=== PATIENT | male | born 1945 | race Caucasian/White ===

== ENCOUNTER 2020-08-25 14:09 | Outpatient (REF) | payer MEDICARE, SELFPAY ==
[2020-08-25 14:42] LABS: MANUAL DIFF FLAG NO
[2020-08-25 14:45] LABS: Basophils Absolute Auto 0.1 X10*3/uL (0.0-0.2); Basophils Percent Auto 0.5 % (0-2); Eosinophils Absolute Auto 0.4 X10*3/uL (0.0-0.4); Eosinophils Percent Auto 4.4 % (0-4); Hemoglobin 15.4 g/dl (14.0-18.0); Imm Gran Abs Auto 0.07 X10*3/uL (0.00-0.03); Imm Gran Pct Auto 0.7 % (0.0-0.4); Lymphocytes Absolute Auto 1.5 X10*3/uL (1.2-4.9); Lymphocytes Percent Auto 14.7 % (20-40); Mean Corpuscular HGB Conc 34.2 g/dl (31.0-36.0); Mean Corpuscular Hemoglobin 31.1 pg (27.0-33.0); Mean Corpuscular Volume 90.9 fL (80-98); Mean Platelet Volume 10.3 fL (9.4-12.4); Monocytes Absolute Auto 0.8 X10*3/uL (0.1-1.2); Neutrophils Absolute Auto 7.2 X10*3/uL (2.0-8.3); Neutrophils Percent Auto 71.7 % (45-73); Platelet Count 180 X10*3/uL (160-400); Red Blood Count 4.95 X10*6/uL (4.60-5.80); Red Cell Distribution Width 13.5 % (11.0-16.0)
[2020-08-25 15:04] LABS: Alanine Aminotransferase 19 U/L (0-40); Albumin Level 3.7 g/dL (3.5-5.0); Alkaline Phosphatase 105 U/L (39-117); Anion Gap 12 (12-20); Aspartate Amino Transferase 22 U/L (5-37); Bilirubin Total 0.7 mg/dL (0.0-1.0); Blood Urea Nitrogen 20 mg/dL (9-16); Calcium 8.7 mg/dL (8.4-10.2); Carbon Dioxide 31 mmol/L (22-29); Chloride 100 mmol/L (96-108); Cholesterol 122 mg/dL; Estimated Glomerular Filt Rate > 60; Glucose Random 163 mg/dL (60-115); HDL Cholesterol 37 mg/dL; LDL Cholesterol Calculated 52 mg/dl; Potassium 3.9 mmol/L (3.3-5.1); Sodium 139 mmol/L (135-145); Total Protein 6.7 g/dL (6.5-8.0); Triglycerides 167 mg/dL
[2020-08-25 15:27] LABS: Free T4 (Free Thyroxine) 1.04 ng/dL (0.71-1.85); Thyroid Stimulating Hormone 3.98 uIU/mL (0.32-4.0)
[2020-08-25 15:52] LABS: Folate > 20.0 ng/mL (> or = 4.0); Vitamin B12 694 pg/mL (200-900)
== END 2020-08-25 14:10 | disposition home or self-care (01) ==
LOC: HO.LAB 14:09
PROVIDERS: PCP Internal Medicine; Visit Provider Internal Medicine
DX: I25.10 Atherosclerotic heart disease of native coronary artery without angina pectoris (principal); I10 Essential (primary) hypertension; E78.00 Pure hypercholesterolemia, unspecified
CPT/HCPCS: 36415; 80053; 80061; 82607; 82746; 84439; 84443; 85025

== ENCOUNTER 2020-11-05 06:51 | Outpatient (REF) | payer MEDICARE, SELFPAY ==
[2020-11-05 09:10] LABS: Cholesterol 127 mg/dL; HDL Cholesterol 42 mg/dL; LDL Cholesterol Calculated 66 mg/dl; Triglycerides 96 mg/dL
== END 2020-11-05 06:52 | disposition home or self-care (01) ==
LOC: HO.LAB 06:51
PROVIDERS: PCP Internal Medicine; Visit Provider Internal Medicine Cardiovascular Disease
DX: I10 Essential (primary) hypertension (principal)
CPT/HCPCS: 36415; 80061

== ENCOUNTER 2021-11-09 08:16 | Outpatient (REF) | payer MEDICARE, SELFPAY ==
[2021-11-09 08:38] LABS: MANUAL DIFF FLAG NO
[2021-11-09 08:54] LABS: Basophils Percent Auto 0.4 % (0-2); Eosinophils Absolute Auto 0.5 X10*3/uL (0.0-0.4); Eosinophils Percent Auto 6.6 % (0-4); Hematocrit 46.2 % (42.0-52.0); Hemoglobin 15.7 g/dl (14.0-18.0); Imm Gran Abs Auto 0.04 X10*3/uL (0.00-0.03); Imm Gran Pct Auto 0.5 % (0.0-0.4); Lymphocytes Absolute Auto 1.3 X10*3/uL (1.2-4.9); Lymphocytes Percent Auto 17.9 % (20-40); Mean Corpuscular Hemoglobin 30.8 pg (27.0-33.0); Mean Corpuscular Volume 90.8 fL (80.0-98.0); Monocytes Absolute Auto 0.7 X10*3/uL (0.1-1.2); Monocytes Percent Auto 8.8 % (2-11); Neutrophils Absolute Auto 4.9 x10*3/uL (2.0-8.3); Neutrophils Percent Auto 65.8 % (45-73); Platelet Count 147 X10*3/uL (160-400); Red Blood Count 5.09 X10*6/uL (4.60-5.80); Red Cell Distribution Width 13.4 % (11.0-16.0); White Blood Count 7.4 X10*3/uL (4.8-10.8)
[2021-11-09 09:01] LABS: Estimated Average Glucose 114 mg/dL; Hemoglobin A1c % 5.6 %
[2021-11-09 09:24] LABS: Alanine Aminotransferase 20 U/L (0-40); Albumin Level 3.8 g/dL (3.5-5.0); Alkaline Phosphatase 89 U/L (39-117); Anion Gap 11 (12-20); Aspartate Amino Transferase 21 U/L (5-37); Bilirubin Total 0.9 mg/dL (0.0-1.0); Blood Urea Nitrogen 18 mg/dL (9-16); Calcium 9.5 mg/dL (8.4-10.2); Carbon Dioxide 31 mmol/L (22-29); Chloride 102 mmol/L (96-108); Cholesterol 115 mg/dL; Estimated Glomerular Filt Rate > 60; Glucose Random 110 mg/dL (60-115); HDL Cholesterol 36 mg/dL; LDL Cholesterol Calculated 58 mg/dl; Potassium 4.5 mmol/L (3.3-5.1); Sodium 139 mmol/L (135-145); Total Protein 6.8 g/dL (6.5-8.0); Triglycerides 105 mg/dL
[2021-11-09 09:47] LABS: Free T4 (Free Thyroxine) 1.14 ng/dL (0.71-1.85); Thyroid Stimulating Hormone 5.16 uIU/mL (0.32-4.0)
[2021-11-09 09:58] LABS: Folate > 20.0 ng/mL (> or = 4.0); Vitamin B12 > 2000 pg/mL (200-900)
== END 2021-11-09 08:17 | disposition home or self-care (01) ==
LOC: HO.LAB 08:16
PROVIDERS: PCP Internal Medicine; Visit Provider Internal Medicine
DX: E78.00 Pure hypercholesterolemia, unspecified (principal); C18.9 Malignant neoplasm of colon, unspecified; R73.02 Impaired glucose tolerance (oral)
CPT/HCPCS: 36415; 80053; 80061; 82378; 82607; 82746; 83036; 84439; 84443; 85025

== ENCOUNTER 2022-01-18 12:24 | Outpatient (REF) | payer MEDICARE, SELFPAY ==
[2022-01-18 14:00] LABS: Free T4 (Free Thyroxine) 1.06 ng/dL (0.71-1.85); Thyroid Stimulating Hormone 3.77 uIU/mL (0.32-4.0)
== END 2022-01-18 12:25 | disposition home or self-care (01) ==
LOC: HO.LAB 12:24
PROVIDERS: PCP Internal Medicine; Visit Provider Internal Medicine
DX: R94.6 Abnormal results of thyroid function studies (principal)
CPT/HCPCS: 36415; 84439; 84443

== ENCOUNTER 2022-04-18 | Outpatient (REF) | payer MEDICARE, SELFPAY ==
--- NOTE | ~2022-04-18 | CT_ITS ---
EXAMINATION: CT ABDOMEN AND PELVIS WITHOUT AND WITH CONTRAST CLINICAL INFORMATION: History of bladder cancer COMPARISON: Previous CT of the abdomen and pelvis from 2016 and 2017 TECHNIQUE: Noncontrast CT of the abdomen and pelvis is performed followed by split bolus contrast-enhanced images using 85 mL Omnipaque 350 contrast.? Postcontrast imaging is performed during the combined nephrogram and excretion phase. Sagittal and coronal reformatted images were obtained on the technologist's workstation for both the precontrast and postcontrast phases. This CT examination was performed using dose optimization techniques as appropriate, variously including the following: *Automated exposure control *Adjustment of mA and/or kV according to patient size (this includes techniques or standardized protocols for targeted exams where dose is matched to indication/reason for exam; i.e. extremities or head) *Use of iterative reconstruction technique DLP: 07/23/2005 mGy-cm FINDINGS: LUNG BASES: There is a 3 mm right lower lobe nodule, axial image 5 series 8. This is similar to previous exams. The lung bases are otherwise clear. LIVER, GALLBLADDER, AND BILIARY TREE: There are small calcifications in the liver. The liver is otherwise normal. No focal liver lesion or biliary duct dilatation. There are gallstones in the gallbladder. The gallbladder is otherwise normal. PANCREAS: Unremarkable. SPLEEN: The spleen is slightly enlarged measuring 13.5 cm in length. There are small calcifications in the spleen suggestive of old granulomatous disease. ADRENAL GLANDS: Unremarkable. KIDNEYS AND URETERS: The right kidney measures 10 and the left 11.5 cm in length. There is mild cortical thinning or scarring in the upper pole of the right kidney. There is a small subcentimeter low-attenuation lesion in the lower pole of the right kidney probably representing a cyst. This is similar to previous exam. The kidneys are otherwise normal. No hydronephrosis is seen. The collecting systems are normal. The bilateral mid ureters are not optimally opacified with excreted contrast. The ureters are otherwise normal. BLADDER: There is a small right-sided bladder diverticulum posterior to the right UVJ region. There is mild focal bladder wall thickening of the right posterolateral bladder wall adjacent to the neck of the diverticulum and the diverticulum does not completely fill with excreted contrast. There is abnormal soft tissue at the base of the bladder, presumably related to the prostate gland. The bladder is otherwise normal. There is diverticulosis of the colon. There is wall thickening of the sigmoid colon and it is difficult to exclude mild diverticulitis. There are postsurgical changes with surgical staple line seen in the right colon. There is an enterocolic anastomosis in the right mid abdomen. Small and large bowel are otherwise normal. GASTROINTESTINAL TRACT: The small and large bowel are unremarkable. The appendix is unremarkable. ABDOMINAL WALL: Bilateral hernias containing fat, right greater than left. Postsurgical changes to the abdominal wall. LYMPH NODES: Normal. VASCULAR: Atherosclerotic disease. No aneurysm. PELVIC VISCERA: Prostate gland is slightly enlarged measuring 3.7 x 4.3 cm and protrudes into the base of the bladder. OSSEUS STRUCTURES: There are degenerative changes of the spine and right hip joint that are stable. CT/CT urogram IMPRESSION: Small right-sided bladder diverticulum posterior to the right UVJ region. Mild focal right posterolateral bladder wall thickening adjacent to the neck of the diverticulum and underfilling of the diverticulum with excreted contrast. Abnormal soft tissue at the base of the bladder presumably related to the prostate gland. Small stable low-attenuation lesion in the lower pole of the right kidney probably representing a cyst. Diverticulosis of the sigmoid colon. It is difficult to exclude mild diverticulitis. Postsurgical change following right hemicolectomy. Gallstones. Evidence of old granulomatous disease in the spleen and liver. Stable small right lower lobe nodule.
[2022-04-18 07:44] LABS: Blood Urea Nitrogen 24 mg/dL (9-16); Estimated Glomerular Filt Rate 58
[2022-04-18] MEDS: iohexoL 350 MG/ML 100 ML INFUS..BTL IV (08:47)
== END 2022-04-18 00:01 | disposition home or self-care (01) ==
LOC: HO.CT
PROVIDERS: PCP Internal Medicine; Visit Provider Urology
DX: R82.89 Other abnormal findings on cytological and histological examination of urine (principal); Z85.51 Personal history of malignant neoplasm of bladder
CPT/HCPCS: 36415; 74178; 82565; 84520; Q9967

== ENCOUNTER 2022-07-13 09:12 | Outpatient (REF) | payer MEDICARE, SELFPAY ==
--- NOTE | ~2022-07-13 | XR_ITS ---
EXAMINATION: XR KNEES, STANDING AP BILATERAL XR KNEE, RIGHT CLINICAL INFORMATION: Knee pain COMPARISON: Radiographs right knee 09/29/2019. TECHNIQUE: Bilateral standing AP view of the knees is performed. Additional lateral and axial patella views of the right knee are obtained. FINDINGS: Right: No fracture, dislocation, destructive process. There is narrowing medial knee joint compartment with mild genu varus. Mild marginal osteophytes lateral femoral condyle and lateral tibial plateau. No destructive process or definite chondrocalcinosis. No visible effusion. Hoffa's fat pad appears normal. Axial view shows no lateralization patella. There are atherosclerotic calcifications vasculature. Left: Osteoarthritis greatest medial knee joint compartment with prominent joint narrowing and secondary genu varus. Mild marginal osteophytes. No visible erosive change. XR/XR knee standing BI IMPRESSION: Right: -Narrowing medial knee joint compartment with mild genu varus. No effusion. -Atherosclerotic calcifications vasculature. Left: -Osteoarthritis greatest medial compartment with secondary genu varus.
--- NOTE | ~2022-07-13 | XR_ITS ---
EXAMINATION: XR KNEES, STANDING AP BILATERAL XR KNEE, RIGHT CLINICAL INFORMATION: Knee pain COMPARISON: Radiographs right knee 09/29/2019. TECHNIQUE: Bilateral standing AP view of the knees is performed. Additional lateral and axial patella views of the right knee are obtained. FINDINGS: Right: No fracture, dislocation, destructive process. There is narrowing medial knee joint compartment with mild genu varus. Mild marginal osteophytes lateral femoral condyle and lateral tibial plateau. No destructive process or definite chondrocalcinosis. No visible effusion. Hoffa's fat pad appears normal. Axial view shows no lateralization patella. There are atherosclerotic calcifications vasculature. Left: Osteoarthritis greatest medial knee joint compartment with prominent joint narrowing and secondary genu varus. Mild marginal osteophytes. No visible erosive change. XR/XR knee RT 2V IMPRESSION: Right: -Narrowing medial knee joint compartment with mild genu varus. No effusion. -Atherosclerotic calcifications vasculature. Left: -Osteoarthritis greatest medial compartment with secondary genu varus.
--- NOTE | ~2022-07-13 | XR_ITS ---
EXAMINATION: XR PELVIS CLINICAL INFORMATION: Hip pain COMPARISON: CT abdomen and pelvis 04/18/2022 TECHNIQUE: AP view of the pelvis. FINDINGS: There is prominent right hip osteoarthritis with severe hip joint narrowing superior aspect along with subchondral sclerosis and geodes in osteophytes. Left hip has corticated ossicle or loose body superiorly anterior to the femoral head measuring approximately 1.5 cm. No interval left hip narrowing or erosive change. There are degenerative disc changes lower lumbar spine and osteoarthritis anterior inferior SI joints. Mild osteitis pubis. Spurring at the lateral iliac crests again present. There are atherosclerotic calcifications vasculature. XR/XR pelvis 1-2V IMPRESSION: 1. Prominent right hip osteoarthritis. 2. Corticated ossicle or loose body anterior superior left hip. 3. Degenerative disc changes lower lumbar spine and SI joints.
== END 2022-07-13 09:13 | disposition home or self-care (01) ==
LOC: HO.HOSX 09:12
PROVIDERS: Visit Provider Orthopaedic Surgery
DX: M16.11 Unilateral primary osteoarthritis, right hip (principal); M17.11 Unilateral primary osteoarthritis, right knee; I25.10 Atherosclerotic heart disease of native coronary artery without angina pectoris
CPT/HCPCS: 72170; 73560; 73565; 99202

== ENCOUNTER → 2022-08-07 14:20 | Outpatient (BNVA) | payer MEDICARE, SELFPAY | PROVIDERS: PCP Internal Medicine; Visit Provider Internal Medicine | DX: M51.36 Other intervertebral disc degeneration, lumbar region (principal); M16.11 Unilateral primary osteoarthritis, right hip; M17.11 Unilateral primary osteoarthritis, right knee; M48.062 Spinal stenosis, lumbar region with neurogenic claudication | CPT/HCPCS: 99202 ==

== ENCOUNTER 2022-09-28 08:00 | Outpatient (RCR) | payer MEDICARE, SELFPAY ==
[2022-09-07 07:11] VITALS: BP 140/80
--- NOTE | 2022-10-19 08:58 | MHC.PT.DC ---
[facility] [place] Office [place] Office [place] Office [address] Sheyla Lopez [address] [phone] F: [phone] F: [phone] F: [phone] F: [phone] Physical Therapy Discharge Report Diagnosis: LOW BACK, HIP AND KNEE PAIN Date of Surgery: Date of Evaluation: 09/06/22 Date of Discharge: 10/19/22 Treatments to Date: 2 Cancellations to Date: 2 No Shows to Date: 2 Discharge Status: Visit Non-compliance Discharge Summary: Pavan attended only 2 visits of physical therapy, cancelling 2 and no showing for 2. He is being DCed for non compliance at this time. Electronically signed by: María Elena Cheek PT, DPT Please sign and return to therapist. Thank you for your referral.
== END 2022-10-19 08:57 | disposition home or self-care (01) ==
LOC: HO.PT 08:00
PROVIDERS: Visit Provider Nurse Practitioner Family
DX: M54.9 Dorsalgia, unspecified (principal); M16.11 Unilateral primary osteoarthritis, right hip; M17.11 Unilateral primary osteoarthritis, right knee; M51.36 Other intervertebral disc degeneration, lumbar region
CPT/HCPCS: 97110; 97162

== ENCOUNTER → 2023-01-15 14:19 | Outpatient (BNVA) | payer MEDICARE, SELFPAY | PROVIDERS: PCP Internal Medicine; Visit Provider Orthopaedic Surgery | DX: M25.561 Pain in right knee (principal); M16.11 Unilateral primary osteoarthritis, right hip; I25.10 Atherosclerotic heart disease of native coronary artery without angina pectoris | CPT/HCPCS: 20610; 99212; J1100 ==

== ENCOUNTER → 2023-03-07 15:23 | Outpatient (BNVA) | payer MEDICARE, SELFPAY | PROVIDERS: PCP Internal Medicine; Visit Provider Orthopaedic Surgery ==

== ENCOUNTER 2023-07-05 07:11 | Outpatient (AMB) | payer MEDICARE, SELFPAY ==
[2023-07-05 07:29] VITALS: BP 140/80; PULSE 97; O2SAT 64; BMI 35.8
--- NOTE | 2023-07-05 07:29 | MHC.PC.OV ---
Vital Signs 07/05/23 07:29 Height 5 ft 8 in Weight 235 lb 4 oz BMI 35.8 BP 140/80 H Blood Pressure Location Lt brachial Position Sitting Pulse 97 Pulse Source Pulse Oximeter Pulse Oximetry (%) 64 L Oxygen Delivery Method Room Air Intake Visit Reasons: Annual Physical Intake Note: Patient here for an annual physical exam Punch Out Crew Member Required: No Accompanied by: Self / Same As Patient Allergies streptomycin [STREPTOMYCIN] Allergy (Severe, Verified 07/05/23 07:41) AFFECTED MY HEARING , anaphylaxis, affected hearing/nerves/etc, anxiety. Medication List - Last Reconciled 07/05/23 by ARNULFO Bhatti aspirin (Adult Aspirin Regimen) 81 mg PO DAILY atorvastatin 80 mg PO DAILY carvedilol 25 mg PO BID cholecalciferol (vitamin D3) 50 mcg PO DAILY diclofenac sodium 1% (Arthritis Pain (diclofenac)) 2 grams topical QID PRN finasteride 5 mg PO DAILY losartan-hydrochlorothiazide 100-25 mg 1 tab PO DAILY 90 days multivitamin 1 tab PO DAILY nitroglycerin mg sublingual vitamin B complex (B Complex-Vitamin B12 tablet) 1 tab PO DAILY Tobacco use date assessed: 07/05/23 Fall risk assessment: No Falls in past year Last assessed Fall Risk: 07/05/23 Dental Screening Dental Screen Date: 07/05/23 Did you have a dental visit in the last 12 months?: No Did you have a dental problem in the last 6 months where you did not have access to dental care?: No Was dental information given to patient?: Patient declined HPI HPI Comments History of Present Illness Details 77-year-old male past history significant for CAD, hypertension, hypercholesteremia, GERD, BPH impaired glucose tolerance, parents esophagus, anxiety and depression. Patient presents today for physical exam. Patient reports ongoing right knee pain related to his osteoarthritis. Patient reports takes [id number] Tylenol and ibuprofen as needed for pain. If he has seen pain management for this in the past and he was recommended to start on gabapentin however he does not want to take medications that could potentially alter his mood. Patient reports he needs surgery on right hip and likely his right knee however he is currently taking care of his 98-year-old father in law and he is holding off from the hip surgery at this time. Eye:UTD Colonscopy: 07/08/23; tubular adenoma Flu shot recommended patient reports will get >65yr dose at his pharmacy. All other immunizations UTD Fasting labs ordered. [facility] Medical History COVID-19 virus infection Amebic dysentery Foreign body of left lower leg Left rotator cuff tear Barretts esophagus Osteoarthritis Peripheral neuropathy Anxiety and depression Colon cancer Impaired glucose tolerance BPH (benign prostatic hyperplasia) Urinary bladder cancer Obesity GERD (gastroesophageal reflux disease) Hypercholesterolemia Hypertension CAD (coronary artery disease) Surgical History History of surgery History of partial colectomy History of bladder surgery History of carpal tunnel release Family History Father Heart failure Mother Thyroid disorder Sister Lung cancer Daughter Alcoholism Social History Housing: House Alcohol intake: former Patient Tobacco Use Status: Former Tobacco user e-Cigarette/Vaping Use: Never Used Second Hand Smoke Exposure: Yes service: Yes Current occupational status: retired Cognitive needs: No Hearing needs: Yes Vision needs: Yes Questionnaire PHQ-9 Over the last 2 weeks, how often have you been bothered by any of the following problems? 1. Little interest or pleasure in doing things: not at all 2. Feeling down, depressed, or hopeless: not at all 3. Trouble falling or staying asleep, or sleeping too much: not at all 4. Feeling tired or having little energy: not at all 5. Poor appetite or overeating: not at all 6. Feeling bad about yourself - or that you are a failure or have let yourself or your family down: not at all 7. Trouble concentrating on things, such as reading the newspaper or watching television: not at all 8. Moving or speaking so slowly that other people could have noticed. Or the opposite - being so fidgety or restless that you have been moving around a lot more than usual: not at all 9. Thoughts that you would be better off or of hurting yourself in some way: not at all Total score: 0 Depression Screening Interpretation: Negative Depression Screening Done: Yes 01700 - PHQ-9 Billing: Yes Source: Developed by Drs. Mckinley Ahn, Shanna Nice, Monico Pérez and colleagues, with an educational saul from [employer]. Thrive Questionnaire Date Thrive assessed: 07/05/23 I am a: Patient What is your living situation today?: I have a steady place to live Within the past 12 months, did the food you bought not last and you didn't have the money to get more?: Never true Within the past 12 months, did you worry whether your food would run out before you got money to buy more?: Never true Do you have trouble paying for medicines?: No Do you have trouble getting transportation to medical appointments?: No Do you have trouble paying your heating and electricity bill?: No Do you have trouble taking care of your child, family member or friend?: No Do you have trouble with day-to-day activities such as bathing, preparing meals, shopping, managing finances, etc.?: No Are you currently unemployed and looking for a job?: No Are you interested in more education?: No Please select the resources that you would like help with: None Currently or been in a relationship where the following occur: no concerns reported AUDIT C Alcohol Use Questionnaire (AUDIT-C) 1. How often do you have a drink containing alcohol?: Never Total Score: 0 MIKAYLA-7 AMB Questionnaire MIKAYLA-7 Date MIKAYLA - 7 assessed: 07/05/23 Feeling nervous, anxious, or on edge: 0 = Not at all Not being able to stop or control worryin = Not at all Worrying too much about different things: 0 = Not at all Trouble relaxin = Not at all Being so restless that it is hard to sit still: 0 = Not at all Becoming easily annoyed or irritable: 0 = Not at all Feeling afraid as if something awful might happen: 0 = Not at all Total MIKAYLA-7 score (0-4 normal; 5-9 mild; 10-14 moderate; 15-21 severe): 0 Source: Developed by Drs. Mckinley Ahn, Monico Aguilar and colleagues, with an educational saul from [employer]. MIKAYLA-7 Assessment Billing MIKAYLA-7 Assessment Tool: MIKAYLA-7 Assessment 11271 Review of Systems Const Denies chills, Denies fatigue, Denies fever(s) and Denies poor appetite Eyes Denies no additional complaints ENT Reports Normal hearing present Card Denies chest pain, Denies syncope, Denies rapid heart rate and Denies dyspnea Resp Denies cough and Denies dyspnea GI Denies change in stool character, Denies constipation, Denies diarrhea, Denies nausea and Denies vomiting Denies dysuria, Denies urinary frequency and Denies urinary urgency Neuro Reports Normal hearing present, Denies confusion and Denies syncope Psych Denies confusion Endo Denies fatigue Physical exam (Primary Care) Vital Signs: Last Vital Signs Pulse 97 07/05/23 07:29 BP 140/80 H 07/05/23 07:29 Pulse Ox 64 L 07/05/23 07:29 Oxygen Delivery Method Room Air 07/05/23 07:29 BMI result Body Mass Index 35.8 Tobacco/Smoking Status: Tobacco use Status Tobacco use date assessed 07/05/23 07/05/23 07:34 Patient Tobacco Use Status Former Tobacco user 07/05/23 07:34 e-Cigarette/Vaping Use Never Used 07/05/23 07:34 PHQ-9: PHQ-9 Score PHQ-9: Total score 0 07/05/23 07:34 Depression Screening Interpretation: Negative Thrive Assessment: Date of Thrive Assessment Date Thrive assessed 07/05/23 07/05/23 07:34 Currently or been in a relationship where the following occur: no concerns reported Const General: No confusion Orientation/consciousness: No confusion HENMT Head: Yes normocephalic and Yes atraumatic Ears: external ears normal and TM's normal bilaterally General nose exam: Normal external nose present and Normal nasal mucous membranes and turbinates present Face and sinus: Yes normal facial exam and Yes sinuses nontender Mouth: moist mucous membranes Throat: Yes tonsils normal Eyes Conjunctivae: conjunctivae normal Sclerae: sclerae normal Pupils: Equal, round and reactive pupils present and Pupils normal by confrontation EOM: EOMs intact bilaterally Direct Ophthalmoscopy: normal light reflex Neck Neck: Yes no lymphadenopathy and Yes supple Thyroid: Thyroid normal Chest Chest palpation & inspection: normal inspection of the chest Resp Effort & Inspection: normal respiratory effort Auscultation: clear to auscultation bilaterally, no crackles, no rhonchi and no wheezes Cardio Rate: regular rate Rhythm: regular rhythm Peripheral pulses: radial pulses present and dorsalis pedis present GI Inspection: Yes normal to inspection Palpation (GI): Soft to palpation, nontender and No hepatosplenomegaly present Auscultation: normoactive bowel sounds Skin General skin exam: no rashes or lesions noted Neuro General: No confusion Cranial nerves: Yes Equal, round and reactive pupils present and Yes Normal hearing present Cognition (Neuro): normal cognition Gait exam (Neuro): Normal gait present Motor exam (neuro): 5/5 motor strength present throughout Deep tendon reflexes (DTR's): Right brachioradialis reflex intensity grade: 2+, Left brachioradialis reflex intensity grade: 2+, Right patellar reflex intensity grade: 2+ and Left patellar reflex intensity grade: 2+ Extrem General: No edema Assessment and Plan Assessment & Plan (1) Hypertension: Code(s): I10 - Essential (primary) hypertension Qualifiers: Hypertension type: essential hypertension Qualified Code(s): I10 - Essential (primary) hypertension Plan: Continue on losartan-hydrochlorothiazide and carvedilol. Blood pressure goal less than 140/90. Follow low-salt diet exercise. (2) Hypercholesterolemia: Code(s): E78.00 - Pure hypercholesterolemia, unspecified Plan: Continue on atorvastatin 80 mg daily. Avoid fried foods, chicken skin, eggs, butter,margarine, pastries and?? red meat. Fasting labs ordered. (3) Osteoarthritis of right hip: Code(s): M16.11 - Unilateral primary osteoarthritis, right hip Plan: Continue to take [id number] Tylenol and ibuprofen as needed for pain. (4) Osteoarthritis of right knee: Code(s): M17.11 - Unilateral primary osteoarthritis, right knee Plan: Continue to take [id number] Tylenol and ibuprofen as needed for pain. (5) CAD (coronary artery disease): Comment: MRI stent x3(LAD, OM, RCA) April and June 2014 [facility] Code(s): I25.10 - Atherosclerotic heart disease of [place] coronary artery without angina pectoris Qualifiers: Coronary Disease-Associated Artery/Lesion type: [place] artery [place] vs. transplanted heart: [place] heart Associated angina: without angina Qualified Code(s): I25.10 - Atherosclerotic heart disease of [place] coronary artery without angina pectoris Plan: Continue on aspirin and statin. (6) Physical exam, annual: Code(s): Z00.00 - Encounter for general adult medical examination without abnormal findings Orders: Orders Comprehensive [place]. Panel Fast Today I10 - Essential (primary) hypertension Complete Blood Count Auto Diff Today Z13.0 - Encounter for screening for diseases of the blood and blood-forming organs and certain disorders involving the immune mechanism Lipid Panel Today E78.00 - Pure hypercholesterolemia, unspecified UA CC w/rflx Micro + Cult Today E78.00 - Pure hypercholesterolemia, unspecified Coding Level of Care Code Est Pt Prev Care >65y(32551) Diagnoses Essential hypertension I10 Hypertension type: essential hypertension Hypercholesterolemia E78.00 Osteoarthritis of right hip M16.11 Osteoarthritis of right knee M17.11 Coronary artery disease involving [place] coronary artery of [place] heart without angina pectoris I25.10 Coronary Disease-Associated Artery/Lesion type: [place] artery [place] vs. transplanted heart: [place] heart Associated angina: without angina Physical exam, annual Z00.00 Additional Codes MIKAYLA-7 Assessment Billing - MIKAYLA-7 Assessment Tool: MIKAYLA-7 Assessment 41084 ([id number])
== END 2023-07-05 07:55 | disposition home or self-care (01) ==
PROVIDERS: PCP Internal Medicine; Visit Provider Nurse Practitioner Family
DX: I10 Essential (primary) hypertension (principal); E78.00 Pure hypercholesterolemia, unspecified; M16.11 Unilateral primary osteoarthritis, right hip; M17.11 Unilateral primary osteoarthritis, right knee; I25.10 Atherosclerotic heart disease of native coronary artery without angina pectoris; Z00.00 Encounter for general adult medical examination without abnormal findings
CPT/HCPCS: 99397

== ENCOUNTER 2023-07-20 07:54 | Outpatient (REF) | payer MEDICARE, SELFPAY ==
[2023-07-20 08:13] LABS: MANUAL DIFF FLAG NO
[2023-07-20 08:18] LABS: Basophils Absolute Auto 0.1 X10*3/uL (0.0-0.2); Basophils Percent Auto 0.7 % (0-2); Eosinophils Absolute Auto 0.5 X10*3/uL (0.0-0.4); Eosinophils Percent Auto 5.6 % (0-4); Hematocrit 45.7 % (42.0-52.0); Hemoglobin 15.6 g/dl (14.0-18.0); Imm Gran Abs Auto 0.04 X10*3/uL (0.00-0.03); Imm Gran Pct Auto 0.5 % (0.0-0.4); Lymphocytes Absolute Auto 1.3 X10*3/uL (1.2-4.9); Lymphocytes Percent Auto 15.6 % (20-40); Mean Corpuscular HGB Conc 34.1 g/dl (31.0-36.0); Mean Corpuscular Volume 90.9 fL (80.0-98.0); Monocytes Absolute Auto 0.7 X10*3/uL (0.1-1.2); Monocytes Percent Auto 8.7 % (2-11); Neutrophils Absolute Auto 5.9 x10*3/uL (2.0-8.3); Neutrophils Percent Auto 68.9 % (45-73); Platelet Count 169 X10*3/uL (160-400); Red Blood Count 5.03 X10*6/uL (4.60-5.80); Red Cell Distribution Width 13.2 % (11.0-16.0); White Blood Count 8.5 X10*3/uL (4.8-10.8)
[2023-07-20 08:46] LABS: Alanine Aminotransferase 19 U/L (0-40); Albumin Level 3.9 g/dL (3.5-5.0); Alkaline Phosphatase 89 U/L (39-117); Anion Gap 12 (12-20); Aspartate Amino Transferase 22 U/L (5-37); Bilirubin Total 0.7 mg/dL (0.0-1.0); Blood Urea Nitrogen 26 mg/dL (9-16); Calcium 9.3 mg/dL (8.4-10.2); Carbon Dioxide 30 mmol/L (22-29); Chloride 102 mmol/L (96-108); Cholesterol 131 mg/dL (<200); Estimated Glomerular Filt Rate > 60; Glucose Fasting 115 mg/dL (60-99); HDL Cholesterol 40 mg/dL (>40); LDL Cholesterol Calculated 69 mg/dL (<100); Potassium 3.6 mmol/L (3.3-5.1); Sodium 140 mmol/L (135-145); Total Protein 7.1 g/dL (6.5-8.0); Triglycerides 111 mg/dL (<150)
[2023-07-20 09:07] LABS: Appearance Urine Clear; Color Urine Yellow; Glucose Urine UA Negative (Negative); Leukocyte Esterase Urine Negative (Negative); Nitrite Urine Negative (Negative); PH 5.5 (5.0-9.0); UMIC TRIGGER UACC YES; Urine Blood Trace (Negative); Urine Ketones Negative (Negative); Urine Protein Negative (Neg-Trace)
[2023-07-20 09:13] LABS: Bacteria Urine None Seen (None Seen); Hyaline Casts Urine 0-2 /LPF (0-2); Squamous Epithelial Cell Urine 0-2 /HPF (0-2); WBC Urine 0-5 /HPF (0-5)
== END 2023-07-20 07:55 | disposition home or self-care (01) ==
LOC: HO.LAB 07:54
PROVIDERS: PCP Internal Medicine; Visit Provider Nurse Practitioner Family
DX: E78.00 Pure hypercholesterolemia, unspecified (principal); I10 Essential (primary) hypertension; Z13.0 Encounter for screening for diseases of the blood and blood-forming organs and certain disorders involving the immune mechanism
CPT/HCPCS: 36415; 80053; 80061; 81001; 81003; 85025

== ENCOUNTER → 2023-08-07 08:14 | Outpatient (BNVA) | payer MEDICARE, SELFPAY | PROVIDERS: PCP Internal Medicine; Visit Provider Orthopaedic Surgery ==

== ENCOUNTER → 2023-08-14 09:50 | Outpatient (REF) | payer MEDICARE, SELFPAY ==
--- NOTE | 2023-08-14 09:56 | ECG_ITS ---
Test Reason : PREOP Blood Pressure : / mmHG Vent. Rate : 061 BPM Atrial Rate : 061 BPM P-R Int : 162 ms QRS Dur : 084 ms QT Int : 402 ms P-R-T Axes : 052 026 -49 degrees QTc Int : 404 ms Normal sinus rhythm ST & T wave abnormality, consider anterolateral ischemia Abnormal ECG When compared with ECG of 25-DEC-2017 11:42, T wave inversion now evident in Anterior leads Referred By: Franco Juarez Electronically Signed By:Mumtaz Allan
[2023-08-14 10:21] LABS: MANUAL DIFF FLAG NO
[2023-08-14 11:15] LABS: Basophils Percent Auto 0.4 % (0-2); Eosinophils Absolute Auto 0.4 X10*3/uL (0.0-0.4); Eosinophils Percent Auto 4.6 % (0-4); Hematocrit 44.4 % (42.0-52.0); Hemoglobin 15.2 g/dl (14.0-18.0); Imm Gran Abs Auto 0.05 X10*3/uL (0.00-0.03); Imm Gran Pct Auto 0.5 % (0.0-0.4); Lymphocytes Absolute Auto 1.4 X10*3/uL (1.2-4.9); Lymphocytes Percent Auto 15.8 % (20-40); Mean Corpuscular HGB Conc 34.2 g/dl (31.0-36.0); Mean Corpuscular Hemoglobin 31.5 pg (27.0-33.0); Mean Corpuscular Volume 91.9 fL (80.0-98.0); Mean Platelet Volume 10.5 fL (9.4-12.4); Monocytes Absolute Auto 0.8 X10*3/uL (0.1-1.2); Monocytes Percent Auto 9.1 % (2-11); Neutrophils Absolute Auto 6.3 x10*3/uL (2.0-8.3); Neutrophils Percent Auto 69.6 % (45-73); Platelet Count 154 X10*3/uL (160-400); Red Blood Count 4.83 X10*6/uL (4.60-5.80); Red Cell Distribution Width 13.6 % (11.0-16.0); White Blood Count 9.1 X10*3/uL (4.8-10.8)
[2023-08-14 12:33] LABS: Anion Gap 11 (12-20); Blood Urea Nitrogen 26 mg/dL (9-16); Calcium 9.3 mg/dL (8.4-10.2); Carbon Dioxide 30 mmol/L (22-29); Chloride 101 mmol/L (96-108); Estimated Glomerular Filt Rate > 60; Glucose Random 114 mg/dL (60-115); Potassium 3.9 mmol/L (3.3-5.1); Sodium 138 mmol/L (135-145)
== END ==
LOC: HO.CARD 09:50
PROVIDERS: PCP Internal Medicine; Visit Provider Internal Medicine
DX: Z01.818 Encounter for other preprocedural examination (principal); M16.11 Unilateral primary osteoarthritis, right hip
CPT/HCPCS: 36415; 80048; 85025; 93005

== ENCOUNTER → 2023-08-14 09:56 | Outpatient (BNV) | payer MEDICARE, SELFPAY | PROVIDERS: PCP Internal Medicine; Visit Provider Internal Medicine Cardiovascular Disease | DX: R94.31 Abnormal electrocardiogram [ECG] [EKG] (principal) | CPT/HCPCS: 93010 ==

== ENCOUNTER 2023-08-21 15:04 | Outpatient (AMB) | payer MEDICARE, SELFPAY ==
[2023-08-21 15:05] VITALS: BP 142/78; PULSE 59; O2SAT 96; BMI 35.3
--- NOTE | 2023-08-21 15:05 | A.OFFPC_ITS ---
Vital Signs 08/21/23 15:05 08/21/23 15:20 Height 5 ft 8 in Weight 232 lb BMI 35.3 BP 142/78 H 134/80 Blood Pressure Location Lt brachial Lt brachial Position Sitting Sitting Pulse 59 Pulse Source Pulse Oximeter Pulse Oximetry (%) 96 Oxygen Delivery Method Room Air Intake Visit Reasons: Pre-Op Right Hip Surgery Intake Note: Patient is here for a Pre-op for right hip JOHANNE scheduled with Dr. Camacho on 08/28/23. Director Of Rehabilitative Services Required: No Allergies streptomycin [STREPTOMYCIN] Allergy (Severe, Verified 08/21/23 15:05) AFFECTED MY HEARING , anaphylaxis, affected hearing/nerves/etc, anxiety. Medication List - Last Reconciled 08/21/23 by Franco Juarez MD aspirin (Adult Aspirin Regimen) 81 mg PO DAILY atorvastatin 80 mg PO BEDTIME carvedilol 25 mg PO BID cholecalciferol (vitamin D3) 50 mcg PO DAILY cyanocobalamin (vitamin B-12) ER (Vitamin B-12 ER) 2,500 mcg PO DAILY diclofenac sodium 1% (Arthritis Pain (diclofenac)) 2 grams topical QID PRN finasteride 5 mg PO BEDTIME losartan-hydrochlorothiazide 100-25 mg 1 tab PO DAILY 90 days multivitamin 1 tab PO DAILY nitroglycerin 0.4 mg sublingual .Q5MINS PRN Tobacco use date assessed: 08/21/23 Fall risk assessment: No Falls in past year Last assessed Fall Risk: 08/21/23 Dental Screening Dental Screen Date: 08/21/23 Did you have a dental visit in the last 12 months?: No Did you have a dental problem in the last 6 months where you did not have access to dental care?: No HPI Pre-Op Right Hip Surgery HPI Details 77-year-old male with a history of hyper tension hypercholesterolemia coronary artery disease with prior PCI of LAD, om and RCA back in 2013. Seen by Cardiology in February 2023 for preoperative risk stratification for hip replacement surgery August 28, 2023 Dr. Camacho. Considered intermediate risk for a moderate risk procedure. Patient has been doing good, deny any syncopal episode but on moving head up feels mild dizziness. last fall 6 months ago. Tripped on the carpet. And before that has not had a fall. [facility] Medical History (Updated 08/21/23 @ 15:16 by Franco Juarez MD) Post-nasal drip Recent bereavement Foreign body in left lower extremity COVID-19 virus infection Amebic dysentery Foreign body of left lower leg Left rotator cuff tear Barretts esophagus Osteoarthritis Peripheral neuropathy Anxiety and depression Colon cancer Impaired glucose tolerance BPH (benign prostatic hyperplasia) Urinary bladder cancer Obesity GERD (gastroesophageal reflux disease) Hypercholesterolemia Hypertension CAD (coronary artery disease) Surgical History (Updated 08/21/23 @ 13:46 by Maria Del Rosario Burleson RN) H/O cardiac catheterization (~2013) Hx of colonoscopy History of partial colectomy History of bladder surgery History of carpal tunnel release Family History Father Heart failure Mother Thyroid disorder Sister Lung cancer Daughter Alcoholism Social History (Updated 08/21/23 @ 15:24 by Franco Juarez MD) Household Members: Family Housing: House Are you a primary home care rn to a significant other at home: No Do you presently have visiting nurse or other home services: No Alcohol intake: former Comment: aware of trip hazards 1984 stopped Patient Tobacco Use Status: Former Tobacco user Quit Date: 1984 Tobacco use type: Cigarette Years Smoked: 18 stopped 1984 e-Cigarette/Vaping Use: Never Used Second Hand Smoke Exposure: No service: Yes Current occupational status: retired Cognitive needs: No Hearing needs: Yes Vision needs: Yes Questionnaire PHQ-9 Over the last 2 weeks, how often have you been bothered by any of the following problems? 1. Little interest or pleasure in doing things: not at all 2. Feeling down, depressed, or hopeless: not at all 3. Trouble falling or staying asleep, or sleeping too much: not at all 4. Feeling tired or having little energy: not at all 5. Poor appetite or overeating: not at all 6. Feeling bad about yourself - or that you are a failure or have let yourself or your family down: not at all 7. Trouble concentrating on things, such as reading the newspaper or watching television: not at all 8. Moving or speaking so slowly that other people could have noticed. Or the opposite - being so fidgety or restless that you have been moving around a lot more than usual: not at all 9. Thoughts that you would be better off or of hurting yourself in some way: not at all Total score: 0 Depression Screening Interpretation: Negative Depression Screening Done: Yes Source: Developed by Drs. Mckinley Ahn, Monico Aguilar and colleagues, with an educational saul from [employer]. Thrive Questionnaire Date Thrive assessed: 08/21/23 I am a: Patient What is your living situation today?: I have a steady place to live Within the past 12 months, did the food you bought not last and you didn't have the money to get more?: Never true Within the past 12 months, did you worry whether your food would run out before you got money to buy more?: Never true Do you have trouble paying for medicines?: No Do you have trouble getting transportation to medical appointments?: No Do you have trouble paying your heating and electricity bill?: No Do you have trouble taking care of your child, family member or friend?: No Do you have trouble with day-to-day activities such as bathing, preparing meals, shopping, managing finances, etc.?: No Are you currently unemployed and looking for a job?: No Are you interested in more education?: No Please select the resources that you would like help with: None THRIVE Score: 0 AUDIT C Alcohol Use Questionnaire (AUDIT-C) 1. How often do you have a drink containing alcohol?: Never 3. How often do you have six or more drinks on one occasion?: Never Total Score: 0 MIKAYLA-7 AMB Questionnaire MIKAYLA-7 Date MIKAYLA - 7 assessed: 08/21/23 Source: Developed by Drs. Mckinley Ahn, Shanna Nice, Monico Pérez and colleagues, with an educational saul from [employer]. Review of Systems Const Denies poor appetite and Denies weakness Eyes Denies no additional complaints ENT Reports Normal hearing present, Denies dizziness, Denies nasal congestion, Denies tinnitus and Denies sore throat Card Denies chest pain, Denies syncope, Denies rapid heart rate and Denies dyspnea Resp Denies cough and Denies dyspnea GI Denies change in stool character, Reports constipation, Denies diarrhea, Denies nausea and Denies vomiting Denies dysuria and Denies urinary frequency Neuro Reports Normal hearing present, Denies confusion, Denies dizziness, Denies syncope and Denies weakness Psych Denies confusion Physical exam (Primary Care) Vital Signs: Last Vital Signs Pulse 59 08/21/23 15:05 BP 142/78 H 08/21/23 15:05 Pulse Ox 96 08/21/23 15:05 Oxygen Delivery Method Room Air 08/21/23 15:05 BMI result Body Mass Index 35.3 Tobacco/Smoking Status: Tobacco use Status Tobacco use date assessed 08/21/23 08/21/23 15:07 Patient Tobacco Use Status Former Tobacco user 08/21/23 15:07 Tobacco use type Cigarette 08/21/23 15:07 e-Cigarette/Vaping Use Never Used 08/21/23 15:07 PHQ-9: PHQ-9 Score PHQ-9: Total score 0 08/21/23 15:07 Depression Screening Interpretation: Negative Thrive Assessment: Date of Thrive Assessment Date Thrive assessed 08/21/23 08/21/23 15:07 Const General: No confusion Orientation/consciousness: No confusion Eyes Conjunctivae: conjunctivae normal Resp Auscultation: clear to auscultation bilaterally Cardio Rate: regular rate Rhythm: regular rhythm GI Inspection: Yes normal to inspection Neuro General: No confusion Cranial nerves: Yes Normal hearing present Extrem General: Yes normal to inspection and No edema Assessment and Plan Assessment & Plan (1) Preop exam for internal medicine: Code(s): Z01.818 - Encounter for other preprocedural examination Plan: EKG and blood work evaluated. Patient is in the intermediate risk category for any cardiac complication for a moderate risk procedure. Discussed holding of aspirin and any anti-inflammatory 1 week before the procedure. Discussed the importance of taking blood pressure medication prior to surgery. No further workup needed and may proceed with the contemplated procedure. Thank you very much for letting me participate in the care of this patient. (2) CAD (coronary artery disease): Comment: MRI stent x3(LAD, OM, RCA) April and June 2014 [facility] Elle burris Code(s): I25.10 - Atherosclerotic heart disease of [place] coronary artery without angina pectoris Qualifiers: Coronary Disease-Associated Artery/Lesion type: [place] artery [place] vs. transplanted heart: [place] heart Associated angina: without angina Qualified Code(s): I25.10 - Atherosclerotic heart disease of [place] coronary artery without angina pectoris Plan: Control the cholesterol, weight, blood pressure (3) Hypertension: Code(s): I10 - Essential (primary) hypertension Qualifiers: Hypertension type: essential hypertension Qualified Code(s): I10 - Essential (primary) hypertension Plan: Continue with blood pressure medication. Decrease salt intake and exercise losartan hydrochlorothiazide 100/25 and carvedilol 25 mg twice a day (4) Hypercholesterolemia: Code(s): E78.00 - Pure hypercholesterolemia, unspecified Plan: Avoid fried foods, chicken skin, eggs, butter margarine, pastries and meat. Be it pork or beef they have a lot of cholesterol LDL goal of less than 70 and triglyceride of less than 150 on atorvastatin 80 mg once a day (5) GERD (gastroesophageal reflux disease): Code(s): K21.9 - Gastro-esophageal reflux disease without esophagitis Plan: Avoid the foods that causes that usually spicy foods, tomato products, juices, coffee, soda and foods that your sensitive to. After eating do not lie down, allow 3-4 hours before in lie down. And keep the head of bed above 30 degrees to avoid the acid from going up. (6) Generalized anxiety disorder: Code(s): F41.1 - Generalized anxiety disorder Plan: Stable (7) Osteoarthritis of right hip: Code(s): M16.11 - Unilateral primary osteoarthritis, right hip Plan: Right hip surgery Dr. Camacho Coding Level of Care Code Est Pt Level 4 (10438) Diagnoses Preop exam for internal medicine Z01.818 Coronary artery disease involving [place] coronary artery of [place] heart without angina pectoris I25.10 Coronary Disease-Associated Artery/Lesion type: [place] artery [place] vs. transplanted heart: [place] heart Associated angina: without angina Essential hypertension I10 Hypertension type: essential hypertension Hypercholesterolemia E78.00 GERD (gastroesophageal reflux disease) K21.9 Generalized anxiety disorder F41.1 Osteoarthritis of right hip M16.11
[2023-08-21 15:20] VITALS: BP 134/80
== END 2023-08-21 15:39 | disposition home or self-care (01) ==
PROVIDERS: PCP Internal Medicine; Visit Provider Internal Medicine
DX: Z01.818 Encounter for other preprocedural examination (principal); I25.10 Atherosclerotic heart disease of native coronary artery without angina pectoris; I10 Essential (primary) hypertension; E78.00 Pure hypercholesterolemia, unspecified; K21.9 Gastro-esophageal reflux disease without esophagitis; F41.1 Generalized anxiety disorder; M16.11 Unilateral primary osteoarthritis, right hip
CPT/HCPCS: 99214

== ENCOUNTER 2023-08-23 09:54 | Outpatient (REF) | payer MEDICARE, SELFPAY ==
--- NOTE | ~2023-08-23 | XR_ITS ---
EXAMINATION: XR HIP, RIGHT CLINICAL INFORMATION: Hip pain COMPARISON: 07/13/2022 TECHNIQUE: Two views of the right hip. FINDINGS: Interval progression in right hip osteoarthritis with increased sclerosis of the superior aspect of the femoral head and areas of lucency. XR/XR hip RT w [id number] IMPRESSION: Interval progression in right hip osteoarthritis with increased sclerosis of the superior aspect of the femoral head and areas of lucency. Recommend further evaluation with MRI to exclude osteonecrosis.
== END 2023-08-23 09:55 | disposition home or self-care (01) ==
LOC: HO.HOSX 09:54
PROVIDERS: Visit Provider Physician Assistant
DX: Z01.818 Encounter for other preprocedural examination (principal); M16.11 Unilateral primary osteoarthritis, right hip
CPT/HCPCS: 73502

== ENCOUNTER → 2023-08-28 09:25 | Outpatient (BNV) | payer MEDICARE, SELFPAY | PROVIDERS: Admitting Provider Physician Assistant; PCP Internal Medicine; Visit Provider Internal Medicine | DX: R07.89 Other chest pain (principal); R94.31 Abnormal electrocardiogram [ECG] [EKG] | CPT/HCPCS: 93010 ==

== ENCOUNTER 2023-08-28 11:54 | Inpatient (IN) | payer MEDICARE, SELFPAY ==
[2023-08-21 13:25] VITALS: BP 146/73; PULSE 60; RESP 16; O2SAT 97; BMI 35.0
--- NOTE | 2023-08-21 14:06 | P.CONAN_ITS ---
Documented by User: Milena Busby NP 08/27/23 12:07 HPI - Anesthesia Eval Consult details Narrative: 77yo M for Right Hip Total Replacement, 08/28/23 PCP cleared Cardiac cleared No recent illness No CP/SOB within limits of pain. CAD s/p stent x 2013. No issues since +Stop bang. No prior sleep study. Educated on post op risk GERD. PRN tums PND. No tx PMFSH Active Problems Active Problems: All Active Problems (Updated 08/21/23 @ 13:16 by Maria Del Rosario Burleson RN) Osteoarthritis of left knee (Acute) Spinal stenosis of lumbar region with neurogenic claudication (Acute) Lumbar degenerative disc disease (Acute) Osteoarthritis of right hip (Acute) Osteoarthritis of right knee (Acute) Right knee pain (Acute) Back pain (Acute) TSH elevation (Acute) Generalized anxiety disorder (Acute) Barretts esophagus (Acute) Anxiety and depression (Acute) Colon cancer (Acute) Impaired glucose tolerance (Acute) BPH (benign prostatic hyperplasia) (Acute) Obesity (Acute) GERD (gastroesophageal reflux disease) (Acute) Hypercholesterolemia (Acute) Hypertension (Acute) CAD (coronary artery disease) (Acute) Past Medical History Medical History Post-nasal drip Recent bereavement Foreign body in left lower extremity COVID-19 virus infection Amebic dysentery Foreign body of left lower leg Left rotator cuff tear Barretts esophagus Osteoarthritis Peripheral neuropathy Anxiety and depression Colon cancer Impaired glucose tolerance BPH (benign prostatic hyperplasia) Urinary bladder cancer Obesity GERD (gastroesophageal reflux disease) Hypercholesterolemia Hypertension CAD (coronary artery disease) Family History Family History Father Heart failure Mother Thyroid disorder Sister Lung cancer Daughter Alcoholism Family history of problems with anesthesia: No Surgical History Surgical History H/O cardiac catheterization (~2013) Hx of colonoscopy History of partial colectomy History of bladder surgery History of carpal tunnel release History of Problems with Anesthesia: No Social History Social History Household Members: Family Housing: House Are you a primary senior care specialist to a significant other at home: No Do you presently have visiting nurse or other home services: No Alcohol intake: former Comment: aware of trip hazards 1984 stopped Patient Tobacco Use Status: Former Tobacco user Quit Date: 1984 Tobacco use type: Cigarette Years Smoked: 18 stopped 1984 e-Cigarette/Vaping Use: Never Used Second Hand Smoke Exposure: No Use of substances other than those prescribed or required for medical reasons: No Have you been hit, kicked, punched, or otherwise hurt by someone within the past year? If so, by whom?: No Are you DNR?: No Advance Directives: No Advance Directives Information Provided: Yes Advance Directives on File: No Recently lost weight without trying: No Nutrition Risks: No Nutritional Risk service: Yes Current occupational status: retired Cognitive needs: No Hearing needs: Yes Vision needs: Yes Meds Allergies Allergy/AdvReac Type Severity Reaction Status Date / Time streptomycin [STREPTOMYCIN] Allergy Severe AFFECTED Verified 08/28/23 09:12 MY HEARING , anaphylaxis, affected hearing/nerves/etc, anxiety. Home Medications Medication Instructions Recorded Confirmed Last Taken Type cholecalciferol (vitamin D3) 50 50 mcg PO DAILY 05/25/20 08/28/23 08/27/23 History mcg (2,000 unit) capsule finasteride 5 mg tablet 5 mg PO BEDTIME 05/25/20 08/28/23 08/27/23 History multivitamin 1 tab PO DAILY 05/25/20 08/28/23 08/27/23 History atorvastatin 80 mg tablet 80 mg PO BEDTIME 08/21/23 08/28/23 08/27/23 History cyanocobalamin (vitamin B-12) 2,500 mcg PO DAILY 08/21/23 08/28/23 08/27/23 History 2,000 mcg tablet,extended release (Vitamin B-12 ER) Exam Height,Weight and Vital Signs: Height 5 ft 8 in Weight 104.326 kg Last Vital Signs Pulse 60 08/21/23 13:25 Resp 16 08/21/23 13:25 BP 146/73 H 08/21/23 13:25 Pulse Ox 97 08/21/23 13:25 O2 Del Method Room Air 08/21/23 13:25 Pertinent Lab Results Pertinent Lab Results: Laboratory Tests 08/14/23 10:21 WBC 9.1 Hgb 15.2 Hct 44.4 Plt Count 154 L Sodium 138 Potassium 3.9 Chloride 101 Carbon Dioxide 30 H BUN 26 H Creatinine 1.07 Narrative Narrative: EKG 07/2023 Vent. Rate : 061 BPM Atrial Rate : 061 BPM P-R Int : 162 ms QRS Dur : 084 ms QT Int : 402 ms P-R-T Axes : 052 026 -49 degrees QTc Int : 404 ms Normal sinus rhythm ST & T wave abnormality, consider anterolateral ischemia Abnormal ECG When compared with ECG of 25-DEC-2017 11:42, T wave inversion now evident in Anterior leads Airway Mallampati Class: III TM Dist: >3cm Neck ROM: Limited Loose/Missing/Broken Teeth: Yes (Poor denition, mulitiple broken and missing throughout) Heart: RRR Lungs: CTAB Assessment and Plan Assessment Anesthesia Assessment: Anesthesia Plan Discussed and PAT Visit Final Anesthetic Review Family History of Problems with Anesthesia: No History of Problems with Anesthesia: No Documented by User: Jono Mast MD 08/28/23 11:17 [facility] Past Medical History Medical History Post-nasal drip Recent bereavement Foreign body in left lower extremity COVID-19 virus infection Amebic dysentery Foreign body of left lower leg Left rotator cuff tear Barretts esophagus Osteoarthritis Peripheral neuropathy Anxiety and depression Colon cancer Impaired glucose tolerance BPH (benign prostatic hyperplasia) Urinary bladder cancer Obesity GERD (gastroesophageal reflux disease) Hypercholesterolemia Hypertension CAD (coronary artery disease) Family History Family History Father Heart failure Mother Thyroid disorder Sister Lung cancer Daughter Alcoholism Surgical History Surgical History H/O cardiac catheterization (~2013) Hx of colonoscopy History of partial colectomy History of bladder surgery History of carpal tunnel release Social History Social History Household Members: Family Housing: House Are you a primary senior care specialist to a significant other at home: No Do you presently have visiting nurse or other home services: No Alcohol intake: former Comment: aware of trip hazards 1984 stopped Patient Tobacco Use Status: Former Tobacco user Quit Date: 1984 Tobacco use type: Cigarette Years Smoked: 18 stopped 1984 e-Cigarette/Vaping Use: Never Used Second Hand Smoke Exposure: No Use of substances other than those prescribed or required for medical reasons: No Have you been hit, kicked, punched, or otherwise hurt by someone within the past year? If so, by whom?: No Are you DNR?: No Advance Directives: No Advance Directives Information Provided: Yes Advance Directives on File: No Recently lost weight without trying: No Nutrition Risks: No Nutritional Risk service: Yes Current occupational status: retired Cognitive needs: No Hearing needs: Yes Vision needs: Yes Meds Allergies Allergy/AdvReac Type Severity Reaction Status Date / Time streptomycin [STREPTOMYCIN] Allergy Severe AFFECTED Verified 08/28/23 09:12 MY HEARING , anaphylaxis, affected hearing/nerves/etc, anxiety. Home Medications Medication Instructions Recorded Confirmed Last Taken Type cholecalciferol (vitamin D3) 50 50 mcg PO DAILY 05/25/20 08/28/23 08/27/23 History mcg (2,000 unit) capsule finasteride 5 mg tablet 5 mg PO BEDTIME 05/25/20 08/28/23 08/27/23 History multivitamin 1 tab PO DAILY 05/25/20 08/28/23 08/27/23 History atorvastatin 80 mg tablet 80 mg PO BEDTIME 08/21/23 08/28/23 08/27/23 History cyanocobalamin (vitamin B-12) 2,500 mcg PO DAILY 08/21/23 08/28/23 08/27/23 History 2,000 mcg tablet,extended release (Vitamin B-12 ER) Assessment and Plan Final Anesthetic Review ASA Class: III Final Preanesthetic Review: No Changes in Pt Med Stat, Meds/Allgs Chart Reviewed, Consent Obtained/Reviewed and Anes Risks/Benef Reviewed Patient Risk: Intermediate Procedure Risk: Intermediate Anesthetic Plan Anesthetic Plan: GA Disposition: Standard PACU
[2023-08-21 16:19] LABS: MRSA Nasal PCR NEGATIVE (Negative); SA Nasal PCR NEGATIVE (Negative)
--- NOTE | 2023-08-27 12:16 | PHA.MEDREC ---
Pharmacy Consult ? Medication Reconciliation Pharmacy has completed the medication reconciliation. Reviewed med rec done by nursing
[2023-08-28] VITALS (15 sets, daily range): BP systolic 94–142; BP diastolic 52–80; PULSE 56–67; RESP 10–18; TEMP 35.7–36.8; O2SAT 95–100
--- NOTE | 2023-08-28 | ECG_ITS ---
Test Reason : chest pressure Blood Pressure : / mmHG Vent. Rate : 063 BPM Atrial Rate : 063 BPM P-R Int : 160 ms QRS Dur : 080 ms QT Int : 434 ms P-R-T Axes : 032 011 084 degrees QTc Int : 444 ms Normal sinus rhythm T wave abnormality, consider lateral ischemia Abnormal ECG No previous ECGs available Referred By: Camila Barajas Electronically Signed By:JASON WILSON
--- NOTE | ~2023-08-28 | XR_ITS ---
EXAMINATION: XR PELVIS CLINICAL INFORMATION: Right total hip arthroplasty COMPARISON: 08/23/2023 TECHNIQUE: AP view of the pelvis. FINDINGS: Prosthetic components of the right total hip arthroplasty are appropriately aligned. No periprosthetic fracture. Gas from recent surgery is present in the surrounding soft tissues. Minimal osteoarthritis in the left hip. Mild osteoarthritis in both SI joints. Pubic symphysis is normal. Vascular calcifications in the pelvis. XR/XR pelvis 1-2V IMPRESSION: Appropriate alignment of the right total hip prosthesis.
[2023-08-28] MEDS: Lactated Ringers 1,000 ML 100 ML IVCONT ×2 (09:21→16:19)
[2023-08-28] MEDS: oxyCODONE HCl ER 10 MG TAB.ER.12H PO ×2 (09:21→21:58)
--- NOTE | 2023-08-28 09:25 | ECG_ITS ---
Test Reason : preop Blood Pressure : / mmHG Vent. Rate : 057 BPM Atrial Rate : 057 BPM P-R Int : 166 ms QRS Dur : 084 ms QT Int : 434 ms P-R-T Axes : 029 015 269 degrees QTc Int : [address] & T wave abnormality, consider inferior ischemia ST & T wave abnormality, consider anterolateral ischemia Abnormal ECG When compared with ECG of 14-AUG-2023 09:51, No significant change was found Referred By: Jono Mast Electronically Signed By:JASON WILSON
--- NOTE | 2023-08-28 12:17 | PC.NURSE ---
During pre-op assessment pt reports 3 weeks of vertigo/dizziness with position changes. Pt was seen by this brief writer to be notably unsteady. Pt also reported that he has a sensation of pinching in his chest to his R arm yesterday. Dr Mast was made aware of assessment and pt reports. EKG was ordered and ok to proceed was verbalized by Dr Mast.
--- NOTE | 2023-08-28 12:20 | MHC.SHP ---
Pre-Procedural Eval Section A - 24 Hr Update-Section A only Date of Service: 08/28/23 The patient is an INPATIENT: No Changes since office visit: No Cold of Flu in the past 2 weeks, No New Medical Problems, No Changes in Medication and No Patient answered all questions The patient has been examined within 24 hours of the surgical procedure. The History & Physical has been completed within 30 days and I have reviewed it.: Yes Section B - Complete if H&P > 30 days Chief Complaint: RT JOHANNE Allergies: Allergies Allergy/AdvReac Type Severity Reaction Status Date / Time streptomycin [STREPTOMYCIN] Allergy Severe AFFECTED Verified 08/28/23 09:12 MY HEARING , anaphylaxis, affected hearing/nerves/etc, anxiety. Plan I have reviewed the history and physical and performed a pertinent physical examination on my patient. No changes have occurred unless specified. Time Spent With Patient Time: Total time managing care of this patient today ____ minutes.
--- NOTE | 2023-08-28 14:28 | P.BOP_ITS ---
Brief Operative Note Date of Service: 08/28/23 Pre-op diagnosis: Right hip OA Post-op diagnosis: same Procedure: Right JOHANNE Implants: Francie Trident 2 58 with 3 acetabular screws Accolade 2 #7 132 deg with +0/36 ceramic Surgeon: Rui Camacho MD Anesthesia: GETA and local Was an Operations Manager/Coordinator used for this Procedure?: Yes Operations Manager/Coordinator: Bridgette Worthington Estimated blood loss (mL): 200 IV fluids (mL): 1,000 Pathology: other Condition: stable Disposition: PACU
--- OUTSIDE RECORDS SUMMARY | 2023-08-28 14:38 | XMS_ITS | Continuity of Care Document ---
Author Name Unknown Organization [facility] ter Address [address] [place] [id number] Care Team Providers Care Paleobotanist Name Role Phone Franco Juarez MD Primary Care Physician [phone] [place] [facility] 10/31/18 - 11/14/[address] [address]- [facility] Discharge Disposition: A-D/C Home Attending Physician: Kashmir Ventura MD Admitting Physician: Kashmir Ventura MD Referring Physician: Kashmir Ventura MD Allergies, Adverse Reactions, Alerts Substance Reaction Severity Status streptomycin tingles all overbody hearing impairment Active Medications atorvastatin 80 mg oral tablet = 80 mg, By Mouth, Daily at bedtime, read side effects, # 1 tablet, 3 Refills, Maintenance, 05/19/14 9:52:26, Tablet Start Date: 05/19/14 Stop Date: 09/16/14 Status: Ordered carvedilol 6.25 mg oral tablet = 6.25 mg, By Mouth, 2 times a day, Read side effects, # 1 tablet, 3 Refills, Maintenance, 149:52:41, Tablet Start Date: 05/19/14 Stop Date: 09/16/14 Status: Ordered Centrum Silver By Mouth, Daily, 0 Refills, Maintenance, 05/18/14 5:29:09 Start Date: 05/18/14 Status: Ordered famotidine 20 mg oral tablet 1 tablet = 20 mg, By Mouth, Daily, # 30 tablet, 0 Refills, Maintenance, 05/18/14 5:27:25, Tablet Start Date: 05/18/14 Status: Ordered Fasprin 81 mg oral tablet, disintegrating 1 tablet = 81 mg, By Mouth, Daily, 0 Refills, Maintenance, 05/18/14 5:24:54 Start Date: 05/18/14 Status: Ordered losartan 100 mg oral tablet 1 tablet = 100 mg, By Mouth, Daily, # 30 tablet, 0 Refills, Maintenance, 05/18/14 5:19:27, Tablet Start Date: 05/18/14 Status: Ordered ticagrelor 90 mg oral tablet 1 tablet = 90 mg, By Mouth, 2 times a day, # 60 tablet, 0 Refills, Maintenance, 05/19/14 9:55:57, Tablet Start Date: 05/19/14 Status: Ordered Social History Social History Type Response Smoking Status Never smoker entered on: 05/18/14 Sex
--- NOTE | 2023-08-28 14:42 | P.DS_ITS ---
DS: Providers Provider Date of Service: 08/30/23 Date of admission: 08/28/23 11:54 Primary care physician: Franco Juarez MD DS: Summary Hospital Course Hospital Course: The patient underwent a successful right total hip arthroplasty, they were transferred to PACU and then to the floor to recover. During their stay, he did experience apisodes of hypotension, an echo, EKG and cardiology consult was placed and he was cleared for discharge. He remained afebrile at 96.8. Labs were unremarkable, H/H 9.3/26.8. POD 1 they were started on Aspirin 325mg po bid for DVT ppx, they also received Physical Therapy services twice a day. Prior to discharge, their dressing was clean dry and intact, and the plan was to be discharged to short term rehab. Time Attestation Discharge coordination time: Less than 30 minutes Quality: Safe Use of Opioids Does Pt have an Active Cancer Diagnosis on the Problem List?: No Quality: Stroke Does the patient have a stroke diagnosis?: No Physical Exam Vital Signs: Vital Signs: Last Vital Signs Temp 96.2 F L 08/28/23 09:19 Pulse 67 08/28/23 09:19 Resp 16 08/28/23 09:19 BP 126/80 08/28/23 09:19 Pulse Ox 96 08/28/23 09:19 O2 Del Method Room Air 08/28/23 09:19 BMI result Body Mass Index 35.0 Const: General: cooperative, healthy appearing and no acute distress Resp: Effort & Inspection: normal respiratory effort and able to speak in complete sentences Cardio: Rate: regular rate Peripheral pulses: Peripheral pulses 2+ throughout GI: Palpation (GI): Soft to palpation Skin: Lesions: no lesions Rashes: no rashes Extrem: Other: right hip dressing is c/d/i. Able to dorsi/plantar flex. Calf is supple and nontender. Sensation intact. Pedal pulse intact. DS: Data Data Completed and Pending Pending studies at discharge: Pending at discharge 08/28/23 13:08 Surgical [PTH] Routine Discharge Plan Discharge Anticipated Discharge Date/Time: 08/30/23 13:00 Patient Disposition: er SNF Discharge Diagnosis: s/p RTHA Referrals: Meaghan Brandon PA-C [Physician [employer]] - 09/13/23 10:30 am (09/13/23 ) Discharge Medications: New celecoxib 200 mg Capsule 200 mg PO BID 30 Days Qty: 60 0RF acetaminophen 325 mg Tablet 650 mg PO Q6H PRN (Reason: Pain, Mild (Pain Scale 1-3)) 30 Days Qty: 240 0RF aspirin 325 mg Tablet 325 mg PO BID 42 Days Qty: 84 0RF docusate sodium 100 mg Capsule 100 mg PO BID 90 Days Qty: 180 0RF oxycodone 5 mg tablet 5 mg PO Q4H PRN (Reason: pain (scale score 4-6)) 7 Days Qty: 42 0RF Rx Instructions: Partial Fill upon patient request. Continued diclofenac sodium [Arthritis Pain (diclofenac)] 1 % gel 2 g topical QID PRN (Reason: pain) Qty: 100 0RF carvedilol 25 mg tablet 25 mg PO BID Qty: 180 1RF Rx Instructions: must administer with a meal/food losartan-hydrochlorothiazide 100-25 mg tablet 1 tab PO DAILY 90 Days Qty: 90 2RF atorvastatin 80 mg tablet 80 mg PO BEDTIME cyanocobalamin (vitamin B-12) [Vitamin B-12] 2,000 mcg Tablet Extended Release 2,500 mcg PO DAILY multivitamin Tablet 1 tab PO DAILY cholecalciferol (vitamin D3) 50 mcg (2,000 unit) capsule 50 mcg PO DAILY finasteride 5 mg tablet 5 mg PO BEDTIME Discharge Orders: Discharge Order (Routine); Ordered 08/30/23 Ordered By: Meaghan Brandon Diet: Advance to usual diet Activity on Discharge: Use cane or walker Stand Alone Forms: Patient Portal Discharge page Care Plan Goals: Restore fxn to right hip Health Concerns: None Plan of Treatment: Physical Therapy for total hip arthroplasty: posterior precautions, gait training, ROM, strength Limit stair climbing No showering, no tub bath-keep dressing clean, dry and intact No driving x6 weeks Continue Aspirin x 6 weeks [place] [facility] [place] [facility] [place] Assessment: stable for discharge
--- NOTE | 2023-08-28 14:43 | P.F2F_ITS ---
Service Date Service Date: 08/28/23 Encounter Date of encounter: 08/29/23 Reasons for Services Signs and symptoms assessed: Pt. is considered homebound due to recent surgery. Unable to drive, poor balance, poor gait mechanics. s/p RTHA. Reason for physical therapy: home safety and mobility, therapeutic exercises, restore joint function, gait/transfer training, assess need for DME and ADL training Reason for occupational therapy: home safety and mobility, therapeutic exercises, restore joint function, gait/transfer training, assess need for DME and ADL training Homebound: Leaving the home is medically contraindicated at this time without the asist of a device and/or another person due th the listed conditions above and below. Reason homebound: unsteady gait / fall risk, leg weakness, pain with ambulation, pain with transfers, poor balance / fall risk and unable to drive Certification: Based on the above findings, I certify that this patient is confined to the home and needs intermittent [facility] care, physical therapy and/or speech therapy, or continues to need occupational therapy. The patient is under my care, and I have initiated the establishment of the plan of care. The patient will be followed by a physician who will periodically review the plan of care. Time Spent With Patient Time: Total time managing care of this patient today ____ minutes.
[2023-08-28] MEDS: HYDROmorphone HCl 0.5 MG/0.5 ML SYRINGE 0.25 MG IVPUSH ×4 (14:45→15:25)
[2023-08-28] MEDS: 0.9 % Sodium Chloride Flush 3 ML SYRINGE IVFLUSH ×2 (16:19→19:21)
--- NOTE | 2023-08-28 16:21 | P.CONHOSP_ITS ---
History of Present Illness Data of Consult Service Date: 08/28/23 Requesting physician: Bridgette Worthington Primary Care Provider: Franco Juarez MD HPI Reason for consult: medical management 77-year-old male with history of hypertension, hyperlipidemia, Wallis's esophagus, GERD, history of bladder cancer, peripheral neuropathy, mood disorder, coronary artery disease admitted to orthopedic surgery for management of osteoarthritis of the right hip s/p right JOHANNE with consult placed to hospitalist service for medical management. The patient was reports to have episodes of dizziness both pre-operatively and post-operatively. He was given 0.25mg dilaudid, but vitals stable, no hypotension. He reports he has a longstanding history of vertigo, room spinning dizziness, with positional change s/head movements ongoing for years. Reports the episodes pre/post op felt similar. Lasting several seconds before resolving spontaneously. No near syncope, nausea/vomiting. Has never seen ENT for these symptoms or taken medications. He denies any palpitations, chest pain or palpitations. Has some air hunger but no hypoxia. He is reporting 8/10 pain R hip that is improving. No etoh use, cigarette smoking, or drug use Review of Systems Review of Systems: General: No fevers, malaise, unintentional weight loss HEENT: No blurred vision, diplopia. No sore throat, nasal congestion, rhinorrhea, sinus pain, ear pain Cardiovascular: No chest pain, palpitations, or leg edema Respiratory: No shortness of breath, wheezing, cough GI: No abdominal pain, nausea, vomiting, diarrhea, constipation, melena, hematochezia : No dysuria, hematuria, increased urinary frequency, decreased urinary output MSK: No myalgia, back pain Neuro: No headaches, weakness, paresthesias, lightheadedness. +vertigo Skin: No rashes or lesions [facility] Medical History Post-nasal drip Recent bereavement Foreign body in left lower extremity COVID-19 virus infection Amebic dysentery Foreign body of left lower leg Left rotator cuff tear Barretts esophagus Osteoarthritis Peripheral neuropathy Anxiety and depression Colon cancer Impaired glucose tolerance BPH (benign prostatic hyperplasia) Urinary bladder cancer Obesity GERD (gastroesophageal reflux disease) Hypercholesterolemia Hypertension CAD (coronary artery disease) Family History Father Heart failure Mother Thyroid disorder Sister Lung cancer Daughter Alcoholism Surgical History H/O cardiac catheterization (~2013) Hx of colonoscopy History of partial colectomy History of bladder surgery History of carpal tunnel release Social History Household Members: Children Housing: House Are you a primary medical care administrator to a significant other at home: No Do you presently have visiting nurse or other home services: No Alcohol intake: former Comment: aware of trip hazards 1984 stopped Patient Tobacco Use Status: Former Tobacco user Quit Date: 1984 Tobacco use type: Cigarette Years Smoked: 18 stopped 1984 e-Cigarette/Vaping Use: Never Used Second Hand Smoke Exposure: No Use of substances other than those prescribed or required for medical reasons: No Have you been hit, kicked, punched, or otherwise hurt by someone within the past year? If so, by whom?: No Do you feel safe in your current relationship?: No Is there a partner from a previous relationship who is making you feel unsafe now?: No Are you made to feel afraid or neglected: No Are you DNR?: No Advance Directives: No Advance Directives Information Provided: Yes Advance Directives on File: No Do you have thoughts of harming others: None Do you have a plan to hurt others: No Plan Recently lost weight without trying: No Eating poorly because of decreased appetite: No Nutrition Risks: No Nutritional Risk service: Yes Current occupational status: retired Cognitive needs: No Hearing needs: Yes Vision needs: Yes Meds Allergies Allergy/AdvReac Type Severity Reaction Status Date / Time streptomycin [STREPTOMYCIN] Allergy Severe AFFECTED Verified 08/28/23 09:12 MY HEARING , anaphylaxis, affected hearing/nerves/etc, anxiety. Active Medications: Current Medications Acetaminophen (Acetaminophen 325 Mg Tablet) 650 mg PO Q6H PRN PRN Reason: Pain, Mild (Pain Scale 1-3) Aspirin (Aspirin 325 Mg Tablet) 325 mg PO BID LALY Carvedilol (Carvedilol 25 Mg Tablet) 25 mg PO BID LALY; Protocol Celecoxib (Celecoxib 200 Mg Capsule) 200 mg PO BID LALY Cyanocobalamin (Cyanocobalamin (Vitamin B-12) 1,000 Mcg Tablet) 1,000 mcg PO BID [facility] Docusate Sodium (Docusate Sodium 100 Mg Capsule) 100 mg PO BID [facility] Finasteride (Finasteride 5 Mg Tablet) 5 mg PO BEDTIME [facility] Hydromorphone HCl (Hydromorphone Hcl 0.5 Mg/0.5 Ml Syringe) 0.25 mg IVPUSH Q4H PRN; Protocol PRN Reason: Pain, Severe (Pain Scale 7-10) Lactated Ringer's (Lr) 1,000 mls @ 100 mls/hr IVCONT .Q10H LALY Stop: 08/29/23 14:29 Cefazolin Sodium/Dextrose (Ancef) 2 gm in 50 mls @ 100 mls/hr IV POSTOP ONE Stop: 08/28/23 18:59 Ondansetron HCl (Ondansetron Hcl 4 Mg/2 Ml Vial) 4 mg IVPUSH Q8H PRN PRN Reason: Nausea and Vomiting Oxycodone HCl (Oxycodone Hcl Immed Release 5 Mg Tablet) 5 mg PO Q4H PRN PRN Reason: Pain, Moderate(Pain Scale 4-6) Oxycodone HCl (Oxycodone Hcl Er 10 Mg Tab.Er.12h) 10 mg PO BID [facility] Sodium Chloride (0.9 % Sodium Chloride Flush 3 Ml Syringe) 3 ml IVFLUSH QSHIFT [facility] Home Medications Medication Instructions Recorded Confirmed Last Taken Type cholecalciferol (vitamin D3) 50 50 mcg PO DAILY 05/25/20 08/28/23 08/27/23 History mcg (2,000 unit) capsule finasteride 5 mg tablet 5 mg PO BEDTIME 05/25/20 08/28/23 08/27/23 History multivitamin 1 tab PO DAILY 05/25/20 08/28/23 08/27/23 History atorvastatin 80 mg tablet 80 mg PO BEDTIME 08/21/23 08/28/23 08/27/23 History cyanocobalamin (vitamin B-12) 2,500 mcg PO DAILY 08/21/23 08/28/23 08/27/23 History 2,000 mcg tablet,extended release (Vitamin B-12 ER) Physical Exam Vital Signs and Narrative: Vital Signs: Last Vital Signs Temp 97.0 F 08/28/23 16:00 Pulse 63 08/28/23 16:00 Resp 17 08/28/23 16:00 BP 109/56 L 08/28/23 16:00 Pulse Ox 98 08/28/23 16:00 O2 Del Method Nasal Cannula 08/28/23 16:00 O2 Flow Rate 2 08/28/23 16:00 BMI result Body Mass Index 35.0 Constitutional - Awake and Alert, No apparent distress Eyes - PERRLA, EOMI Cardiovascular - S1S2, RRR, No edema Respiratory - Normal lung expansion, Normal respiratory effort, No respiratory distress, CTA bilaterally Gastrointestinal - NT / ND; +BS; No rebound or guarding Extremities - no calf tenderness bilaterally, no swelling Skin - Warm/Dry Neurological - Alert & oriented x3, CN II-XII intact Psychological - Appropriate affect Assessment and Plan (1) Osteoarthritis of right hip: Qualifiers: Osteoarthritis type: primary Qualified Code(s): M16.11 - Unilateral primary osteoarthritis, right hip Status: Acute Plan 77-year-old male with history of hypertension, hyperlipidemia, Wallis's esophagus, GERD, history of bladder cancer, peripheral neuropathy due to chemotherapy, mood disorder, coronary artery disease admitted to orthopedic [facility] for management of osteoarthritis of the right hip s/p right JOHANNE with consult placed to hospitalist service for medical management. #OA Right Hip s/p right JOHANNE pod0 -plan per orthopedic surgery #Dizziness -pt reports long standing history of vertigo and pre-post op episodes felt similar -EKG this morning showed sinus bradycardia, rate 57, unchanged from prior EKG -Add meclizine prn -Orthostatic VS as able given JOHANNE -Will monitor on telemetry for any dysrrhythmia out of precaution -Continue IVF #HTN -bp reasonably controlled -resume coreg, lisinopril, hctz #HLD -statin #GERD/Barretts -ppi Thank you for this consult. Will continue following along with you.
[2023-08-28] MEDS: ceFAZolin Sodium/Dextrose,Iso 2 GM/50 ML PIGGYBACK IV (18:13)
--- NOTE | 2023-08-28 18:26 | PC.NURSE ---
1630: Pt post op right total hip. dressing to right hip CDI. Pt denies pain at this time. Pt seen by hospitalist and placed on tele due to pt having history of vertigo and stating I feel like I'm going to pass out Has had episodes in past. See hospitalist report. Pt SR on monitor, denies SOB or chest pain. VSS. IVF infusing per order
--- NOTE | 2023-08-28 18:41 | PC.NURSE ---
Family at bedside. Pt bladder scanned for 300ml. Attempting to use urinal at this time. PO fluids encouraged.
[2023-08-28] MEDS: Docusate Sodium 100 MG CAPSULE PO (21:58)
[2023-08-28] MEDS: Celecoxib 200 MG CAPSULE PO (21:58)
[2023-08-28] MEDS: carvediloL 25 MG TABLET PO (21:58)
[2023-08-28] MEDS: Finasteride 5 MG TABLET PO (21:58)
[2023-08-28 22:46] LABS: MANUAL DIFF FLAG NO
[2023-08-28 22:47] LABS: Basophils Percent Auto 0.2 % (0-2); Hematocrit 33.8 % (42.0-52.0); Hemoglobin 11.7 g/dl (14.0-18.0); Imm Gran Abs Auto 0.14 X10*3/uL (0.00-0.03); Imm Gran Pct Auto 0.7 % (0.0-0.4); Lymphocytes Absolute Auto 0.6 X10*3/uL (1.2-4.9); Lymphocytes Percent Auto 3.1 % (20-40); Mean Corpuscular HGB Conc 34.6 g/dl (31.0-36.0); Mean Corpuscular Hemoglobin 31.3 pg (27.0-33.0); Mean Corpuscular Volume 90.4 fL (80.0-98.0); Mean Platelet Volume 10.1 fL (9.4-12.4); Monocytes Absolute Auto 1.4 X10*3/uL (0.1-1.2); Monocytes Percent Auto 6.9 % (2-11); Neutrophils Percent Auto 89.1 % (45-73); Platelet Count 166 X10*3/uL (160-400); Red Blood Count 3.74 X10*6/uL (4.60-5.80); Red Cell Distribution Width 13.6 % (11.0-16.0); White Blood Count 20.2 X10*3/uL (4.8-10.8)
[2023-08-28 23:03] LABS: Alanine Aminotransferase 17 U/L (0-40); Albumin Level 3.1 g/dL (3.5-5.0); Alkaline Phosphatase 66 U/L (39-117); Anion Gap 14 (12-20); Aspartate Amino Transferase 28 U/L (5-37); Bilirubin Total 0.8 mg/dL (0.0-1.0); Blood Urea Nitrogen 33 mg/dL (9-16); Calcium 8.6 mg/dL (8.4-10.2); Carbon Dioxide 25 mmol/L (22-29); Chloride 102 mmol/L (96-108); Creatinine Clr Calc Pharmacy 56.6; Estimated Glomerular Filt Rate 53; Glucose Random 182 mg/dL (60-115); Magnesium 1.7 mg/dL (1.6-2.6); Potassium 4.4 mmol/L (3.3-5.1); Sodium 137 mmol/L (135-145); Total Protein 5.5 g/dL (6.5-8.0)
[2023-08-28 23:15] LABS: Troponin-I High Sensitivity 16.8 ng/L (<3.5-35.0)
[2023-08-29] VITALS (10 sets, daily range): BP systolic 84–115; BP diastolic 43–59; PULSE 59–73; RESP 16–18; TEMP 36–36.9; O2SAT 93–97
--- NOTE | 2023-08-29 | ECG_ITS ---
Test Reason : PREOP Blood Pressure : / mmHG Vent. Rate : 071 BPM Atrial Rate : 071 BPM P-R Int : 148 ms QRS Dur : 084 ms QT Int : 408 ms P-R-T Axes : 048 018 201 degrees QTc Int : 443 ms Normal sinus rhythm ST & T wave abnormality, consider inferior ischemia ST & T wave abnormality, consider anterolateral ischemia Abnormal ECG When compared with ECG of 28-AUG-2023 22:20, T wave inversion more evident in Anterolateral leads Referred By: Figueroa Garcia Electronically Signed By:JASON WILSON
[2023-08-29] MEDS: Lactated Ringers 1,000 ML 100 ML IVCONT ×2 (01:45→15:56)
[2023-08-29 06:34] LABS: Basophils Percent Auto 0.2 % (0-2); Hematocrit 30.5 % (42.0-52.0); Hemoglobin 10.5 g/dl (14.0-18.0); Imm Gran Abs Auto 0.13 X10*3/uL (0.00-0.03); Imm Gran Pct Auto 0.7 % (0.0-0.4); Lymphocytes Percent Auto 5.6 % (20-40); MANUAL DIFF FLAG SCAN; Mean Corpuscular HGB Conc 34.4 g/dl (31.0-36.0); Mean Corpuscular Hemoglobin 31.4 pg (27.0-33.0); Mean Corpuscular Volume 91.3 fL (80.0-98.0); Mean Platelet Volume 10.7 fL (9.4-12.4); Monocytes Absolute Auto 1.8 X10*3/uL (0.1-1.2); Monocytes Percent Auto 10.3 % (2-11); Neutrophils Absolute Auto 14.6 x10*3/uL (2.0-8.3); Neutrophils Percent Auto 83.2 % (45-73); Platelet Count 163 X10*3/uL (160-400); Red Blood Count 3.34 X10*6/uL (4.60-5.80); Red Cell Distribution Width 13.5 % (11.0-16.0); SCAN SMEAR FLAG 1; White Blood Count 17.5 X10*3/uL (4.8-10.8)
[2023-08-29 06:36] LABS: Anion Gap 13 (12-20); Blood Urea Nitrogen 38 mg/dL (9-16); Calcium 8.5 mg/dL (8.4-10.2); Carbon Dioxide 27 mmol/L (22-29); Chloride 100 mmol/L (96-108); Creatinine Clr Calc Pharmacy 56.6; Estimated Glomerular Filt Rate 53; Glucose Fasting 161 mg/dL (60-99); Potassium 4.5 mmol/L (3.3-5.1); Sodium 135 mmol/L (135-145)
[2023-08-29] MEDS: Celecoxib 200 MG CAPSULE PO ×2 (07:01→20:47)
[2023-08-29] MEDS: oxyCODONE HCl ER 10 MG TAB.ER.12H PO ×2 (07:01→20:47)
[2023-08-29] MEDS: Cyanocobalamin (Vitamin B-12) 1,000 MCG TABLET 1000 MCG PO ×2 (07:01→20:47)
[2023-08-29] MEDS: Docusate Sodium 100 MG CAPSULE PO ×2 (07:01→20:47)
--- NOTE | 2023-08-29 07:20 | PC.NURSE ---
Assumed care of pt 19:00 on 08/28. Pt A&Ox4. Pt c/o slight chest pressure in the evening. Tele showing NSR 60's with inverted T-waves, seen on EKG done during the day. VSS. Covering Dr. Brien Barajas notified. EKG and labs including trops obtained; EKG image sent to provider, appears unchanged from previous when compared. Trop WNL. Chest pressure resolved spontaneously per pt report. No further incidence overnight. See shift assessments etc for full details. Handoff report given 06:45.
[2023-08-29 07:44] LABS: SLIDE REVIEW VERIFIED
[2023-08-29] MEDS: carvediloL 25 MG TABLET PO (08:24)
[2023-08-29] MEDS: Lactated Ringers 500 ML IVCONT ×2 (09:41→11:37)
--- NOTE | 2023-08-29 09:45 | PC.NURSE ---
Addendum entered by Juwan Forman RN 08/29/23 14:31: Approximately 1 hour post 2nd bolus infusion, vital signs obtained. BP 102/54 with HR 67. Patient worked with PT again at approximately 1345. Post PT exercises: BP 84/50 and HR 70. Patient denies dizziness and chest pain. EKG obtained prior to PT working with patient this afternoon. Dr. Garcia notified of vital sign changes and of EKG. Orders placed for cardiology consultation and STAT echocardiogram. Addendum entered by Juwan Forman RN 08/29/23 11:43: Approximately 1050- 500mL bolus of LR complete. Post infusion, BP improved to 90/43 with HR of [address] on tele. Dr. Karen Garcia notified and assessed patient at bedside. Second bolus of 500mL of LR ordered- see MAR for further documentation. Due to cardiac history, stat labs and EKG ordered. Patient assisted back to bed with bolus infusing. Reports feeling better. Plan for reassessment upon second bolus completion. Original Note: Approximately 0930- patient reported feeling dizzy/woozy. Manual BP obtained- 86/40 and heart rate fluctuating between 63-70 on tele monitor. Prior to this event, patient worked with PT and was assisted OOB to recliner for first time since surgery yesterday (08/28/23). Received morning medications- refer to [facility] for documentation. DR. Karen Garcia notified of patient's vital signs, one 500mL bolus of LR ordered with plan to reassess upon completion. Patient remains A&Ox4. No signs or symptoms present to indicate changes in mentation.
--- NOTE | 2023-08-29 12:06 | MHC.CM.PN ---
pt lives with dgter and son in law had no previous services pt is receommending acute rehab referrals made
[2023-08-29 12:37] LABS: Troponin-I High Sensitivity 23.6 ng/L (<3.5-35.0)
--- NOTE | 2023-08-29 13:00 | CA_ITS ---
Transthoracic Echocardiogram Patient (Last, First, Middle): Pavan Kimball W Gender: Male Date of : 1945 Age: 77 Procedure Date: 08/29/2023 Procedure Type: Transthoracic Echocardiogram Location: S3E Height: 172.72 cm Weight: 104.33 kg BSA: 2.17 m2 Heart Rate: bpm BP: 84 / 50 mmHg Air Analyst: Referring MD: Figueroa Garcia DO Symptoms: post op TWI with hypotension Study Quality: Fair ECG Rhythm: Sinus Conclusions: - The left ventricular systolic function is hyperdynamic. The visually estimated ejection fraction is >70%. - No obvious valvular pathology seen on this study. Findings Procedure Information Contrast agent, definity, is being given per protocol without apparent complications. Left Ventricle Normal left ventricular cavity size. The left ventricular systolic function is hyperdynamic. The visually estimated ejection fraction is >70%. There is no evidence of regional wall motion abnormalities. Evidence suggests grade I (mild) diastolic dysfunction. Right Ventricle Normal right ventricular cavity size and systolic function. Atria Both atria are normal in size. Aortic Valve The aortic valve was not well visualized. There is no aortic valve stenosis. There is no aortic valve regurgitation. Mitral Valve There is mild mitral annular calcification. There is no mitral valve regurgitation. There is no mitral valve stenosis. Pulmonic Valve The pulmonic valve is likely normal. Tricuspid Valve There is trace tricuspid valve regurgitation. There is no evidence of pulmonary hypertension. Great Vessels The aorta was not well visualized. Venous The inferior vena cava was not well visualized. Pericardium/Pleural There is no evidence of pericardial effusion. Prior Study Comparison No prior study available for comparison. Recommendations, Care & Conclusions No obvious valvular pathology seen on this study. Measurements 2D Linear Measurements IVSd: 1.17 0.6-0.9/0.6-1.0 cm LVIDd: 5.26 3.9-5.3/4.2-5.9 cm LVIDd Index: 2.42 2.4-3.2/2.2-3.1 cm/m2 LVIDs: 3.33 2.0-3.6 cm LVPWd: 1.16 0.7-1.1 cm LA Diam: 4.70 2.7-3.8/3.0-4.0 cm LAIDs Index: 2.17 1.5-2.3 cm/m2 LV Mass: 303.38 67-162/88-224 g LV Mass Index: 139.81 43-95/49-115 g/m2 2D Systolic Function EF 4C: 68.30 >55% EF 2C: 69.30 >55% EF BiP: 69.40 >55% Mitral Valve MV Pk E: 0.84 MV PK A: 1.14 MV Decel Time: 286.00 E/A: 0.70 E'Lateral: 8.49 E'Medial: 6.20 E/E' Med: 13.50 E/E' Lat: 9.80 PHT: 84.00 MVA PHT: 2.62 Decel Eddy: 2.92 Aortic Valve AoV Pk Nagi: 1.92 AoV Mn Nagi: 1.27 AoV VTI: 0.40 AoV Pk Grad: 15.00 Aov Mn Grad: 8.00 LVOT LVOT Pk Nagi: 1.36 LVOT Mn Nagi: 0.94 LVOT VTI: 0.32 LVOT Pk Grad: 7.00 LVOT Mn Grad: 4.00 Diastolic Function MV Pk E: 0.84 MV Pk A: 1.14 E/A: 0.70 E'Medial: 6.20 E/E' Med: 13.50 E' Laterial: 8.49 E/E' Lat: 9.80 Right Ventricle TAPSE (mm): 26.00 TVS' Nagi: 14.00 Tricuspid Valve TR Pk Nagi: 2.68 TR Pk Grad: 29.00 RA Press: 3.00 RVSP: 32.00 Pulmonary Valve PV Pk Nagi: 1.10 Peak PV Grad: 5.00 Updated in Other Vendor System with Status of Final Kirk Abbott MD electronically signed on 08/29/2023 2:15:37 PM with status of Final
[2023-08-29] MEDS: oxyCODONE HCl Immed Release 5 MG TABLET PO (13:31)
[2023-08-29] MEDS: Aspirin 325 MG TABLET PO ×2 (13:31→20:46)
[2023-08-29] MEDS: Acetaminophen 325 MG TABLET 650 MG PO (13:32)
--- NOTE | 2023-08-29 14:32 | P.PNIM_ITS ---
Subjective Subjective Date of Service: 08/29/23 Interval History: Episode of hypotension this morning that responded to fluid bolus. Second episode of hypotension this afternoon when changing position. Voices no cardiac complaints Review of Systems Denies chest pain Denies shortness of breath Denies nausea vomiting diarrhea Denies fever chills Physical Exam 2 Vital Signs: Vital Signs: Last Vital Signs Temp 98.5 F 08/29/23 07:35 Pulse 70 08/29/23 13:59 Resp 18 08/29/23 13:59 BP 84/50 L 08/29/23 13:59 Pulse Ox 96 08/29/23 13:59 O2 Del Method Nasal Cannula 08/29/23 13:59 O2 Flow Rate 2 08/29/23 13:59 BMI result Body Mass Index 35.0 Const: Other: Awake alert no acute distress Resp: Other: Clear to auscultation bilaterally no rales rhonchi or wheezes Cardio: Other: No S4; positive S1-S2; no S3 murmurs rubs or gallops GI: Other: Soft nontender nondistended normoactive bowel sounds Neuro: Other: Cranial nerves 2-12 grossly intact as tested. Motor is 5/5 all extremities. Sensation is intact Extrem: Other: No edema bilaterally Objective Data Active Medications Acetaminophen (Acetaminophen 325 Mg Tablet) 650 mg PO Q6H PRN PRN Reason: Pain, Mild (Pain Scale 1-3) Last Admin: 08/29/23 13:32 Dose: 650 mg Documented By: SYLVESTER Aspirin (Aspirin 325 Mg Tablet) 325 mg PO BID [facility] Last Admin: 08/29/23 13:31 Dose: 325 mg Documented By: SYLVESTER Carvedilol (Carvedilol 25 Mg Tablet) 25 mg PO BID [facility]; Protocol Last Admin: 08/29/23 08:24 Dose: 25 mg Documented By: JANESSA Celecoxib (Celecoxib 200 Mg Capsule) 200 mg PO BID [facility] Last Admin: 08/29/23 07:01 Dose: 200 mg Documented By: SYLVESTER Cyanocobalamin (Cyanocobalamin (Vitamin B-12) 1,000 Mcg Tablet) 1,000 mcg PO BID [facility] Last Admin: 08/29/23 07:01 Dose: 1,000 mcg Documented By: SYLVESTER Docusate Sodium (Docusate Sodium 100 Mg Capsule) 100 mg PO BID [facility] Last Admin: 08/29/23 07:01 Dose: 100 mg Documented By: SYLVESTER Finasteride (Finasteride 5 Mg Tablet) 5 mg PO BEDTIME [facility] Last Admin: 08/28/23 21:58 Dose: 5 mg Documented By: JULITO Hydromorphone HCl (Hydromorphone Hcl 0.5 Mg/0.5 Ml Syringe) 0.25 mg IVPUSH Q4H PRN; Protocol PRN Reason: Pain, Severe (Pain Scale 7-10) Meclizine HCl (Meclizine Hcl 12.5 Mg Tablet) 12.5 mg PO Q6H PRN PRN Reason: Vertigo Ondansetron HCl (Ondansetron Hcl 4 Mg/2 Ml Vial) 4 mg IVPUSH Q8H PRN PRN Reason: Nausea and Vomiting Oxycodone HCl (Oxycodone Hcl Immed Release 5 Mg Tablet) 5 mg PO Q4H PRN PRN Reason: Pain, Moderate(Pain Scale 4-6) Last Admin: 08/29/23 13:31 Dose: 5 mg Documented By: SYLVESTER Oxycodone HCl (Oxycodone Hcl Er 10 Mg Tab.Er.12h) 10 mg PO BID [facility] Last Admin: 08/29/23 07:01 Dose: 10 mg Documented By: SYLVESTER Sodium Chloride (0.9 % Sodium Chloride Flush 3 Ml Syringe) 3 ml IVFLUSH QSHIFT [facility] Last Admin: 08/29/23 07:01 Dose: Not Given Documented By: SYLVESTER Non-Admin Reason: IV Running Labs 08/29/23 05:37 08/29/23 05:37 Labs: Laboratory Results - last 24 hr 08/28/23 08/29/23 22:41 05:37 MCV 90.4 91.3 MCH 31.3 31.4 MCHC 34.6 34.4 RDW 13.6 13.5 Plt Count 166 163 MPV 10.1 10.7 Immature Gran % (Auto) 0.7 H 0.7 H Neut % (Auto) 89.1 H 83.2 H Lymph % (Auto) 3.1 L 5.6 L [place] % (Auto) 6.9 10.3 Eos % (Auto) 0.0 0.0 Baso % (Auto) 0.2 0.2 Lymph # (Auto) 0.6 L 1.0 L [place] # (Auto) 1.4 H 1.8 H Eos # (Auto) 0.0 0.0 Baso # (Auto) 0.0 0.0 Abs Immat Gran (auto) 0.14 H 0.13 H Absolute Neuts (auto) 18.0 H 14.6 H Absolute Nucleated RBC 0.000 0.000 Nucleated RBC % (auto) 0.0 0.0 Smear Tech's Comments VERIFIED Anion Gap 14 13 Estim Creat Clear Calc 56.6 56.6 Estimated GFR 53 53 Random Glucose 182 H Fasting Glucose 161 H Calcium 8.6 D 8.5 Magnesium 1.7 Total Bilirubin 0.8 AST 28 ALT 17 Alkaline Phosphatase 66 Total Protein 5.5 L Albumin 3.1 L Assessment and Plan (1) Osteoarthritis of right hip: Status: Acute (2) Acute electrocardiogram changes: Status: Acute (3) Hypotension: Status: Acute Plan 77-year-old male with history of hypertension, hyperlipidemia, Wallis's esophagus, GERD, history of bladder cancer, peripheral neuropathy due to chemotherapy, mood disorder, coronary artery disease admitted to orthopedic surgery for management of osteoarthritis of the right hip s/p right JOHANNE with consult placed to hospitalist service for medical management. Episode of hypotension this morning that responded to 1 L of LR; EKG with lateral T-wave inversions which is new from last evening 1.OA Right Hip s/p right JOHANNE pod1 -plan per orthopedic surgery 2. Hypotension with EKG changes -EKG with lateral T-wave changes new from last evening; troponin flat initial draw -continue telemetry -2D echo stat -repeat troponin at 18:00 tonight -discussed with cardiology will see in a.m. 3.HTN.. With hypotension -continue Coreg as tolerated -hold other meds as clinically indicated Will continue following along with you. Quality Stroke Does the patient have a stroke diagnosis?: No VTE Prior VTE?: No VTE Risk Level:: Medical - moderate - high VTE Device Contraindication: Treatment Not Indicated VTE Drug Contraindication: N/A - Med Ordered
--- NOTE | 2023-08-29 14:43 | MHC.CM.PN ---
pt accepted at [facility] declined pt dgters choice was el[facility] planned for 4 then cancelled as pt was having cardiac issues nh notified
--- NOTE | 2023-08-29 15:23 | HO.POSTANES ---
Post Anesthesia Evaluation Post Anesthesia Evaluation Date of Service: 08/29/23 Vital Signs: Vital Signs Temp Pulse Resp BP Pulse Ox O2 Del Method O2 Flow Rate 08/29/23 13:59 70 18 84/50 L 96 Nasal Cannula 2 08/29/23 13:48 67 102/54 L 08/29/23 11:30 67 102/54 L 08/29/23 10:50 61 90/43 L 93 Nasal Cannula 2 08/29/23 08:50 62 108/53 L 97 08/29/23 07:35 98.5 F 62 18 108/53 L 97 Nasal Cannula 2 Anesthesia: General Mental Status: Awake Pain Control: Satisfactory Nausea/Vomiting: None Hydration: Adequate Anesthesia-Related Issues: No Anes. Related Issues
[2023-08-29 18:57] LABS: Troponin-I High Sensitivity 18.8 ng/L (<3.5-35.0)
[2023-08-29] MEDS: LORazepam 0.5 MG TABLET PO (20:47)
[2023-08-29] MEDS: Finasteride 5 MG TABLET PO (20:47)
[2023-08-30 03:22] VITALS: BP 114/58; PULSE 73; RESP 16; TEMP 36.1; O2SAT 95
[2023-08-30 07:05] LABS: MANUAL DIFF FLAG NO
[2023-08-30 07:09] LABS: Basophils Absolute Auto 0.1 X10*3/uL (0.0-0.2); Basophils Percent Auto 0.4 % (0-2); Eosinophils Absolute Auto 0.2 X10*3/uL (0.0-0.4); Eosinophils Percent Auto 1.2 % (0-4); Hematocrit 26.8 % (42.0-52.0); Hemoglobin 9.3 g/dl (14.0-18.0); Imm Gran Abs Auto 0.06 X10*3/uL (0.00-0.03); Imm Gran Pct Auto 0.5 % (0.0-0.4); Lymphocytes Absolute Auto 1.3 X10*3/uL (1.2-4.9); Lymphocytes Percent Auto 10.4 % (20-40); Mean Corpuscular HGB Conc 34.7 g/dl (31.0-36.0); Mean Corpuscular Hemoglobin 31.7 pg (27.0-33.0); Mean Corpuscular Volume 91.5 fL (80.0-98.0); Monocytes Absolute Auto 1.5 X10*3/uL (0.1-1.2); Neutrophils Absolute Auto 9.2 x10*3/uL (2.0-8.3); Neutrophils Percent Auto 75.5 % (45-73); Platelet Count 133 X10*3/uL (160-400); Red Blood Count 2.93 X10*6/uL (4.60-5.80); White Blood Count 12.2 X10*3/uL (4.8-10.8)
[2023-08-30 07:21] VITALS: BP 115/55; PULSE 79; RESP 14; TEMP 36.4; O2SAT 96
[2023-08-30 07:25] LABS: Anion Gap 12 (12-20); Blood Urea Nitrogen 35 mg/dL (9-16); Carbon Dioxide 27 mmol/L (22-29); Chloride 101 mmol/L (96-108); Estimated Glomerular Filt Rate > 60; Glucose Fasting 111 mg/dL (60-99); Potassium 3.9 mmol/L (3.3-5.1); Sodium 136 mmol/L (135-145)
--- NOTE | 2023-08-30 08:09 | PM.PNORT ---
Subjective Subjective Date of Service: 08/29/23 Physical Exam Vital Signs: Vital Signs: Last Vital Signs Temp 97.6 F 08/30/23 07:21 Pulse 79 08/30/23 07:21 Resp 14 08/30/23 07:21 BP 115/55 L 08/30/23 07:21 Pulse Ox 96 08/30/23 07:21 O2 Del Method Room Air 08/30/23 07:21 O2 Flow Rate 2 08/30/23 03:22 BMI result Body Mass Index 35.0 Const: General: cooperative, healthy appearing and no acute distress Resp: Effort & Inspection: normal respiratory effort and able to speak in complete sentences Cardio: Rate: regular rate Peripheral pulses: Peripheral pulses 2+ throughout GI: Palpation (GI): Soft to palpation Skin: Lesions: no lesions Rashes: no rashes Extrem: Other: Right hip dressing is c/d/i. Able to dorsi/plantar flex. Calf is supple and nontender. Sensation intact. Pedal pulse intact. Procedures Date of Service Date of Service: 08/30/23 Progress Note: A&P Assessment and plan (1) Status post total hip replacement, right: Status: Acute Assessment and Plan: Continue pain mgmnt Begin ASA for dvt ppx begin PT/OT for rt JOHANNE Dispo planning-Pending PT eval, pain mgmnt, hypotension work up, echo ordered and pending cardiology evaluation Time Spent With Patient Time: Total time managing care of this patient today ____ minutes. Quality Stroke Does the patient have a stroke diagnosis?: No VTE Prior VTE?: No VTE Risk Level:: Medical - moderate - high VTE Device Contraindication: Treatment Not Indicated VTE Drug Contraindication: N/A - Med Ordered
--- NOTE | 2023-08-30 08:11 | PM.PNORT ---
Subjective Subjective Date of Service: 08/30/23 Interval history: POD2 s/p RTHA Patient is resting in bed comfortably No overnight events Pain is managed No additional complaints Physical Exam Vital Signs: Vital Signs: Last Vital Signs Temp 97.6 F 08/30/23 07:21 Pulse 79 08/30/23 07:21 Resp 14 08/30/23 07:21 BP 115/55 L 08/30/23 07:21 Pulse Ox 96 08/30/23 07:21 O2 Del Method Room Air 08/30/23 07:21 O2 Flow Rate 2 08/30/23 03:22 BMI result Body Mass Index 35.0 Const: General: cooperative, healthy appearing and no acute distress Resp: Effort & Inspection: normal respiratory effort and able to speak in complete sentences Cardio: Rate: regular rate Peripheral pulses: Peripheral pulses 2+ throughout GI: Palpation (GI): Soft to palpation Skin: Lesions: no lesions Rashes: no rashes Extrem: Other: right hip dressing is c/d/i. Able to dorsi/plantar flex. Calf is supple and nontender. Sensation intact. Pedal pulse intact. Procedures Date of Service Date of Service: 08/30/23 Progress Note: A&P Assessment and plan (1) Status post total hip replacement, right: Status: Acute Assessment and Plan: Continue pain mgmnt Continue ASA for dvt ppx begin PT/OT for RTHA Dispo planning-Pending PT eval, pain mgmnt, cardiology eval Time Spent With Patient Time: Total time managing care of this patient today ____ minutes. Quality Stroke Does the patient have a stroke diagnosis?: No VTE Prior VTE?: No VTE Risk Level:: Medical - moderate - high VTE Device Contraindication: Treatment Not Indicated VTE Drug Contraindication: N/A - Med Ordered
[2023-08-30] MEDS: Aspirin 325 MG TABLET PO (08:43)
[2023-08-30] MEDS: Celecoxib 200 MG CAPSULE PO (08:44)
[2023-08-30] MEDS: carvediloL 25 MG TABLET PO (08:44)
[2023-08-30] MEDS: Docusate Sodium 100 MG CAPSULE PO (08:44)
[2023-08-30] MEDS: oxyCODONE HCl ER 10 MG TAB.ER.12H PO (08:44)
[2023-08-30] MEDS: Cyanocobalamin (Vitamin B-12) 1,000 MCG TABLET 1000 MCG PO (08:44)
[2023-08-30] MEDS: 0.9 % Sodium Chloride Flush 3 ML SYRINGE IVFLUSH (08:48)
[2023-08-30 08:59] VITALS: BP 115/55; PULSE 79; O2SAT 96
--- NOTE | 2023-08-30 09:55 | P.CONCA_ITS ---
History of Present Illness History of Present Illness Date of Service: 08/30/23 Chief complaint: RT JOHANNE Narrative: This is a cardiology consultation regarding abnormal EKG. Patient has history of hypertension coronary artery disease. Patient is here for hip surgery that he has had without any issues. In the postoperative period, it seems that he did have low blood pressure. That led to EKG as well as cardiology consultation. EKG had shown T inversions across anterior leads but that seems to be rather chronic finding. Patient himself does not have any chest pain or in fact any cardiac symptoms. He states today he actually walked around the floor corridor or with absolutely no issues and no cardiac symptoms of any type. Review of Systems 2 Review of Systems: Yes all other systems are reviewed and are negative Constitutional: Constitutional: Reports as per HPI and Reports no additional constitutional complaints Eyes: Eyes: Reports as per HPI and Denies no additional eye complaints ENT: Denies system reviewed and no additional complaints, except as documented and Reports as per HPI Cardiovascular: Cardiovascular: Reports as per HPI, Reports no additional cardiovascular complaints, Denies acrocyanosis, Denies cool extremities, Denies chest pain, Denies leg edema, Denies lightheadedness, Denies palpitations and Denies dyspnea Respiratory: Respiratory: Reports as per HPI, Denies no additional respiratory complaints and Denies dyspnea Gastrointestinal: Gastrointestinal: Reports as per HPI and Denies no additional gastrointestinal complaints Genitourinary: Genitourinary: Reports no additional male genitourinary complaints and Reports as per HPI Musculoskeletal: Musculoskeletal: Reports no additional musculoskeletal complaints and Reports as per HPI Integumentary/Breasts: Skin/Breast: Reports system reviewed and no additional complaints, except as docu Neurologic: Reports system reviewed and no additional complaints, except as documented and Reports as per HPI Psychiatric: Psychiatric: Reports no additional psychiatric complaints and Reports as per HPI Endocrine: Endocrine: Reports no additional endocrine complaints, Reports as per HPI and Denies palpitations Hematologic/Lymphatic: Hematologic/Lymphatic: Reports no additional hematologic/lymphatic complaints and Reports as per HPI Allergic/Immunologic: Allergic/Immunologic: Reports no additional allergic/immunologic complaints and Reports as per HPI [facility] Past Medical History Medical History (Updated 08/30/23 @ 09:58 by Kirk Abbott MD) Atherosclerotic cardiovascular disease Post-nasal drip Recent bereavement Foreign body in left lower extremity COVID-19 virus infection Amebic dysentery Foreign body of left lower leg Left rotator cuff tear Barretts esophagus Osteoarthritis Peripheral neuropathy Anxiety and depression Colon cancer Impaired glucose tolerance BPH (benign prostatic hyperplasia) Urinary bladder cancer Obesity GERD (gastroesophageal reflux disease) Hypercholesterolemia Hypertension CAD (coronary artery disease) Family History Family History Father Heart failure Mother Thyroid disorder Sister Lung cancer Daughter Alcoholism Surgical History Surgical History (Updated 08/30/23 @ 08:09 by Meaghan Brandon PA-C) H/O cardiac catheterization (~2013) Hx of colonoscopy History of partial colectomy History of bladder surgery History of carpal tunnel release Social History Social History Household Members: Children Housing: House Are you a primary care services manager to a significant other at home: No Do you presently have visiting nurse or other home services: No Alcohol intake: former Comment: aware of trip hazards 1984 stopped Patient Tobacco Use Status: Former Tobacco user Quit Date: 1984 Tobacco use type: Cigarette Years Smoked: 18 stopped 1984 e-Cigarette/Vaping Use: Never Used Second Hand Smoke Exposure: No Use of substances other than those prescribed or required for medical reasons: No Currently Displaying Signs/Symptoms of Drug Intoxication Withdrawal: No Have you been hit, kicked, punched, or otherwise hurt by someone within the past year? If so, by whom?: No Do you feel safe in your current relationship?: No Is there a partner from a previous relationship who is making you feel unsafe now?: No Are you made to feel afraid or neglected: No Are you DNR?: No Advance Directives: No Advance Directives Information Provided: Yes Advance Directives on File: No Do you have thoughts of harming others: None Do you have a plan to hurt others: No Plan Recently lost weight without trying: No Eating poorly because of decreased appetite: No Nutrition Risks: No Nutritional Risk service: No Current occupational status: retired Cognitive needs: No Hearing needs: Yes Vision needs: Yes Meds Allergies Allergy/AdvReac Type Severity Reaction Status Date / Time streptomycin [STREPTOMYCIN] Allergy Severe AFFECTED Verified 08/28/23 09:12 MY HEARING , anaphylaxis, affected hearing/nerves/etc, anxiety. Active Medications: Current Medications Acetaminophen (Acetaminophen 325 Mg Tablet) 650 mg PO Q6H PRN PRN Reason: Pain, Mild (Pain Scale 1-3) Last Admin: 08/29/23 13:32 Dose: 650 mg Aspirin (Aspirin 325 Mg Tablet) 325 mg PO BID [facility] Last Admin: 08/30/23 08:43 Dose: 325 mg Carvedilol (Carvedilol 25 Mg Tablet) 25 mg PO BID [facility]; Protocol Last Admin: 08/30/23 08:44 Dose: 25 mg Celecoxib (Celecoxib 200 Mg Capsule) 200 mg PO BID [facility] Last Admin: 08/30/23 08:44 Dose: 200 mg Cyanocobalamin (Cyanocobalamin (Vitamin B-12) 1,000 Mcg Tablet) 1,000 mcg PO BID [facility] Last Admin: 08/30/23 08:44 Dose: 1,000 mcg Docusate Sodium (Docusate Sodium 100 Mg Capsule) 100 mg PO BID [facility] Last Admin: 08/30/23 08:44 Dose: 100 mg Finasteride (Finasteride 5 Mg Tablet) 5 mg PO BEDTIME [facility] Last Admin: 08/29/23 20:47 Dose: 5 mg Hydromorphone HCl (Hydromorphone Hcl 0.5 Mg/0.5 Ml Syringe) 0.25 mg IVPUSH Q4H PRN; Protocol PRN Reason: Pain, Severe (Pain Scale 7-10) Meclizine HCl (Meclizine Hcl 12.5 Mg Tablet) 12.5 mg PO Q6H PRN PRN Reason: Vertigo Ondansetron HCl (Ondansetron Hcl 4 Mg/2 Ml Vial) 4 mg IVPUSH Q8H PRN PRN Reason: Nausea and Vomiting Oxycodone HCl (Oxycodone Hcl Immed Release 5 Mg Tablet) 5 mg PO Q4H PRN PRN Reason: Pain, Moderate(Pain Scale 4-6) Last Admin: 08/29/23 13:31 Dose: 5 mg Oxycodone HCl (Oxycodone Hcl Er 10 Mg Tab.Er.12h) 10 mg PO BID [facility] Last Admin: 08/30/23 08:44 Dose: 10 mg Sodium Chloride (0.9 % Sodium Chloride Flush 3 Ml Syringe) 3 ml IVFLUSH QSHIFT [facility] Last Admin: 08/30/23 08:48 Dose: 3 ml Home Medications Medication Instructions Recorded Confirmed Last Taken Type cholecalciferol (vitamin D3) 50 50 mcg PO DAILY 05/25/20 08/28/23 08/27/23 History mcg (2,000 unit) capsule finasteride 5 mg tablet 5 mg PO BEDTIME 05/25/20 08/28/23 08/27/23 History multivitamin 1 tab PO DAILY 05/25/20 08/28/23 08/27/23 History atorvastatin 80 mg tablet 80 mg PO BEDTIME 08/21/23 08/28/23 08/27/23 History cyanocobalamin (vitamin B-12) 2,500 mcg PO DAILY 08/21/23 08/28/23 08/27/23 History 2,000 mcg tablet,extended release (Vitamin B-12 ER) Physical Exam 2 Vital Signs: Vital Signs: Last Vital Signs Temp 97.6 F 08/30/23 07:21 Pulse 79 08/30/23 08:59 Resp 14 08/30/23 07:21 BP 115/55 L 08/30/23 08:59 Pulse Ox 96 08/30/23 08:59 O2 Del Method Room Air 08/30/23 07:21 O2 Flow Rate 2 08/30/23 03:22 BMI result Body Mass Index 35.0 Const: General: comfortable and no acute distress O rientation/consciousness: patient oriented x3 HEENT: Other: Unremarkable Head: Yes normal to inspection Neck: Neck: Yes normal visual inspection Chest: Chest palpation & inspection: normal inspection of the chest Resp: Auscultation: clear to auscultation bilaterally Cardio: Palpation: normal PMI Heart sounds: S1 normal heart sound present, S2 normal heart sound present, no gallops, no murmurs and no rubs GI: Palpation (GI): Soft to palpation Back/Spine/Pelvis: Other: unremarkable Skin: General skin exam: no rashes or lesions noted Neuro: General: patient oriented x3 Extrem: General: Yes normal to inspection Psych: Mental Status: mental status grossly normal Objective Labs and Meds 08/30/23 05:39 08/30/23 05:39 Lab results: Laboratory Results - last 24 hr 08/29/23 08/29/23 08/30/23 11:45 18:30 05:39 WBC 12.2 H RBC 2.93 L Hgb 9.3 L Hct 26.8 L MCV 91.5 MCH 31.7 MCHC 34.7 RDW 14.0 Plt Count 133 L MPV 11.0 Immature Gran % (Auto) 0.5 H Neut % (Auto) 75.5 H Lymph % (Auto) 10.4 L [place] % (Auto) 12.0 H Eos % (Auto) 1.2 Baso % (Auto) 0.4 Lymph # (Auto) 1.3 [place] # (Auto) 1.5 H Eos # (Auto) 0.2 Baso # (Auto) 0.1 Abs Immat Gran (auto) 0.06 H Absolute Neuts (auto) 9.2 H Absolute Nucleated RBC 0.000 Nucleated RBC % (auto) 0.0 Sodium 136 Potassium 3.9 Chloride 101 Carbon Dioxide 27 Anion Gap 12 BUN 35 H Creatinine 0.90 Estim Creat Clear Calc 83.0 Estimated GFR > 60 Fasting Glucose 111 H Calcium 8.0 L Troponin I High Sens 23.6 18.8 ECG Interpretation: Serial EKGs as well as old EKGs reviewed. In the most recent EKG, sinus rhythm at 71 with T inversions across the precordial leads as well as slightly in the anterolateral leads. In 1 of the prior EKGs is not seen but I have a feeling it may not be the correct patient. When I go back to preop EKG, the T inversions or still seen but possibly not as prominent. I will also obtain the old EKG from his [employer] [facility] consultant by [employer] and that shows similar findings. There is just a slight variation in the extent of T inversions in different EKGs but no drastic change overall. Assessment and Plan (1) Status post total hip replacement, right: Status: Acute (2) Abnormal EKG: Status: Acute (3) Atherosclerotic cardiovascular disease: Status: Acute (4) Hypotension: Status: Acute Plan Postoperative hypotension that seems resolved. Chronically abnormal EKG findings. Per review of cardiac note from outpatient Cardiology, known history of PCI to LAD, OM, RCA in 2013 in the setting of NSTEMI. According to that note, he has had episodes of orthostatic hypotension as well as lightheadedness. Echocardiogram with hyperdynamic LVEF with no wall motion abnormalities. Troponins are within range. Overall, do not believe he is actually having any ACS type presentation. As there is issue of hypotension even on his regular routine, the postoperative episode might be just an exacerbation of that. We can probably cut back on his blood pressure medications for the time being and then follow-up with his own [employer] [facility] consultant. Discussed with Dr. Garcia. Procedures Date of Service Date of Service: 08/30/23
--- NOTE | 2023-08-30 10:17 | MHC.CM.PN ---
Addendum entered by Kailyn Cisse 08/30/23 12:05: CM MET WITH PT AND DAUGHTER AT BEDSIDE THEY ARE AWARE OF, AND IN AGREEMENT WITH, THE PLAN FOR PT TO DC HOME WITH [facility] DAUGHTER WILL TRANSPORT Addendum entered by Kailyn Cisse 08/30/23 11:00: CM MET WITH PT AGAIN AFTER RECEIVING A MESSAGE FROM HIS NURSE PT REPORTS HE WOULD PREFER TO DC HOME WITH SERVICES PT WAS CLEARED TO DC HOME THIS MORNING BY THE PT SLIDE FASTENERS INSPECTOR ANOTHER MESSAGE WAS LEFT FOR PTS JODIE CAREY WITH UPDATED DC PLAN A REFERRAL WAS SENT TO [facility] PT WILL ARRANGE TRANSPORT AND STATES HE HAS ALREADY TEXTED HIS DAUGHTERS Addendum entered by Kailyn Cisse 08/30/23 10:34: PER NIELS, TRANSPORT WILL BE 1400 HOURS PT AWARE AND VM LEFT FOR PTS CHERRY FELICIANO [phone] Original Note: PT NOW CLEARED TO DC ELSN NOTIFIED VIA [facility] TRANSPORT BOOKED FOR 1300 HOURS VIA NIELS [facility]
[2023-08-30] MEDS: Acetaminophen 325 MG TABLET 650 MG PO (11:29)
[2023-08-30] MEDS: oxyCODONE HCl Immed Release 5 MG TABLET PO (11:30)
--- NOTE | 2023-08-30 11:45 | W.MHC.F2F ---
Service Date Service Date: 08/30/23 Encounter Date of encounter: 08/30/23 Reasons for Services Signs and symptoms assessed: s/p RTHA. Pt. is considered homebound due to recent surgery. Unable to drive, poor balance, poor gait mechanics. Reason for physical therapy: home safety and mobility, therapeutic exercises, restore joint function, gait/transfer training, assess need for DME and ADL training Reason for occupational therapy: home safety and mobility, therapeutic exercises, restore joint function, gait/transfer training, assess need for DME and ADL training Homebound: Leaving the home is medically contraindicated at this time without the asist of a device and/or another person due th the listed conditions above and below. Reason homebound: unsteady gait / fall risk, leg weakness, pain with ambulation, pain with transfers and unable to drive Certification: Based on the above findings, I certify that this patient is confined to the home and needs intermittent penitentiary care, physical therapy and/or speech therapy, or continues to need occupational therapy. The patient is under my care, and I have initiated the establishment of the plan of care. The patient will be followed by a physician who will periodically review the plan of care. Time Spent With Patient Time: Total time managing care of this patient today ____ minutes.
--- NOTE | 2023-08-30 12:07 | PM.EVENT ---
Event Note Date of Service: 08/30/23 Event Note: 2D echo without wall motion abnormalities; hyperdynamic to some degree. No further dizziness. History of orthostatic hypotension will decrease losartan to 50 mg daily and patient can follow-up with primary assistant professor of radiology Time Spent With Patient Time: Total time managing care of this patient today ____ minutes.
--- NOTE | 2023-08-30 13:56 | PC.NURSE ---
Pt refusing to go to rehab, wants to be d/c home. OK with plan. [facility] to fill meds, PT refusing, States [facility] will send scripts electronic to [facility] per patient.
--- NOTE | 2023-09-04 16:13 | W.PM.OPN ---
Operative Note Operative Note Date of Service: 08/28/23 Narrative: Date of Service: 08/28/23 Pre-op diagnosis: Right hip OA Post-op diagnosis: same Procedure: Right JOHANNE Implants: Alviso Trident 2 58 with 3 acetabular screws Accolade 2 #7 132 deg with +0/36 ceramic Surgeon: Rui Camacho MD Anesthesia: GETA and local Was an Production Assistant used for this Procedure?: Yes Production Assistant: Bridgette Worthington Estimated blood loss (mL): 200 IV fluids (mL): 1,000 Pathology: other Condition: stable Disposition: PACU Procedure in detail: Patient was brought into the operating room and placed in the left lateral decubitus position. All bony prominences were well padded and the limb was prepped and draped in standard sterile fashion. A time-out was called to identify proper site procedure proper surgeon IV antibiotics and 1 g of tranaxemic acid were administered. I began by making a curvilinear incision over the posterolateral aspect of the greater trochanter. Dissection was taken down to the tensor fascia which was incised in line with the incision and a Charnley retractor was placed. Cautery was used to maintain hemostasis. The hip was internally rotated and the external rotators were identified. The vessels were cauterized and a full-thickness capsular/external rotator layer was developed starting just proximal to the piriformis. This layer was tagged and a dull Hohmann retractor was placed underneath the neck in the hip was dislocated. A neck cut was made 1 cm proximal to the lesser trochanter and the head and neck were removed and measured 54mm on the back table. I then removed the labrum and cauterized the fovea. There was superior and posterior bone loss. I started low and inside with a 48 reamer and medialized but had to go slow b/c of very little posterior wall. I sequentially reamed up to a size 58 and impacted a 58mm cup at 45 degrees of inclination and 25 degrees of version. The cup was stable but there was mild posterior undercoverage so I placed two acetabular screws using standard AO technique I then placed a 20 deg posterior lipped liner and turned my attention to the femur. I identified the piriformis insertion and used this as a starting point for my selwyn cutter. The medius tendon was protected with a Hibs retractor. A Charnley awl was inserted in the canal and a curved curette used to remove the lateral bone. I irrigated copiously. I then sequentially broached in the patient's natural version to a size 7and placed my trial implants. I used a #7/132/+0 (36) based on my pre-operative template. Using a trail head I took the hip through range of motion. I was satisfied with the stability. I removed all instrumentation and copiously irrigated. I placed my final femoral implant and again took the hip through range of motion and was satisfied with the stability and length. The final +0 implant was impacted in place and the hip reduced. I then irrigated and placed 1 g of local transaxemic acid. I performed a capsular closure with 2.0 fiberwire, Lico's fascia with 0 Vicryl, subcuticular with 2-0 Vicryl and the skin with nico. Patient was placed into a sterile dressing. Patient was extubated brought to the recovery room in stable condition. There were no known complications.
== END 2023-08-30 13:31 | disposition home health service (06) | DRG 470 ==
LOC: HO.SSSA 14:36 → HO.S3 14:48
PROVIDERS: Hospitalist; Internal Medicine; Nurse Practitioner; Admitting Provider Physician Assistant; PCP Internal Medicine; Visit Provider Orthopaedic Surgery
PROC: 0SR903A Replacement of Right Hip Joint with Ceramic Synthetic Substitute, Uncemented, Open Approach (ICD-10-PCS; CPT 27130; principal; 2023-08-28 12:10)
DX: M16.11 Unilateral primary osteoarthritis, right hip (principal); I95.9 Hypotension, unspecified; I10 Essential (primary) hypertension; R94.31 Abnormal electrocardiogram [ECG] [EKG]; I25.10 Atherosclerotic heart disease of native coronary artery without angina pectoris; Z85.51 Personal history of malignant neoplasm of bladder; Z87.891 Personal history of nicotine dependence; Z79.899 Other long term (current) drug therapy
CPT/HCPCS: 36415; 72170; 80048; 80053; 83735; 84484; 85025; 86850; 86900; 86901; 87640; 87641; 88304; 88311; 93005; 93306; 97110; 97116; 97162; 97166; 97535; C1713; C1776; J0131; J0690; J1100; J1170; J2371; J2405; J2704; J2795; J3010; J7120; Q9957

== ENCOUNTER 2023-08-28 11:54 | Outpatient (BNV) | payer MEDICARE, SELFPAY | END 2023-08-29 13:00 | PROVIDERS: Admitting Provider Physician Assistant; PCP Internal Medicine; Visit Provider Internal Medicine | DX: I21.19 ST elevation (STEMI) myocardial infarction involving other coronary artery of inferior wall (principal); Z01.810 Encounter for preprocedural cardiovascular examination | CPT/HCPCS: 93010; 93306 ==

== ENCOUNTER → 2023-08-28 11:54 | Outpatient (BNV) | payer MEDICARE, SELFPAY | PROVIDERS: Admitting Provider Physician Assistant; PCP Internal Medicine; Visit Provider Physician Assistant | DX: M16.11 Unilateral primary osteoarthritis, right hip (principal); R94.31 Abnormal electrocardiogram [ECG] [EKG]; I95.9 Hypotension, unspecified; R00.1 Bradycardia, unspecified | CPT/HCPCS: 99222; 99232; 99499 ==

== ENCOUNTER → 2023-08-28 11:54 | Outpatient (BNV) | payer MEDICARE, SELFPAY | PROVIDERS: Admitting Provider Physician Assistant; PCP Internal Medicine; Visit Provider Internal Medicine | DX: Z96.641 Presence of right artificial hip joint (principal); R94.31 Abnormal electrocardiogram [ECG] [EKG]; I25.10 Atherosclerotic heart disease of native coronary artery without angina pectoris; I95.9 Hypotension, unspecified | CPT/HCPCS: 99223 ==

== ENCOUNTER → 2023-08-28 12:10 | Outpatient (BNV) | payer MEDICARE, SELFPAY | PROVIDERS: Admitting Provider Physician Assistant; PCP Internal Medicine; Visit Provider Orthopaedic Surgery | DX: Z47.1 Aftercare following joint replacement surgery (principal); Z96.641 Presence of right artificial hip joint | CPT/HCPCS: 27130; 99024; G0180 ==

== ENCOUNTER 2023-09-03 10:50 | Outpatient (AMB) | payer MEDICARE, SELFPAY ==
--- NOTE | 2023-09-03 10:59 | MHC.OFFVIS ---
Intake Intake Visit Reasons: PO-Right JOHANNE DOS-08/28/23-bandage change Intake Note: Pavan a 77 year old male presents today for a post operative bandage change status post right JOHANNE on 08/28/23 NE. Patient reports here for a bandage change due to drainage. He has concerns that he would like to speak with provider about. Allergies streptomycin [STREPTOMYCIN] Allergy (Severe, Verified 09/03/23 11:03) AFFECTED MY HEARING , anaphylaxis, affected hearing/nerves/etc, anxiety. HPI PO-Right JOHANNE DOS-08/28/23-bandage change HPI Details 77 yo male presents to the office today with cincerns to his bandage on the right hip. He is also concerned about his bloating, states he has not had a BM since before surgery. He is passing gas. He has been taking the Colace along the Maalox. He also mentions feeling short of breath with exertion. He denies chest pain or palpitations. He was feeling dizzy and had some low blood pressure but his meds were adjusted since surgery. [facility] Medical History (Updated 08/31/23 @ 00:03 by Messi Velásquez) Abnormal EKG Hypotension Acute electrocardiogram changes Osteoarthritis of right hip Atherosclerotic cardiovascular disease Post-nasal drip Recent bereavement Foreign body in left lower extremity COVID-19 virus infection Amebic dysentery Foreign body of left lower leg Left rotator cuff tear Barretts esophagus Osteoarthritis Peripheral neuropathy Anxiety and depression Colon cancer Impaired glucose tolerance BPH (benign prostatic hyperplasia) Urinary bladder cancer Obesity GERD (gastroesophageal reflux disease) Hypercholesterolemia Hypertension CAD (coronary artery disease) Surgical History H/O cardiac catheterization (~2013) Hx of colonoscopy History of partial colectomy History of bladder surgery History of carpal tunnel release Family History Father Heart failure Mother Thyroid disorder Sister Lung cancer Daughter Alcoholism Social History Household Members: Children Housing: House Are you a primary managed care provider to a significant other at home: No Do you presently have visiting nurse or other home services: No Alcohol intake: former Comment: aware of trip hazards 1984 stopped Patient Tobacco Use Status: Former Tobacco user Quit Date: 1984 Tobacco use type: Cigarette Years Smoked: 18 stopped 1984 e-Cigarette/Vaping Use: Never Used Second Hand Smoke Exposure: No service: No Current occupational status: retired Cognitive needs: No Hearing needs: Yes Vision needs: Yes Review of Systems Const All systems reviewed & are unremarkable except as noted in HPI and below Physical Exam Extrem Other: Right hip incision normal to inspection No erythema. Serous drainage on the bandage, no active drainage. NVI Abdomen is soft and non tender. Assessment & Plan Assessment & Plan (1) Status post total hip replacement, right: Comment: 08/30/2023 Code(s): Z96.641 - Presence of right artificial hip joint Plan: A new dressing was applied to the right hip along with foam tape. I advised them to remove the foam tape Weds and contact our office if he needs another dressing change. I sent a rx for MoM to the pharmacy to help with his constipation. I did order an H/H to see check his levels to determine if this is contributing to his becoming tired with exertion. I did let him know another concern would be Pneumonia, but he does not have fever or chills and he mentioned the [facility] has been listening to his lungs and they state they are clear. Lastly, he has a h/o Bladder and Colon cancer. This puts him at an increased risk of DVT/PE. He is taking ASA 325mg tabs po bid and I will have him switch this and begin lovenox for more coverage. He will see us back next week for routine post op appt. Orders: Orders Hemoglobin and Hematocrit Today Z96.641 - Presence of right artificial hip joint Medications: New magnesium hydroxide 5 mL PO DAILY PRN 3,780 mL 0RF stomach upset Coding Level of Care Code Global (61666) Diagnoses Status post total hip replacement, right Z96.641
== END 2023-09-03 12:12 | disposition home or self-care (01) ==
PROVIDERS: PCP Internal Medicine; Visit Provider Physician Assistant
DX: Z96.641 Presence of right artificial hip joint (principal)
CPT/HCPCS: 99024

== ENCOUNTER → 2023-09-03 10:50 | Outpatient (BNVA) | payer MEDICARE, SELFPAY | PROVIDERS: PCP Internal Medicine; Visit Provider Physician Assistant | DX: Z47.1 Aftercare following joint replacement surgery (principal); Z48.1 Encounter for planned postprocedural wound closure; Z96.641 Presence of right artificial hip joint | CPT/HCPCS: 99212 ==

== ENCOUNTER 2023-09-03 12:16 | Outpatient (REF) | payer MEDICARE, SELFPAY ==
[2023-09-03 13:32] LABS: Hematocrit 25.1 % (42.0-52.0); Hemoglobin 8.7 g/dl (14.0-18.0)
== END 2023-09-03 12:17 | disposition home or self-care (01) ==
LOC: HO.10HDL 12:16
PROVIDERS: Visit Provider Physician Assistant
DX: D64.9 Anemia, unspecified (principal); Z96.641 Presence of right artificial hip joint
CPT/HCPCS: 36415; 85014; 85018

== ENCOUNTER 2023-09-05 18:50 | Inpatient (IN) | payer MEDICARE, SELFPAY ==
--- NOTE | ~2023-09-05 | CT_ITS ---
EXAMINATION: CT SCAN RIGHT LOWER EXTREMITY WITHOUT CONTRAST CLINICAL INFORMATION: pain and edema to thigh and LE, compartment syndrome COMPARISON: Right lower extremity ultrasound same day. CT urogram 04/18/2022 TECHNIQUE: This CT examination was performed using dose optimization techniques as appropriate, variously including the following: *Automated exposure control *Adjustment of mA and/or kV according to patient size (this includes techniques or standardized protocols for targeted exams where dose is matched to indication/reason for exam; i.e. extremities or head) *Use of iterative reconstruction technique Thin section CT was performed through the entire right lower extremity. IV contrast was not utilized. Reconstructions in the coronal and sagittal planes were performed. Diagnostic utility of the exam is quite limited because of lack of IV contrast. FINDINGS: There is mild subcutaneous edema present most marked in the calf. Since the prior CT scan, the patient has undergone a right total hip prosthesis. The hip prosthesis appears intact. No visualized acute fractures are seen involving the pelvis femur tibia-fibula or visualized foot. There is a small crescentic fluid collection present just lateral to the muscles of the thigh measuring about 6 mm in thickness (6:210) extending over a length of about 25 cm.. Visualization is difficult because of lack of IV contrast. There is no large knee joint effusion present. No subcutaneous air is seen. CT/CT lower leg RT wo IV con IMPRESSION: 1. Limited exam because of lack of IV contrast. 2. There is mild subcutaneous edema present most marked in the calf. 3. Small crescentic fluid collection present just lateral to the muscles of the thigh measuring about 6 mm in thickness. 4. No acute fractures are seen. 5. No subcutaneous air is seen.
--- NOTE | ~2023-09-05 | US_ITS ---
EXAMINATION: US VENOUS ULTRASOUND WITH DOPPLER LOWER EXTREMITY, RIGHT CLINICAL INFORMATION: Swelling and pain COMPARISON: None available. TECHNIQUE: Ultrasound of the deep veins is performed from the hip to the calf with compression sonography and color and pulse Doppler assessment. Spectral analysis with color-flow imaging is performed. Slightly limited due to marked edema. FINDINGS: There is normal venous compression and respiratory variation and augmented flow. The visualized common femoral vein, superficial femoral vein, profunda femoral vein, popliteal vein, and the posterior tibial and peroneal veins shows no evidence of deep venous thrombosis. The contralateral common femoral vein demonstrates normal respiratory variation. US/US venous duplex LE RT IMPRESSION: No DVT demonstrated in the right lower extremity.
[2023-09-05 19:00] VITALS: BP 104/47; PULSE 67; RESP 18; TEMP 36.2; O2SAT 96; BMI 36.5
[2023-09-05 19:35] LABS: MANUAL DIFF FLAG NO
[2023-09-05 19:37] LABS: Basophils Percent Auto 0.3 % (0-2); Eosinophils Absolute Auto 0.3 X10*3/uL (0.0-0.4); Eosinophils Percent Auto 1.8 % (0-4); Hematocrit 21.5 % (42.0-52.0); Hemoglobin 7.5 g/dl (14.0-18.0); Imm Gran Abs Auto 0.36 X10*3/uL (0.00-0.03); Imm Gran Pct Auto 2.6 % (0.0-0.4); Lymphocytes Absolute Auto 1.1 X10*3/uL (1.2-4.9); Lymphocytes Percent Auto 7.6 % (20-40); Mean Corpuscular HGB Conc 34.9 g/dl (31.0-36.0); Mean Corpuscular Hemoglobin 33.2 pg (27.0-33.0); Mean Corpuscular Volume 95.1 fL (80.0-98.0); Mean Platelet Volume 10.3 fL (9.4-12.4); Monocytes Absolute Auto 1.2 X10*3/uL (0.1-1.2); Monocytes Percent Auto 8.9 % (2-11); Neutrophils Absolute Auto 10.9 x10*3/uL (2.0-8.3); Neutrophils Percent Auto 78.8 % (45-73); Platelet Count 241 X10*3/uL (160-400); Red Blood Count 2.26 X10*6/uL (4.60-5.80); Red Cell Distribution Width 16.3 % (11.0-16.0); White Blood Count 13.8 X10*3/uL (4.8-10.8)
[2023-09-05 19:54] LABS: Alanine Aminotransferase 21 U/L (0-40); Albumin Level 3.1 g/dL (3.5-5.0); Alkaline Phosphatase 65 U/L (39-117); Anion Gap 15 (12-20); Aspartate Amino Transferase 41 U/L (5-37); Bilirubin Total 1.9 mg/dL (0.0-1.0); Blood Urea Nitrogen 46 mg/dL (9-16); Calcium 8.4 mg/dL (8.4-10.2); Carbon Dioxide 25 mmol/L (22-29); Chloride 98 mmol/L (96-108); Creatinine Clr Calc Pharmacy 76.3; Estimated Glomerular Filt Rate > 60; Glucose Random 118 mg/dL (60-115); Potassium 3.8 mmol/L (3.3-5.1); Sodium 134 mmol/L (135-145); Total Protein 5.7 g/dL (6.5-8.0)
[2023-09-05 22:06] VITALS: BP 111/36; PULSE 64; RESP 18; TEMP 36.1; O2SAT 97
[2023-09-05] MEDS: Acetaminophen 325 MG TABLET 650 MG PO (22:09)
--- NOTE | 2023-09-05 23:23 | ECG_ITS ---
Test Reason : GI Blood Pressure : / mmHG Vent. Rate : 071 BPM Atrial Rate : 071 BPM P-R Int : 124 ms QRS Dur : 072 ms QT Int : 438 ms P-R-T Axes : 106 027 221 degrees QTc Int : 475 ms Normal sinus rhythm ST & T wave abnormality, consider inferior ischemia ST & T wave abnormality, consider anterolateral ischemia Abnormal ECG When compared with ECG of 29-AUG-2023 13:32, No significant change was found Referred By: Radha Vázquez Electronically Signed By:Mumtaz Allan
[2023-09-05 23:31] VITALS: BP 120/56; PULSE 65; RESP 16; TEMP 36.4; O2SAT 98
[2023-09-05] MEDS: Pantoprazole Sodium 40 MG/10 ML VIAL IVPUSH (23:31)
[2023-09-05] MEDS: 0.9 % Sodium Chloride 1,000 ML 999 ML IV (23:32)
[2023-09-05 23:39] LABS: OBS Int Ctl Valid YES; OBS1 POSITIVE (NEGATIVE)
--- NOTE | 2023-09-05 23:43 | ED_ITS ---
HPI - GI Bleed General Chief complaint: GI Bleed Stated complaint: black stools recent surgery Time Seen by Provider: 09/05/23 23:22 Source: patient, family and old records reviewed Mode of arrival: ambulatory Limitations: no limitations History of Present Illness HPI Narrative: 77-year-old male with history of hypertension, hyperlipidemia, Wallis's esophagus, GERD, history of bladder cancer, peripheral neuropathy due to chemotherapy, mood disorder, coronary artery disease s/p R JOHANNE on 08/28 was on aspirin 325mg BID but follow up in office on 09/03 felt to be high risk with cancer dx started on 40mg lovenox daily. He now notes that he has had dark black pudding stools for the past day. He stands up and he has a small amount of it. He feels tired and weak. No brb. He is not on NSAIDs. He was instructed by his surgeon to come to ED for GIB workup MD complaint: melena Onset (ago): day(s) (1) Pain Consistency: intermittent Severity: mild Relieving factors: rest Exacerbating factors: other (worse when he stands) Context: anticoagulant use (low dose lovenox) Associated symptoms: malaise and weakness Related Data Home Medications Medication Instructions Recorded Confirmed cholecalciferol (vitamin D3) 50 50 mcg PO DAILY 05/25/20 08/28/23 mcg (2,000 unit) capsule finasteride 5 mg tablet 5 mg PO BEDTIME 05/25/20 08/28/23 multivitamin 1 tab PO DAILY 05/25/20 08/28/23 atorvastatin 80 mg tablet 80 mg PO BEDTIME 08/21/23 08/28/23 cyanocobalamin (vitamin B-12) 2,500 mcg PO DAILY 08/21/23 08/28/23 2,000 mcg tablet,extended release (Vitamin B-12 ER) Previous Rx's Medication Instructions Recorded diclofenac sodium 1 % topical gel 2 g topical QID PRN pain #100 grams 09/14/22 (Arthritis Pain (diclofenac)) carvedilol 25 mg tablet 25 mg PO BID #180 tabs 07/17/23 oxycodone 5 mg tablet 5 mg PO Q4H PRN pain (scale score 08/29/23 4-6) 7 days #42 tabs celecoxib 200 mg capsule (Celebrex) 200 mg PO BID PRN pain 30 days #60 08/31/23 caps docusate sodium 100 mg capsule 100 mg PO BID 90 days #180 caps 08/31/23 (Colace) losartan 50 mg tablet 50 mg PO DAILY #30 tabs 08/31/23 oxycodone 5 mg tablet 5 mg PO Q4-6H PRN pain (scale 08/31/23 score 4-6) 7 days #42 tabs enoxaparin 40 mg/0.4 mL 40 mg (0.4 mL) subcut Q24H 5 weeks 09/03/23 subcutaneous syringe (Lovenox) #14 mL magnesium hydroxide 400 mg/5 mL 5 ml PO DAILY PRN stomach upset 09/03/23 oral suspension #3,780 mL Allergies Allergy/AdvReac Type Severity Reaction Status Date / Time streptomycin [STREPTOMYCIN] Allergy Severe AFFECTED Verified 09/05/23 19:00 MY HEARING , anaphylaxis, affected hearing/nerves/etc, anxiety. Review of Systems 2 Review of Systems: Constitutional : No Weight loss, No Fever, No Chills ENT/Mouth : No sore throat, No Rhinorrhea Eyes: No Swelling, No Redness Cardiovascular : No Chest Pain, No SOB, NoEdema Respiratory : No Cough, No Sputum, No Wheezing Gastrointestinal : no Nausea, no Vomiting, positive Diarrhea, no abdominal Pain, No Hematochezia, pos Melena Genitourinary : No Dysuria, No Urinary Frequency, No Hematuria, No Urgency Musculoskeletal : No joint pain, No Myalgias, No Joint Swelling Skin : No Skin Lesions, No rash Neuro : pos Weakness, No Numbness, No Dizziness, No Headache Psych : No Anxiety/Panic, No Depression Heme/Lymph: No Bruising, No Lymphadenopathy Endocrine : No Polyuria, No Polydipsia All other systems reviewed and are negative. [facility] Past Medical History Attestation statement: The following information was validated with the patient. Source: old records reviewed Medical History Abnormal EKG Hypotension Acute electrocardiogram changes Osteoarthritis of right hip Atherosclerotic cardiovascular disease Post-nasal drip Recent bereavement Foreign body in left lower extremity COVID-19 virus infection Amebic dysentery Foreign body of left lower leg Left rotator cuff tear Barretts esophagus Osteoarthritis Peripheral neuropathy Anxiety and depression Colon cancer Impaired glucose tolerance BPH (benign prostatic hyperplasia) Urinary bladder cancer Obesity GERD (gastroesophageal reflux disease) Hypercholesterolemia Hypertension CAD (coronary artery disease) Surgical History H/O cardiac catheterization (~2013) Hx of colonoscopy History of partial colectomy History of bladder surgery History of carpal tunnel release Family History Family History Father Heart failure Mother Thyroid disorder Sister Lung cancer Daughter Alcoholism Social History Social History Household Members: Children Housing: House Are you a primary dog day care attendant to a significant other at home: No Do you presently have visiting nurse or other home services: No Alcohol intake: former Comment: aware of trip hazards 1984 stopped Patient Tobacco Use Status: Former Tobacco user Quit Date: 1984 Tobacco use type: Cigarette Years Smoked: 18 stopped 1984 e-Cigarette/Vaping Use: Never Used Second Hand Smoke Exposure: No Advance Directives: No Advance Directives Information Provided: No service: No Current occupational status: retired Cognitive needs: No Hearing needs: Yes Vision needs: Yes Physical Exam 2 Vital Signs: Vital Signs: Last Vital Signs Temp 97.6 F 09/05/23 23:31 Pulse 65 09/05/23 23:31 Resp 16 09/05/23 23:31 BP 120/56 L 09/05/23 23:31 Pulse Ox 98 09/05/23 23:31 O2 Del Method Room Air 09/05/23 23:31 BMI result Body Mass Index 36.5 Appearance: Alert. Oriented X3. No acute distress. Eyes: Pupils equal, round and reactive to light. ENT: Pharynx normal. Neck: Normal inspection. Neck supple. CVS: Normal heart rate and rhythm. Pulses normal. Respiratory: No respiratory distress. Breath sounds normal. Abdomen: Soft and nontender. Rectal: melena noted Skin: Skin warm and dry. Normal skin color. Normal skin turgor. Extremities: R hip incision c/d/i R leg - thigh is ecchymotic and compartment is swollen in thigh but it is soft, distal pulses on both feet are diminished. RLE trace to 1+ pitting edema Neuro: Oriented X 3. No motor deficit. No sensory deficit. Medications Administered Discontinued Medications Generic Name Dose Route Start Last Admin Trade Name Freq PRN Reason Stop Dose Admin Acetaminophen 650 mg 09/05/23 22:03 09/05/23 22:09 Acetaminophen 325 Mg Tablet PO 09/05/23 22:04 650 mg ONCE ONE Administration Sodium Chloride 1,000 mls @ 999 mls/hr 09/05/23 23:30 09/05/23 23:32 Ns IV 09/06/23 00:30 999 mls/hr .Q1H1M LALY Administration Pantoprazole Sodium 40 mg 09/05/23 23:22 09/05/23 23:31 Pantoprazole Sodium 40 Mg/10 Ml Vial IVPUSH 09/05/23 23:23 40 mg ONCE ONE Administration Pantoprazole Sodium 40 mg 09/06/23 00:05 09/06/23 01:17 Pantoprazole Sodium 40 Mg/10 Ml Vial IVPUSH 09/06/23 00:06 40 mg ONCE ONE Administration Medical Decision Making Medical Decision Making [facility] Narrative: 77-year-old male with history of hypertension, hyperlipidemia, Wallis's esophagus, GERD, history of bladder cancer, peripheral neuropathy due to chemotherapy, mood disorder, coronary artery disease here with c/o worsening anemia, melanotic stools and weakness - at this time IV protonix ordered, type and screen, blood transfusion. The blood is dark in appearance. BUN is elevated suspect UGIB he denies brb or clots. Will notify Dr. Franco and admit Differential Diagnosis Differential Diagnoses: The differential diagnosis associated with the presentation includes UGIB Admission/Observation Consideration of admission/observation: Escalation of care including admission/observation considered admit for further care Consult Healthcare Provider Management of the patient was discussed with: Hospitalist (will admit) and Accounts Receivable Accountant (Dr. Franco aware) Lab Data [facility] Lab Attestation statement: I reviewed the patient's lab results. 09/05/23 19:22 09/05/23 19:22 Labs: Lab Results 09/05/23 09/05/23 Range/Units 19:22 23:35 WBC 13.8 H (4.8-10.8) X10*3/uL RBC 2.26 L D (4.60-5.80) X10*6/uL Hgb 7.5 L (14.0-18.0) g/dl Hct 21.5 L (42.0-52.0) % MCV 95.1 (80.0-98.0) fL MCH 33.2 H (27.0-33.0) pg MCHC 34.9 (31.0-36.0) g/dl RDW 16.3 H (11.0-16.0) % Plt Count 241 D (160-400) X10*3/uL MPV 10.3 (9.4-12.4) fL Immature Gran % (Auto) 2.6 H (0.0-0.4) % Neut % (Auto) 78.8 H (45-73) % Lymph % (Auto) 7.6 L (20-40) % [place] % (Auto) 8.9 (2-11) % Eos % (Auto) 1.8 (0-4) % Baso % (Auto) 0.3 (0-2) % Lymph # (Auto) 1.1 L (1.2-4.9) X10*3/uL [place] # (Auto) 1.2 (0.1-1.2) X10*3/uL Eos # (Auto) 0.3 (0.0-0.4) X10*3/uL Baso # (Auto) 0.0 (0.0-0.2) X10*3/uL Abs Immat Gran (auto) 0.36 H (0.00-0.03) X10*3/uL Absolute Neuts (auto) 10.9 H (2.0-8.3) x10*3/uL Absolute Nucleated RBC 0.000 (0.0-0.012) X10*3/uL Nucleated RBC % (auto) 0.0 (0.0-0.2) /100WBC Sodium 134 L (135-145) mmol/L Potassium 3.8 (3.3-5.1) mmol/L Chloride 98 (96-108) mmol/L Carbon Dioxide 25 (22-29) mmol/L Anion Gap 15 (12-20) BUN 46 H (9-16) mg/dL Creatinine 1.00 (0.5-1.4) mg/dL Estim Creat Clear Calc 76.3 Estimated GFR > 60 Random Glucose 118 H (60-115) mg/dL Calcium 8.4 (8.4-10.2) mg/dL Total Bilirubin 1.9 H (0.0-1.0) mg/dL AST 41 H (5-37) U/L ALT 21 (0-40) U/L Alkaline Phosphatase 65 (39-117) U/L Total Protein 5.7 L (6.5-8.0) g/dL Albumin 3.1 L (3.5-5.0) g/dL Stool Occult Blood POSITIVE (NEGATIVE) Independent Interpretation I performed an independent interpretation of an: EKG Interpretation: Rate: 71 Rhythm: NSR [place]: normal , LVH Normal P waves. Normal EFREN. Normal QRS complex. ST T wave : no GERALD, inverted t waves V3-V6 no GERALD qTC: 475 prior studies: no acute ischemia no change from prior The study has been interpreted contemporaneously by me. . Independent Historian Clinical information obtained from an independent historian. History obtained from or confirmed by: Other (daughter) External Record Review External record reviewed: Inpatient record and Office record Critical Care Time Critical Care Time Critical Care Time: Yes Total Critical Care Time: 45 Attestation: review of records, blood transfusion I attest to this time spent taking care of the patient Discharge Plan Discharge Clinical Impression: Acute upper gastrointestinal bleeding, ABLA (acute blood loss anemia) Patient Disposition: Admitted As Inpatient
[2023-09-06] VITALS (17 sets, daily range): BP systolic 101–158; BP diastolic 33–77; PULSE 63–90; RESP 16–18; TEMP 36.3–37.3; O2SAT 96–98
--- NOTE | 2023-09-06 00:04 | PC.NURSE ---
Pt c/ dark tarry stool abdominal pain 09/01. Occult stool sent to lab, IV placed #20 L-hand, IV fluids started and given IV protonix. Pt changed over. Pt reports having surgery on hip about a week ago. R-leg appears to have modeling down to R-knee. R-leg and foot swelling , faint pulses Bilaterally. present at bedside and assessed. Plan of care ongoing.
--- NOTE | 2023-09-06 00:07 | PM.IMHP ---
History of Present Illness Date of Service: 09/06/23 Chief Complaint: Dark stools This is a 77-year-old male with pertinent history of essential hypertension, mixed hyperlipidemia, gastroesophageal reflux disease with Wallis's esophagus, history of bladder cancer, mood disorder, peripheral neuropathy, coronary artery disease, recent right hip JOHANNE on Lovenox who presents to the emergency department for evaluation of black stools. Patient states he was switched from high dose aspirin to Lovenox about 3 days prior to presentation. Patient states he 1st noticed dark stools about 2 days prior to presentation. He has been having multiple dark bowel movements throughout the day. No nausea, vomiting, abdominal pain. Also feels dizzy and lightheaded when he tries to get up. No fever, chills, chest discomfort, palpitations, shortness of breath, changes in urinary habits. In the emergency department, patient's hemoglobin was found to be low and stool occult blood was positive. Review of Systems Constitutional: Constitutional: Reports fatigue ENT: Reports dizziness Cardiovascular: Cardiovascular: Reports no additional cardiovascular complaints Respiratory: Respiratory: Reports no additional respiratory complaints Gastrointestinal: Gastrointestinal: Reports melena Genitourinary: Genitourinary: Reports no additional male genitourinary complaints Neurologic: Reports dizziness Endocrine: Endocrine: Reports fatigue [facility] Medical History Abnormal EKG Hypotension Acute electrocardiogram changes Osteoarthritis of right hip Atherosclerotic cardiovascular disease Post-nasal drip Recent bereavement Foreign body in left lower extremity COVID-19 virus infection Amebic dysentery Foreign body of left lower leg Left rotator cuff tear Barretts esophagus Osteoarthritis Peripheral neuropathy Anxiety and depression Colon cancer Impaired glucose tolerance BPH (benign prostatic hyperplasia) Urinary bladder cancer Obesity GERD (gastroesophageal reflux disease) Hypercholesterolemia Hypertension CAD (coronary artery disease) Family History Father Heart failure Mother Thyroid disorder Sister Lung cancer Daughter Alcoholism Surgical History H/O cardiac catheterization (~2013) Hx of colonoscopy History of partial colectomy History of bladder surgery History of carpal tunnel release Social History Household Members: Children Housing: House Are you a primary family day carer to a significant other at home: No Do you presently have visiting nurse or other home services: No Alcohol intake: former Comment: aware of trip hazards 1984 stopped Patient Tobacco Use Status: Former Tobacco user Quit Date: 1984 Tobacco use type: Cigarette Years Smoked: 18 stopped 1984 e-Cigarette/Vaping Use: Never Used Second Hand Smoke Exposure: No Advance Directives: No Advance Directives Information Provided: No service: No Current occupational status: retired Cognitive needs: No Hearing needs: Yes Vision needs: Yes Meds Allergies Allergy/AdvReac Type Severity Reaction Status Date / Time streptomycin [STREPTOMYCIN] Allergy Severe AFFECTED Verified 09/05/23 19:00 MY HEARING , anaphylaxis, affected hearing/nerves/etc, anxiety. Active Medications: Current Medications Sodium Chloride (Ns) 100 mls @ 100 mls/hr IV ONCE ONE Stop: 09/06/23 00:41 Home Medications Medication Instructions Recorded Confirmed Last Taken Type cholecalciferol (vitamin D3) 50 50 mcg PO DAILY 05/25/20 08/28/23 08/27/23 History mcg (2,000 unit) capsule finasteride 5 mg tablet 5 mg PO BEDTIME 05/25/20 08/28/23 08/27/23 History multivitamin 1 tab PO DAILY 05/25/20 08/28/23 08/27/23 History atorvastatin 80 mg tablet 80 mg PO BEDTIME 08/21/23 08/28/23 08/27/23 History cyanocobalamin (vitamin B-12) 2,500 mcg PO DAILY 08/21/23 08/28/23 08/27/23 History 2,000 mcg tablet,extended release (Vitamin B-12 ER) Physical Exam Vital Signs and Narrative: Vital Signs: Last Vital Signs Temp 97.6 F 09/05/23 23:31 Pulse 65 09/05/23 23:31 Resp 16 09/05/23 23:31 BP 120/56 L 09/05/23 23:31 Pulse Ox 98 09/05/23 23:31 O2 Del Method Room Air 09/05/23 23:31 BMI result Body Mass Index 36.5 Elderly male male lying in bed in no distress Neck supple, no JVD Regular rate and rhythm, S1-S2 heard Regular breath sounds bilaterally, no wheezing or crackles appreciated Abdomen soft nontender, no guarding, no rigidity Patient is awake, alert and oriented to self, place, time and person ; no focal motor deficit Psych: Normal mood No pedal edema Results Labs 09/05/23 19:22 09/05/23 19:22 Labs: Laboratory Results - last 24 hr 09/05/23 09/05/23 19:22 23:35 MCV 95.1 MCH 33.2 H MCHC 34.9 RDW 16.3 H Plt Count 241 D MPV 10.3 Immature Gran % (Auto) 2.6 H Neut % (Auto) 78.8 H Lymph % (Auto) 7.6 L [place] % (Auto) 8.9 Eos % (Auto) 1.8 Baso % (Auto) 0.3 Lymph # (Auto) 1.1 L [place] # (Auto) 1.2 Eos # (Auto) 0.3 Baso # (Auto) 0.0 Abs Immat Gran (auto) 0.36 H Absolute Neuts (auto) 10.9 H Absolute Nucleated RBC 0.000 Nucleated RBC % (auto) 0.0 Anion Gap 15 Estim Creat Clear Calc 76.3 Estimated GFR > 60 Random Glucose 118 H Calcium 8.4 Total Bilirubin 1.9 H AST 41 H ALT 21 Alkaline Phosphatase 65 Total Protein 5.7 L Albumin 3.1 L Stool Occult Blood POSITIVE Assessment and Plan (1) Acute GI bleeding: Status: Acute (2) ABLA (acute blood loss anemia): Status: Acute Plan This is a 77-year-old male with pertinent history of essential hypertension, mixed hyperlipidemia, gastroesophageal reflux disease with Wallis's esophagus, history of bladder cancer, mood disorder, peripheral neuropathy, coronary artery disease, recent right hip JOHANNE on Lovenox who presents to the emergency department for evaluation of black stools. #. Acute GI bleed: Will admit patient with cardiac monitoring. Resuscitating with IV crystalloids. Initiating IV Protonix. Hold Lovenox. Consulted Gastroenterology, appreciate assistance #. Acute blood loss anemia in the setting of above: Patient being transfused 1 unit PRBC in the ER. Close monitor H&H. #. Essential hypertension: Hold antihypertensives in the setting of acute GI bleed #. Mixed hyperlipidemia: On statin #. Recent right hip JOHANNE: Hold Lovenox as above Med rec pending DVT prophylaxis: Mechanical Full code Admit as inpatient and will require two night minimum hospital stay for hemodynamic monitoring, evaluation of GI bleed (as above), which is not possible in a lesser acute setting. Specialist consult pending Quality Stroke Does the patient have a stroke diagnosis?: No VTE Prior VTE?: No VTE Risk Level:: Medical - moderate - high VTE Device Contraindication: N/A - Device Ordered VTE Drug Contraindication: Treatment Not Indicated
[2023-09-06] MEDS: Pantoprazole Sodium 40 MG/10 ML VIAL IVPUSH ×3 (01:17→16:48)
--- NOTE | 2023-09-06 02:06 | PC.NURSE ---
Blood started. BP soft, notified.
[2023-09-06 05:29] LABS: MANUAL DIFF FLAG NO
[2023-09-06 05:31] LABS: Basophils Percent Auto 0.3 % (0-2); Eosinophils Absolute Auto 0.3 X10*3/uL (0.0-0.4); Eosinophils Percent Auto 2.2 % (0-4); Hematocrit 23.6 % (42.0-52.0); Imm Gran Abs Auto 0.38 X10*3/uL (0.00-0.03); Imm Gran Pct Auto 3.2 % (0.0-0.4); Lymphocytes Absolute Auto 1.1 X10*3/uL (1.2-4.9); Lymphocytes Percent Auto 8.9 % (20-40); Mean Corpuscular HGB Conc 33.9 g/dl (31.0-36.0); Mean Corpuscular Hemoglobin 32.4 pg (27.0-33.0); Mean Corpuscular Volume 95.5 fL (80.0-98.0); Mean Platelet Volume 10.4 fL (9.4-12.4); Monocytes Absolute Auto 1.1 X10*3/uL (0.1-1.2); Monocytes Percent Auto 8.9 % (2-11); NRBC Pct Auto 0.3 /100WBC (0.0-0.2); Neutrophils Percent Auto 76.5 % (45-73); Platelet Count 215 X10*3/uL (160-400); Red Blood Count 2.47 X10*6/uL (4.60-5.80); Red Cell Distribution Width 16.3 % (11.0-16.0); White Blood Count 11.8 X10*3/uL (4.8-10.8)
[2023-09-06 05:44] LABS: Prothrombin Time 12.7 SEC (11.1-13.3)
[2023-09-06 05:46] LABS: Anion Gap 12 (12-20); Blood Urea Nitrogen 36 mg/dL (9-16); Calcium 7.9 mg/dL (8.4-10.2); Carbon Dioxide 24 mmol/L (22-29); Chloride 101 mmol/L (96-108); Creatinine Clr Calc Pharmacy 89.8; Estimated Glomerular Filt Rate > 60; Glucose Random 94 mg/dL (60-115); Potassium 3.5 mmol/L (3.3-5.1); Sodium 133 mmol/L (135-145)
--- NOTE | 2023-09-06 09:24 | MHC.CM.PN ---
IMM 09/06/23, pt lives with family, he is active with [facility] following hip replacement surgery 9 days ago, services of PT, OT, NSG. He has medical equipment of: hosp. bed, canes, walker, raised toilet seat, ramp, W/C (from caring for his father in law), grab bars, shower bench. HCP on file, confirmed, his daughter: Mimi. PCP confirmed: Franco Juarez. Family to transport home upon DC. CM to follow and assist with DC plan.
--- NOTE | 2023-09-06 10:36 | PHA.MEDREC ---
Pharmacy Consult ? Medication Reconciliation Pharmacy has completed the medication reconciliation. Spoke to patient and confirmed medication list.
--- NOTE | 2023-09-06 10:55 | P.PNIM_ITS ---
Subjective Subjective Date of Service: 09/06/23 Interval History: seen and examined this morning follow up for presumed GI bleeding feeling well, no abdominal pain no dark stools today Review of Systems Review of Systems: Yes all other systems are reviewed and are negative Constitutional Constitutional: Denies chills and Denies fever(s) Cardiovascular Cardiovascular: Denies chest pain, Denies palpitations and Denies dyspnea Respiratory Respiratory: Denies cough and Denies dyspnea Gastrointestinal Gastrointestinal: Denies abdominal pain, Denies nausea and Denies vomiting Endocrine Endocrine: Denies palpitations Physical Exam 2 Vital Signs: Vital Signs: Last Vital Signs Temp 97.7 F 09/06/23 09:08 Pulse 72 09/06/23 10:45 Resp 18 09/06/23 09:08 BP 144/67 H 09/06/23 10:45 Pulse Ox 98 09/06/23 10:45 O2 Del Method Room Air 09/06/23 09:08 BMI result Body Mass Index 36.5 Const: General: cooperative, comfortable, no acute distress, alert and awake Nutritional Appearance: overweight Orientation/consciousness: patient oriented x3 Resp: Effort & Inspection: normal respiratory effort, able to speak in complete sentences, no respiratory distress and no use of accessory muscles A uscultation: clear to auscultation bilaterally Cardio: Rate: regular rate GI: Inspection: No distended Palpation (GI): Soft to palpation and nontender Neuro: General: patient oriented x3, moves all extremities and CN's II-XI intact bilaterally Extrem: General: Yes no pedal edema Objective Data Active Medications Acetaminophen (Acetaminophen 325 Mg Tablet) 650 mg PO Q6H PRN PRN Reason: Pain, Mild (Pain Scale 1-3) Acetaminophen (Acetaminophen Supp 650 Mg Supp.Rect) 650 mg [place] Q6H PRN PRN Reason: Pain, Mild (Pain Scale 1-3) Melatonin (Melatonin 3 Mg Tablet) 6 mg PO BEDTIME PRN PRN Reason: Insomnia Ondansetron HCl (Ondansetron Hcl 4 Mg/2 Ml Vial) 4 mg IVPUSH Q8H PRN PRN Reason: Nausea and Vomiting Pantoprazole Sodium (Pantoprazole Sodium 40 Mg/10 Ml Vial) 40 mg IVPUSH BID@0630,1630 LALY Last Admin: 09/06/23 06:50 Dose: 40 mg Documented By: RICKIE Sodium Chloride (0.9 % Sodium Chloride Flush 3 Ml Syringe) 3 ml IVFLUSH QSHIFT [facility] Last Admin: 09/06/23 07:39 Dose: Not Given Documented By: QUAN Non-Admin Reason: Patient Asleep Labs 09/06/23 04:22 09/06/23 04:22 Labs: Laboratory Results - last 24 hr 09/05/23 09/05/23 09/06/23 19:22 23:35 00:35 MCV 95.1 MCH 33.2 H MCHC 34.9 RDW 16.3 H Plt Count 241 D MPV 10.3 Immature Gran % (Auto) 2.6 H Neut % (Auto) 78.8 H Lymph % (Auto) 7.6 L [place] % (Auto) 8.9 Eos % (Auto) 1.8 Baso % (Auto) 0.3 Lymph # (Auto) 1.1 L [place] # (Auto) 1.2 Eos # (Auto) 0.3 Baso # (Auto) 0.0 Abs Immat Gran (auto) 0.36 H Absolute Neuts (auto) 10.9 H Absolute Nucleated RBC 0.000 Nucleated RBC % (auto) 0.0 PT INR Anion Gap 15 Estim Creat Clear Calc 76.3 Estimated GFR > 60 Random Glucose 118 H Calcium 8.4 Total Bilirubin 1.9 H AST 41 H ALT 21 Alkaline Phosphatase 65 Total Protein 5.7 L Albumin 3.1 L Stool Occult Blood POSITIVE Blood Type O Positive Antibody Screen NEGATIVE Crossmatch See Detail 09/06/23 04:22 MCV 95.5 MCH 32.4 MCHC 33.9 RDW 16.3 H Plt Count 215 MPV 10.4 Immature Gran % (Auto) 3.2 H Neut % (Auto) 76.5 H Lymph % (Auto) 8.9 L [place] % (Auto) 8.9 Eos % (Auto) 2.2 Baso % (Auto) 0.3 Lymph # (Auto) 1.1 L [place] # (Auto) 1.1 Eos # (Auto) 0.3 Baso # (Auto) 0.0 Abs Immat Gran (auto) 0.38 H Absolute Neuts (auto) 9.0 H Absolute Nucleated RBC 0.030 H Nucleated RBC % (auto) 0.3 H PT 12.7 INR 1.0 Anion Gap 12 Estim Creat Clear Calc 89.8 Estimated GFR > 60 Random Glucose 94 Calcium 7.9 L Total Bilirubin AST ALT Alkaline Phosphatase Total Protein Albumin Stool Occult Blood Blood Type Antibody Screen Crossmatch Assessment and Plan (1) Acute GI bleeding: Status: Acute (2) ABLA (acute blood loss anemia): Status: Acute Plan This is a 77-year-old male with pertinent history of essential hypertension, mixed hyperlipidemia, gastroesophageal reflux disease with Wallis's esophagus, history of bladder cancer, mood disorder, peripheral neuropathy, coronary artery disease, recent right hip JOHANNE on Lovenox who presents to the emergency department for evaluation of black stools. Acute blood loss anemia due to Acute GI bleed: continue IV Protonix Hold Lovenox. NPO official GI consult pending s/p 1u rbc 09/05, GI rec additional unit of blood follow CBC Recent right hip JOHANNE 08/28 Hold Lovenox as above continue PT during inpatient stay ortho consult for postoperative care CAD with PCI to LAD, OM, RCA in 2013 continue statin, BB DVT prophylaxis: Mechanical Full code Admit as inpatient and will require two night minimum hospital stay for hemodynamic monitoring, evaluation of GI bleed (as above), which is not possible in a lesser acute setting. Specialist consult pending Quality Stroke Does the patient have a stroke diagnosis?: No VTE Prior VTE?: No VTE Risk Level:: Medical - moderate - high VTE Device Contraindication: N/A - Device Ordered VTE Drug Contraindication: Treatment Not Indicated
[2023-09-06 11:07] LABS: Alanine Aminotransferase 18 U/L (0-40); Albumin Level 2.9 g/dL (3.5-5.0); Alkaline Phosphatase 60 U/L (39-117); Aspartate Amino Transferase 36 U/L (5-37); Bilirubin Direct 0.7 mg/dL (0.0-0.5); Bilirubin Total 1.9 mg/dL (0.0-1.0); Total Protein 5.3 g/dL (6.5-8.0)
--- NOTE | 2023-09-06 12:37 | PM.EVENT ---
Event Note Date of Service: 09/06/23 Event Note: GI Consult-Full note dictated. History from patient and EMR. Imp: UGI Bleed on recent aspirin and Lovenox approximately 1 week s/p right hip replacement. He has a history of erosive esophagitis for which he had been on a daily PPI in the past. Rec: Continue IV PPI. Transfuse to Hgb > 9. EGD today with MAC. Full consent has been obtained for this, including risks of bleeding and perforation. I have ordered prophylactic antibiotics for the procedure as recommended by the Ortho service in relation to the very recent hip replacement. Thanks Time Spent With Patient Time: Total time managing care of this patient today ____ minutes.
--- NOTE | 2023-09-06 12:43 | MHC.SHP ---
Pre-Procedural Eval Section A - 24 Hr Update-Section A only Date of Service: 09/06/23 The patient is an INPATIENT: Yes The patient has been examined within 24 hours of the surgical procedure. The History & Physical has been completed within 30 days and I have reviewed it.: Yes Section B - Complete if H&P > 30 days Chief Complaint: Black stools Allergies: Allergies Allergy/AdvReac Type Severity Reaction Status Date / Time streptomycin [STREPTOMYCIN] Allergy Severe AFFECTED Verified 09/05/23 19:00 MY HEARING , anaphylaxis, affected hearing/nerves/etc, anxiety. Plan I have reviewed the history and physical and performed a pertinent physical examination on my patient. No changes have occurred unless specified. Time Spent With Patient Time: Total time managing care of this patient today ____ minutes.
[2023-09-06] MEDS: Ampicillin Sodium 2 GM in 0.9 % Sodium Chloride 100 ML IV (13:49)
[2023-09-06] MEDS: Gentamicin Sulfate/NaCl 80 MG/100 ML PIGGYBACK 100 MG IV (14:18)
--- NOTE | 2023-09-06 14:28 | HO.ANESPROP2 ---
[facility] Active Problems Active Problems: All Active Problems (Updated 09/06/23 @ 01:08 by Keith Tubbs MD) Acute GI bleeding (Acute) ABLA (acute blood loss anemia) (Acute) Acute upper gastrointestinal bleeding (Acute) Atherosclerotic cardiovascular disease (Acute) Status post total hip replacement, right (Acute) Preop exam for internal medicine (Acute) Osteoarthritis of left knee (Acute) Spinal stenosis of lumbar region with neurogenic claudication (Acute) Lumbar degenerative disc disease (Acute) Osteoarthritis of right knee (Acute) Right knee pain (Acute) Back pain (Acute) TSH elevation (Acute) Generalized anxiety disorder (Acute) Barretts esophagus (Acute) Anxiety and depression (Acute) Colon cancer (Acute) Impaired glucose tolerance (Acute) BPH (benign prostatic hyperplasia) (Acute) Obesity (Acute) GERD (gastroesophageal reflux disease) (Acute) Hypercholesterolemia (Acute) Hypertension (Acute) CAD (coronary artery disease) (Acute) Past Medical History Medical History Abnormal EKG Hypotension Acute electrocardiogram changes Osteoarthritis of right hip Atherosclerotic cardiovascular disease Post-nasal drip Recent bereavement Foreign body in left lower extremity COVID-19 virus infection Amebic dysentery Foreign body of left lower leg Left rotator cuff tear Barretts esophagus Osteoarthritis Peripheral neuropathy Anxiety and depression Colon cancer Impaired glucose tolerance BPH (benign prostatic hyperplasia) Urinary bladder cancer Obesity GERD (gastroesophageal reflux disease) Hypercholesterolemia Hypertension CAD (coronary artery disease) Family History Family History Father Heart failure Mother Thyroid disorder Sister Lung cancer Daughter Alcoholism Family history of problems with anesthesia: No Surgical History Surgical History H/O cardiac catheterization (~2013) Hx of colonoscopy History of partial colectomy History of bladder surgery History of carpal tunnel release History of Problems with Anesthesia: No Social History Social History Household Members: Family Housing: House Are you a primary resident care aide to a significant other at home: No Do you presently have visiting nurse or other home services: Yes (PT) Alcohol intake: never Comment: aware of trip hazards 1984 stopped Patient Tobacco Use Status: Former Tobacco user Quit Date: 1984 Tobacco use type: Cigarette Years Smoked: 18 stopped 1984 e-Cigarette/Vaping Use: Never Used Second Hand Smoke Exposure: No service: Yes Current occupational status: retired Cognitive needs: No Hearing needs: Yes Vision needs: Yes Meds Allergies Allergy/AdvReac Type Severity Reaction Status Date / Time streptomycin [STREPTOMYCIN] Allergy Severe AFFECTED Verified 09/05/23 19:00 MY HEARING , anaphylaxis, affected hearing/nerves/etc, anxiety. Active Medications: Current Medications Acetaminophen (Acetaminophen 325 Mg Tablet) 650 mg PO Q6H PRN PRN Reason: Pain, Mild (Pain Scale 1-3) Acetaminophen (Acetaminophen Supp 650 Mg Supp.Rect) 650 mg [place] Q6H PRN PRN Reason: Pain, Mild (Pain Scale 1-3) Atorvastatin Calcium (Atorvastatin Calcium 80 Mg Tablet) 80 mg PO BEDTIME [facility] Carvedilol (Carvedilol 25 Mg Tablet) 25 mg PO BID [facility]; Protocol Cyanocobalamin (Cyanocobalamin (Vitamin B-12) 1,000 Mcg Tablet) 2,500 mcg PO DAILY [facility] Docusate Sodium (Docusate Sodium 100 Mg Capsule) 100 mg PO BID [facility] Finasteride (Finasteride 5 Mg Tablet) 5 mg PO BEDTIME [facility] Melatonin (Melatonin 3 Mg Tablet) 6 mg PO BEDTIME PRN PRN Reason: Insomnia Ondansetron HCl (Ondansetron Hcl 4 Mg/2 Ml Vial) 4 mg IVPUSH Q8H PRN PRN Reason: Nausea and Vomiting Pantoprazole Sodium (Pantoprazole Sodium 40 Mg/10 Ml Vial) 40 mg IVPUSH BID@0630,1630 [facility] Last Admin: 09/06/23 06:50 Dose: 40 mg Sodium Chloride (0.9 % Sodium Chloride Flush 3 Ml Syringe) 3 ml IVFLUSH QSHIFT [facility] Last Admin: 09/06/23 07:39 Dose: Not Given Vitamin D (Cholecalciferol (Vitamin D3) 25 Mcg Tablet) 50 mcg PO DAILY [facility] Home Medications Medication Instructions Recorded Confirmed Last Taken Type cholecalciferol (vitamin D3) 50 50 mcg PO DAILY 05/25/20 09/06/23 09/05/23 History mcg (2,000 unit) capsule finasteride 5 mg tablet 5 mg PO BEDTIME 05/25/20 09/06/23 09/04/23 History multivitamin 1 tab PO DAILY 05/25/20 09/06/23 09/05/23 History atorvastatin 80 mg tablet 80 mg PO BEDTIME 08/21/23 09/06/23 09/04/23 History cyanocobalamin (vitamin B-12) 2,500 mcg PO DAILY 08/21/23 09/06/23 09/05/23 History 2,000 mcg tablet,extended release (Vitamin B-12 ER) acetaminophen 650 mg 1,300 mg PO DAILY 09/06/23 09/06/23 Unknown History tablet,extended release Exam Height,Weight and Vital Signs: Height 5 ft 8 in Weight 108.862 kg Last Vital Signs Temp 98.1 F 09/06/23 13:34 Pulse 77 09/06/23 13:34 Resp 18 09/06/23 13:34 BP 158/77 H 09/06/23 13:34 Pulse Ox 98 09/06/23 13:34 O2 Del Method Room Air 09/06/23 13:34 Pertinent Lab Results Pertinent Lab Results: Laboratory Tests 09/05/23 09/05/23 09/06/23 19:22 23:35 00:35 WBC 13.8 H RBC 2.26 L D Hgb 7.5 L Hct 21.5 L MCV 95.1 MCH 33.2 H MCHC 34.9 RDW 16.3 H Plt Count 241 D MPV 10.3 Immature Gran % (Auto) 2.6 H Neut % (Auto) 78.8 H Lymph % (Auto) 7.6 L [place] % (Auto) 8.9 Eos % (Auto) 1.8 Baso % (Auto) 0.3 Lymph # (Auto) 1.1 L [place] # (Auto) 1.2 Eos # (Auto) 0.3 Baso # (Auto) 0.0 Abs Immat Gran (auto) 0.36 H Absolute Neuts (auto) 10.9 H Absolute Nucleated RBC 0.000 Nucleated RBC % (auto) 0.0 PT INR Sodium 134 L Potassium 3.8 Chloride 98 Carbon Dioxide 25 Anion Gap 15 BUN 46 H Creatinine 1.00 Estim Creat Clear Calc 76.3 Estimated GFR > 60 Random Glucose 118 H Calcium 8.4 Total Bilirubin 1.9 H Direct Bilirubin AST 41 H ALT 21 Alkaline Phosphatase 65 Total Protein 5.7 L Albumin 3.1 L Stool Occult Blood POSITIVE Blood Type O Positive Antibody Screen NEGATIVE Crossmatch See Detail 09/06/23 04:22 WBC 11.8 H RBC 2.47 L Hgb 8.0 L Hct 23.6 L MCV 95.5 MCH 32.4 MCHC 33.9 RDW 16.3 H Plt Count 215 MPV 10.4 Immature Gran % (Auto) 3.2 H Neut % (Auto) 76.5 H Lymph % (Auto) 8.9 L [place] % (Auto) 8.9 Eos % (Auto) 2.2 Baso % (Auto) 0.3 Lymph # (Auto) 1.1 L [place] # (Auto) 1.1 Eos # (Auto) 0.3 Baso # (Auto) 0.0 Abs Immat Gran (auto) 0.38 H Absolute Neuts (auto) 9.0 H Absolute Nucleated RBC 0.030 H Nucleated RBC % (auto) 0.3 H PT 12.7 INR 1.0 Sodium 133 L Potassium 3.5 Chloride 101 Carbon Dioxide 24 Anion Gap 12 BUN 36 H Creatinine 0.85 Estim Creat Clear Calc 89.8 Estimated GFR > 60 Random Glucose 94 Calcium 7.9 L Total Bilirubin 1.9 H Direct Bilirubin 0.7 H AST 36 ALT 18 Alkaline Phosphatase 60 Total Protein 5.3 L Albumin 2.9 L Stool Occult Blood Blood Type Antibody Screen Crossmatch Airway Mallampati Class: III TM Dist: >3cm Neck ROM: Full Heart: rrr Lungs: clear Assessment and Plan Final Anesthetic Review Family History of Problems with Anesthesia: No History of Problems with Anesthesia: No ASA Class: III and Emergency Final Preanesthetic Review: No Changes in Pt Med Stat, Meds/Allgs Chart Reviewed, Consent Obtained/Reviewed and Anes Risks/Benef Reviewed Patient Risk: High Anesthetic Plan Anesthetic Plan: MAC: Disposition: Standard PACU
--- NOTE | 2023-09-06 14:29 | PC.NURSE ---
spoke with patient and dr mclain about streptomycin allergy and the gentamycin to be given at 1315. no anaphylactic rxn to streptomycin described. ok'd with dr mclain to proceed with infusion. after 10 minutes of infusing, no allergic rxn noted.
--- NOTE | 2023-09-06 15:42 | P.BOP_ITS ---
Brief Operative Note Date of Service: 09/06/23 Pre-op diagnosis: UGI Bleed Post-op diagnosis: other (Giant Duodenal Bulb Ulcer, Gastritis, Hiatal hernia) Procedure: EGD with biopsies Surgeon: Mckinley Franco MD Anesthesia: MAC Was an Building Construction Superintendent used for this Procedure?: No Estimated blood loss (mL): 2.0 Pathology: other (A. Gastric antrum) Condition: stable Disposition: PACU
--- NOTE | 2023-09-06 15:45 | PM.EVENT ---
Event Note Date of Service: 09/06/23 Event Note: GI-Full note dictated EGD with biopsies Findings: 1. Giant, nearly circumferential duodenal bulb ulcer. There was no bleeding, visible vessel, nor clot. One ulcer base had some overlying eschar, other ulcer bases were clean, and 1 ulcer base had multiple tiny red spots but not what I felt were c/w vessels or stigmata of bleeding. 2. 2nd and 3rd portions of the duodenum were WNL and without blood. 3. Erosive antral gastritis-biopsied x 3 4. Moderate-sized hiatal hernia Plan: Change to IV PPI constant infusion, add Carafate, NPO except for sips/meds/ice, F/U Hgb's and transfuse prn. Avoid all ASA/NSAIDs/Blood thinners. Start clear liquids in AM, 2/16, if stable. D/W patient and daughter, Mimi. Time Spent With Patient Time: Total time managing care of this patient today ____ minutes.
[2023-09-06] MEDS: Sucralfate 1 GM TABLET PO ×2 (16:48→20:08)
[2023-09-06] MEDS: 0.9 % Sodium Chloride Flush 3 ML SYRINGE IVFLUSH (16:49)
[2023-09-06] MEDS: Pantoprazole Sodium 80 MG in 0.9 % Sodium Chloride 80 ML 10 MG IV (17:03)
--- NOTE | 2023-09-06 17:09 | PC.NURSE ---
pt had blood running while being transferred to OR for procedure. Per CUSTOMER ACCOUNT ADMINISTRATOR blood finished transfusing while pt was in OR. Blood not ended in TAR, and currently showing blood running for 6hrs. This RN spoke to Kerry from blood bank.
--- NOTE | 2023-09-06 18:07 | OP_ITS ---
DATE OF SERVICE: 09/06/2023 SURGEON: Mckinley Franco MD INDICATIONS: The patient presents for evaluation of upper GI bleeding. Full consent was obtained from him for this, including risks of bleeding and perforation. PREOPERATIVE DIAGNOSIS: Upper gastrointestinal bleeding. POSTOPERATIVE DIAGNOSIS: PROCEDURE PERFORMED: Esophagogastroduodenoscopy with biopsies. ESTIMATED BLOOD LOSS: COMPLICATIONS: ANESTHESIA: Medication used; monitored anesthesia care. ASSISTANTS: SPECIMENS: POSTOPERATIVE DIAGNOSES: Upper gastrointestinal bleeding, giant duodenal bulb ulcer, erosive gastritis, hiatal hernia. DESCRIPTION OF PROCEDURE: The patient was turned somewhat into the left lateral decubitus position, but his right leg had to stay almost flat due to the recent hip replacement. He was given a wedge to put under the upper body to keep the upper body on the left side as much as possible. The Olympus video gastroscope was passed in the posterior oropharynx and upper esophagus under direct vision. The scope was passed slowly to the distal esophagus. The gastroesophageal junction appeared at 35 cm and appeared slightly irregular, but without any sign of esophagitis, bleeding nor mass. The scope entered the stomach. There was a moderate-sized hiatal hernia. There was some very minimal gastritis in the hiatal hernia pouch, but there was no ulceration nor bleeding. The scope was advanced to the pylorus. The gastric antrum and body had some changes of gastritis with small erosions, but no ulceration nor mass. There was good peristalsis. The scope was retroflexed visualizing the proximal stomach carefully, which appeared normal, other than some gastritis. There was no mass or ulceration. There was no blood anywhere in the stomach. The pylorus appeared normal. The scope entered the duodenal bulb. The duodenal bulb was notable for what appeared to be a nearly circumferential ulcer with multiple portions of ulcer bases with minimal intervening edematous mucosa. All of the ulcer craters did not have any bleeding. I did cannulate the duodenum to the 2nd and 3rd portions, which appeared normal and there was no blood nor coffee-grounds material in this portion. The scope was withdrawn back to the duodenal bulb. This was inspected very carefully and all the ulcer craters either had some eschar or were clean-based. There was 1 ulcer that had multiple tiny red spots, but not what I felt were vessels or other stigmata of bleeding. The area was irrigated and no bleeding was seen. The scope was withdrawn back to the stomach. The gastric antrum was biopsied 3 times to rule out H pylori. The scope was withdrawn back to the esophagus. The esophageal mucosa appeared normal. The scope was withdrawn from the patient. He tolerated the procedure well and was returned to the recovery area in stable condition. IMPRESSION: 1. Giant duodenal bulb ulcer. 2. Erosive gastritis, rule out Helicobacter pylori. 3. Hiatal hernia. PLAN: The results of the biopsies will be checked. At this point I shall switch him to an IV Protonix constant infusion. I shall also add Carafate. He will be kept n.p.o. except for some sips of liquid and medication. He will have followup hemoglobins and be transfused as needed. If stable, he can have clear liquids tomorrow. I would proceed slowly given the size of the duodenal ulcer with its increased risk of rebleeding despite no stigmata seen on today's exam. If stable, he will need to eventually go home on high-dose omeprazole 40 mg b.i.d. and be sure to avoid all aspirin, NSAIDs, and any other blood thinners. If H pylori is present in the gastric biopsies I would recommend that be treated as well. This has discussed with the patient and his daughter, Mimi. MD FAVIAN Mclaughlin/YECENIA / [id number] MTDJaja
[2023-09-06 18:13] LABS: MANUAL DIFF FLAG NO
[2023-09-06 18:17] LABS: Basophils Absolute Auto 0.1 X10*3/uL (0.0-0.2); Basophils Percent Auto 0.5 % (0-2); Eosinophils Absolute Auto 0.2 X10*3/uL (0.0-0.4); Eosinophils Percent Auto 1.7 % (0-4); Hematocrit 26.8 % (42.0-52.0); Hemoglobin 9.2 g/dl (14.0-18.0); Imm Gran Abs Auto 0.44 X10*3/uL (0.00-0.03); Imm Gran Pct Auto 4.1 % (0.0-0.4); Lymphocytes Absolute Auto 0.9 X10*3/uL (1.2-4.9); Lymphocytes Percent Auto 8.3 % (20-40); Mean Corpuscular HGB Conc 34.3 g/dl (31.0-36.0); Mean Corpuscular Hemoglobin 32.6 pg (27.0-33.0); Monocytes Absolute Auto 1.1 X10*3/uL (0.1-1.2); Monocytes Percent Auto 9.9 % (2-11); NRBC Pct Auto 0.3 /100WBC (0.0-0.2); Neutrophils Percent Auto 75.5 % (45-73); Platelet Count 189 X10*3/uL (160-400); Red Blood Count 2.82 X10*6/uL (4.60-5.80); Red Cell Distribution Width 16.8 % (11.0-16.0); White Blood Count 10.6 X10*3/uL (4.8-10.8)
[2023-09-06] MEDS: Atorvastatin Calcium 80 MG TABLET PO (20:08)
[2023-09-06] MEDS: Finasteride 5 MG TABLET PO (20:08)
[2023-09-06] MEDS: carvediloL 25 MG TABLET PO (20:08)
[2023-09-06] MEDS: Melatonin 3 MG TABLET 6 MG PO (20:08)
--- NOTE | 2023-09-06 20:12 | CONS_ITS ---
DATE OF SERVICE: 09/06/2023 REASON FOR CONSULTATION: Melena and anemia. HISTORY OF PRESENT ILLNESS: The patient is a 77-year-old male, known to me from previous evaluations. In 2016, he underwent an upper endoscopy with the finding of erosive esophagitis, a hiatal hernia, and a distal esophageal ring. He also had a colonoscopy at that time which revealed a large mass in the cecum. In regard to the mass in the cecum, he underwent a right colectomy with Dr. Skinner, with the finding of a large villous adenoma with high-grade dysplasia. After the finding of the erosive esophagitis, he was started on omeprazole. A followup endoscopy in January of 2018 revealed healing of the esophagitis and small areas of Wallis's esophagus with biopsies negative for dysplasia. He has not had any followup endoscopies nor colonoscopies since that time, despite our sending him reminder notices to have those done. In any event, the patient had been on his omeprazole in 2017, but he describes having stopped it years ago. Since that time, he would have occasional symptoms of reflux and heartburn for which he would take some [id number] medication, but was never using anything on a daily basis since having stopped his daily omeprazole. He had been using ibuprofen regularly for arthritis in the right hip and underwent a right hip replacement on August [address] Camacho. After that procedure, he was subsequently discharged home. He describes some initial constipation but over the past 48 hours has been having what he describes as black and tarry stools with some incontinence. He had been on a low-dose aspirin prior to the surgery, but was started on a 325 mg aspirin twice a day which he used for about 2 days. He was then switched to Lovenox injections, which he took yesterday and the day before. During this time with the black tarry stool he did have some fatigue. He did not have any vomiting nor nausea. He was not having any significant heartburn, dysphagia, nor abdominal pain. He did not have any hematochezia. He does not smoke nor use any significant amounts of alcohol. Since admission to the hospital, he has received 1 unit of blood overnight, and is currently receiving a 2nd unit of blood. His hemoglobin prior to his surgery in July was 15.2. His hemoglobin after the surgery was 11.7, and then gradually drifted down to 10.5 on August 29, 9.3 on August 30, 8.7 on September 03, and 7.5 yesterday, when he came to the ER. MEDICATIONS: His medications at home include the recent aspirin and then the transition to Lovenox, which he took the last dose of yesterday at noontime. Other medications included vitamin D, atorvastatin, finasteride, vitamins. He had been on losartan. He may also have been on Celebrex. His medications here in the hospital currently include IV Protonix, acetaminophen, vitamin D, vitamin B12, Colace, finasteride, melatonin p.r.n., and Zofran p.r.n. PAST MEDICAL HISTORY: Right hip replacement, August 28. 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 He had surgery for wounds he suffered in the [place], in this chest and leg in the . Medical problems include coronary artery disease with previous LA and stents placed in 2013. Hypertension. Bladder cancer treated with cystoscopy and BCG by Dr. Chávez. Hyperlipidemia. Gastroesophageal reflux with erosive esophagitis and Wallis's esophagus as above. Enlarged prostate. There is no reported history of diabetes, stroke, lung disease, or kidney disease. SOCIAL HISTORY: He is a . He does not smoke nor use any significant amounts of alcohol. FAMILY HISTORY: Notable for his father having had colon cancer in his 70s. REVIEW OF SYSTEMS: CONSTITUTIONAL: He has been feeling tired at home with a diminished appetite. SKIN: No rash. No pruritus. CARDIAC: No chest pain. PULMONARY: No coughing or hemoptysis. GI: As above. URINARY: No dysuria. No hematuria. NEUROLOGIC: No headache or seizures. PHYSICAL EXAMINATION: GENERAL: The patient is a pleasant alert male, in no distress. SKIN: Warm and dry. He does appear pale. HEENT: Anicteric sclerae. Moist mucous membranes. NECK: Supple without lymphadenopathy. CHEST: Clear. CARDIAC: Normal S1, S2. ABDOMEN: Soft, nondistended and nontender. NEUROLOGIC: He is alert and oriented and answers questions appropriately. LABORATORY DATA: As above. White blood cell count 11.8, hemoglobin 8.0 this morning after 1 unit of blood. Platelets 215,000. PT 12.7 with INR 1.0. Sodium 133, potassium 3.5, chloride 101, CO2 of 24, BUN is 36 this morning compared to 46 on admission. Creatinine 0.85. Total bilirubin 1.9 with direct bilirubin 0.7. AST 41, ALT 21, alkaline phosphatase 65, albumin 2.9. Stool was heme positive. IMPRESSION: The patient is a 77-year-old male presenting with an upper gastrointestinal bleed after recent right hip replacement and being initiated on treatment postoperatively with aspirin and subsequently transitioned to Lovenox. He does have a previous history of erosive esophagitis, but has not been using a PPI in many years. In regard to this upper gastrointestinal bleeding, this could very well be from recurrent erosive esophagitis or other possibilities such as peptic ulcer disease and/or erosive gastritis. At this point, I would recommend an upper endoscopy today for today. Full consent is obtained from him for this, including risks of bleeding and perforation. I will continue his IV PPI. I will continue to transfuse him to maintain a hemoglobin of at least 9. He will be kept n.p.o. for the time being. Full consent has been obtained from him for the upper endoscopy, including risks of bleeding and perforation. He will receive prophylactic IV antibiotics for the endoscopy as recommended by the orthopedic service due to the recent hip replacement. This has all been discussed in detail with the patient and he is comfortable with this plan. Thank you for the consultation. MD FAVIAN Mclaughlin/YECENIA / [id number] MTDD
[2023-09-06] MEDS: hydrOXYzine HCL 25 MG TABLET PO (23:26)
[2023-09-07] VITALS (7 sets, daily range): BP systolic 102–127; BP diastolic 53–67; PULSE 61–72; RESP 15–20; TEMP 36.3–36.8; O2SAT 94–99
[2023-09-07] MEDS: Pantoprazole Sodium 80 MG in 0.9 % Sodium Chloride 80 ML 10 MG IV ×3 (01:12→23:38)
[2023-09-07 06:21] LABS: Hematocrit 26.8 % (42.0-52.0); Hemoglobin 9.1 g/dl (14.0-18.0); Mean Corpuscular Hemoglobin 32.6 pg (27.0-33.0); Mean Corpuscular Volume 96.1 fL (80.0-98.0); Mean Platelet Volume 9.8 fL (9.4-12.4); NRBC Pct Auto 0.3 /100WBC (0.0-0.2); Platelet Count 166 X10*3/uL (160-400); Red Blood Count 2.79 X10*6/uL (4.60-5.80); Red Cell Distribution Width 16.9 % (11.0-16.0); White Blood Count 9.9 X10*3/uL (4.8-10.8)
[2023-09-07 06:29] LABS: Anion Gap 13 (12-20); Blood Urea Nitrogen 25 mg/dL (9-16); Calcium 7.8 mg/dL (8.4-10.2); Carbon Dioxide 25 mmol/L (22-29); Chloride 104 mmol/L (96-108); Creatinine Clr Calc Pharmacy 90.9; Estimated Glomerular Filt Rate > 60; Glucose Random 82 mg/dL (60-115); Potassium 3.7 mmol/L (3.3-5.1); Sodium 138 mmol/L (135-145)
--- NOTE | 2023-09-07 08:05 | P.CONOP_ITS ---
History of Present Illness HPI Consult date: 09/07/23 Chief complaint: Black stools Narrative: This is a 77-year-old male admitted to the medical service after presenting to the ED with black stools. On exam in the ED, patient's hemoglobin was found to be low and stool occult blood was positive. He is s/p RT JOHANNE with Dr Camacho 08/28/13. His surgery was unremarkable. He was seen in the office by me on 09/03/23 for a bandage change and was c/o feeling SOB with ambulating. He denied chest pain and palpitatios. He was experiencing periods of low blood pressure during his hospital stay; therefore his BP medications were adjusted by the hospitalist. Orthopedics was consulted for follow up s/p RT JOHANNE. He states his right hip is doing well, he has no concerns today. Review of Systems 2 Review of Systems: per [facility] Past Medical History Medical History Abnormal EKG Hypotension Acute electrocardiogram changes Osteoarthritis of right hip Atherosclerotic cardiovascular disease Post-nasal drip Recent bereavement Foreign body in left lower extremity COVID-19 virus infection Amebic dysentery Foreign body of left lower leg Left rotator cuff tear Barretts esophagus Osteoarthritis Peripheral neuropathy Anxiety and depression Colon cancer Impaired glucose tolerance BPH (benign prostatic hyperplasia) Urinary bladder cancer Obesity GERD (gastroesophageal reflux disease) Hypercholesterolemia Hypertension CAD (coronary artery disease) Family History Family History Father Heart failure Mother Thyroid disorder Sister Lung cancer Daughter Alcoholism Surgical History Surgical History H/O cardiac catheterization (~2013) Hx of colonoscopy History of partial colectomy History of bladder surgery History of carpal tunnel release Social History Social History Household Members: Family Housing: House Are you a primary health care coordinator to a significant other at home: No Do you presently have visiting nurse or other home services: Yes (PT) Alcohol intake: never Comment: aware of trip hazards 1984 stopped Patient Tobacco Use Status: Former Tobacco user Quit Date: 1984 Tobacco use type: Cigarette Years Smoked: 18 stopped 1984 e-Cigarette/Vaping Use: Never Used Second Hand Smoke Exposure: No service: Yes Current occupational status: retired Cognitive needs: No Hearing needs: Yes Vision needs: Yes Meds Allergies Allergy/AdvReac Type Severity Reaction Status Date / Time streptomycin [STREPTOMYCIN] Allergy Severe AFFECTED Verified 09/05/23 19:00 MY HEARING , anaphylaxis, affected hearing/nerves/etc, anxiety. Active Medications: Current Medications Acetaminophen (Acetaminophen 325 Mg Tablet) 650 mg PO Q6H PRN PRN Reason: Pain, Mild (Pain Scale 1-3) Acetaminophen (Acetaminophen Supp 650 Mg Supp.Rect) 650 mg AL Q6H PRN PRN Reason: Pain, Mild (Pain Scale 1-3) Atorvastatin Calcium (Atorvastatin Calcium 80 Mg Tablet) 80 mg PO BEDTIME [facility] Last Admin: 09/06/23 20:08 Dose: 80 mg Carvedilol (Carvedilol 25 Mg Tablet) 25 mg PO BID [facility]; Protocol Last Admin: 09/06/23 20:08 Dose: 25 mg Cyanocobalamin (Cyanocobalamin (Vitamin B-12) 1,000 Mcg Tablet) 2,500 mcg PO DAILY [facility] Docusate Sodium (Docusate Sodium 100 Mg Capsule) 100 mg PO BID [facility] Last Admin: 09/06/23 20:13 Dose: Not Given Finasteride (Finasteride 5 Mg Tablet) 5 mg PO BEDTIME [facility] Last Admin: 09/06/23 20:08 Dose: 5 mg Pantoprazole Sodium 80 mg/ (Sodium Chloride) 100 mls @ 10 mls/hr IV .Q10H [facility] Last Admin: 09/07/23 01:12 Dose: 8 mg/hr, 10 mls/hr Melatonin (Melatonin 3 Mg Tablet) 6 mg PO BEDTIME PRN PRN Reason: Insomnia Last Admin: 09/06/23 20:08 Dose: 6 mg Ondansetron HCl (Ondansetron Hcl 4 Mg/2 Ml Vial) 4 mg IVPUSH Q8H PRN PRN Reason: Nausea and Vomiting Sodium Chloride (0.9 % Sodium Chloride Flush 3 Ml Syringe) 3 ml IVFLUSH QSHIFT [facility] Last Admin: 09/06/23 22:50 Dose: Not Given Sucralfate (Sucralfate 1 Gm Tablet) 1 gm PO QIDACHS [facility] Last Admin: 09/06/23 20:08 Dose: 1 gm Vitamin D (Cholecalciferol (Vitamin D3) 25 Mcg Tablet) 50 mcg PO DAILY [facility] Home Medications Medication Instructions Recorded Confirmed Last Taken Type cholecalciferol (vitamin D3) 50 50 mcg PO DAILY 05/25/20 09/06/23 09/05/23 History mcg (2,000 unit) capsule finasteride 5 mg tablet 5 mg PO BEDTIME 05/25/20 09/06/23 09/04/23 History multivitamin 1 tab PO DAILY 05/25/20 09/06/23 09/05/23 History atorvastatin 80 mg tablet 80 mg PO BEDTIME 08/21/23 09/06/23 09/04/23 History cyanocobalamin (vitamin B-12) 2,500 mcg PO DAILY 08/21/23 09/06/23 09/05/23 History 2,000 mcg tablet,extended release (Vitamin B-12 ER) acetaminophen 650 mg 1,300 mg PO DAILY 09/06/23 09/06/23 Unknown History tablet,extended release Physical Exam 2 Vital Signs: Vital Signs: Last Vital Signs Temp 98.3 F 09/07/23 07:33 Pulse 65 09/07/23 07:33 Resp 16 09/07/23 07:33 BP 127/63 09/07/23 07:33 Pulse Ox 97 09/07/23 07:33 O2 Del Method Room Air 09/07/23 07:33 O2 Flow Rate 4 09/06/23 15:28 BMI result Body Mass Index 36.5 Extrem: Other: incision clean dry and intact. [place] intact. No erythema or effusion. Calf supple nontender. Neurovascularly intact. Results Labs 09/07/23 06:00 09/07/23 06:00 Labs: Abnormal lab results 09/06/23 09/06/23 09/06/23 Range/Units 00:35 04:22 18:07 RBC 2.82 L (4.60-5.80) X10*6/uL Hgb 9.2 L (14.0-18.0) g/dl Hct 26.8 L (42.0-52.0) % RDW 16.8 H (11.0-16.0) % Immature Gran % (Auto) 4.1 H (0.0-0.4) % Neut % (Auto) 75.5 H (45-73) % Lymph % (Auto) 8.3 L (20-40) % Lymph # (Auto) 0.9 L (1.2-4.9) X10*3/uL Abs Immat Gran (auto) 0.44 H (0.00-0.03) X10*3/uL Absolute Nucleated RBC 0.030 H (0.0-0.012) X10*3/uL Nucleated RBC % (auto) 0.3 H (0.0-0.2) /100WBC BUN (9-16) mg/dL Calcium (8.4-10.2) mg/dL Total Bilirubin 1.9 H (0.0-1.0) mg/dL Direct Bilirubin 0.7 H (0.0-0.5) mg/dL Total Protein 5.3 L (6.5-8.0) g/dL Albumin 2.9 L (3.5-5.0) g/dL Crossmatch See Detail 09/07/23 Range/Units 06:00 RBC 2.79 L (4.60-5.80) X10*6/uL Hgb 9.1 L (14.0-18.0) g/dl Hct 26.8 L (42.0-52.0) % RDW 16.9 H (11.0-16.0) % Immature Gran % (Auto) (0.0-0.4) % Neut % (Auto) (45-73) % Lymph % (Auto) (20-40) % Lymph # (Auto) (1.2-4.9) X10*3/uL Abs Immat Gran (auto) (0.00-0.03) X10*3/uL Absolute Nucleated RBC 0.030 H (0.0-0.012) X10*3/uL Nucleated RBC % (auto) 0.3 H (0.0-0.2) /100WBC BUN 25 H (9-16) mg/dL Calcium 7.8 L (8.4-10.2) mg/dL Total Bilirubin (0.0-1.0) mg/dL Direct Bilirubin (0.0-0.5) mg/dL Total Protein (6.5-8.0) g/dL Albumin (3.5-5.0) g/dL Crossmatch H & H 09/05/23 09/06/2309/06/24 Range/Units 19:22 04:22 18:07 Hgb 7.5 L 8.0 L 9.2 L (14.0-18.0) g/dl Hct 21.5 L 23.6 L 26.8 L (42.0-52.0) % 09/07/23 Range/Units 06:00 Hgb 9.1 L (14.0-18.0) g/dl Hct 26.8 L (42.0-52.0) % Coagulation 09/06/23 Range/Units 04:22 INR 1.0 (0.9-1.1) All other labs normal. Assessment and Plan (1) Status post total hip replacement, right: Status: Acute Plan Keep aquacel clean dry and intact PT/OT RT JOHANNE Pain mgmnt for RT JOHANNE DVT ppx-lovenox; however, with gi bleed will defer to medicine Procedures Date of Service Date of Service: 09/07/23
--- NOTE | 2023-09-07 08:43 | HO.POSTANES ---
Post Anesthesia Evaluation Post Anesthesia Evaluation Date of Service: 09/07/23 Vital Signs: Vital Signs Temp Pulse Resp BP Pulse Ox O2 Del Method 09/07/23 07:33 98.3 F 65 16 127/63 97 Room Air 09/07/23 04:00 97.7 F 61 20 110/65 95 Room Air 09/06/23 23:02 97.6 F 67 18 101/58 L 96 Room Air Anesthesia: Monitored Mental Status: Awake Pain Control: Satisfactory Nausea/Vomiting: None Hydration: Adequate Anesthesia-Related Issues: No Anes. Related Issues
[2023-09-07] MEDS: Acetaminophen 325 MG TABLET 650 MG PO ×2 (09:25→21:56)
[2023-09-07] MEDS: carvediloL 25 MG TABLET PO ×2 (09:26→21:56)
[2023-09-07] MEDS: Cholecalciferol (Vitamin D3) 25 MCG TABLET 50 MCG PO (09:26)
[2023-09-07] MEDS: Cyanocobalamin (Vitamin B-12) 1,000 MCG TABLET 2500 MCG PO (09:26)
[2023-09-07] MEDS: Sucralfate 1 GM TABLET PO ×4 (09:26→21:57)
[2023-09-07] MEDS: Docusate Sodium 100 MG CAPSULE PO (09:27)
[2023-09-07] MEDS: 0.9 % Sodium Chloride Flush 3 ML SYRINGE IVFLUSH ×3 (09:27→21:57)
--- NOTE | 2023-09-07 16:30 | P.PNIM_ITS ---
Subjective Subjective Date of Service: 09/07/23 Interval History: seen and examined this morning follow up for GI bleed, duodenal ulcer no overnight events having some right hip pain no black stools Review of Systems Review of Systems: Yes all other systems are reviewed and are negative Constitutional Constitutional: Denies chills and Denies fever(s) Cardiovascular Cardiovascular: Denies chest pain, Denies palpitations and Denies dyspnea Respiratory Respiratory: Denies cough and Denies dyspnea Gastrointestinal Gastrointestinal: Denies abdominal pain, Denies nausea and Denies vomiting Endocrine Endocrine: Denies palpitations Physical Exam 2 Vital Signs: Vital Signs: Last Vital Signs Temp 97.5 F 09/07/23 15:13 Pulse 68 09/07/23 15:13 Resp 18 09/07/23 15:13 BP 127/62 09/07/23 15:13 Pulse Ox 97 09/07/23 15:13 O2 Del Method Room Air 09/07/23 15:13 O2 Flow Rate 4 09/06/23 15:28 BMI result Body Mass Index 36.5 Const: General: cooperative, comfortable, no acute distress, alert and awake Nutritional Appearance: overweight Orientation/consciousness: patient oriented x3 Resp: Effort & Inspection: normal respiratory effort, able to speak in complete sentences, no respiratory distress and no use of accessory muscles A uscultation: clear to auscultation bilaterally Cardio: Rate: regular rate GI: Inspection: No distended Palpation (GI): Soft to palpation and nontender Neuro: General: patient oriented x3, moves all extremities and CN's II-XI intact bilaterally Extrem: Other: right hip dressing c/d/i no staining RLE edema since surgery General: Yes no pedal edema Objective Data Active Medications Acetaminophen (Acetaminophen 325 Mg Tablet) 650 mg PO Q6H PRN PRN Reason: Pain, Mild (Pain Scale 1-3) Last Admin: 09/07/23 09:25 Dose: 650 mg Documented By: KVNG Acetaminophen (Acetaminophen Supp 650 Mg Supp.Rect) 650 mg MD Q6H PRN PRN Reason: Pain, Mild (Pain Scale 1-3) Atorvastatin Calcium (Atorvastatin Calcium 80 Mg Tablet) 80 mg PO BEDTIME [facility] Last Admin: 09/06/23 20:08 Dose: 80 mg Documented By: FIOR Carvedilol (Carvedilol 25 Mg Tablet) 25 mg PO BID [facility]; Protocol Last Admin: 09/07/23 09:26 Dose: 25 mg Documented By: KVNG Cyanocobalamin (Cyanocobalamin (Vitamin B-12) 1,000 Mcg Tablet) 2,500 mcg PO DAILY [facility] Last Admin: 09/07/23 09:26 Dose: 2,500 mcg Documented By: KVNG Docusate Sodium (Docusate Sodium 100 Mg Capsule) 100 mg PO BID [facility] Last Admin: 09/07/23 09:27 Dose: 100 mg Documented By: KVNG Finasteride (Finasteride 5 Mg Tablet) 5 mg PO BEDTIME [facility] Last Admin: 09/06/23 20:08 Dose: 5 mg Documented By: FIOR Pantoprazole Sodium 80 mg/ (Sodium Chloride) 100 mls @ 10 mls/hr IV .Q10H [facility] Last Admin: 09/07/23 11:27 Dose: 8 mg/hr, 10 mls/hr Documented By: KVNG Melatonin (Melatonin 3 Mg Tablet) 6 mg PO BEDTIME PRN PRN Reason: Insomnia Last Admin: 09/06/23 20:08 Dose: 6 mg Documented By: FIOR Ondansetron HCl (Ondansetron Hcl 4 Mg/2 Ml Vial) 4 mg IVPUSH Q8H PRN PRN Reason: Nausea and Vomiting Sodium Chloride (0.9 % Sodium Chloride Flush 3 Ml Syringe) 3 ml IVFLUSH QSHIFT [facility] Last Admin: 09/07/23 09:27 Dose: 3 ml Documented By: KVNG Sucralfate (Sucralfate 1 Gm Tablet) 1 gm PO QIDACHS [facility] Last Admin: 09/07/23 11:27 Dose: 1 gm Documented By: KVNG Vitamin D (Cholecalciferol (Vitamin D3) 25 Mcg Tablet) 50 mcg PO DAILY [facility] Last Admin: 09/07/23 09:26 Dose: 50 mcg Documented By: KVNG Labs 09/07/23 06:00 09/07/23 06:00 Labs: Laboratory Results - last 24 hr 09/06/23 09/06/23 09/07/23 00:35 18:07 06:00 MCV 95.0 96.1 MCH 32.6 32.6 MCHC 34.3 34.0 RDW 16.8 H 16.9 H Plt Count 189 166 MPV 10.0 9.8 Immature Gran % (Auto) 4.1 H Neut % (Auto) 75.5 H Lymph % (Auto) 8.3 L Gage % (Auto) 9.9 Eos % (Auto) 1.7 Baso % (Auto) 0.5 Lymph # (Auto) 0.9 L [place] # (Auto) 1.1 Eos # (Auto) 0.2 Baso # (Auto) 0.1 Abs Immat Gran (auto) 0.44 H Absolute Neuts (auto) 8.0 Absolute Nucleated RBC 0.030 H 0.030 H Nucleated RBC % (auto) 0.3 H 0.3 H Anion Gap 13 Estim Creat Clear Calc 90.9 Estimated GFR > 60 Random Glucose 82 Calcium 7.8 L Crossmatch See Detail Assessment and Plan (1) History of total right hip replacement: Status: Acute (2) Duodenal ulcer: Status: Acute (3) Acute GI bleeding: Status: Acute (4) ABLA (acute blood loss anemia): Status: Acute Plan This is a 77-year-old male with pertinent history of essential hypertension, mixed hyperlipidemia, gastroesophageal reflux disease with Wallis's esophagus, history of bladder cancer, mood disorder, peripheral neuropathy, coronary artery disease, recent right JOHANNE on Lovenox who presents to the emergency department for evaluation of black stools. Acute blood loss anemia due to Acute GI bleed: seen by GI, s/p EGD showing: Giant, nearly circumferential duodenal bulb ulcer. There was no bleeding, visible vessel, nor clot. One ulcer base had some overlying eschar, other ulcer bases were clean, and 1 ulcer base had multiple tiny red spots but not felt to be c/w vessels or stigmata of bleeding. s/p 1u rbc 2/14, 1u rbc 2/16 H/H stable continue IV Protonix drip for 72 hours then po omeprazole 40mg bid carafate for two months outpatient follow up with GI avoid NSAIDs/asa/blood thinners slow advancement of diet, continue clear liquids today Recent right hip JOHANNE 08/28 Hold Lovenox as above continue PT during inpatient stay ortho following for postoperative care CAD with PCI to LAD, OM, RCA in 2013 continue statin, BB DVT prophylaxis: Mechanical Full code requires ongoing hospital stay for hemodynamic monitoring, evaluation of GI bleed (as above), which is not possible in a lesser acute setting. Specialist consult pending Quality Stroke Does the patient have a stroke diagnosis?: No VTE Prior VTE?: No VTE Risk Level:: Medical - moderate - high VTE Device Contraindication: N/A - Device Ordered VTE Drug Contraindication: Treatment Not Indicated
--- NOTE | 2023-09-07 17:50 | P.PNGI_ITS ---
Subjective Subjective Date of Service: 09/07/23 Interval History: Feeling better today. Minimal BM's, although still dark. Tolerating clear liquids. Denies abdominal pain, N/V. Critical Care Time (minutes): 0 Physical Exam 2 Vital Signs: Vital Signs: Last Vital Signs Temp 97.5 F 09/07/23 15:13 Pulse 68 09/07/23 15:13 Resp 18 09/07/23 15:13 BP 127/62 09/07/23 15:13 Pulse Ox 97 09/07/23 15:13 O2 Del Method Room Air 09/07/23 15:13 O2 Flow Rate 4 09/06/23 15:28 BMI result Body Mass Index 36.5 Const: General: cooperative, healthy appearing, comfortable, no acute distress, well developed, alert and awake GI: Other: Abd-Soft, +BS, NT, Nondistended Objective Data Labs 09/07/23 06:00 09/07/23 06:00 Labs: Laboratory Results - last 24 hr 09/06/23 09/06/23 09/07/23 00:35 18:07 06:00 WBC 10.6 9.9 RBC 2.82 L 2.79 L Hgb 9.2 L 9.1 L Hct 26.8 L 26.8 L MCV 95.0 96.1 MCH 32.6 32.6 MCHC 34.3 34.0 RDW 16.8 H 16.9 H Plt Count 189 166 MPV 10.0 9.8 Immature Gran % (Auto) 4.1 H Neut % (Auto) 75.5 H Lymph % (Auto) 8.3 L [place] % (Auto) 9.9 Eos % (Auto) 1.7 Baso % (Auto) 0.5 Lymph # (Auto) 0.9 L [place] # (Auto) 1.1 Eos # (Auto) 0.2 Baso # (Auto) 0.1 Abs Immat Gran (auto) 0.44 H Absolute Neuts (auto) 8.0 Absolute Nucleated RBC 0.030 H 0.030 H Nucleated RBC % (auto) 0.3 H 0.3 H Sodium 138 Potassium 3.7 Chloride 104 Carbon Dioxide 25 Anion Gap 13 BUN 25 H Creatinine 0.84 Estim Creat Clear Calc 90.9 Estimated GFR > 60 Random Glucose 82 Calcium 7.8 L Crossmatch See Detail Procedures Date of Service Date of Service: 09/07/23 Progress Note: A&P Assessment and plan (1) Duodenal ulcer: Status: Acute (2) Acute GI bleeding: Status: Acute Assessment and Plan: Imp: Acute GI bleed due to large duodenal ulcer. Presently stable without any signs of recurrent bleeding based on his current history, stable Hgb, and decreasing BUN. Rec: Continue current plan of IV PPI infusion through Sunday and transition to omeprazole 40mg BID Sunday(orders placed), continue Carafate QID, slowly advance diet with full liquids Sunday(orders placed) and regular diet on Sunday if stable, check path and treat H.pylori if +, and follow daily Hgb. I advised patient of this plan and hopeful discharge on Sunday if all remains stable. I reminded him to avoid all aspirin and NSAIDs director long term care at home. He will need Rx's for the omeprazole and Carafate at the time of discharge. I can follow him up in the office. Patient understood and was comfortable with this plan. Dr. Gannon is covering the weekend if problems or questions arise. Thanks Time Spent With Patient Time: Total time managing care of this patient today ____ minutes. Quality Stroke Does the patient have a stroke diagnosis?: No VTE Prior VTE?: No VTE Risk Level:: Medical - moderate - high VTE Device Contraindication: N/A - Device Ordered VTE Drug Contraindication: Treatment Not Indicated
[2023-09-07] MEDS: Finasteride 5 MG TABLET PO (21:55)
[2023-09-07] MEDS: Atorvastatin Calcium 80 MG TABLET PO (21:56)
[2023-09-08] VITALS (7 sets, daily range): BP systolic 103–119; BP diastolic 57–65; PULSE 57–71; RESP 17–18; TEMP 36.2–36.9; O2SAT 97–99
[2023-09-08 08:24] LABS: Hematocrit 28.9 % (42.0-52.0); Hemoglobin 9.5 g/dl (14.0-18.0); Mean Corpuscular HGB Conc 32.9 g/dl (31.0-36.0); Mean Corpuscular Volume 97.3 fL (80.0-98.0); Mean Platelet Volume 10.5 fL (9.4-12.4); Platelet Count 172 X10*3/uL (160-400); Red Blood Count 2.97 X10*6/uL (4.60-5.80); Red Cell Distribution Width 17.7 % (11.0-16.0); White Blood Count 7.9 X10*3/uL (4.8-10.8)
[2023-09-08] MEDS: Cyanocobalamin (Vitamin B-12) 1,000 MCG TABLET 2500 MCG PO (08:31)
[2023-09-08] MEDS: carvediloL 25 MG TABLET PO ×2 (08:31→21:39)
[2023-09-08] MEDS: Cholecalciferol (Vitamin D3) 25 MCG TABLET 50 MCG PO (08:31)
[2023-09-08] MEDS: Sucralfate 1 GM TABLET PO ×4 (08:31→21:39)
[2023-09-08] MEDS: Pantoprazole Sodium 80 MG in 0.9 % Sodium Chloride 80 ML 10 MG IV ×2 (08:43→19:37)
[2023-09-08 08:50] LABS: Anion Gap 10 (12-20); Blood Urea Nitrogen 20 mg/dL (9-16); Carbon Dioxide 28 mmol/L (22-29); Chloride 104 mmol/L (96-108); Creatinine Clr Calc Pharmacy 93.1; Estimated Glomerular Filt Rate > 60; Glucose Fasting 99 mg/dL (60-99); Potassium 3.6 mmol/L (3.3-5.1); Sodium 138 mmol/L (135-145)
[2023-09-08] MEDS: Acetaminophen 325 MG TABLET 650 MG PO ×2 (11:12→17:26)
--- NOTE | 2023-09-08 11:35 | HO.PM.IMPN ---
Subjective Subjective Date of Service: 09/08/23 Interval History: seen and examined this morning follow up for GI bleed, duodenal ulcer no overnight events having some right hip pain no black stools Review of Systems Review of Systems: Yes all other systems are reviewed and are negative Constitutional Constitutional: Denies chills and Denies fever(s) Cardiovascular Cardiovascular: Denies chest pain, Denies palpitations and Denies dyspnea Respiratory Respiratory: Denies cough and Denies dyspnea Gastrointestinal Gastrointestinal: Denies abdominal pain, Denies nausea and Denies vomiting Endocrine Endocrine: Denies palpitations Physical Exam Vital Signs: Vital Signs: Last Vital Signs Temp 97.3 F 09/08/23 11:18 Pulse 67 09/08/23 11:18 Resp 18 09/08/23 11:18 BP 119/64 09/08/23 11:18 Pulse Ox 99 09/08/23 11:18 O2 Del Method Room Air 09/08/23 11:18 O2 Flow Rate 4 09/06/23 15:28 BMI result Body Mass Index 36.5 Appearing in no acute distress lung sounds are clear to auscultation heart regular rate rhythm, clear S1, S2 positive bowel sounds, abdomen is soft, nontender neuro patient is alert x3, no focal deficits Objective Data Active Medications Acetaminophen (Acetaminophen 325 Mg Tablet) 650 mg PO Q6H PRN PRN Reason: Pain, Mild (Pain Scale 1-3) Last Admin: 09/08/23 11:12 Dose: 650 mg Documented By: RAMANDEEP Acetaminophen (Acetaminophen Supp 650 Mg Supp.Rect) 650 mg [place] Q6H PRN PRN Reason: Pain, Mild (Pain Scale 1-3) Atorvastatin Calcium (Atorvastatin Calcium 80 Mg Tablet) 80 mg PO BEDTIME [facility] Last Admin: 09/07/23 21:56 Dose: 80 mg Documented By: SPIKE Carvedilol (Carvedilol 25 Mg Tablet) 25 mg PO BID [facility]; Protocol Last Admin: 09/08/23 08:31 Dose: 25 mg Documented By: RAMANDEEP Cyanocobalamin (Cyanocobalamin (Vitamin B-12) 1,000 Mcg Tablet) 2,500 mcg PO DAILY [facility] Last Admin: 09/08/23 08:31 Dose: 2,500 mcg Documented By: RAMANDEEP Docusate Sodium (Docusate Sodium 100 Mg Capsule) 100 mg PO BID [facility] Last Admin: 09/08/23 08:19 Dose: Not Given Documented By: RAMANDEEP Non-Admin Reason: loose stool this am Finasteride (Finasteride 5 Mg Tablet) 5 mg PO BEDTIME [facility] Last Admin: 09/07/23 21:55 Dose: 5 mg Documented By: SPIKE Pantoprazole Sodium 80 mg/ (Sodium Chloride) 100 mls @ 10 mls/hr IV .Q10H [facility] Stop: 09/09/23 16:59 Last Admin: 09/08/23 08:43 Dose: 8 mg/hr, 10 mls/hr Documented By: RAMANDEEP Melatonin (Melatonin 3 Mg Tablet) 6 mg PO BEDTIME PRN PRN Reason: Insomnia Last Admin: 09/06/23 20:08 Dose: 6 mg Documented By: FIOR Omeprazole (Omeprazole 40 Mg Capsule.Dr) 40 mg PO BID@0630,1630 [facility] Ondansetron HCl (Ondansetron Hcl 4 Mg/2 Ml Vial) 4 mg IVPUSH Q8H PRN PRN Reason: Nausea and Vomiting Sodium Chloride (0.9 % Sodium Chloride Flush 3 Ml Syringe) 3 ml IVFLUSH QSHIFT [facility] Last Admin: 09/08/23 08:19 Dose: Not Given Documented By: RAMANDEEP Non-Admin Reason: IV Running Sucralfate (Sucralfate 1 Gm Tablet) 1 gm PO QIDACHS [facility] Last Admin: 09/08/23 11:12 Dose: 1 gm Documented By: RAMANDEEP Vitamin D (Cholecalciferol (Vitamin D3) 25 Mcg Tablet) 50 mcg PO DAILY [facility] Last Admin: 09/08/23 08:31 Dose: 50 mcg Documented By: RAMANDEEP Labs 09/08/23 06:28 09/08/23 06:28 Labs: Laboratory Results - last 24 hr 09/06/23 09/08/23 00:35 06:28 MCV 97.3 MCH 32.0 MCHC 32.9 RDW 17.7 H Plt Count 172 MPV 10.5 Absolute Nucleated RBC 0.000 Nucleated RBC % (auto) 0.0 Anion Gap 10 L Estim Creat Clear Calc 93.1 Estimated GFR > 60 Fasting Glucose 99 Calcium 8.0 L Crossmatch See Detail Assessment and Plan (1) History of total right hip replacement: Status: Acute (2) Duodenal ulcer: Status: Acute (3) Acute GI bleeding: Status: Acute (4) ABLA (acute blood loss anemia): Status: Acute Plan This is a 77-year-old male with pertinent history of essential hypertension, mixed hyperlipidemia, gastroesophageal reflux disease with Wallis's esophagus, history of bladder cancer, mood disorder, peripheral neuropathy, coronary artery disease, recent right JOHANNE on Lovenox who presents to the emergency department for evaluation of black stools. Acute blood loss anemia due to Acute GI bleed seen by GI, s/p EGD showing: Giant, nearly circumferential duodenal bulb ulcer. There was no bleeding, visible vessel, nor clot. One ulcer base had some overlying eschar, other ulcer bases were clean, and 1 ulcer base had multiple tiny red spots but not felt to be c/w vessels or stigmata of bleeding. s/p 2 units PRBC H/H stable continue IV Protonix drip for 72 hours then po omeprazole 40mg bid carafate for two months outpatient follow up with GI avoid NSAIDs/asa/blood thinners slow advancement of diet, continue clear liquids today Recent right hip JOHANNE 08/28 Hold Lovenox as above continue PT during inpatient stay ortho following for postoperative care CAD with PCI to LAD, OM, RCA in 2013 continue statin, BB DVT prophylaxis: Mechanical Attending Dr. Morin Full code requires ongoing hospital stay for hemodynamic monitoring, evaluation of GI bleed (as above), which is not possible in a lesser acute setting. Specialist consult pending Quality Stroke Does the patient have a stroke diagnosis?: No VTE Prior VTE?: No VTE Risk Level:: Medical - moderate - high VTE Device Contraindication: N/A - Device Ordered VTE Drug Contraindication: Treatment Not Indicated
[2023-09-08] MEDS: Atorvastatin Calcium 80 MG TABLET PO (21:39)
[2023-09-08] MEDS: Finasteride 5 MG TABLET PO (21:39)
[2023-09-08] MEDS: Docusate Sodium 100 MG CAPSULE PO (21:39)
[2023-09-09 03:37] VITALS: BP 114/61; PULSE 57; RESP 16; TEMP 36.1; O2SAT 99
[2023-09-09] MEDS: Pantoprazole Sodium 80 MG in 0.9 % Sodium Chloride 80 ML 10 MG IV (05:12)
[2023-09-09 07:08] LABS: Hematocrit 30.6 % (42.0-52.0); Hemoglobin 10.2 g/dl (14.0-18.0); Mean Corpuscular HGB Conc 33.3 g/dl (31.0-36.0); Mean Corpuscular Hemoglobin 32.9 pg (27.0-33.0); Mean Corpuscular Volume 98.7 fL (80.0-98.0); Mean Platelet Volume 9.9 fL (9.4-12.4); Platelet Count 168 X10*3/uL (160-400); Red Cell Distribution Width 17.9 % (11.0-16.0); White Blood Count 8.5 X10*3/uL (4.8-10.8)
[2023-09-09 07:32] VITALS: BP 135/64; PULSE 61; RESP 18; TEMP 36.3; O2SAT 97
[2023-09-09] MEDS: carvediloL 25 MG TABLET PO ×2 (09:07→20:26)
[2023-09-09] MEDS: Cholecalciferol (Vitamin D3) 25 MCG TABLET 50 MCG PO (09:07)
[2023-09-09] MEDS: Sucralfate 1 GM TABLET PO ×4 (09:07→20:26)
[2023-09-09] MEDS: Acetaminophen 325 MG TABLET 650 MG PO ×2 (09:08→15:59)
[2023-09-09] MEDS: Cyanocobalamin (Vitamin B-12) 1,000 MCG TABLET 2500 MCG PO (09:08)
[2023-09-09] MEDS: 0.9 % Sodium Chloride Flush 3 ML SYRINGE IVFLUSH (09:12)
[2023-09-09] MEDS: Docusate Sodium 100 MG CAPSULE PO (09:21)
--- NOTE | 2023-09-09 09:36 | HO.PM.IMPN ---
Subjective Subjective Date of Service: 09/09/23 Interval History: seen and examined this morning follow up for GI bleed, duodenal ulcer no overnight events Review of Systems Review of Systems: Yes all other systems are reviewed and are negative Constitutional Constitutional: Denies chills and Denies fever(s) Cardiovascular Cardiovascular: Denies chest pain, Denies palpitations and Denies dyspnea Respiratory Respiratory: Denies cough and Denies dyspnea Gastrointestinal Gastrointestinal: Denies abdominal pain, Denies nausea and Denies vomiting Endocrine Endocrine: Denies palpitations Physical Exam Vital Signs: Vital Signs: Last Vital Signs Temp 97.3 F 09/09/23 07:32 Pulse 61 09/09/23 07:32 Resp 18 09/09/23 07:32 BP 135/64 09/09/23 07:32 Pulse Ox 97 09/09/23 07:32 O2 Del Method Room Air 09/09/23 07:32 O2 Flow Rate 4 09/06/23 15:28 BMI result Body Mass Index 36.5 Appearing in no acute distress lung sounds are clear to auscultation heart regular rate rhythm, clear S1, S2 positive bowel sounds, abdomen is soft, nontender neuro patient is alert x3, no focal deficits Objective Data Active Medications Acetaminophen (Acetaminophen 325 Mg Tablet) 650 mg PO Q6H PRN PRN Reason: Pain, Mild (Pain Scale 1-3) Last Admin: 09/09/23 09:08 Dose: 650 mg Documented By: PODMORP Acetaminophen (Acetaminophen Supp 650 Mg Supp.Rect) 650 mg [place] Q6H PRN PRN Reason: Pain, Mild (Pain Scale 1-3) Atorvastatin Calcium (Atorvastatin Calcium 80 Mg Tablet) 80 mg PO BEDTIME [facility] Last Admin: 09/08/23 21:39 Dose: 80 mg Documented By: SPIKE Carvedilol (Carvedilol 25 Mg Tablet) 25 mg PO BID [facility]; Protocol Last Admin: 09/09/23 09:07 Dose: 25 mg Documented By: PODMORP Cyanocobalamin (Cyanocobalamin (Vitamin B-12) 1,000 Mcg Tablet) 2,500 mcg PO DAILY [facility] Last Admin: 09/09/23 09:08 Dose: 2,500 mcg Documented By: PODMORP Docusate Sodium (Docusate Sodium 100 Mg Capsule) 100 mg PO BID [facility] Last Admin: 09/09/23 09:21 Dose: 100 mg Documented By: ANGELMORP Finasteride (Finasteride 5 Mg Tablet) 5 mg PO BEDTIME [facility] Last Admin: 09/08/23 21:39 Dose: 5 mg Documented By: SPIKE Pantoprazole Sodium 80 mg/ (Sodium Chloride) 100 mls @ 10 mls/hr IV .Q10H [facility] Stop: 09/09/23 16:59 Last Admin: 09/09/23 05:12 Dose: 8 mg/hr, 10 mls/hr Documented By: SPIKE Melatonin (Melatonin 3 Mg Tablet) 6 mg PO BEDTIME PRN PRN Reason: Insomnia Last Admin: 09/06/23 20:08 Dose: 6 mg Documented By: FIOR Omeprazole (Omeprazole 40 Mg Capsule.Dr) 40 mg PO BID@0630,1630 [facility] Ondansetron HCl (Ondansetron Hcl 4 Mg/2 Ml Vial) 4 mg IVPUSH Q8H PRN PRN Reason: Nausea and Vomiting Sodium Chloride (0.9 % Sodium Chloride Flush 3 Ml Syringe) 3 ml IVFLUSH QSHIFT [facility] Last Admin: 09/09/23 09:12 Dose: 3 ml Documented By: ANGELMOJENNI Sodium Chloride (Sodium Chloride 0.65 % Nasal 44 Ml Sprbtl) 1 spray NOSTRIL-B Q1H PRN PRN Reason: Dry Nasal Passages Sucralfate (Sucralfate 1 Gm Tablet) 1 gm PO QIDACHS [facility] Last Admin: 09/09/23 09:07 Dose: 1 gm Documented By: PODMORP Vitamin D (Cholecalciferol (Vitamin D3) 25 Mcg Tablet) 50 mcg PO DAILY [facility] Last Admin: 09/09/23 09:07 Dose: 50 mcg Documented By: PODMORP Labs 09/09/23 06:51 09/08/23 06:28 Labs: Laboratory Results - last 24 hr 09/09/23 06:51 MCV 98.7 H MCH 32.9 MCHC 33.3 RDW 17.9 H Plt Count 168 MPV 9.9 Absolute Nucleated RBC 0.000 Nucleated RBC % (auto) 0.0 Assessment and Plan (1) History of total right hip replacement: Status: Acute (2) Duodenal ulcer: Status: Acute (3) Acute GI bleeding: Status: Acute (4) ABLA (acute blood loss anemia): Status: Acute Plan This is a 77-year-old male with pertinent history of essential hypertension, mixed hyperlipidemia, gastroesophageal reflux disease with Wallis's esophagus, history of bladder cancer, mood disorder, peripheral neuropathy, coronary artery disease, recent right JOHANNE on Lovenox who presents to the emergency department for evaluation of black stools. Acute blood loss anemia due to Acute GI bleed seen by GI, s/p EGD showing: Giant, nearly circumferential duodenal bulb ulcer. There was no bleeding, visible vessel, nor clot. One ulcer base had some overlying eschar, other ulcer bases were clean, and 1 ulcer base had multiple tiny red spots but not felt to be c/w vessels or stigmata of bleeding. s/p 2 units PRBC H/H stable continue IV Protonix drip for 72 hours then po omeprazole 40mg bid carafate for two months outpatient follow up with GI avoid NSAIDs/asa/blood thinners slow advancement of diet, continue clear liquids today Recent right hip JOHANNE 08/28 Hold Lovenox as above continue PT during inpatient stay ortho following for postoperative care CAD with PCI to LAD, OM, RCA in 2013 continue statin, BB DVT prophylaxis: Mechanical Attending Dr. Morin Full code requires ongoing hospital stay for hemodynamic monitoring, evaluation of GI bleed (as above), which is not possible in a lesser acute setting. Specialist consult pending Quality Stroke Does the patient have a stroke diagnosis?: No VTE Prior VTE?: No VTE Risk Level:: Medical - moderate - high VTE Device Contraindication: N/A - Device Ordered VTE Drug Contraindication: Treatment Not Indicated
[2023-09-09 11:19] VITALS: BP 106/64; PULSE 63; RESP 18; TEMP 36.4; O2SAT 97
[2023-09-09 15:27] VITALS: BP 115/55; PULSE 69; RESP 19; TEMP 36.4; O2SAT 97
[2023-09-09] MEDS: Omeprazole 40 MG CAPSULE.DR PO (16:00)
[2023-09-09 19:56] VITALS: BP 119/68; PULSE 61; RESP 20; TEMP 35.9; O2SAT 98
[2023-09-09] MEDS: Atorvastatin Calcium 80 MG TABLET PO (20:26)
[2023-09-09] MEDS: Finasteride 5 MG TABLET PO (20:27)
[2023-09-10 03:31] VITALS: BP 118/68; PULSE 61; RESP 20; TEMP 36.8; O2SAT 98
[2023-09-10] MEDS: Omeprazole 40 MG CAPSULE.DR PO ×2 (06:11→16:51)
[2023-09-10 07:13] LABS: MANUAL DIFF FLAG NO
[2023-09-10 07:22] LABS: Basophils Percent Auto 0.3 % (0-2); Eosinophils Absolute Auto 0.2 X10*3/uL (0.0-0.4); Eosinophils Percent Auto 2.9 % (0-4); Hematocrit 29.7 % (42.0-52.0); Hemoglobin 9.7 g/dl (14.0-18.0); Imm Gran Abs Auto 0.13 X10*3/uL (0.00-0.03); Imm Gran Pct Auto 1.6 % (0.0-0.4); Lymphocytes Absolute Auto 0.7 X10*3/uL (1.2-4.9); Lymphocytes Percent Auto 8.3 % (20-40); Mean Corpuscular HGB Conc 32.7 g/dl (31.0-36.0); Mean Platelet Volume 10.2 fL (9.4-12.4); Monocytes Absolute Auto 0.8 X10*3/uL (0.1-1.2); Monocytes Percent Auto 9.5 % (2-11); Neutrophils Absolute Auto 6.2 x10*3/uL (2.0-8.3); Neutrophils Percent Auto 77.4 % (45-73); Platelet Count 165 X10*3/uL (160-400); Red Blood Count 3.03 X10*6/uL (4.60-5.80); Red Cell Distribution Width 17.7 % (11.0-16.0)
[2023-09-10 08:00] VITALS: BP 121/74; PULSE 91; RESP 16; TEMP 36.7; O2SAT 97
--- NOTE | 2023-09-10 08:03 | PM.DS ---
DS: Providers Provider Date of Service: 09/11/23 Date of admission: 09/06/23 00:05 Primary care physician: Franco Juarez MD Consults: 09/06/23 00:05 Consult to Gastroenterology Stat Consulting Provider: Mckinley Franco Reason for consultation: black stool, anemia Has provider been notified: Yes 09/06/23 07:48 Consult to Gastroenterology Routine Consulting Provider: Mckinley Franco Reason for consultation: GI bleeding Has provider been notified: No 09/06/23 09:49 Consult to Orthopedics Routine Consulting Provider: [facility] [place] [facility] Reason for consultation: recent R JOHANNE, anemia Has provider been notified: Yes DS: Diagnosis Discharge Diagnosis (1) History of total right hip replacement: Status: Inactive (2) Duodenal ulcer: Status: Inactive (3) Acute GI bleeding: Status: Resolved (4) ABLA (acute blood loss anemia): Status: Resolved DS: Summary Hospital Course Hospital Course: History and physical as per admitting provider. This is a 77-year-old male with pertinent history of essential hypertension, mixed hyperlipidemia, gastroesophageal reflux disease with Wallis's esophagus, history of bladder cancer, mood disorder, peripheral neuropathy, coronary artery disease, recent right hip JOHANNE on Lovenox who presents to the emergency department for evaluation of black stools. Patient states he was switched from high dose aspirin to Lovenox about 3 days prior to presentation. Patient states he 1st noticed dark stools about 2 days prior to presentation. He has been having multiple dark bowel movements throughout the day. No nausea, vomiting, abdominal pain. Also feels dizzy and lightheaded when he tries to get up. No fever, chills, chest discomfort, palpitations, shortness of breath, changes in urinary habits. In the emergency department, patient's hemoglobin was found to be low and stool occult blood was positive. 77-year-old man treated for acute GI bleed, status post endoscopy with findings of large duodenal ulcer, no acute bleeding. Unfortunately patient had total hip surgery on 08/28/2023 and had been placed on Lovenox but this was subsequently stopped. The recommendation application penetration tester is to stop the Lovenox for 2 weeks. He will be on Prilosec b.i.d. and Carafate. Patient should follow-up with the application penetration tester at that time to make a determination whether patient can be on a blood thinner or should not. He already has a scheduled orthopedic surgery consultation on 09/13/2023. He did have some swelling to his right lower extremity, venous Doppler ultrasound was negative for DVT, CT scan did not show any large collection. No noted fever or elevated white blood cell count. Seen and evaluated again by Orthopedic surgery who thought this was normal recovery. He can use Faisal stockings. Plan is for patient to be discharged home with family to complete physical therapy. Hypertension. Continue carvedilol Hyperlipidemia. Continue statin BPH. Continue finasteride Time Attestation Discharge coordination time: Greater than 30 minutes Quality: Safe Use of Opioids Does Pt have an Active Cancer Diagnosis on the Problem List?: No Quality: Stroke Does the patient have a stroke diagnosis?: No Physical Exam Vital Signs: Vital Signs: Last Vital Signs Temp 98.2 F 09/10/23 03:31 Pulse 61 09/10/23 03:31 Resp 20 09/10/23 03:31 BP 118/68 09/10/23 03:31 Pulse Ox 98 09/10/23 03:31 O2 Del Method Room Air 09/10/23 03:31 O2 Flow Rate 4 09/06/23 15:28 BMI result Body Mass Index 36.5 Appearing in no acute distress head is normocephalic atraumatic eyes pupils are PERRLA sclera is anicteric mouth throat mucous membranes are intact and moist neck is supple no lymphadenopathy, no JVD noted lung sounds are clear to auscultation heart regular rate rhythm, clear S1, S2 positive bowel sounds, abdomen is soft, nontender neuro patient is alert x3, no focal deficits Mild edema to RLE from thigh to calf, Good pulses, PACHECO DS: Data Data Completed and Pending Completed studies during hospitalization [Text1]: Procedures Replacement of Right Hip Joint with Ceramic Synthetic Substitute, Uncemented, Open Approach (08/28/23) Pending studies at discharge: Pending at discharge 09/06/23 15:15 Surgical [PTH] Routine Labs on day of discharge: Laboratory Results - last 24 hr 09/10/23 06:52 WBC 8.0 RBC 3.03 L Hgb 9.7 L Hct 29.7 L MCV 98.0 MCH 32.0 MCHC 32.7 RDW 17.7 H Plt Count 165 MPV 10.2 Immature Gran % (Auto) 1.6 H Neut % (Auto) 77.4 H Lymph % (Auto) 8.3 L [place] % (Auto) 9.5 Eos % (Auto) 2.9 Baso % (Auto) 0.3 Lymph # (Auto) 0.7 L [place] # (Auto) 0.8 Eos # (Auto) 0.2 Baso # (Auto) 0.0 Abs Immat Gran (auto) 0.13 H Absolute Neuts (auto) 6.2 Absolute Nucleated RBC 0.000 Nucleated RBC % (auto) 0.0 Discharge Plan Discharge Anticipated Discharge Date/Time: 09/11/23 08:24 Patient Disposition: Home Health Service Discharge Diagnosis: Duodenal ulcer Acute blood loss anemia Referrals: Bridgette Worthington PA-C [Physician Customer Resource Specialist] - 1 Week Po,Franco Ureña MD [Primary Care Provider] - 1 Week Mckinley Franco MD [Physician] - 2 Weeks Discharge Medications: New sucralfate 1 gram Tablet 1 g PO QIDACHS Qty: 30 0RF omeprazole 40 mg Capsule,Delayed Release(Dr/Ec) 40 mg PO BID@0630,1630 Qty: 30 0RF (DME) T.E.D. Anti-Embolism Stocking Misc See Rx Instructions .Route Qty: 12 0RF Rx Instructions: As directed Continued carvedilol 25 mg tablet 25 mg PO BID Qty: 180 1RF Rx Instructions: must administer with a meal/food docusate sodium [Colace] 100 mg capsule 100 mg PO BID 90 Days Qty: 180 0RF atorvastatin 80 mg tablet 80 mg PO BEDTIME cyanocobalamin (vitamin B-12) [Vitamin B-12] 2,000 mcg Tablet Extended Release 2,500 mcg PO DAILY acetaminophen 650 mg Tablet Extended Release 1,300 mg PO DAILY multivitamin Tablet 1 tab PO DAILY cholecalciferol (vitamin D3) 50 mcg (2,000 unit) capsule 50 mcg PO DAILY finasteride 5 mg tablet 5 mg PO BEDTIME Held enoxaparin [Lovenox] 40 mg/0.4 mL syringe 40 mg subcut Q24H 35 Days Qty: 14 0RF Hold Instructions: Resume on 09/24/23. Follow up with gastroenterology prior to restarting Discontinued celecoxib [Celebrex] 200 mg capsule 200 mg PO BID PRN (Reason: pain) 30 Days Qty: 60 0RF Discharge Orders: Discharge Order (Routine); Ordered 09/11/23 Ordered By: Floridalma Arroyo Diet: Advance to usual diet Activity on Discharge: As tolerated Stand Alone Forms: Patient Portal Discharge page Care Plan Goals: Do not take Lovenox, use compression stockings, ambulate frequently Follow-up with gastroenterology to determine if and when you would need to start taking the Lovenox Choose These Foods Fruits, Vegetables, Legumes, Lean meats like skinless poultry and lean beef, Fish and seafood, Eggs. Whole soy foods like tofu or tempeh, Fermented dairy foods like kefir or yogurt, Healthy fats like olive oil, avocados, and nuts, Whole and cracked grains, Green tea, Herbs and spices (mild; fresh or dried) Avoid These FoodsAlcohol Coffee (regular, decaf) Caffeinated foods and drinks, Milk or cream, Fatty meats, Fried or high-fat foods, Heavily spiced foods, Salty foods, [place] fruits and juices, Tomatoes/tomato products, Chocolate Health Concerns: Duodenal ulcer Acute blood loss anemia Plan of Treatment: Orthopedic surgery outpatient follow-up Follow up with Gastroenterology as needed Assessment: See discharge summary
[2023-09-10] MEDS: Acetaminophen 325 MG TABLET 650 MG PO ×2 (09:11→16:52)
[2023-09-10] MEDS: Cholecalciferol (Vitamin D3) 25 MCG TABLET 50 MCG PO (09:11)
[2023-09-10] MEDS: carvediloL 25 MG TABLET PO ×2 (09:12→20:00)
[2023-09-10] MEDS: Sucralfate 1 GM TABLET PO ×4 (09:12→20:00)
[2023-09-10] MEDS: Cyanocobalamin (Vitamin B-12) 1,000 MCG TABLET 2500 MCG PO (09:12)
[2023-09-10] MEDS: 0.9 % Sodium Chloride Flush 3 ML SYRINGE IVFLUSH ×3 (09:15→23:24)
--- NOTE | 2023-09-10 10:22 | HO.PM.IMPN ---
Subjective Subjective Date of Service: 09/10/23 Interval History: seen and examined this morning follow up for GI bleed, duodenal ulcer no overnight events Review of Systems Review of Systems: Yes all other systems are reviewed and are negative Constitutional Constitutional: Denies chills and Denies fever(s) Cardiovascular Cardiovascular: Denies chest pain, Denies palpitations and Denies dyspnea Respiratory Respiratory: Denies cough and Denies dyspnea Gastrointestinal Gastrointestinal: Denies abdominal pain, Denies nausea and Denies vomiting Endocrine Endocrine: Denies palpitations Physical Exam Vital Signs: Vital Signs: Last Vital Signs Temp 98.1 F 09/10/23 08:00 Pulse 91 09/10/23 08:00 Resp 16 09/10/23 08:00 BP 121/74 09/10/23 08:00 Pulse Ox 97 09/10/23 08:00 O2 Del Method Room Air 09/10/23 08:00 O2 Flow Rate 4 09/06/23 15:28 BMI result Body Mass Index 36.5 Appearing in no acute distress lung sounds are clear to auscultation heart regular rate rhythm, clear S1, S2 positive bowel sounds, abdomen is soft, nontender neuro patient is alert x3, no focal deficits Right lower ext edema and mild redness Objective Data Active Medications Acetaminophen (Acetaminophen 325 Mg Tablet) 650 mg PO Q6H PRN PRN Reason: Pain, Mild (Pain Scale 1-3) Last Admin: 09/10/23 09:11 Dose: 650 mg Documented By: RAMANDEEP Acetaminophen (Acetaminophen Supp 650 Mg Supp.Rect) 650 mg OR Q6H PRN PRN Reason: Pain, Mild (Pain Scale 1-3) Atorvastatin Calcium (Atorvastatin Calcium 80 Mg Tablet) 80 mg PO BEDTIME [facility] Last Admin: 09/09/23 20:26 Dose: 80 mg Documented By: KARTHIK Carvedilol (Carvedilol 25 Mg Tablet) 25 mg PO BID [facility]; Protocol Last Admin: 09/10/23 09:12 Dose: 25 mg Documented By: RAMANDEEP Cyanocobalamin (Cyanocobalamin (Vitamin B-12) 1,000 Mcg Tablet) 2,500 mcg PO DAILY [facility] Last Admin: 09/10/23 09:12 Dose: 2,500 mcg Documented By: RAMANDEEP Docusate Sodium (Docusate Sodium 100 Mg Capsule) 100 mg PO BID [facility] Last Admin: 09/10/23 09:15 Dose: Not Given Documented By: RAMANDEEP Non-Admin Reason: loose stool Finasteride (Finasteride 5 Mg Tablet) 5 mg PO BEDTIME [facility] Last Admin: 09/09/23 20:27 Dose: 5 mg Documented By: KARTHIK Melatonin (Melatonin 3 Mg Tablet) 6 mg PO BEDTIME PRN PRN Reason: Insomnia Last Admin: 09/06/23 20:08 Dose: 6 mg Documented By: FIOR Omeprazole (Omeprazole 40 Mg Capsule.Dr) 40 mg PO BID@0630,1630 [facility] Last Admin: 09/10/23 06:11 Dose: 40 mg Documented By: KARTHIK Ondansetron HCl (Ondansetron Hcl 4 Mg/2 Ml Vial) 4 mg IVPUSH Q8H PRN PRN Reason: Nausea and Vomiting Sodium Chloride (0.9 % Sodium Chloride Flush 3 Ml Syringe) 3 ml IVFLUSH QSHIFT [facility] Last Admin: 09/10/23 09:15 Dose: 3 ml Documented By: RAMANDEEP Sodium Chloride (Sodium Chloride 0.65 % Nasal 44 Ml Sprbtl) 1 spray NOSTRIL-B Q1H PRN PRN Reason: Dry Nasal Passages Sucralfate (Sucralfate 1 Gm Tablet) 1 gm PO QIDACHS [facility] Last Admin: 09/10/23 09:12 Dose: 1 gm Documented By: RAMANDEEP Vitamin D (Cholecalciferol (Vitamin D3) 25 Mcg Tablet) 50 mcg PO DAILY [facility] Last Admin: 09/10/23 09:11 Dose: 50 mcg Documented By: RAMANDEEP Labs 09/10/23 06:52 09/08/23 06:28 Labs: Laboratory Results - last 24 hr 09/10/23 06:52 MCV 98.0 MCH 32.0 MCHC 32.7 RDW 17.7 H Plt Count 165 MPV 10.2 Immature Gran % (Auto) 1.6 H Neut % (Auto) 77.4 H Lymph % (Auto) 8.3 L [place] % (Auto) 9.5 Eos % (Auto) 2.9 Baso % (Auto) 0.3 Lymph # (Auto) 0.7 L [place] # (Auto) 0.8 Eos # (Auto) 0.2 Baso # (Auto) 0.0 Abs Immat Gran (auto) 0.13 H Absolute Neuts (auto) 6.2 Absolute Nucleated RBC 0.000 Nucleated RBC % (auto) 0.0 Assessment and Plan (1) History of total right hip replacement: Status: Acute (2) Duodenal ulcer: Status: Acute (3) Acute GI bleeding: Status: Acute (4) ABLA (acute blood loss anemia): Status: Acute Plan This is a 77-year-old male with pertinent history of essential hypertension, mixed hyperlipidemia, gastroesophageal reflux disease with Wallis's esophagus, history of bladder cancer, mood disorder, peripheral neuropathy, coronary artery disease, recent right JOHANNE on Lovenox who presents to the emergency department for evaluation of black stools. Acute blood loss anemia due to Acute GI bleed seen by GI, s/p EGD showing: Giant, nearly circumferential duodenal bulb ulcer. There was no bleeding, visible vessel, nor clot. One ulcer base had some overlying eschar, other ulcer bases were clean, and 1 ulcer base had multiple tiny red spots but not felt to be c/w vessels or stigmata of bleeding. s/p 2 units PRBC H/H stable s/p IV Protonix drip for 72 hours now on omeprazole 40mg bid carafate for two months outpatient follow up with GI avoid NSAIDs/asa/blood thinners slow advancement of diet, continue clear liquids today Recent right hip JOHANNE 08/28 no lovenox for 2 weeks continue PT during inpatient stay ortho following for postoperative care CAD with PCI to LAD, OM, RCA in 2013 continue statin, BB DVT prophylaxis: Mechanical Attending Dr. Morin Full code requires ongoing hospital stay for hemodynamic monitoring, evaluation of GI bleed (as above), which is not possible in a lesser acute setting. Specialist consult pending Quality Stroke Does the patient have a stroke diagnosis?: No VTE Prior VTE?: No VTE Risk Level:: Medical - moderate - high VTE Device Contraindication: N/A - Device Ordered VTE Drug Contraindication: Treatment Not Indicated
[2023-09-10 11:15] LABS: B Type Natriuretic Peptide 335 pg/mL (<100)
[2023-09-10 11:50] VITALS: BP 105/61; PULSE 63; RESP 20; TEMP 36.6; O2SAT 98
[2023-09-10 15:58] VITALS: BP 113/69; PULSE 68; RESP 20; TEMP 36.6; O2SAT 96
--- NOTE | 2023-09-10 17:45 | PM.EVENT ---
Event Note Date of Service: 09/10/23 Event Note: Right LE edema, tense, painful to the touch, Venous doppler neg for DVT . CT scan ordered stat to further assess, ? compartment syndrome. Orthopedic surgery team, Dr. Clark contacted, Reply pending. Time Spent With Patient Time: Total time managing care of this patient today ____ minutes.
[2023-09-10 19:57] VITALS: BP 114/60; PULSE 65; RESP 17; TEMP 36.4; O2SAT 98
[2023-09-10] MEDS: Docusate Sodium 100 MG CAPSULE PO (20:00)
[2023-09-10] MEDS: Finasteride 5 MG TABLET PO (20:00)
[2023-09-10] MEDS: Atorvastatin Calcium 80 MG TABLET PO (20:00)
[2023-09-10 23:49] VITALS: BP 113/65; PULSE 59; RESP 18; TEMP 36.8; O2SAT 98
[2023-09-11 03:52] VITALS: BP 126/62; PULSE 62; RESP 16; TEMP 36.5; O2SAT 99
[2023-09-11] MEDS: Omeprazole 40 MG CAPSULE.DR PO (06:06)
[2023-09-11 07:36] VITALS: BP 127/70; PULSE 69; RESP 18; TEMP 36.7; O2SAT 98
[2023-09-11] MEDS: Sucralfate 1 GM TABLET PO (07:54)
[2023-09-11] MEDS: carvediloL 25 MG TABLET PO (07:54)
[2023-09-11] MEDS: Cyanocobalamin (Vitamin B-12) 1,000 MCG TABLET 2500 MCG PO (07:54)
[2023-09-11] MEDS: 0.9 % Sodium Chloride Flush 3 ML SYRINGE IVFLUSH (07:54)
[2023-09-11] MEDS: Docusate Sodium 100 MG CAPSULE PO (07:55)
[2023-09-11] MEDS: Cholecalciferol (Vitamin D3) 25 MCG TABLET 50 MCG PO (07:55)
--- NOTE | 2023-09-11 08:26 | PM.PNORT ---
Subjective Subjective Date of Service: 09/11/23 Interval history: S/p RTHA 08/28/[address] Camacho Patient is resting in bed comfortably No overnight events Pain is managed Swelling in the right thigh No additional complaints Physical Exam Vital Signs: Vital Signs: Last Vital Signs Temp 98.1 F 09/11/23 07:36 Pulse 69 09/11/23 07:36 Resp 18 09/11/23 07:36 BP 127/70 09/11/23 07:36 Pulse Ox 98 09/11/23 07:36 O2 Del Method Room Air 09/11/23 07:36 O2 Flow Rate 4 09/06/23 15:28 BMI result Body Mass Index 36.5 Const: General: cooperative, healthy appearing and no acute distress Resp: Effort & Inspection: normal respiratory effort and able to speak in complete sentences Cardio: Rate: regular rate Peripheral pulses: Peripheral pulses 2+ throughout GI: Palpation (GI): Soft to palpation Skin: Lesions: no lesions Rashes: no rashes Extrem: Other: Right hip bandage is c/d/i. hematoma felt in the thigh. Compartments are soft and compressible. Able to dorsi/plantar flex. Sensation intact. Pedal pulse intact. Procedures Date of Service Date of Service: 09/11/23 Progress Note: A&P Assessment and plan (1) Status post total hip replacement, right: Status: Inactive Assessment and Plan: Continue WBAT Continue P.T. /O.T. - WBAT posterior precautions Hematoma present in right thigh No evidence of compartment syndrome F/U out patient on for anticipated staple removal Time Spent With Patient Time: Total time managing care of this patient today ____ minutes. Quality Stroke Does the patient have a stroke diagnosis?: No VTE Prior VTE?: No VTE Risk Level:: Medical - moderate - high VTE Device Contraindication: N/A - Device Ordered VTE Drug Contraindication: Treatment Not Indicated
[2023-09-11 09:00] LABS: Hematocrit 29.9 % (42.0-52.0); Hemoglobin 10.1 g/dl (14.0-18.0); Mean Corpuscular HGB Conc 33.8 g/dl (31.0-36.0); Mean Corpuscular Hemoglobin 32.8 pg (27.0-33.0); Mean Corpuscular Volume 97.1 fL (80.0-98.0); Mean Platelet Volume 10.8 fL (9.4-12.4); Platelet Count 162 X10*3/uL (160-400); Red Blood Count 3.08 X10*6/uL (4.60-5.80); Red Cell Distribution Width 17.2 % (11.0-16.0); White Blood Count 8.4 X10*3/uL (4.8-10.8)
--- NOTE | 2023-09-11 09:30 | MHC.CM.PN ---
Second IMM given 09/11. Pt is medically cleared for D/C home with resumption of [facility] services. Pts daughter will transport him home.
== END 2023-09-11 11:27 | disposition home health service (06) | DRG 378 ==
LOC: HO.ED 09-06 00:05 → HO.EDOVER 09-06 00:09 → HO.IMC 09-06 07:44
PROVIDERS: Internal Medicine; Physician Assistant Medical; Admitting Provider Student in an Organized Health Care Education/Training Program; Emergency Provider Emergency Medicine; PCP Internal Medicine; Visit Provider Nurse Practitioner Acute Care
PROC: 0DB78ZX Excision of Stomach, Pylorus, Via Natural or Artificial Opening Endoscopic, Diagnostic (ICD-10-PCS; principal; 2023-09-06 14:00)
DX: K26.4 Chronic or unspecified duodenal ulcer with hemorrhage (principal); D62 Acute posthemorrhagic anemia; K29.71 Gastritis, unspecified, with bleeding; K44.9 Diaphragmatic hernia without obstruction or gangrene; E78.2 Mixed hyperlipidemia; N40.0 Benign prostatic hyperplasia without lower urinary tract symptoms; M96.840 Postprocedural hematoma of a musculoskeletal structure following a musculoskeletal system procedure; Y83.8 Other surgical procedures as the cause of abnormal reaction of the patient, or of later complication, without mention of misadventure at the time of the procedure; I10 Essential (primary) hypertension; Z95.5 Presence of coronary angioplasty implant and graft; G62.0 Drug-induced polyneuropathy; T45.1X5S Adverse effect of antineoplastic and immunosuppressive drugs, sequela; Z85.51 Personal history of malignant neoplasm of bladder; I25.10 Atherosclerotic heart disease of native coronary artery without angina pectoris; Z96.651 Presence of right artificial knee joint; Z79.899 Other long term (current) drug therapy
CPT/HCPCS: 36415; 73700; 80048; 80053; 80076; 82272; 82550; 83880; 85025; 85027; 85610; 86850; 86900; 86901; 86923; 88305; 88313; 88342; 93005; 93971; 97110; 97116; 97162; 97166; 99285; C9113; J0171; J0290; J1580; J2704; P9016

== ENCOUNTER → 2023-09-05 23:23 | Outpatient (BNV) | payer MEDICARE, SELFPAY | PROVIDERS: Admitting Provider Student in an Organized Health Care Education/Training Program; Emergency Provider Emergency Medicine; PCP Internal Medicine; Visit Provider Internal Medicine Cardiovascular Disease | DX: D62 Acute posthemorrhagic anemia (principal); K92.2 Gastrointestinal hemorrhage, unspecified; R94.31 Abnormal electrocardiogram [ECG] [EKG] | CPT/HCPCS: 93010 ==

== ENCOUNTER → 2023-09-06 00:05 | Outpatient (BNV) | payer MEDICARE, SELFPAY | PROVIDERS: Admitting Provider Student in an Organized Health Care Education/Training Program; Emergency Provider Emergency Medicine; PCP Internal Medicine; Visit Provider Physician Assistant | DX: Z47.1 Aftercare following joint replacement surgery (principal); Z96.641 Presence of right artificial hip joint | CPT/HCPCS: 99024 ==

== ENCOUNTER → 2023-09-06 00:05 | Outpatient (BNV) | payer MEDICARE, SELFPAY | PROVIDERS: Admitting Provider Student in an Organized Health Care Education/Training Program; Emergency Provider Emergency Medicine; PCP Internal Medicine; Visit Provider Student in an Organized Health Care Education/Training Program | DX: K92.2 Gastrointestinal hemorrhage, unspecified (principal); D62 Acute posthemorrhagic anemia; K26.9 Duodenal ulcer, unspecified as acute or chronic, without hemorrhage or perforation; Z96.641 Presence of right artificial hip joint | CPT/HCPCS: 99223; 99232; 99233; 99238; 99499 ==

== ENCOUNTER 2023-09-13 10:31 | Outpatient (AMB) | payer MEDICARE, SELFPAY ==
--- NOTE | 2023-09-13 10:34 | MHC.OFFVIS ---
Intake Intake Visit Reasons: PO right JOHANNE 08/28/23 with NE Intake Note: Pavan a 77 year old male presents today for a post operative right JOHANNE on 08/28/23 NE. Patient reports he is doing well, yet he is feeling a bit stiff and sore. Allergies streptomycin [STREPTOMYCIN] Allergy (Severe, Verified 09/13/23 10:34) AFFECTED MY HEARING , anaphylaxis, affected hearing/nerves/etc, anxiety. HPI PO right JOHANNE 08/28/23 with NE HPI Details 77-year-old male who presents in the office today 16 days status post right total hip arthroplasty, which was performed on 08/28/[address] Camacho. I saw the patient in house on 09/11/2023 after he was admitted for a GI bleed where he was instructed to weight bear as tolerated. He was to continue to work with physical therapy with posterior precautions. [facility] Medical History (Updated 09/11/23 @ 00:01 by Messi Velásquez) Duodenal ulcer Abnormal EKG Hypotension Acute electrocardiogram changes Osteoarthritis of right hip Atherosclerotic cardiovascular disease Post-nasal drip Recent bereavement Foreign body in left lower extremity COVID-19 virus infection Amebic dysentery Foreign body of left lower leg Left rotator cuff tear Barretts esophagus Osteoarthritis Peripheral neuropathy Anxiety and depression Colon cancer Impaired glucose tolerance BPH (benign prostatic hyperplasia) Urinary bladder cancer Obesity GERD (gastroesophageal reflux disease) Hypercholesterolemia Hypertension CAD (coronary artery disease) Surgical History (Updated 09/13/23 @ 10:40 by Delores Vang) Status post total hip replacement, right (~08/28/23) History of total right hip replacement H/O cardiac catheterization (~2013) Hx of colonoscopy History of partial colectomy History of bladder surgery History of carpal tunnel release Family History Father Heart failure Mother Thyroid disorder Sister Lung cancer Daughter Alcoholism Social History Household Members: Family Housing: House Are you a primary plant health care technician to a significant other at home: No Do you presently have visiting nurse or other home services: Yes (PT) Alcohol intake: never Comment: aware of trip hazards 1984 stopped Patient Tobacco Use Status: Former Tobacco user Quit Date: 1984 Tobacco use type: Cigarette Years Smoked: 18 stopped 1984 e-Cigarette/Vaping Use: Never Used Second Hand Smoke Exposure: No service: Yes Current occupational status: retired Cognitive needs: No Hearing needs: Yes Vision needs: Yes Review of Systems Const All systems reviewed & are unremarkable except as noted in HPI and below Physical Exam Const General: cooperative, healthy appearing and no acute distress Resp Effort & Inspection: normal respiratory effort and able to speak in complete sentences Cardio Rate: regular rate Peripheral pulses: Peripheral pulses 2+ throughout GI Palpation (GI): Soft to palpation Skin Lesions: no lesions Rashes: no rashes Extrem Other: Right hip: Incision site is clean, dry, and intact. [place] intact. No surrounding erythema or drainage. No signs of infection. Ambulating with the use of a roller walker. Patient?s thigh and calf are firm, but compartments are compressible and is not painful. Assessment & Plan Assessment & Plan (1) Status post total hip replacement, right: Onset Date: ~08/28/23 Comment: Dr. Rui Camacho Code(s): Z96.641 - Presence of right artificial hip joint Plan Mr. Kimball is a 77-year-old male who presents in the office today 16 days status post right total hip arthroplasty, which was performed on 08/28/[address] Camacho. I saw the patient in house on 09/11/2023 after he was admitted for a GI bleed where he was instructed to weight bear as tolerated. He was to continue to work with physical therapy with posterior precautions. [place] were removed and steri-stripes were applied. Due to the patient recently being admitted after surgery for an acute GI bleed. He had a EGD performed and it was recommended for him to avoid Aspirin/blood thinners and NSAIDs for life. Therefore his DVT prophylaxis from an orthopedic standpoint will be to encourage frequent ambulation. The patient will transition to outpatient physical therapy once [facility] services conclude. Follow up will be in [address] Camacho, or sooner if needed. CT scan of the right lower extremity, obtained on 09/10/2023, revealed: 1. Limited exam because of lack of IV contrast. 2. There is mild subcutaneous edema present most marked in the calf. 3. Small crescentic fluid collection present just lateral to the muscles of the thigh measuring about 6 mm in thickness. 4. No acute fractures are seen. 5. No subcutaneous air is seen. Ultrasound of the right lower extremity, obtained on 09/10/2023, revealed: No DVT demonstrated in the right lower extremity. Patient Instructions: Scribed by Delores Vang, medical authorization specialist, for Meaghan Brandon PA-C on 09/13/2023 at 10:33 am, EST. Coding Level of Care Code Global (09305) Diagnoses Status post total hip replacement, right Z96.641
== END 2023-09-13 10:57 | disposition home or self-care (01) ==
PROVIDERS: PCP Internal Medicine; Visit Provider Physician Assistant
DX: Z96.641 Presence of right artificial hip joint (principal)
CPT/HCPCS: 99024

== ENCOUNTER → 2023-09-13 10:31 | Outpatient (BNVA) | payer MEDICARE, SELFPAY | PROVIDERS: PCP Internal Medicine; Visit Provider Physician Assistant | DX: Z47.1 Aftercare following joint replacement surgery (principal); Z96.641 Presence of right artificial hip joint | CPT/HCPCS: 99212 ==

== ENCOUNTER 2023-09-26 07:40 | Outpatient (AMB) | payer MEDICARE, SELFPAY ==
[2023-09-26 07:48] VITALS: BP 122/70; PULSE 66; O2SAT 98; BMI 36.6
--- NOTE | 2023-09-26 07:48 | MHC.PC.OV ---
Vital Signs 09/26/23 07:48 Height 5 ft 8 in Weight 109.316 kg BMI 36.6 BP 122/70 Blood Pressure Location Lt brachial Position Sitting Pulse 66 Pulse Source Pulse Oximeter Pulse Oximetry (%) 98 Oxygen Delivery Method Room Air Int[place] [facility] [place] Allergies streptomycin [STREPTOMYCIN] Allergy (Severe, Verified 09/26/23 07:49) AFFECTED MY HEARING , anaphylaxis, affected hearing/nerves/etc, anxiety. Tobacco use date assessed: 08/21/23 Fall risk assessment: No Falls in past year Last assessed Fall Risk: 09/26/23 Dental Screening Dental Screen Date: 09/26/23 Did you have a dental visit in the last 12 months?: Yes Did you have a dental problem in the last 6 months where you did not have access to dental care?: No Was dental information given to patient?: Patient has dentist HPI HPI Comments History of Present Illness Details 77-year-old male with history of hypertension, hyperlipidemia, GERD with Wallis's esophagus, history of bladder cancer, mood disorder, peripheral neuropathy, CAD who underwent right total hip arthroplasty on 08/28 presents to the office today for hospital discharge follow-up. He was started on Lovenox for DVT prophylaxis by Orthopedic surgery. Unfortunately presented back to the ED on 09/06 for evaluation of melena that it started 2 days prior to presentation. There is no associated nausea, vomiting, abdominal pain but was feeling lightheaded with positional changes. He was admitted to hospitalist service from 09/06-09/11. Was evaluated by Gastroenterology and underwent endoscopy with findings of large duodenal ulcer without active bleeding. Recommendation per Gastroenterology was to stop the Lovenox for at least 2 weeks and re-evaluate resuming the medication. He was discharged on 40 mg of Prilosec b.i.d. as well as Carafate and recommended to follow-up with gastroenterology. He was also advised to follow-up with Orthopedic surgery as scheduled on 09/13. There was some swelling noted in the right lower extremity and on 09/10 underwent venous duplex which was negative for DVT. CT scan of the right lower extremity also negative for any large collection. Throughout admission, he was afebrile without leukocytosis. On admission, hemoglobin hematocrit 7.5/21.5%. Patient did not undergo transfusion with blood counts improving to 10.1/29.9% without intervention. He has been seen by Orthopedic surgery on 09/13 and has been undergoing physical therapy at home with recommendations for early ambulation and compression stockings for DVT prophylaxis. Unfortunately due to his peripheral neuropathy, the patient has not been able to tolerate compression stockings but reports has been ambulatory. He reports over the last several days he has had significant increase in swelling/edema in the right lower extremity with significant tenderness making ambulation difficult and worsening neuropathy. He does ambulate with a walker without any falls. He denies any recurrence melena and denies nausea, vomiting, abdominal pain, hematochezia. Denies dyspnea on exertion, shortness of breath at rest, palpitations, lightheadedness, chest pain. [facility] Medical History (Updated 09/26/23 @ 08:25 by DAVID Rebolledo) Duodenal ulcer Abnormal EKG Hypotension Acute electrocardiogram changes Osteoarthritis of right hip Atherosclerotic cardiovascular disease Post-nasal drip Recent bereavement Foreign body in left lower extremity COVID-19 virus infection Amebic dysentery Foreign body of left lower leg Left rotator cuff tear Barretts esophagus Osteoarthritis Peripheral neuropathy Anxiety and depression Colon cancer Impaired glucose tolerance BPH (benign prostatic hyperplasia) Urinary bladder cancer Obesity GERD (gastroesophageal reflux disease) Hypercholesterolemia Hypertension CAD (coronary artery disease) Surgical History Status post total hip replacement, right (~08/28/23) History of total right hip replacement H/O cardiac catheterization (~2013) Hx of colonoscopy History of partial colectomy History of bladder surgery History of carpal tunnel release Family History Father Heart failure Mother Thyroid disorder Sister Lung cancer Daughter Alcoholism Social History Household Members: Family Housing: House Are you a primary manager care management to a significant other at home: No Do you presently have visiting nurse or other home services: Yes (PT) Alcohol intake: never Comment: aware of trip hazards 1984 stopped Patient Tobacco Use Status: Former Tobacco user Quit Date: 1984 Tobacco use type: Cigarette Years Smoked: 18 stopped 1984 e-Cigarette/Vaping Use: Never Used Second Hand Smoke Exposure: No service: Yes Current occupational status: retired Cognitive needs: No Hearing needs: Yes Vision needs: Yes Questionnaire PHQ-9 Over the last 2 weeks, how often have you been bothered by any of the following problems? 1. Little interest or pleasure in doing things: not at all 2. Feeling down, depressed, or hopeless: not at all 3. Trouble falling or staying asleep, or sleeping too much: not at all 4. Feeling tired or having little energy: not at all 5. Poor appetite or overeating: not at all 6. Feeling bad about yourself - or that you are a failure or have let yourself or your family down: not at all 7. Trouble concentrating on things, such as reading the newspaper or watching television: not at all 8. Moving or speaking so slowly that other people could have noticed. Or the opposite - being so fidgety or restless that you have been moving around a lot more than usual: not at all 9. Thoughts that you would be better off or of hurting yourself in some way: not at all Total score: 0 Depression Screening Interpretation: Negative Depression Screening Done: Yes Source: Developed by Drs. Mckinley Ahn, Monico Aguilar and colleagues, with an educational saul from [employer]. Thrive Questionnaire Date Thrive assessed: 09/06/23 AUDIT C Alcohol Use Questionnaire (AUDIT-C) 1. How often do you have a drink containing alcohol?: Never 3. How often do you have six or more drinks on one occasion?: Never Total Score: 0 MIKAYLA-7 AMB Questionnaire MIKAYLA-7 Date MIKAYLA - 7 assessed: 08/21/23 Source: Developed by Drs. Mckinley Ahn, Monico Aguilar and colleagues, with an educational saul from [employer]. Review of Systems Const All systems reviewed & are unremarkable except as noted in HPI and below Physical exam (Primary Care) Vital Signs: Last Vital Signs Pulse 66 09/26/23 07:48 BP 122/70 09/26/23 07:48 Pulse Ox 98 09/26/23 07:48 Oxygen Delivery Method Room Air 09/26/23 07:48 BMI result Body Mass Index 36.6 Tobacco/Smoking Status: Tobacco use Status Tobacco use date assessed 08/21/23 09/26/23 07:56 Patient Tobacco Use Status Former Tobacco user 09/26/23 07:56 Tobacco use type Cigarette 09/26/23 07:56 e-Cigarette/Vaping Use Never Used 09/26/23 07:56 PHQ-9: PHQ-9 Score PHQ-9: Total score 0 09/26/23 07:56 Depression Screening Interpretation: Negative Thrive Assessment: Date of Thrive Assessment Date Thrive assessed 09/06/23 09/26/23 07:56 Const Other: Constitutional - Awake and Alert, No apparent distress Eyes - PERRLA, EOMI Cardiovascular - S1S2, RRR, No edema Respiratory - Normal lung expansion, Normal respiratory effort, No respiratory distress, CTA bilaterally Gastrointestinal - NT / ND; +BS; No rebound or guarding Extremities -significant firm swelling and 3+ edema and tenderness to palpation throughout the entire right lower extremity with ecchymosis noted to the posterior right calf. No palpable cords Musculoskeletal - Normal inspection, well-healing posterior right hip surgical incision without dehiscence, drainage, surrounding erythema or warmth. Steri-Strips in place Skin - Warm/Dry Neurological - Alert & oriented x3 Psychological - Appropriate affect Results Reviewed Results Reviewed: CBC, BMP, endoscopy operative report, Gastroenterology consult, venous duplex right lower extremity, CT right lower extremity, hospital discharge summary Assessment and Plan Assessment & Plan (1) Swelling of right lower extremity: Code(s): M79.89 - Other specified soft tissue disorders Plan: s/p right JOHANNE on 08/28, not currently on anticoagulation due to recent upper GI bleed. Patient has been noncompliant with compression stockings due to peripheral neuropathy. Significant swelling and edema increased over the last few days concerning for DVT though could also possibly be related to dependent edema. However given significant concerns for DVT, patient is recommended to present to [facility] ED where expect call has been placed to provider for further evaluation and workup of possible DVT in the right lower extremity. (2) Status post total hip replacement, right: Onset Date: ~08/28/23 Comment: Dr. Rui Camacho Code(s): Z96.641 - Presence of right artificial hip joint Plan: Surgical incision healing well without wound dehiscence or evidence of infection. Per Orthopedic surgery, continue with early ambulation and recommend compression stockings so patient has had difficulty tolerating this due to peripheral neuropathy. Continue with physical therapy. Continue ambulating with walker to prevent falls. Follow-up with Orthopedic surgery as scheduled. (3) Duodenal ulcer: Code(s): K26.9 - Duodenal ulcer, unspecified as acute or chronic, without hemorrhage or perforation Plan: Secondary to NSAID use and Lovenox. Anemia on admission greatly improved with H/H 10.1/29.9% on hospital discharge, above transfusion threshold. Per Gastroenterology recommendations, remain off NSAIDs and anticoagulants for life unless further discussed with Gastroenterology. Continue omeprazole 40 mg b.i.d. and Carafate. Follow up with Gastroenterology in October as scheduled, sooner if needed. Coding Level of Care Code Est Pt Level 4 (43864) Diagnoses Swelling of right lower extremity M79.89 Status post total hip replacement, right Z96.641 Duodenal ulcer K26.9 Time Spent (min) 35 Comment Time spent reviewing above, exam with patient, call placed to ED provider, documentation
== END 2023-09-26 11:25 | disposition home or self-care (01) ==
PROVIDERS: PCP Internal Medicine; Visit Provider Physician Assistant
DX: M79.89 Other specified soft tissue disorders (principal); Z96.641 Presence of right artificial hip joint; K26.9 Duodenal ulcer, unspecified as acute or chronic, without hemorrhage or perforation
CPT/HCPCS: 99214

== ENCOUNTER 2023-09-26 08:20 | Emergency (ER) | payer MEDICARE, SELFPAY ==
--- NOTE | ~2023-09-26 | US_ITS ---
EXAMINATION: US VENOUS ULTRASOUND WITH DOPPLER LOWER EXTREMITY, RIGHT CLINICAL INFORMATION: Swelling and pain COMPARISON: 09/10/23 TECHNIQUE: Ultrasound of the deep veins is performed from the hip to the calf with compression sonography and color and pulse Doppler assessment. Spectral analysis with color-flow imaging is performed. FINDINGS: There is normal venous compression and respiratory variation and augmented flow. The visualized common femoral vein, proximal and mid superficial femoral veins are patent. There is limited evaluation at the distal thigh due to patient inability to tolerate compression but vessel appears patent. Profunda femoral vein and popliteal vein show no evidence of deep venous thrombosis. Peroneal vein is not seen. Posterior tibial veins are poorly seen due to lower extremity edema, but are patent distally. Region of pain in the mid/distal posterior calf was sonographically interrogated demonstrating edema. No popliteal findings to suggest Conroy's cyst. If symptoms persist, followup ultrasound in 5 days 7 days might be of value to exclude proximal propagation from a non-visualized calf vein. US/US venous duplex LE RT IMPRESSION: No DVT demonstrated in the right lower extremity. Right lower extremity edema.
[2023-09-26 08:25] VITALS: BP 118/70; PULSE 70; RESP 18; TEMP 37.2; O2SAT 98; BMI 38.7
[2023-09-26 08:47] LABS: MANUAL DIFF FLAG NO
[2023-09-26 08:48] LABS: Basophils Percent Auto 0.3 % (0-2); Eosinophils Absolute Auto 0.3 X10*3/uL (0.0-0.4); Eosinophils Percent Auto 4.9 % (0-4); Hematocrit 33.7 % (42.0-52.0); Imm Gran Abs Auto 0.01 X10*3/uL (0.00-0.03); Imm Gran Pct Auto 0.2 % (0.0-0.4); Lymphocytes Absolute Auto 0.9 X10*3/uL (1.2-4.9); Lymphocytes Percent Auto 14.9 % (20-40); Mean Corpuscular HGB Conc 32.6 g/dl (31.0-36.0); Mean Corpuscular Hemoglobin 30.6 pg (27.0-33.0); Mean Corpuscular Volume 93.6 fL (80.0-98.0); Monocytes Absolute Auto 0.7 X10*3/uL (0.1-1.2); Monocytes Percent Auto 11.7 % (2-11); Platelet Count 158 X10*3/uL (160-400); Red Cell Distribution Width 15.6 % (11.0-16.0); White Blood Count 5.9 X10*3/uL (4.8-10.8)
[2023-09-26 09:02] LABS: Alanine Aminotransferase 13 U/L (0-40); Albumin Level 3.2 g/dL (3.5-5.0); Alkaline Phosphatase 109 U/L (39-117); Anion Gap 11 (12-20); Aspartate Amino Transferase 18 U/L (5-37); Bilirubin Total 0.9 mg/dL (0.0-1.0); Blood Urea Nitrogen 13 mg/dL (9-16); Calcium 8.8 mg/dL (8.4-10.2); Carbon Dioxide 29 mmol/L (22-29); Chloride 104 mmol/L (96-108); Creatinine Clr Calc Pharmacy 75.3; Estimated Glomerular Filt Rate > 60; Glucose Random 100 mg/dL (60-115); Potassium 3.9 mmol/L (3.3-5.1); Sodium 140 mmol/L (135-145); Total Protein 5.9 g/dL (6.5-8.0)
[2023-09-26 09:03] LABS: INTERNATIONAL NORM RATIO 1.1 (0.9-1.1); Prothrombin Time 13.9 SEC (11.1-13.3)
[2023-09-26 09:06] LABS: Partial Thromboplastin Time 31.3 SEC (26.0-36.8)
--- NOTE | 2023-09-26 12:12 | ED_ITS ---
HPI - General Adult General Chief complaint: Extremity Injury, Lower Stated complaint: Sent by PCP for ultrasound Time Seen by Provider: 09/26/23 12:11 Source: patient and family (patient's daughter) Mode of arrival: wheelchair Limitations: no limitations History of Present Illness HPI narrative: Patient is a 77 year old assigned male at with a history of recent right hip replacement presenting to the emergency department today with bilateral lower leg swelling, right worse than left. Patient states that he was supposed to be on lovenox post op but after he was, he developed a GI bleed, so it was stopped. Patient states that since then he has had even more leg swelling than usual with some bruising and extra swelling on the right side. Patient states that his daughter bought some ANNAMARIE Wraps for him since he can't tolerate compression stockings but he was told to come here and confirm no DVT. Patient denies any dizziness, lightheadedness, abdominal pain, nausea, vomiting, fever, chills, blurry vision, double vision, loss of vision, chest pain, difficulty breathing, shortness of breath, back pain, night sweats, pain with urination, increased urinary frequency, increased urinary urgency, blood in his urine or stool, syncope or a near syncopal episode, recent trauma or falls, bowel incontinence, bladder incontinence, bowel retention, bladder retention, or any other complaints at this time. Onset (ago): week(s) Location: left, right and lower extremity Severity: mild Severity scale (1-10): 4 Relieving factors: none Exacerbating factors: none Associated symptoms: denies other symptoms Treatments prior to arrival: none Related Data Home Medications Medication Instructions Recorded Confirmed cholecalciferol (vitamin D3) 50 50 mcg PO DAILY 05/25/20 09/06/23 mcg (2,000 unit) capsule finasteride 5 mg tablet 5 mg PO BEDTIME 05/25/20 09/06/23 multivitamin 1 tab PO DAILY 05/25/20 09/06/23 cyanocobalamin (vitamin B-12) 2,500 mcg PO DAILY 08/21/23 09/06/23 2,000 mcg tablet,extended release (Vitamin B-12 ER) acetaminophen 650 mg 1,300 mg PO DAILY 09/06/23 09/06/23 tablet,extended release Previous Rx's Medication Instructions Recorded carvedilol 25 mg tablet 25 mg PO BID #180 tabs 07/17/23 docusate sodium 100 mg capsule 100 mg PO BID 90 days #180 caps 08/31/23 (Colace) enoxaparin 40 mg/0.4 mL 40 mg (0.4 mL) subcut Q24H 5 weeks 09/03/23 subcutaneous syringe (Lovenox) #14 mL gladys.stocking,knee,reg,smal #12 ea 09/10/23 (T.E.D. Anti-Embolism Stocking) omeprazole 40 mg capsule,delayed 40 mg PO BID@0630,1630 #30 caps 09/10/23 release sucralfate 1 gram tablet 1 g PO QIDACHS #30 tabs 09/10/23 atorvastatin 80 mg tablet 80 mg PO BEDTIME #90 tabs 09/19/23 furosemide 20 mg tablet (Lasix) 20 mg PO DAILY #14 tabs 09/26/23 Allergies Allergy/AdvReac Type Severity Reaction Status Date / Time streptomycin [STREPTOMYCIN] Allergy Severe AFFECTED Verified 09/26/23 08:31 MY HEARING , anaphylaxis, affected hearing/nerves/etc, anxiety. Review of Systems 2 Constitutional: Constitutional: Reports no additional constitutional complaints, Denies chills, Denies fever(s) and Denies night sweats Eyes: Eyes: Reports no additional eye complaints, Denies blurry vision, Denies change in vision, Denies diplopia, Denies eye discharge, Denies loss of vision and Denies eye pain ENT: Denies dizziness Cardiovascular: Cardiovascular: Reports no additional cardiovascular complaints, Denies chest pain, Reports leg edema, Denies lightheadedness, Denies Loss of Consciousness and Denies dyspnea Respiratory: Respiratory: Reports no additional respiratory complaints and Denies dyspnea Gastrointestinal: Gastrointestinal: Reports no additional gastrointestinal complaints, Denies abdominal pain, Denies melena, Denies hematochezia, Denies change in bowel habits and Denies change in stool character Genitourinary: Genitourinary: Reports no additional male genitourinary complaints, Denies hematuria, Denies oliguria, Denies difficulty urinating, Denies dysuria, Denies urinary frequency, Denies urinary hesitancy, Denies urinary incontinence and Denies urinary urgency Musculoskeletal: Musculoskeletal: Reports no additional musculoskeletal complaints, Denies numbness and Denies tingling Neurologic: Denies dizziness, Denies loss of vision, Denies numbness and Denies tingling Psychiatric: Psychiatric: Reports no additional psychiatric complaints Endocrine: Endocrine: Reports no additional endocrine complaints Hematologic/Lymphatic: Hematologic/Lymphatic: Reports no additional hematologic/lymphatic complaints Allergic/Immunologic: Allergic/Immunologic: Reports no additional allergic/immunologic complaints PMF Past Medical History Attestation statement: The following information was validated with the patient. (all information validated with the patient's daughter) Source: old records reviewed, obtained from family (patient's daughter provided additional history and confirmed the history provided by the patient.) and nursing notes reviewed Medical History Duodenal ulcer Abnormal EKG Hypotension Acute electrocardiogram changes Osteoarthritis of right hip Atherosclerotic cardiovascular disease Post-nasal drip Recent bereavement Foreign body in left lower extremity COVID-19 virus infection Amebic dysentery Foreign body of left lower leg Left rotator cuff tear Barretts esophagus Osteoarthritis Peripheral neuropathy Anxiety and depression Colon cancer Impaired glucose tolerance BPH (benign prostatic hyperplasia) Urinary bladder cancer Obesity GERD (gastroesophageal reflux disease) Hypercholesterolemia Hypertension CAD (coronary artery disease) Surgical History Status post total hip replacement, right (~08/28/23) History of total right hip replacement H/O cardiac catheterization (~2013) Hx of colonoscopy History of partial colectomy History of bladder surgery History of carpal tunnel release Family History Family History Father Heart failure Mother Thyroid disorder Sister Lung cancer Daughter Alcoholism Social History Social History Household Members: Family Housing: House Are you a primary critical care unit nurse to a significant other at home: No Do you presently have visiting nurse or other home services: Yes (PT) Alcohol intake: never Comment: aware of trip hazards 1984 stopped Patient Tobacco Use Status: Former Tobacco user Quit Date: 1984 Tobacco use type: Cigarette Years Smoked: 18 stopped 1984 Smoked in Last 30 Days: No e-Cigarette/Vaping Use: Never Used Second Hand Smoke Exposure: No Use of substances other than those prescribed or required for medical reasons: No Advance Directives: Yes Advance Directives on File: Yes Advance Directives Date on File: 08/31/23 service: Yes Current occupational status: retired Cognitive needs: No Hearing needs: Yes Vision needs: Yes Physical Exam ED Vital Signs: Vital Signs - 24 hr 09/26/23 08:25 Temperature 98.9 F Pulse Rate 70 Respiratory Rate 18 Blood Pressure 118/70 Pulse Oximetry 98 Oxygen Delivery Method Room Air BMI result Body Mass Index 38.7 Const General: cooperative, no acute distress, alert and awake Nutritional Appearance: well nourished Orientation/consciousness: patient oriented x3 Limitations: no limitations HENMT Head: Yes normal to inspection and Yes atraumatic Ears: hearing grossly normal bilaterally and external ears normal General nose exam: Normal external nose present, no nasal discharge noted and no epistaxis Face and sinus: Yes normal facial exam, No abrasion and No laceration Mouth: Normal oral and palatal mucosa present, no drooling and no muffled voice Eyes General: appearance normal, both eyes and all related structures Periorbital: periorbital findings normal Eyelids: Yes eyelids normal Conjunctivae: conjunctivae normal Pupils: Equal, round and reactive pupils present EOM: EOMs intact bilaterally Neck Neck: Yes normal visual inspection, Yes full ROM and Yes no lymphadenopathy Chest Chest palpation & inspection: normal inspection of the chest Resp Effort & Inspection: normal respiratory effort and able to speak in complete sentences GI Inspection: Yes normal to inspection Neuro General: patient oriented x3 and moves all extremities Cranial nerves: Yes Equal, round and reactive pupils present Cognition (Neuro): normal cognition Motor exam (neuro): 5/5 motor strength present throughout Sensory Exam: Normal double simultaneous stimulation for sensation Coordination: [id number] test normal Extrem Other: bilateral lower leg edema, right worse than left. Minimal bruising present to the posterior right leg. General: Yes full ROM and Yes capillary refill normal Psych Appearance: grossly normal Mental Status: mental status grossly normal Affect: normal affect Attitude: cooperative Thought process: Normal thought process present Thought content: Normal thought content present Insight: Good insight present (Psych) Medical Decision Making Medical Decision Making MDM Narrative: Patient is a 77 year old assigned male at with a history of recent right hip replacement presenting to the emergency department today with . Patient's physical exam was as noted in the physical exam portion of this note. Patient's blood work was unremarkable. Patient's US showed no acute process. I explained my physical exam findings as well as all test results to the patient and the patient's daughter. I answered all questions asked by the patient and the patient's daughter. We discussed the use of lasix to help the patient excrete more excess fluid. I discussed the risks extensively with the patient and his daughter including lightheadedness, dizziness, etc. Patient and his daughter verbalized understanding and requested to try it in conjunction with ANNAMARIE wraps. I stressed the importance of the patient taking his medication as prescribed. I stressed the importance of the patient following up with his primary care provider and an orthopedic provider. I stressed the importance of the patient returning to the emergency department immediately if his symptoms were to worsen or if he were to develop any dizziness, shortness of breath, difficulty breathing, chest pain, blurry vision, loss of vision, nausea, vomiting, abdominal pain, fever, chills, back pain, or any other complaints. Patient and the patient's daughter verbalized agreement and understanding with this treatment plan and discharge. Differential Diagnosis Differential Diagnoses: The differential diagnosis associated with the presentation includes Leg swelling Edema DVT Admission/Observation Consideration of admission/observation: Escalation of care including admission/observation considered Patient would have been admitted to the hospital had his work up had any findings where hospital admission was appropriate and his clinical presentation warranted hospital admission. Lab Data [facility] Lab Attestation statement: I reviewed the patient's lab results. My interpretation of these results are in the [facility] Rationale portion of this note. 09/26/23 08:43 09/26/23 08:43 Labs: Lab Results 09/26/23 Range/Units 08:43 WBC 5.9 (4.8-10.8) X10*3/uL RBC 3.60 L (4.60-5.80) X10*6/uL Hgb 11.0 L (14.0-18.0) g/dl Hct 33.7 L (42.0-52.0) % MCV 93.6 (80.0-98.0) fL MCH 30.6 (27.0-33.0) pg MCHC 32.6 (31.0-36.0) g/dl RDW 15.6 (11.0-16.0) % Plt Count 158 L (160-400) X10*3/uL MPV 10.0 (9.4-12.4) fL Immature Gran % (Auto) 0.2 (0.0-0.4) % Neut % (Auto) 68.0 (45-73) % Lymph % (Auto) 14.9 L (20-40) % Beadle % (Auto) 11.7 H (2-11) % Eos % (Auto) 4.9 H (0-4) % Baso % (Auto) 0.3 (0-2) % Lymph # (Auto) 0.9 L (1.2-4.9) X10*3/uL Beadle # (Auto) 0.7 (0.1-1.2) X10*3/uL Eos # (Auto) 0.3 (0.0-0.4) X10*3/uL Baso # (Auto) 0.0 (0.0-0.2) X10*3/uL Abs Immat Gran (auto) 0.01 (0.00-0.03) X10*3/uL Absolute Neuts (auto) 4.0 (2.0-8.3) x10*3/uL Absolute Nucleated RBC 0.000 (0.0-0.012) X10*3/uL Nucleated RBC % (auto) 0.0 (0.0-0.2) /100WBC PT 13.9 H (11.1-13.3) SEC INR 1.1 (0.9-1.1) APTT 31.3 (26.0-36.8) SEC Sodium 140 (135-145) mmol/L Potassium 3.9 (3.3-5.1) mmol/L Chloride 104 (96-108) mmol/L Carbon Dioxide 29 (22-29) mmol/L Anion Gap 11 L (12-20) BUN 13 (9-16) mg/dL Creatinine 0.98 (0.5-1.4) mg/dL Estim Creat Clear Calc 75.3 Estimated GFR > 60 Random Glucose 100 (60-115) mg/dL Calcium 8.8 D (8.4-10.2) mg/dL Total Bilirubin 0.9 (0.0-1.0) mg/dL AST 18 (5-37) U/L ALT 13 (0-40) U/L Alkaline Phosphatase 109 (39-117) U/L Total Protein 5.9 L (6.5-8.0) g/dL Albumin 3.2 L (3.5-5.0) g/dL Independent Interpretation I performed an independent interpretation of an: Ultrasound Interpretation: My interpretation is in agreement with the radiologist's impression of this imaging study. - EXAMINATION: US VENOUS ULTRASOUND WITH DOPPLER LOWER EXTREMITY, RIGHT CLINICAL INFORMATION: Swelling and pain COMPARISON: 09/10/23 TECHNIQUE: Ultrasound of the deep veins is performed from the hip to the calf with compression sonography and color and pulse Doppler assessment. Spectral analysis with color-flow imaging is performed. FINDINGS: There is normal venous compression and respiratory variation and augmented flow. The visualized common femoral vein, proximal and mid superficial femoral veins are patent. There is limited evaluation at the distal thigh due to patient inability to tolerate compression but vessel appears patent. Profunda femoral vein and popliteal vein show no evidence of deep venous thrombosis. Peroneal vein is not seen. Posterior tibial veins are poorly seen due to lower extremity edema, but are patent distally. Region of pain in the mid/distal posterior calf was sonographically interrogated demonstrating edema. No popliteal findings to suggest Conroy's cyst. If symptoms persist, followup ultrasound in 5 days 7 days might be of value to exclude proximal propagation from a non-visualized calf vein. US/US venous duplex LE RT IMPRESSION: No DVT demonstrated in the right lower extremity. Right lower extremity edema. Dictated By: Janneth Watkins MD Signed By: Electronically signed by Janneth Watkins MD 09/26/23 0952 Radiology Impression Discussion of test interpretation with radiology: I have reviewed the radiologist's reading. Independent Historian Clinical information obtained from an independent historian. History obtained from or confirmed by: Other (patient's daughter provided additional history and confirmed the history provided by the patient.) Discharge Plan Discharge Clinical Impression: Edema Patient Disposition: Home, Self-Care Instructions: Leg Edema (ED) Additional Instructions: You've been prescribed lasix which is a diuretic (helps excrete fluid from your body) - make sure you ingest electrolytes along with your water. If you become lightheaded or dizzy, STOP the Lasix immediately. Follow up with your primary care provider and your orthopedic provider. Return to the emergency department immediately if your symptoms worsen or if you develop any dizziness, shortness of breath, difficulty breathing, chest pain, blurry vision, loss of vision, nausea, vomiting, abdominal pain, fever, chills, back pain, or any other complaints. Prescriptions: New furosemide [Lasix] 20 mg tablet 20 mg PO DAILY Qty: 14 0RF No Action carvedilol 25 mg tablet 25 mg PO BID Qty: 180 1RF Rx Instructions: must administer with a meal/food docusate sodium [Colace] 100 mg capsule 100 mg PO BID 90 Days Qty: 180 0RF atorvastatin 80 mg tablet 80 mg PO BEDTIME Qty: 90 3RF cyanocobalamin (vitamin B-12) [Vitamin B-12] 2,000 mcg Tablet Extended Release 2,500 mcg PO DAILY acetaminophen 650 mg Tablet Extended Release 1,300 mg PO DAILY sucralfate 1 gram Tablet 1 g PO QIDACHS Qty: 30 0RF omeprazole 40 mg Capsule,Delayed Release(Dr/Ec) 40 mg PO BID@0630,1630 Qty: 30 0RF (DME) T.E.D. Anti-Embolism Stocking Misc See Rx Instructions .Route Qty: 12 0RF Rx Instructions: As directed multivitamin Tablet 1 tab PO DAILY cholecalciferol (vitamin D3) 50 mcg (2,000 unit) capsule 50 mcg PO DAILY finasteride 5 mg tablet 5 mg PO BEDTIME enoxaparin [Lovenox] 40 mg/0.4 mL syringe 40 mg subcut Q24H 35 Days Qty: 14 0RF Hold Instructions: Resume on 09/24/23. Follow up with gastroenterology prior to restarting Referrals: Franco Juarez MD [Primary Care Provider] - Interventions: ED Discharge Assessment Last Done: 09/26/23 12:40 Discharge Date/Time: 09/26/23 12:41 Print Language: Thai
== END 2023-09-26 12:41 | disposition home or self-care (01) ==
PROVIDERS: Physician Assistant Medical; Emergency Provider Emergency Medicine; PCP Internal Medicine
DX: R60.0 Localized edema (principal); I10 Essential (primary) hypertension; Z96.641 Presence of right artificial hip joint
CPT/HCPCS: 36415; 80053; 85025; 85610; 85730; 93971; 99284

== ENCOUNTER 2023-10-04 08:19 | Outpatient (AMB) | payer MEDICARE, SELFPAY ==
--- NOTE | 2023-10-04 08:36 | MHC.OFFVIS ---
Intake Vital Signs 10/04/23 08:39 Height 5 ft 6 in Weight 231 lb BMI 37.3 Intake Visit Reasons: PO right JOHANNE 08/28/23 with NE - Confirmed Intake Note: Pavan is a 77 year old male who presents today for a post operative visit s/p Right JOHANNE on 08/28/23 NE. Patient reports that he is doing well with the hip, pain increases with home exercises but resolves with rest. He has significant bilateral LE Neuropathy which seems to be more bothersome than the hip. He needs to wear compression stockings due to the lower extremety edema, but because of his neuropathy he is unable to wear compression stockings. He is now using syeda wraps on bilateral lower legs which is helping. He typically meeds with a intake manager to have is nail clipped, but was advised to avoid this post operatively and he is asking when he may resume this & if antibiotics are needed prior to appts. Of note he mentions that he was given lasix while in the ED which is causing GI upset w/ loose stool. I advised that he should meet with his PCP to address these concerns. Allergies streptomycin [STREPTOMYCIN] Allergy (Severe, Verified 10/04/23 08:36) AFFECTED MY HEARING , anaphylaxis, affected hearing/nerves/etc, anxiety. HPI PO right JOHANNE 08/28/23 with NE - Confirmed HPI Details Pavan is a 77 year old male who presents today for a post operative visit s/p Right JOHANNE on 08/28/23 NE. Patient reports that he is doing well with the hip, pain increases with home exercises but resolves with rest. He has significant bilateral LE Neuropathy which seems to be more bothersome than the hip. He needs to wear compression stockings due to the lower extremity edema, but because of his neuropathy he is unable to wear compression stockings. He is now using syeda wraps on bilateral lower legs which is helping. He typically meeds with a intake manager to have is nail clipped, but was advised to avoid this post operatively and he is asking when he may resume this & if antibiotics are needed prior to appts. [facility] Medical History Duodenal ulcer Abnormal EKG Hypotension Acute electrocardiogram changes Osteoarthritis of right hip Atherosclerotic cardiovascular disease Post-nasal drip Recent bereavement Foreign body in left lower extremity COVID-19 virus infection Amebic dysentery Foreign body of left lower leg Left rotator cuff tear Barretts esophagus Osteoarthritis Peripheral neuropathy Anxiety and depression Colon cancer Impaired glucose tolerance BPH (benign prostatic hyperplasia) Urinary bladder cancer Obesity GERD (gastroesophageal reflux disease) Hypercholesterolemia Hypertension CAD (coronary artery disease) Surgical History Status post total hip replacement, right (~08/28/23) History of total right hip replacement H/O cardiac catheterization (~2013) Hx of colonoscopy History of partial colectomy History of bladder surgery History of carpal tunnel release Family History Father Heart failure Mother Thyroid disorder Sister Lung cancer Daughter Alcoholism Social History Household Members: Family Housing: House Are you a primary healthcare manager to a significant other at home: No Do you presently have visiting nurse or other home services: Yes (PT) Alcohol intake: never Comment: aware of trip hazards 1984 stopped Patient Tobacco Use Status: Former Tobacco user Quit Date: 1984 Tobacco use type: Cigarette Years Smoked: 18 stopped 1984 e-Cigarette/Vaping Use: Never Used Second Hand Smoke Exposure: No Advance Directives Date on File: 08/31/23 service: Yes Current occupational status: retired Cognitive needs: No Hearing needs: Yes Vision needs: Yes Physical Exam Vital Signs: BMI result Body Mass Index 37.3 Extrem Other: inc c/d/i + trendelenberg gait right no pain with hip ROM Results Reviewed Results Reviewed: I personally reviewed relevant radiographs. Right JOHANNE in expected post operative position with no hardware complications or evidence of loosening Assessment & Plan Assessment & Plan (1) Duodenal ulcer: Code(s): K26.9 - Duodenal ulcer, unspecified as acute or chronic, without hemorrhage or perforation Plan: PCP follow up (2) Status post total hip replacement, right: Onset Date: ~08/28/23 Comment: Dr. Rui Camacho Code(s): Z96.641 - Presence of right artificial hip joint Plan: Doing well. Continue gait training and edema control. f/u 6 weeks Orders: Orders XR pelvis 1-2V Today M25.559 - Pain in unspecified hip Coding Level of Care Code Global (80491) Diagnoses Duodenal ulcer K26.9 Status post total hip replacement, right Z96.649
[2023-10-04 08:39] VITALS: BMI 37.3
== END 2023-10-04 10:30 | disposition home or self-care (01) ==
PROVIDERS: PCP Internal Medicine; Visit Provider Orthopaedic Surgery
DX: K26.9 Duodenal ulcer, unspecified as acute or chronic, without hemorrhage or perforation (principal); Z96.641 Presence of right artificial hip joint
CPT/HCPCS: 99024

== ENCOUNTER 2023-10-04 09:24 | Outpatient (REF) | payer MEDICARE, SELFPAY ==
--- NOTE | ~2023-10-04 | XR_ITS ---
EXAMINATION: XR PELVIS CLINICAL INFORMATION: Hip pain COMPARISON: 08/28/2023 TECHNIQUE: AP view of the pelvis. FINDINGS: The prosthetic right femoral head is well-positioned within the acetabular cup which is stabilized by superior screws. The tip of the right femoral stem is well-positioned medullary cavity of the proximal femoral diaphysis. No periprosthetic fracture. No hardware loosening. The left hip is unremarkable. Peripheral vascular calcifications are noted. No acute abnormalities compared to the prior exam. XR/XR pelvis 1-2V IMPRESSION: There is normal alignment at the right hip, status post total hip arthroplasty. No evidence of hardware loosening or periprosthetic fracture.
== END 2023-10-04 09:25 | disposition home or self-care (01) ==
LOC: HO.HOSX 09:24
PROVIDERS: Visit Provider Orthopaedic Surgery
DX: M25.551 Pain in right hip (principal); K26.9 Duodenal ulcer, unspecified as acute or chronic, without hemorrhage or perforation; Z47.1 Aftercare following joint replacement surgery; Z96.641 Presence of right artificial hip joint
CPT/HCPCS: 72170; 99212

== ENCOUNTER 2023-10-18 11:17 | Outpatient (AMB) | payer MEDICARE, SELFPAY ==
--- NOTE | 2023-10-18 11:44 | MHC.OFFVIS ---
Intake Intake Visit Reasons: PO right JOHANNE 08/28/23 with NE Intake Note: Pavan is a 77 year old male who presents today for a post operative visit s/p Right JOHANNE on 08/28/23 NE. Patient reports that he is doing well with the hip, pain increases with home exercises but resolves with rest.Patient reports that he is doing well, he has no concerns with the hip. He only complains of his neuropathy, this feels better with movement. He would like to know if there is anything he can do about his knee. Allergies streptomycin [STREPTOMYCIN] Allergy (Severe, Verified 10/04/23 08:36) AFFECTED MY HEARING , anaphylaxis, affected hearing/nerves/etc, anxiety. HPI PO right JOHANNE 08/28/23 with NE HPI Details Doing well s/p right JOHANNE with no complaints. [facility] Medical History Duodenal ulcer Abnormal EKG Hypotension Acute electrocardiogram changes Osteoarthritis of right hip Atherosclerotic cardiovascular disease Post-nasal drip Recent bereavement Foreign body in left lower extremity COVID-19 virus infection Amebic dysentery Foreign body of left lower leg Left rotator cuff tear Barretts esophagus Osteoarthritis Peripheral neuropathy Anxiety and depression Colon cancer Impaired glucose tolerance BPH (benign prostatic hyperplasia) Urinary bladder cancer Obesity GERD (gastroesophageal reflux disease) Hypercholesterolemia Hypertension CAD (coronary artery disease) Surgical History Status post total hip replacement, right (~08/28/23) History of total right hip replacement H/O cardiac catheterization (~2013) Hx of colonoscopy History of partial colectomy History of bladder surgery History of carpal tunnel release Family History Father Heart failure Mother Thyroid disorder Sister Lung cancer Daughter Alcoholism Social History Household Members: Family Housing: House Are you a primary neonatal intensive care unit nurse to a significant other at home: No Do you presently have visiting nurse or other home services: Yes (PT) Alcohol intake: never Comment: aware of trip hazards 1984 stopped Patient Tobacco Use Status: Former Tobacco user Quit Date: 1984 Tobacco use type: Cigarette Years Smoked: 18 stopped 1984 e-Cigarette/Vaping Use: Never Used Second Hand Smoke Exposure: No Advance Directives Date on File: 08/31/23 service: Yes Current occupational status: retired Cognitive needs: No Hearing needs: Yes Vision needs: Yes Physical Exam Extrem Other: inc c/d/i minimal [place]berg gait Assessment & Plan Assessment & Plan (1) Status post total hip replacement, right: Onset Date: ~08/28/23 Comment: Dr. Rui Camacho Code(s): Z96.641 - Presence of right artificial hip joint Plan: Doing well COntinue PT F/u 6 weeks Coding Level of Care Code Global (99933) Diagnoses Status post total hip replacement, right Z96.641
== END 2023-10-18 11:58 | disposition home or self-care (01) ==
PROVIDERS: PCP Internal Medicine; Visit Provider Orthopaedic Surgery
DX: Z96.641 Presence of right artificial hip joint (principal)
CPT/HCPCS: 99024

== ENCOUNTER → 2023-10-18 11:17 | Outpatient (BNVA) | payer MEDICARE, SELFPAY | PROVIDERS: PCP Internal Medicine; Visit Provider Orthopaedic Surgery | DX: Z47.1 Aftercare following joint replacement surgery (principal); Z96.641 Presence of right artificial hip joint | CPT/HCPCS: 99212 ==

== ENCOUNTER 2023-10-25 09:12 | Outpatient (AMB) | payer MEDICARE, SELFPAY ==
[2023-10-25 09:15] VITALS: BP 134/78; PULSE 64; O2SAT 96; BMI 37.3
--- NOTE | 2023-10-25 09:15 | MHC.PC.OV ---
Vital Signs 10/25/23 09:15 Height 5 ft 6 in Weight 231 lb 0.2 oz BMI 37.3 BP 134/78 Blood Pressure Location Lt brachial Position Sitting Pulse 64 Pulse Source Pulse Oximeter Pulse Oximetry (%) 96 Oxygen Delivery Method Room Air Intake Visit Reasons: Diabetic Neuropathy Intake Note: Patient is here to follow up Meat Soaker Required: No Allergies streptomycin [STREPTOMYCIN] Allergy (Severe, Verified 10/25/23 09:15) AFFECTED MY HEARING , anaphylaxis, affected hearing/nerves/etc, anxiety. Medication List - Last Reconciled 10/25/23 by Franco Juarez MD acetaminophen ER 1,300 mg PO DAILY atorvastatin 80 mg PO BEDTIME carvedilol 25 mg PO BID cholecalciferol (vitamin D3) 50 mcg PO DAILY [email or web address],knee,reg,smal (T.E.D. Anti-Embolism Stocking) As directed cyanocobalamin (vitamin B-12) ER (Vitamin B-12 ER) 2,500 mcg PO DAILY docusate sodium (Colace) 100 mg PO BID 90 days enoxaparin (Lovenox) 40 mg (0.4 mL) subcut Q24H 5 weeks finasteride 5 mg PO BEDTIME furosemide (Lasix) 20 mg PO DAILY multivitamin 1 tab PO DAILY omeprazole 40 mg PO BID@0630,1630 sucralfate 1 g PO QIDACHS Tobacco use date assessed: 10/25/23 Fall risk assessment: No Falls in past year Last assessed Fall Risk: 10/25/23 Dental Screening Dental Screen Date: 09/26/23 HPI Diabetic Neuropathy HPI Details 78-year-old obese male with CAD hypertension hypercholesterolemia GERD and generalized anxiety disorder coming in for an acute problem last seen in July 2023. Review of the notes follows up with orthopedics status post right total hip arthroplasty August 2023 [facility] Medical History Duodenal ulcer Abnormal EKG Hypotension Acute electrocardiogram changes Osteoarthritis of right hip Atherosclerotic cardiovascular disease Post-nasal drip Recent bereavement Foreign body in left lower extremity COVID-19 virus infection Amebic dysentery Foreign body of left lower leg Left rotator cuff tear Barretts esophagus Osteoarthritis Peripheral neuropathy Anxiety and depression Colon cancer Impaired glucose tolerance BPH (benign prostatic hyperplasia) Urinary bladder cancer Obesity GERD (gastroesophageal reflux disease) Hypercholesterolemia Hypertension CAD (coronary artery disease) Surgical History Status post total hip replacement, right (~08/28/23) History of total right hip replacement H/O cardiac catheterization (~2013) Hx of colonoscopy History of partial colectomy History of bladder surgery History of carpal tunnel release Family History Father Heart failure Mother Thyroid disorder Sister Lung cancer Daughter Alcoholism Social History Household Members: Family Housing: House Are you a primary managed care coordinator to a significant other at home: No Do you presently have visiting nurse or other home services: Yes (PT) Alcohol intake: never Comment: aware of trip hazards 1984 stopped Patient Tobacco Use Status: Former Tobacco user Quit Date: 1984 Tobacco use type: Cigarette Years Smoked: 18 stopped 1984 e-Cigarette/Vaping Use: Never Used Second Hand Smoke Exposure: No Advance Directives Date on File: 08/31/23 service: Yes Current occupational status: retired Cognitive needs: No Hearing needs: Yes Vision needs: Yes Questionnaire Thrive Questionnaire Date Thrive assessed: 09/06/23 AUDIT C Alcohol Use Questionnaire (AUDIT-C) 1. How often do you have a drink containing alcohol?: Never 3. How often do you have six or more drinks on one occasion?: Never Total Score: 0 MIKAYLA-7 AMB Questionnaire MIKAYLA-7 Date MIKAYLA - 7 assessed: 08/21/23 Source: Developed by Drs. Mckinley Ahn, Shanna Nice, Monico Pérez and colleagues, with an educational saul from [employer]. Physical exam (Primary Care) Vital Signs: Last Vital Signs Pulse 64 10/25/23 09:15 BP 134/78 10/25/23 09:15 Pulse Ox 96 10/25/23 09:15 Oxygen Delivery Method Room Air 10/25/23 09:15 BMI result Body Mass Index 37.3 Tobacco/Smoking Status: Tobacco use Status Tobacco use date assessed 10/25/23 10/25/23 09:17 Patient Tobacco Use Status Former Tobacco user 10/25/23 09:17 Tobacco use type Cigarette 10/25/23 09:17 e-Cigarette/Vaping Use Never Used 10/25/23 09:17 Thrive Assessment: Date of Thrive Assessment Date Thrive assessed 09/06/23 10/25/23 09:17 Extrem Other: Bilateral lower extremity swelling 2+ with scaliness of the skin Results AMB Hemoglobin A1c AMB Hemoglobin A1c 5.1 % Last Edit by HERBERT Guerrero on 10/25/23 09:53 Results Reviewed Results Reviewed: Laboratory Last Values Hgb A1c (Clinic) 5.1 % (4.0-6.0) 10/25/23 09:48 Assessment and Plan Assessment & Plan (1) Peripheral vascular disease: Code(s): I73.9 - Peripheral vascular disease, unspecified Plan: elevated legs, support stockings, lasix started. Noted elevation of BNP the last echo in August shows hyperdynamic no valvular problems. 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 vs. transplanted heart: [place] heart Associated angina: without angina Qualified Code(s): I25.10 - Atherosclerotic heart disease of [place] coronary artery without angina pectoris Plan: Control the cholesterol, weight, blood pressure advised to take aspirin 81 mg once a day (4) Hypercholesterolemia: Code(s): E78.00 - Pure hypercholesterolemia, unspecified Plan: Avoid fried foods, chicken skin, eggs, butter margarine, pastries and meat. Be it pork or beef they have a lot of cholesterol patient on atorvastatin 80 mg once a day (5) Hypertension: Code(s): I10 - Essential (primary) hypertension Qualifiers: Hypertension type: essential hypertension Qualified Code(s): I10 - Essential (primary) hypertension Plan: Continue with blood pressure medication. Decrease salt intake and exercise continue with carvedilol 25 mg twice a day Orders: Orders Thyroid Stimulating Hormone 3 Months I25.10 - Atherosclerotic heart disease of [place] coronary artery without angina pectoris IRON PROFILE 3 Months I25.10 - Atherosclerotic heart disease of [place] coronary artery without angina pectoris Creatinine Urine 3 Months E11.65 - Type 2 diabetes mellitus with hyperglycemia, I25.10 - Atherosclerotic heart disease of [place] coronary artery without angina pectoris AMB Hemoglobin A1c Today Z13.9 - Encounter for screening, unspecified B Type Natriuretic Peptide 3 Months I25.10 - Atherosclerotic heart disease of [place] coronary artery without angina pectoris Complete Blood Count Auto Diff 3 Months I25.10 - Atherosclerotic heart disease of [place] coronary artery without angina pectoris Comprehensive Met. Panel 3 Months I25.10 - Atherosclerotic heart disease of [place] coronary artery without angina pectoris Free T4 (Free Thyroxine) 3 Months I25.10 - Atherosclerotic heart disease of [place] coronary artery without angina pectoris Reticulocyte Count 3 Months I25.10 - Atherosclerotic heart disease of [place] coronary artery without angina pectoris Vitamin B12 and Folate 3 Months I25.10 - Atherosclerotic heart disease of [place] coronary artery without angina pectoris Lipid Panel 3 Months E78.00 - Pure hypercholesterolemia, unspecified, I25.10 - Atherosclerotic heart disease of [place] coronary artery without angina pectoris Referrals Podiatry Referral L60.3 - Nail dystrophy Medications: Refilled furosemide (Lasix) 20 mg PO DAILY 30 tabs 0RF L60.3 - Nail dystrophy Coding Level of Care Code Est Pt Level 4 (64944) Diagnoses Peripheral vascular disease I73.9 Nail dystrophy L60.3 Coronary artery disease involving [place] coronary artery of [place] heart without angina pectoris I25.10 Coronary Disease-Associated Artery/Lesion type: [place] artery [place] vs. transplanted heart: [place] heart Associated angina: without angina Hypercholesterolemia E78.00 Essential hypertension I10 Hypertension type: essential hypertension
== END 2023-10-25 10:14 | disposition home or self-care (01) ==
PROVIDERS: PCP Internal Medicine; Visit Provider Internal Medicine
DX: I73.9 Peripheral vascular disease, unspecified (principal); R73.03 Prediabetes; L60.3 Nail dystrophy; I25.10 Atherosclerotic heart disease of native coronary artery without angina pectoris; E78.00 Pure hypercholesterolemia, unspecified; I10 Essential (primary) hypertension
CPT/HCPCS: 83036; 99214

== ENCOUNTER 2023-11-19 09:46 | Outpatient (AMB) | payer MEDICARE, SELFPAY ==
[2023-11-19 09:49] VITALS: BMI 37.3
--- NOTE | 2023-11-19 09:49 | A.OFFVIS_ITS ---
Vital Signs 11/19/23 09:49 Height 5 ft 6 in Weight 231 lb BMI 37.3 Intake Visit Reasons: PO right JOHANNE 08/28/23 with NE-follow up Intake Note: Pavan is a 77 year old male who presents today for a post operative visit s/p Right JOHANNE on 08/28/23 NE. Patient reports that he is doing well, he has some soreness. He explains that he is having trouble doing therapy at home as his neuropathy has signicantly worsened. The neuropathy has increased from pins and needles to pain. Allergies streptomycin [STREPTOMYCIN] Allergy (Severe, Verified 10/25/23 09:15) AFFECTED MY HEARING , anaphylaxis, affected hearing/nerves/etc, anxiety. HPI HPI PO right JOHANNE 08/28/23 with NE-follow up: Details: Pavan is a 77 year old male who presents today for a post operative visit s/p Right JOHANNE on 08/28/23 NE. Patient reports that he is doing well, he has some soreness. He explains that he is having trouble doing therapy at home as his neuropathy has signicantly worsened. The neuropathy has increased from pins and needles to pain. [facility] Medical History Duodenal ulcer Abnormal EKG Hypotension Acute electrocardiogram changes Osteoarthritis of right hip Atherosclerotic cardiovascular disease Post-nasal drip Recent bereavement Foreign body in left lower extremity COVID-19 virus infection Amebic dysentery Foreign body of left lower leg Left rotator cuff tear Barretts esophagus Osteoarthritis Peripheral neuropathy Anxiety and depression Colon cancer Impaired glucose tolerance BPH (benign prostatic hyperplasia) Urinary bladder cancer Obesity GERD (gastroesophageal reflux disease) Hypercholesterolemia Hypertension CAD (coronary artery disease) Surgical History Status post total hip replacement, right (~08/28/23) History of total right hip replacement H/O cardiac catheterization (~2013) Hx of colonoscopy History of partial colectomy History of bladder surgery History of carpal tunnel release Family History Father Heart failure Mother Thyroid disorder Sister Lung cancer Daughter Alcoholism Social History Household Members: Family Housing: House Are you a primary customer care agent to a significant other at home: No Do you presently have visiting nurse or other home services: Yes (PT) Alcohol intake: never Comment: aware of trip hazards 1984 stopped Patient Tobacco Use Status: Former Tobacco user Quit Date: 1984 Tobacco use type: Cigarette Years Smoked: 18 stopped 1984 e-Cigarette/Vaping Use: Never Used Second Hand Smoke Exposure: No Advance Directives Date on File: 08/31/23 service: Yes Current occupational status: retired Cognitive needs: No Hearing needs: Yes Vision needs: Yes Physical Exam Vital Signs: BMI result Body Mass Index 37.3 Extrem Other: mild trendelenberg gait no hip pain with motion of ambulation Assessment & Plan Assessment & Plan (1) Status post total hip replacement, right: Onset Date: ~08/28/23 Comment: Dr. Rui Camacho Code(s): Z96.641 - Presence of right artificial hip joint Category: Surgical Plan: Doing well. His complaints are entirely about his neuropthy. I encouraged him to stay active and to take the Gabapentin ( at night) that he has but does not take. Plan He will continue to work on gait mechanics, follow up prn follow pcp for mgmt of neuropathy Coding Level of Care Code Global (08932) Diagnoses Status post total hip replacement, right Z96.641
== END 2023-11-19 10:03 | disposition home or self-care (01) ==
PROVIDERS: PCP Internal Medicine; Visit Provider Orthopaedic Surgery
DX: Z96.641 Presence of right artificial hip joint (principal)
CPT/HCPCS: 99024

== ENCOUNTER → 2023-11-19 09:46 | Outpatient (BNVA) | payer MEDICARE, SELFPAY | PROVIDERS: PCP Internal Medicine; Visit Provider Orthopaedic Surgery | DX: G62.9 Polyneuropathy, unspecified (principal); Z47.1 Aftercare following joint replacement surgery; Z96.641 Presence of right artificial hip joint | CPT/HCPCS: 99212 ==

== ENCOUNTER 2023-11-22 08:00 | Outpatient (RCR) | payer MEDICARE, SELFPAY ==
[2023-10-15 11:43] LABS: MANUAL DIFF FLAG NO
--- NOTE | 2023-10-15 11:59 | MHC.PT.OD ---
[facility] [place] Office [place] Office [place] Office [address] Sheyla Lopez [address] [phone] F: [phone] F: [phone] F: [phone] F: [phone] Physical Therapy Daily Note Diagnosis: PT eval and treat, Treva Worthington, 09/07/2023: Z96.641 Presence of right artificial hip joint; history of total right hip replacement Date of Surgery: 08/28/23 Date of Evaluation: 09/24/23 Date of Treatment: 10/15/23 Treatments to Date: Cancellations to Date: No Shows to Date: Authorized Visits: Insurance End Date: Precautions/ Contraindications:history of R posterior JOHANNE 09/17/23, history of GI bleed 09/05/23, history of edema in R LE, poor compliance with TEDS, NO NSAIDS, hx cardiac stenting Subjective: Presents to the office, states over the weekend he observed blood in his stools, called DR. TERESA who ordered labs. He states he tried calling his GI specialist but was unable to get through the phone. Pt was RS for his ortho appt from tomorrow to 10/18/23 at 11:30. Presents with no AD, reports has DC use of walker. Overall states he is feeling much better, continues to use annamarie wraps on his legs. Pain Score and Location: Objective Flowsheet: Tests & Measures see eval Exercises AP x 3 sets 10R, isometric QS x 5 sec hold x 2 sets 10R, SAQ x 2 sets 10R, SLR into flexion x 2 sets 10R, educated for partial range of motion with leg lifts for now, supine heel slide with education for seated option at home ~90, L SL for hip abduction with pillow between the knees (states still has not been in SL at home, despite being told he can position himself this way if he uses pillow between), ice to R hip anterior/posterior x 10 minutes at end of session. Education to refrain from applying heat to LE, education for ice. Encouragement to use/carry std cane prn as he went from using rollator to nothing. Educated re: benefit of having for limited endurance. [address] [address] Emergency Department Note ISigned Patient: Pavan Kimball WMR#: [id number] : 8Acct:[id number] Age/Sex: 77 / MADM Date: 09/26/23 Loc: HO.ED Date of Service: Attending Dr: cc: Franco Teresa MD~ HPI - General Adult General Chief complaint: Extremity Injury, Lower Stated complaint: Sent by PCP for ultrasound Time Seen by Provider: 09/26/23 12:11 Source: patient and family (patient's daughter) Mode of arrival: wheelchair Limitations: no limitations History of Present Illness HPI narrative: Patient is a 77 year old assigned male at with a history of recent right hip replacement presenting to the emergency department today with bilateral lower leg swelling, right worse than left. Patient states that he was supposed to be on lovenox post op but after he was, he developed a GI bleed, so it was stopped. Patient states that since then he has had even more leg swelling than usual with some bruising and extra swelling on the right side. Patient states that his daughter bought some ANNAMARIE Wraps for him since he can't tolerate compression stockings but he was told to come here and confirm no DVT. Patient denies any dizziness, lightheadedness, abdominal pain, nausea, vomiting, fever, chills, blurry vision, double vision, loss of vision, chest pain, difficulty breathing, shortness of breath, back pain, night sweats, pain with urination, increased urinary frequency, increased urinary urgency, blood in his urine or stool, syncope or a near syncopal episode, recent trauma or falls, bowel incontinence, bladder incontinence, bowel retention, bladder retention, or any other complaints at this time. Onset (ago): week(s) Location: left, right and lower extremity Severity: mild Severity scale (1-10): 4 Relieving factors: none Exacerbating factors: none Associated symptoms: denies other symptoms Treatments prior to arrival: none Related Data Home Medications Medication Instructions Recorded Confirmed cholecalciferol (vitamin D3) 50 50 mcg PO DAILY 05/25/20 09/06/23 mcg (2,000 unit) capsule finasteride 5 mg tablet 5 mg PO BEDTIME 05/25/20 09/06/23 multivitamin 1 tab PO DAILY 05/25/20 09/06/23 cyanocobalamin (vitamin B-12) 2,500 mcg PO DAILY 08/21/23 09/06/23 2,000 mcg tablet,extended release (Vitamin B-12 ER) acetaminophen 650 mg 1,300 mg PO DAILY 09/06/23 09/06/23 tablet,extended release Previous Rx's Medication Instructions Recorded carvedilol 25 mg tablet 25 mg PO BID #180 tabs 07/17/23 docusate sodium 100 mg capsule 100 mg PO BID 90 days #180 caps 08/31/23 (Colace) enoxaparin 40 mg/0.4 mL 40 mg (0.4 mL) subcut Q24H 5 weeks 09/03/23 subcutaneous syringe (Lovenox) #14 mL gladys.stocking,knee,reg,smal #12 ea 09/10/23 (T.E.D. Anti-Embolism Stocking) omeprazole 40 mg capsule,delayed 40 mg PO BID@0630,1630 #30 caps 09/10/23 release sucralfate 1 gram tablet 1 g PO QIDACHS #30 tabs 09/10/23 atorvastatin 80 mg tablet 80 mg PO BEDTIME #90 tabs 09/19/23 furosemide 20 mg tablet (Lasix) 20 mg PO DAILY #14 tabs 09/26/23 Allergies Allergy/AdvReac Type Severity Reaction Status Date / Time streptomycin [STREPTOMYCIN] Allergy Severe AFFECTED Verified 09/26/23 08:31 MY HEARING , anaphylaxis, affected hearing/nerves/etc, anxiety. Review of Systems Constitutional: Constitutional: Reports no additional constitutional complaints, Denies chills, Denies fever(s) and Denies night sweats Eyes: Eyes: Reports no additional eye complaints, Denies blurry vision, Denies change in vision, Denies diplopia, Denies eye discharge, Denies loss of vision and Denies eye pain ENT: Denies dizziness Cardiovascular: Cardiovascular: Reports no additional cardiovascular complaints, Denies chest pain, Reports leg edema, Denies lightheadedness, Denies Loss of Consciousness and Denies dyspnea Respiratory: Respiratory: Reports no additional respiratory complaints and Denies dyspnea Gastrointestinal: Gastrointestinal: Reports no additional gastrointestinal complaints, Denies abdominal pain, Denies melena, Denies hematochezia, Denies change in bowel habits and Denies change in stool character Genitourinary: Genitourinary: Reports no additional male genitourinary complaints, Denies hematuria, Denies oliguria, Denies difficulty urinating, Denies dysuria, Denies urinary frequency, Denies urinary hesitancy, Denies urinary incontinence and Denies urinary urgency Musculoskeletal: Musculoskeletal: Reports no additional musculoskeletal complaints, Denies numbness and Denies tingling Neurologic: Denies dizziness, Denies loss of vision, Denies numbness and Denies tingling Psychiatric: Psychiatric: Reports no additional psychiatric complaints Endocrine: Endocrine: Reports no additional endocrine complaints Hematologic/Lymphatic: Hematologic/Lymphatic: Reports no additional hematologic/lymphatic complaints Allergic/Immunologic: Allergic/Immunologic: Reports no additional allergic/immunologic complaints [facility] Past Medical History Attestation statement: The following information was validated with the patient. (all information validated with the patient's daughter) Source: old records reviewed, obtained from family (patient's daughter provided additional history and confirmed the history provided by the patient.) and nursing notes reviewed Medical History Duodenal ulcer Abnormal EKG Hypotension Acute electrocardiogram changes Osteoarthritis of right hip Atherosclerotic cardiovascular disease Post-nasal drip Recent bereavement Foreign body in left lower extremity COVID-19 virus infection Amebic dysentery Foreign body of left lower leg Left rotator cuff tear Barretts esophagus Osteoarthritis Peripheral neuropathy Anxiety and depression Colon cancer Impaired glucose tolerance BPH (benign prostatic hyperplasia) Urinary bladder cancer Obesity GERD (gastroesophageal reflux disease) Hypercholesterolemia Hypertension CAD (coronary artery disease) Surgical History Status post total hip replacement, right (~08/28/23) History of total right hip replacement H/O cardiac catheterization (~2013) Hx of colonoscopy History of partial colectomy History of bladder surgery History of carpal tunnel release Family History Family History Father Heart failure Mother Thyroid disorder Sister Lung cancer Daughter Alcoholism Social History Social History Household Members: Family Housing: House Are you a primary medicare contact specialist to a significant other at home: No Do you presently have visiting nurse or other home services: Yes (PT) Alcohol intake: never Comment: aware of trip hazards 1985 stopped Patient Tobacco Use Status: Former Tobacco user Quit Date: 1984 Tobacco use type: Cigarette Years Smoked: 18 stopped 1984 Smoked in Last 30 Days: No e-Cigarette/Vaping Use: Never Used Second Hand Smoke Exposure: No Use of substances other than those prescribed or required for medical reasons: No Advance Directives: Yes Advance Directives on File: Yes Advance Directives Date on File: 08/31/23 service: Yes Current occupational status: retired Cognitive needs: No Hearing needs: Yes Vision needs: Yes Physical Exam ED Vital Signs: Vital Signs - 24 hr 09/26/23 08:25 Temperature 98.9 F Pulse Rate 70 Respiratory Rate 18 Blood Pressure 118/70 Pulse Oximetry 98 Oxygen Delivery Method Room Air BMI result Body Mass Index 38.7 Const General: cooperative, no acute distress, alert and awake Nutritional Appearance: well nourished Orientation/consciousness: patient oriented x3 Limitations: no limitations HENMT Head: Yes normal to inspection and Yes atraumatic Ears: hearing grossly normal bilaterally and external ears normal General nose exam: Normal external nose present, no nasal discharge noted and no epistaxis Face and sinus: Yes normal facial exam, No abrasion and No laceration Mouth: Normal oral and palatal mucosa present, no drooling and no muffled voice Eyes General: appearance normal, both eyes and all related structures Periorbital: periorbital findings normal Eyelids: Yes eyelids normal Conjunctivae: conjunctivae normal Pupils: Equal, round and reactive pupils present EOM: EOMs intact bilaterally Neck Neck: Yes normal visual inspection, Yes full ROM and Yes no lymphadenopathy Chest Chest palpation & inspection: normal inspection of the chest Resp Effort & Inspection: normal respiratory effort and able to speak in complete sentences GI Inspection: Yes normal to inspection Neuro General: patient oriented x3 and moves all extremities Cranial nerves: Yes Equal, round and reactive pupils present Cognition (Neuro): normal cognition Motor exam (neuro): 5/5 motor strength present throughout Sensory Exam: Normal double simultaneous stimulation for sensation Coordination: [id number] test normal Extrem Other: bilateral lower leg edema, right worse than left. Minimal bruising present to the posterior right leg. General: Yes full ROM and Yes capillary refill normal Psych Appearance: grossly normal Mental Status: mental status grossly normal Affect: normal affect Attitude: cooperative Thought process: Normal thought process present Thought content: Normal thought content present Insight: Good insight present (Psych) Medical Decision Making Medical Decision Making [facility] Narrative: Patient is a 77 year old assigned male at with a history of recent right hip replacement presenting to the emergency department today with . Patient's physical exam was as noted in the physical exam portion of this note. Patient's blood work was unremarkable. Patient's US showed no acute process. I explained my physical exam findings as well as all test results to the patient and the patient's daughter. I answered all questions asked by the patient and the patient's daughter. We discussed the use of lasix to help the patient excrete more excess fluid. I discussed the risks extensively with the patient and his daughter including lightheadedness, dizziness, etc. Patient and his daughter verbalized understanding and requested to try it in conjunction with ANNAMARIE wraps. I stressed the importance of the patient taking his medication as prescribed. I stressed the importance of the patient following up with his primary care provider and an orthopedic provider. I stressed the importance of the patient returning to the emergency department immediately if his symptoms were to worsen or if he were to develop any dizziness, shortness of breath, difficulty breathing, chest pain, blurry vision, loss of vision, nausea, vomiting, abdominal pain, fever, chills, back pain, or any other complaints. Patient and the patient's daughter verbalized agreement and understanding with this treatment plan and discharge. Differential Diagnosis Differential Diagnoses: The differential diagnosis associated with the presentation includes Leg swelling Edema DVT Admission/Observation Consideration of admission/observation: Escalation of care including admission/observation considered Patient would have been admitted to the hospital had his work up had any findings where hospital admission was appropriate and his clinical presentation warranted hospital admission. Lab Data [facility] Lab Attestation statement: I reviewed the patient's lab results. My interpretation of these results are in the MDM Rationale portion of this note. 09/26/23 08:43 09/26/23 08:43 Labs: Lab Results 09/26/23 Range/Units 08:43 WBC 5.9 (4.8-10.8) X10*3/uL RBC 3.60 L (4.60-5.80) X10*6/uL Hgb 11.0 L (14.0-18.0) g/dl Hct 33.7 L (42.0-52.0) % MCV 93.6 (80.0-98.0) fL MCH 30.6 (27.0-33.0) pg MCHC 32.6 (31.0-36.0) g/dl RDW 15.6 (11.0-16.0) % Plt Count 158 L (160-400) X10*3/uL MPV 10.0 (9.4-12.4) fL Immature Gran % (Auto) 0.2 (0.0-0.4) % Neut % (Auto) 68.0 (45-73) % Lymph % (Auto) 14.9 L (20-40) % Mathews % (Auto) 11.7 H (2-11) % Eos % (Auto) 4.9 H (0-4) % Baso % (Auto) 0.3 (0-2) % Lymph # (Auto) 0.9 L (1.2-4.9) X10*3/uL Mathews # (Auto) 0.7 (0.1-1.2) X10*3/uL Eos # (Auto) 0.3 (0.0-0.4) X10*3/uL Baso # (Auto) 0.0 (0.0-0.2) X10*3/uL Abs Immat Gran (auto) 0.01 (0.00-0.03) X10*3/uL Absolute Neuts (auto) 4.0 (2.0-8.3) x10*3/uL Absolute Nucleated RBC 0.000 (0.0-0.012) X10*3/uL Nucleated RBC % (auto) 0.0 (0.0-0.2) /100WBC PT 13.9 H (11.1-13.3) SEC INR 1.1 (0.9-1.1) APTT 31.3 (26.0-36.8) SEC Sodium 140 (135-145) mmol/L Potassium 3.9 (3.3-5.1) mmol/L Chloride 104 (96-108) mmol/L Carbon Dioxide 29 (22-29) mmol/L Anion Gap 11 L (12-20) BUN 13 (9-16) mg/dL Creatinine 0.98 (0.5-1.4) mg/dL Estim Creat Clear Calc 75.3 Estimated GFR > 60 Random Glucose 100 (60-115) mg/dL Calcium 8.8 D (8.4-10.2) mg/dL Total Bilirubin 0.9 (0.0-1.0) mg/dL AST 18 (5-37) U/L ALT 13 (0-40) U/L Alkaline Phosphatase 109 (39-117) U/L Total Protein 5.9 L (6.5-8.0) g/dL Albumin 3.2 L (3.5-5.0) g/dL Independent Interpretation I performed an independent interpretation of an: Ultrasound Interpretation: My interpretation is in agreement with the radiologist's impression of this imaging study. EXAMINATION: US VENOUS ULTRASOUND WITH DOPPLER LOWER EXTREMITY, RIGHT CLINICAL INFORMATION: Swelling and pain COMPARISON: 09/10/23 TECHNIQUE: Ultrasound of the deep veins is performed from the hip to the calf with compression sonography and color and pulse Doppler assessment. Spectral analysis with color-flow imaging is performed. FINDINGS: There is normal venous compression and respiratory variation and augmented flow. The visualized common femoral vein, proximal and mid superficial femoral veins are patent. There is limited evaluation at the distal thigh due to patient inability to tolerate compression but vessel appears patent. Profunda femoral vein and popliteal vein show no evidence of deep venous thrombosis. Peroneal vein is not seen. Posterior tibial veins are poorly seen due to lower extremity edema, but are patent distally. Region of pain in the mid/distal posterior calf was sonographically interrogated demonstrating edema. No popliteal findings to suggest Conroy's cyst. If symptoms persist, followup ultrasound in 5 days 7 days might be of value to exclude proximal propagation from a non-visualized calf vein. US/US venous duplex LE RT IMPRESSION: No DVT demonstrated in the right lower extremity. Right lower extremity edema. Dictated By: Janneth Watkins MD Signed By: Electronically signed by Janneth Watkins MD 09/26/23 0952 Radiology Impression Discussion of test interpretation with radiology: I have reviewed the radiologist's reading. Independent Historian Clinical information obtained from an independent historian. History obtained from or confirmed by: Other (patient's daughter provided additional history and confirmed the history provided by the patient.) Discharge Plan Discharge Clinical Impression: Edema Patient Disposition: Home, Self-Care Instructions: Leg Edema (ED) Additional Instructions: You've been prescribed lasix which is a diuretic (helps excrete fluid from your body) - make sure you ingest electrolytes along with your water. If you become lightheaded or dizzy, STOP the Lasix immediately. Follow up with your primary care provider and your orthopedic provider. Return to the emergency department immediately if your symptoms worsen or if you develop any dizziness, shortness of breath, difficulty breathing, chest pain, blurry vision, loss of vision, nausea, vomiting, abdominal pain, fever, chills, back pain, or any other complaints. Prescriptions: New furosemide [Lasix] 20 mg tablet 20 mg PO DAILY Qty: 14 0RF No Action carvedilol 25 mg tablet 25 mg PO BID Qty: 180 1RF Rx Instructions: must administer with a meal/food docusate sodium [Colace] 100 mg capsule 100 mg PO BID 90 Days Qty: 180 0RF atorvastatin 80 mg tablet 80 mg PO BEDTIME Qty: 90 3RF cyanocobalamin (vitamin B-12) [Vitamin B-12] 2,000 mcg Tablet Extended Release 2,500 mcg PO DAILY acetaminophen 650 mg Tablet Extended Release 1,300 mg PO DAILY sucralfate 1 gram Tablet 1 g PO QIDACHS Qty: 30 0RF omeprazole 40 mg Capsule,Delayed Release(Dr/Ec) 40 mg PO BID@0630,1630 Qty: 30 0RF (WANDA) T.E.D. Anti-Embolism Stocking Misc See Rx Instructions .Route Qty: 12 0RF Rx Instructions: As directed multivitamin Tablet 1 tab PO DAILY cholecalciferol (vitamin D3) 50 mcg (2,000 unit) capsule 50 mcg PO DAILY finasteride 5 mg tablet 5 mg PO BEDTIME enoxaparin [Lovenox] 40 mg/0.4 mL syringe 40 mg subcut Q24H 35 Days Qty: 14 0RF Hold Instructions: Resume on 09/24/23. Follow up with gastroenterology prior to restarting Referrals: Franco Teresa MD [Primary Care Provider] - Interventions: ED Discharge Assessment Last Done: 09/26/23 12:40 Discharge Date/Time: 09/26/23 12:41 Print Language: Greenlandic Dictated By:Antonieta Lopez Signed By:<Electronically signed by Antonieta Lopez>09/26/23 1306 [facility] [address] [place] [address] Drive [address] [place] [address] Office Visit Report Signed Patient: Pavan Kimball WMR#: [id number] : 8Acct:[id number] Age/Sex: 77 / MADM/SER Date: 10/04/23 Loc: HO.HOSADM/SER Time:818 Attending Provider: Rui Camacho MD cc: Franco Teresa MD~ Intake Vital Signs 10/04/23 08:39 Height 5 ft 6 in Weight 231 lb BMI 37.3 Intake Visit Reasons: PO right JOHANNE 08/28/23 with NE - Confirmed Intake Note: Pavan is a 77 year old male who presents today for a post operative visit s/p Right JOHANNE on 08/28/23 NE. Patient reports that he is doing well with the hip, pain increases with home exercises but resolves with rest. He has significant bilateral LE Neuropathy which seems to be more bothersome than the hip. He needs to wear compression stockings due to the lower extremety edema, but because of his neuropathy he is unable to wear compression stockings. He is now using annamarie wraps on bilateral lower legs which is helping. He typically meeds with a technician to have is nail clipped, but was advised to avoid this post operatively and he is asking when he may resume this & if antibiotics are needed prior to appts. Of note he mentions that he was given lasix while in the ED which is causing GI upset w/ loose stool. I advised that he should meet with his PCP to address these concerns. Allergies streptomycin [STREPTOMYCIN] Allergy (Severe, Verified 10/04/23 08:36) AFFECTED MY HEARING , anaphylaxis, affected hearing/nerves/etc, anxiety. HPI PO right JOHANNE 08/28/23 with NE - Confirmed HPI Details Pavan is a 77 year old male who presents today for a post operative visit s/p Right JOHANNE on 08/28/23 NE. Patient reports that he is doing well with the hip, pain increases with home exercises but resolves with rest. He has significant bilateral LE Neuropathy which seems to be more bothersome than the hip. He needs to wear compression stockings due to the lower extremity edema, but because of his neuropathy he is unable to wear compression stockings. He is now using annamarie wraps on bilateral lower legs which is helping. He typically meeds with a technician to have is nail clipped, but was advised to avoid this post operatively and he is asking when he may resume this & if antibiotics are needed prior to appts. [facility] Medical History Duodenal ulcer Abnormal EKG Hypotension Acute electrocardiogram changes Osteoarthritis of right hip Atherosclerotic cardiovascular disease Post-nasal drip Recent bereavement Foreign body in left lower extremity COVID-19 virus infection Amebic dysentery Foreign body of left lower leg Left rotator cuff tear Barretts esophagus Osteoarthritis Peripheral neuropathy Anxiety and depression Colon cancer Impaired glucose tolerance BPH (benign prostatic hyperplasia) Urinary bladder cancer Obesity GERD (gastroesophageal reflux disease) Hypercholesterolemia Hypertension CAD (coronary artery disease) Surgical History Status post total hip replacement, right (~08/28/23) History of total right hip replacement H/O cardiac catheterization (~2013) Hx of colonoscopy History of partial colectomy History of bladder surgery History of carpal tunnel release Family History Father Heart failure Mother Thyroid disorder Sister Lung cancer Daughter Alcoholism Social History Household Members: Family Housing: House Are you a primary medicare contact specialist to a significant other at home: No Do you presently have visiting nurse or other home services: Yes (PT) Alcohol intake: never Comment: aware of trip hazards 1984 stopped Patient Tobacco Use Status: Former Tobacco user Quit Date: 1984 Tobacco use type: Cigarette Years Smoked: 18 stopped 1984 e-Cigarette/Vaping Use: Never Used Second Hand Smoke Exposure: No Advance Directives Date on File: 08/31/23 service: Yes Current occupational status: retired Cognitive needs: No Hearing needs: Yes Vision needs: Yes Physical Exam Vital Signs: BMI result Body Mass Index 37.3 Extrem Other: inc c/d/i + trendelenberg gait right no pain with hip ROM Results Reviewed Results Reviewed: I personally reviewed relevant radiographs. Right JOHANNE in expected post operative position with no hardware complications or evidence of loosening Assessment & Plan Assessment & Plan (1) Duodenal ulcer: Code(s): K26.9 - Duodenal ulcer, unspecified as acute or chronic, without hemorrhage or perforation Plan: PCP follow up (2) Status post total hip replacement, right: Onset Date: ~08/28/23 Comment: Dr. Rui Camacho Code(s): Z96.641 - Presence of right artificial hip joint Plan: Doing well. Continue gait training and edema control. f/u 6 weeks Orders: Orders XR pelvis 1-2V Today M25.559 - Pain in unspecified hip Coding Level of Care Code Global (61006) Diagnoses Duodenal ulcer K26.9 Status post total hip replacement, right Z96.641 Documented By:Rui Camacho MD10/04/23 0836 Signed By:<Electronically signed by Rui Camacho MD>10/04/23 1039 Modalities Assessment: 10/15/23: Pt had labs drawn this am, reports had placed a call to his PCP Dr. Teresa on Sunday due to seeing bloody stools (hx post op course GI bleed). Pt doing well in regard to his R hip. Presented to the office without AD today (last visit was using rollator) but was educated re: benefit in having a std cane for some support due to limited endurance. He continues to use annamarie wraps to manage his LE edema but is now able to wear shoes with greater ability. He expresses he is eager to resume driving (expresses he hopes to gain clearance at his post op appt) to see Dr. Camacho on 10/18/23 at 11:30, (was R/S from 10/16/23 date) Pt was guided through L SL for R hip abduction leg lifts (able to perform however pt fatigues quickly). Pt encouraged to perform at home with use of pillows between his legs. He states he has not yet tried SL position- we reviewed his hip precautions this date and need for pillows in SL. Pt awaiting lab results to speak with Dr. Teresa later today. 10/08/23: Pt was seen in the ER for a follow up US on 09/26/23 (-) DVT. Pt had a follow up with Dr. Camacho on 10/04/23. Pt was issued HEP sheets for home today. Pt using annamarie wraps on B LE exhibiting improved edema (was also placed on Lasix). Pt was seen by his PCP and will be having a follow up with Dr. Franco on 10/16/23 following history of GI bleed. Pt benefits from 1:1 for appts due to complexity and need. Pt is a RHD, 77 y/o male, referred to PT s/p R JOHANNE Dr. Camacho DOS 09/17/23. Pt expresses he spent two days post op after surgery. Pt post op course complicated by history of low BP while inpatient resulting in change of medications and GI bleed which patient was hospitalized for from 09/05/23-09/11/23. Pt underwent US and CT scan on 09/10/23: an of the right lower extremity, obtained on 09/10/2023, revealed: 1. Limited exam because of lack of IV contrast. 2. There is mild subcutaneous edema present most marked in the calf. 3. Small crescentic fluid collection present just lateral to the muscles of the thigh measuring about 6 mm in thickness. 4. No acute fractures are seen. 5. No subcutaneous air is seen. Ultrasound of the right lower extremity, obtained on 09/10/2023, revealed: No DVT demonstrated in the right lower extremity. Patient Instructions: Scribed by Delores Vang biomedical repair technician, for Meaghan Brandon PA-C on 09/13/2023 at 10:33 am, EST. Pt states his next follow up is booked for 11/14/23. Given PMH and overall history, pt appears to be moving slowly with rollator and is mindful of precautions. He reports sedentary lifestyle and has significant edema in his R>L LE. Pt currently using a rollator and leg airworthiness inspector for aide in mobility. He expresses difficulty and noncompliance with use of VIELKA stockings, significant edema in his feet (has since obtained new shoes to aide in edema). 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 Pt exhibits impaired mobility, decreased confidence in his ability to be cleared to sleep in SL (was educated as long as he has a pillow between his knees he can sleep this way). Pt exhibits decreased endurance and impaired strength, ROM of his R knee. Expresses ongoing ache in lateral aspect of his R knee which is ongoing. PMH significant for cardiac cath, hx CA (part of GI system removed), mood disorder, Abnormal EKG Hypotension Acute electrocardiogram changes Osteoarthritis of right hip Atherosclerotic cardiovascular disease Post-nasal drip Recent bereavement Foreign body in left lower extremity COVID-19 virus infection Amebic dysentery Foreign body of left lower leg Left rotator cuff tear Barretts esophagus Osteoarthritis Peripheral neuropathy Anxiety and depression Colon cancer with history of ascending colon and appendix removal Impaired glucose tolerance BPH (benign prostatic hyperplasia) Urinary bladder cancer Obesity GERD (gastroesophageal reflux disease) Hypercholesterolemia Hypertension CAD (coronary artery disease) Status post total hip replacement, right (~08/28/23) History of total right hip replacement H/O cardiac catheterization (~2013) stent Hx of colonoscopy History of partial colectomy History of bladder surgery History of carpal tunnel release. Pt will benefit from attending skilled PT services at a frequency of 1-2x/week x 4-6 weeks (pt electing 1x/week due to transportation. Pt will be seeing his PCP Dr. Teresa on 09/26/23. Pt presents with recordings of his vitals signs he has been taking since acute hospitalization and they are within good ranges. PT Plan: Pt states he can do once a week, reports eager to improve mobility. Short Term Goals: 1. Initiate HEP, self care, and management of sx. 2. Sit<>stand and stand<>sit with good eccentric control. 3. Ambulate 100ft with rollator with good dynamic balance. 4. SL hip abduction to 4/5 on R side (current 3-/5). 5. Demonstrate carryover for self care. Utility Sales And Service Manager Goals: 1. I HEP for self care in regard to R JOHANNE. 2. Negotiate 500ft with rollator with good dynamic balance. 3. Negotiate a flight of stairs with good dynamic balance step to>through as able. 4. SL hip abduction to 5/5. 5. Demonstrate good pelvic symmetry with bridging MOD I. Electronically signed by: Clementina Vences PT, DPT
[2023-10-15 12:09] LABS: Basophils Percent Auto 0.4 % (0-2); Eosinophils Absolute Auto 0.4 X10*3/uL (0.0-0.4); Eosinophils Percent Auto 6.7 % (0-4); Hematocrit 35.9 % (42.0-52.0); Hemoglobin 11.5 g/dl (14.0-18.0); Imm Gran Abs Auto 0.02 X10*3/uL (0.00-0.03); Imm Gran Pct Auto 0.4 % (0.0-0.4); Lymphocytes Absolute Auto 0.9 X10*3/uL (1.2-4.9); Mean Corpuscular Hemoglobin 29.9 pg (27.0-33.0); Mean Corpuscular Volume 93.5 fL (80.0-98.0); Mean Platelet Volume 13.1 fL (9.4-12.4); Monocytes Absolute Auto 0.6 X10*3/uL (0.1-1.2); Monocytes Percent Auto 10.7 % (2-11); Neutrophils Absolute Auto 3.5 x10*3/uL (2.0-8.3); Neutrophils Percent Auto 64.8 % (45-73); Platelet Count 161 X10*3/uL (160-400); Red Blood Count 3.84 X10*6/uL (4.60-5.80); Red Cell Distribution Width 14.3 % (11.0-16.0); Retic HGB Equivalent 31.8 pg (30.0-35.0); Reticulocyte Percent 1.6 % (0.5-1.8); Reticulocytes Absolute 0.061 X10*6/uL (0.026-0.095); White Blood Count 5.4 X10*3/uL (4.8-10.8)
[2023-10-15 12:21] LABS: Appearance Urine Cloudy; Color Urine Dark Yellow; Glucose Urine UA Negative (Negative); Leukocyte Esterase Urine Negative (Negative); Nitrite Urine Negative (Negative); Specific Gravity - Urine >= 1.030 (1.005-1.025); Urine Blood Negative (Negative); Urine Ketones Trace mg/dL (Negative); Urine Protein Trace mg/dL (Neg-Trace)
[2023-10-15 13:05] LABS: Ferritin 138 ng/mL (20-250); Iron 44 mcg/dL (45-160); Percent Iron Saturation 19 % (15-50); Total Iron Binding Capacity 232 mcg/dL (228-428); Unsaturated Iron Binding 188 ug/dL
[2023-10-15 13:14] LABS: Folate 14.3 ng/mL (> or = 4.0)
[2023-10-15 17:21] LABS: Vitamin B12 1881 pg/mL (200-900)
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
== END 2024-01-14 07:59 | disposition home or self-care (01) ==
LOC: HO.PTWFD 08:00
PROVIDERS: Nurse Practitioner Family; Absent Provider Internal Medicine; PCP Internal Medicine; Visit Provider Physician Assistant
DX: Z96.651 Presence of right artificial knee joint (principal); K26.9 Duodenal ulcer, unspecified as acute or chronic, without hemorrhage or perforation
CPT/HCPCS: 36415; 81003; 82607; 82728; 82746; 83540; 85025; 85045; 97110; 97162; 97535

== ENCOUNTER 2023-12-20 09:34 | Outpatient (REF) | payer MEDICARE, SELFPAY ==
[2023-12-20 11:22] LABS: MANUAL DIFF FLAG NO
[2023-12-20 11:43] LABS: Basophils Percent Auto 0.8 % (0-2); Eosinophils Absolute Auto 0.5 X10*3/uL (0.0-0.4); Hematocrit 35.6 % (42.0-52.0); Hemoglobin 11.5 g/dl (14.0-18.0); Imm Gran Abs Auto 0.03 X10*3/uL (0.00-0.03); Imm Gran Pct Auto 0.6 % (0.0-0.4); Immature Retic Fraction 13.2 % (2.3-13.4); Lymphocytes Percent Auto 19.6 % (20-40); Mean Corpuscular HGB Conc 32.3 g/dl (31.0-36.0); Mean Corpuscular Hemoglobin 26.9 pg (27.0-33.0); Mean Corpuscular Volume 83.2 fL (80.0-98.0); Mean Platelet Volume 13.6 fL (9.4-12.4); Monocytes Absolute Auto 0.6 X10*3/uL (0.1-1.2); Neutrophils Absolute Auto 2.8 x10*3/uL (2.0-8.3); Platelet Count 133 X10*3/uL (160-400); Red Blood Count 4.28 X10*6/uL (4.60-5.80); Red Cell Distribution Width 15.6 % (11.0-16.0); Retic HGB Equivalent 28.7 pg (30.0-35.0); Reticulocytes Absolute 0.043 X10*6/uL (0.026-0.095); White Blood Count 4.9 X10*3/uL (4.8-10.8)
[2023-12-20 12:09] LABS: B Type Natriuretic Peptide 543 pg/mL (<100)
[2023-12-20 12:21] LABS: Alanine Aminotransferase 15 U/L (0-40); Albumin Level 3.4 g/dL (3.5-5.0); Alkaline Phosphatase 101 U/L (39-117); Anion Gap 13 (12-20); Aspartate Amino Transferase 20 U/L (5-37); Bilirubin Total 0.7 mg/dL (0.0-1.0); Blood Urea Nitrogen 21 mg/dL (9-16); Carbon Dioxide 26 mmol/L (22-29); Chloride 106 mmol/L (96-108); Cholesterol 86 mg/dL (<200); Estimated Glomerular Filt Rate > 60; Glucose Random 90 mg/dL (60-115); HDL Cholesterol 38 mg/dL (>40); Iron 33 mcg/dL (45-160); LDL Cholesterol Calculated 40 mg/dL (<100); Percent Iron Saturation 12 % (15-50); Potassium 3.8 mmol/L (3.3-5.1); Sodium 141 mmol/L (135-145); Total Iron Binding Capacity 282 mcg/dL (228-428); Total Protein 6.3 g/dL (6.5-8.0); Triglycerides 43 mg/dL (<150); Unsaturated Iron Binding 249 ug/dL
[2023-12-20 12:39] LABS: Creatinine Urine 152.64 mg/dL
[2023-12-20 12:43] LABS: Free T4 (Free Thyroxine) 0.98 ng/dL (0.71-1.85); Thyroid Stimulating Hormone 5.04 uIU/mL (0.32-4.0)
[2023-12-20 12:44] LABS: Folate 15.4 ng/mL (> or = 4.0); Vitamin B12 > 2000 pg/mL (200-900)
== END 2023-12-20 09:35 | disposition home or self-care (01) ==
LOC: HO.WFDLDS 09:34
PROVIDERS: Visit Provider Internal Medicine
DX: I73.9 Peripheral vascular disease, unspecified (principal); I25.10 Atherosclerotic heart disease of native coronary artery without angina pectoris; E78.00 Pure hypercholesterolemia, unspecified; E11.65 Type 2 diabetes mellitus with hyperglycemia
CPT/HCPCS: 36415; 80053; 80061; 82570; 82607; 82746; 83540; 83880; 84439; 84443; 85025; 85045

== ENCOUNTER 2024-01-02 14:48 | Outpatient (AMB) | payer MEDICARE, SELFPAY ==
[2024-01-02 15:04] VITALS: BP 152/90; PULSE 78; O2SAT 95; BMI 37.1
--- NOTE | 2024-01-02 15:04 | A.OFFPC_ITS ---
Vital Signs 01/02/24 15:04 Height 5 ft 6 in Weight 230 lb BMI 37.1 BP 152/90 H Blood Pressure Location Lt brachial Position Sitting Pulse 78 Pulse Source Pulse Oximeter Pulse Oximetry (%) 95 Oxygen Delivery Method Room Air Intake Visit Reasons: Neuropathy Allergies streptomycin [STREPTOMYCIN] Allergy (Severe, Verified 01/02/24 15:05) AFFECTED MY HEARING , anaphylaxis, affected hearing/nerves/etc, anxiety. Tobacco use date assessed: 10/25/23 Fall risk assessment: No Falls in past year Last assessed Fall Risk: 01/02/24 Dental Screening Dental Screen Date: 09/26/23 HPI Neuropathy HPI Details 78-year-old obese male with a history of peripheral vascular disease CAD hypercholesterolemia hypertension last seen in 11/10/2023. Review of the notes has seen ortho for the hip arthroplasty on the right 09/11/2023 continuing with exercises. Blood work showing anemia and iron deficiency BNP is elevated 543 B12 is more than 2000 noted elevated TSH also. Patient states that the bilateral lower extremity pain is better on gabapentin 300 mg discussed about concerns about the swelling. Otherwise has been feeling congested nasally and having postnasal drip. [facility] Medical History (Updated 01/02/24 @ 15:54 by Franco Juarez MD) Swelling of right lower extremity Duodenal ulcer Abnormal EKG Hypotension Acute electrocardiogram changes Osteoarthritis of right hip Atherosclerotic cardiovascular disease Post-nasal drip Recent bereavement Foreign body in left lower extremity COVID-19 virus infection Amebic dysentery Foreign body of left lower leg Left rotator cuff tear Barretts esophagus Osteoarthritis Peripheral neuropathy Anxiety and depression Colon cancer Impaired glucose tolerance BPH (benign prostatic hyperplasia) Urinary bladder cancer Obesity GERD (gastroesophageal reflux disease) Hypercholesterolemia Hypertension CAD (coronary artery disease) Surgical History Status post total hip replacement, right (~08/28/23) History of total right hip replacement H/O cardiac catheterization (~2013) Hx of colonoscopy History of partial colectomy History of bladder surgery History of carpal tunnel release Family History Father Heart failure Mother Thyroid disorder Sister Lung cancer Daughter Alcoholism Social History Household Members: Family Housing: House Are you a primary pet care associate to a significant other at home: No Do you presently have visiting nurse or other home services: Yes (PT) Alcohol intake: never Comment: aware of trip hazards 1985 stopped Patient Tobacco Use Status: Former Tobacco user Tobacco use type: Cigarette Years Smoked: 18 stopped 1984 e-Cigarette/Vaping Use: Never Used Second Hand Smoke Exposure: No Advance Directives Date on File: 08/31/23 service: Yes Current occupational status: retired Cognitive needs: No Hearing needs: Yes Vision needs: Yes Questionnaire PHQ-9 Over the last 2 weeks, how often have you been bothered by any of the following problems? 1. Little interest or pleasure in doing things: not at all 2. Feeling down, depressed, or hopeless: not at all 3. Trouble falling or staying asleep, or sleeping too much: not at all 4. Feeling tired or having little energy: not at all 5. Poor appetite or overeating: not at all 6. Feeling bad about yourself - or that you are a failure or have let yourself or your family down: not at all 7. Trouble concentrating on things, such as reading the newspaper or watching television: not at all 8. Moving or speaking so slowly that other people could have noticed. Or the opposite - being so fidgety or restless that you have been moving around a lot more than usual: not at all 9. Thoughts that you would be better off or of hurting yourself in some way: not at all Total score: 0 Depression Screening Interpretation: Negative Depression Screening Done: Yes Source: Developed by Drs. Mckinley Ahn, Monico Aguilar and colleagues, with an educational saul from [employer]. Thrive Questionnaire Date Thrive assessed: 09/06/23 AUDIT C Alcohol Use Questionnaire (AUDIT-C) 1. How often do you have a drink containing alcohol?: Never 3. How often do you have six or more drinks on one occasion?: Never Total Score: 0 MIKAYLA-7 AMB Questionnaire MIKAYLA-7 Date MIKAYLA - 7 assessed: 08/21/23 Source: Developed by Drs. Mckinley Ahn, Monico Aguilar and colleagues, with an educational saul from [employer]. Physical exam (Primary Care) Vital Signs: Last Vital Signs Pulse 78 01/02/24 15:04 BP 152/90 H 01/02/24 15:04 Pulse Ox 95 01/02/24 15:04 Oxygen Delivery Method Room Air 01/02/24 15:04 BMI result Body Mass Index 37.1 Tobacco/Smoking Status: Tobacco use Status Tobacco use date assessed 10/25/23 01/02/24 15:10 Patient Tobacco Use Status Former Tobacco user 01/02/24 15:10 Tobacco use type Cigarette 01/02/24 15:10 e-Cigarette/Vaping Use Never Used 01/02/24 15:10 PHQ-9: PHQ-9 Score PHQ-9: Total score 0 01/02/24 15:41 Depression Screening Interpretation: Negative Thrive Assessment: Date of Thrive Assessment Date Thrive assessed 09/06/23 01/02/24 15:10 Const General: alert; No acute distress Eyes Conjunctivae: conjunctivae normal Resp Auscultation: clear to auscultation bilaterally Cardio Rate: regular rate Rhythm: regular rhythm GI Inspection: Yes normal to inspection Extrem Other: bilateral leg swelling pulse weak but equal General: Yes edema Assessment and Plan Assessment & Plan (1) Status post total hip replacement, right: Onset Date: ~08/28/23 Comment: Dr. Rui Camacho Code(s): Z96.641 - Presence of right artificial hip joint Plan: Patient follows up with ortho. Continue with gait exercises (2) CAD (coronary artery disease): Comment: MRI stent x3(LAD, OM, RCA) April and June 2014 DAISY burris Code(s): I25.10 - Atherosclerotic heart disease of [place] coronary artery without angina pectoris Qualifiers: Associated angina: without angina Coronary Disease-Associated Artery/Lesion type: [place] artery [place] vs. transplanted heart: [place] heart Qualified Code(s): I25.10 - Atherosclerotic heart disease of [place] coronary artery without angina pectoris Plan: Control the cholesterol, weight, blood pressure on anticoagulation (3) Hypertension: Code(s): I10 - Essential (primary) hypertension Qualifiers: Hypertension type: essential hypertension Qualified Code(s): I10 - Essential (primary) hypertension Plan: Continue with blood pressure medication. Decrease salt intake and exercise on carvedilol 25 mg twice a day (4) Hypercholesterolemia: Code(s): E78.00 - Pure hypercholesterolemia, unspecified Plan: Avoid fried foods, chicken skin, eggs, butter margarine, pastries and meat. 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 Panel 3 Months D50.9 - Iron deficiency anemia, unspecified Free T4 (Free Thyroxine) 3 Months D50.9 - Iron deficiency anemia, unspecified IRON PROFILE 3 Months D50.9 - Iron deficiency anemia, unspecified Reticulocyte Count 3 Months D50.9 - Iron deficiency anemia, unspecified Vitamin B12 and Folate 3 Months D50.9 - Iron deficiency anemia, unspecified Thyroid Stimulating Hormone 3 Months D50.9 - Iron deficiency anemia, unspecified Ferritin 3 Months D50.9 - Iron deficiency anemia, unspecified Medications: New ferrous sulfate (FeroSul) 325 mg PO DAILY 30 tabs 3RF D50.9 - Iron deficiency anemia, unspecified fexofenadine 180 mg PO DAILY 30 tabs 1RF Discontinued enoxaparin (Lovenox) Discontinued Reason: Doctor's Order 40 mg (0.4 mL) subcut Q24H 5 weeks 14 mL 0RF Coding Level of Care Code Est Pt Level 4 (76377) Diagnoses Status post total hip replacement, right Z96.641 Coronary artery disease involving [place] coronary artery of [place] heart without angina pectoris I25.10 Associated angina: without angina Coronary Disease-Associated Artery/Lesion type: [place] artery [place] vs. transplanted heart: [place] heart Essential hypertension I10 Hypertension type: essential hypertension Hypercholesterolemia E78.00 Colon cancer C18.9 Iron deficiency anemia D50.9 Peripheral neuropathy G62.9 Peripheral vascular disease I73.9
== END 2024-01-02 16:01 | disposition home or self-care (01) ==
PROVIDERS: PCP Internal Medicine; Visit Provider Internal Medicine
DX: E78.00 Pure hypercholesterolemia, unspecified (principal); C18.9 Malignant neoplasm of colon, unspecified; I73.9 Peripheral vascular disease, unspecified; Z96.641 Presence of right artificial hip joint; I25.10 Atherosclerotic heart disease of native coronary artery without angina pectoris; I10 Essential (primary) hypertension; D50.9 Iron deficiency anemia, unspecified; G62.9 Polyneuropathy, unspecified
CPT/HCPCS: 99214

== ENCOUNTER 2024-06-06 08:50 | Outpatient (AMB) | payer MEDICARE, SELFPAY ==
[2024-06-06 08:59] VITALS: BP 160/84; PULSE 70; TEMP 36.7; O2SAT 96; BMI 37.1
--- NOTE | 2024-06-06 08:59 | AM.OFFWIN_ITS ---
Intake Vital Signs 3 06/06/24 08:59 Height 5 ft 6 in Weight 230 lb BMI 37.1 BP 160/84 H Blood Pressure Location Rt brachial Position Sitting Pulse 70 Pulse Source Pulse Oximeter Temp 98.1 F Temp Source Oral Pulse Oximetry (%) 96 Oxygen Delivery Method Room Air Intake Visit Reasons: EP LT leg swollen due to edema, rash, bruising Intake Note: pt is here for left leg swelling with edema and rash Patient Tobacco Use Status: Former Tobacco user Allergies streptomycin [STREPTOMYCIN] Allergy (Severe, Verified 06/06/24 09:00) AFFECTED MY HEARING , anaphylaxis, affected hearing/nerves/etc, anxiety. Do you need a note to return to daycare/school/sports/work: No HPI HPI Comments 2 History of Present Illness0 Details 78 y/o male patient who presents to the walk in clinic with c/o left lower extremity edema with blisters. Reports noticing Yellow discharge coming from the blisters since Sunday. He does have h/o B/L peripheral edema with neuropathy. He is Diabetic, CAD and PVD. He is managed by Cardiology and has F/U appointment next week. [facility] Medical History (Updated 01/02/24 @ 15:54 by Franco Juarez MD) Swelling of right lower extremity Duodenal ulcer Abnormal EKG Hypotension Acute electrocardiogram changes Osteoarthritis of right hip Atherosclerotic cardiovascular disease Post-nasal drip Recent bereavement Foreign body in left lower extremity COVID-19 virus infection Amebic dysentery Foreign body of left lower leg Left rotator cuff tear Barretts esophagus Osteoarthritis Peripheral neuropathy Anxiety and depression Colon cancer Impaired glucose tolerance BPH (benign prostatic hyperplasia) Urinary bladder cancer Obesity GERD (gastroesophageal reflux disease) Hypercholesterolemia Hypertension CAD (coronary artery disease) Surgical History Status post total hip replacement, right (~08/28/23) History of total right hip replacement H/O cardiac catheterization (~2013) Hx of colonoscopy History of partial colectomy History of bladder surgery History of carpal tunnel release Family History Father Heart failure Mother Thyroid disorder Sister Lung cancer Daughter Alcoholism Social History Household Members: Family Housing: House Are you a primary health care consultant to a significant other at home: No Do you presently have visiting nurse or other home services: Yes (PT) Alcohol intake: never Comment: aware of trip hazards 1985 stopped Patient Tobacco Use Status: Former Tobacco user Tobacco use type: Cigarette Years Smoked: 18 stopped 1984 e-Cigarette/Vaping Use: Never Used Second Hand Smoke Exposure: No Advance Directives Date on File: 08/31/23 service: Yes Current occupational status: retired Cognitive needs: No Hearing needs: Yes Vision needs: Yes Review of Systems Const All systems reviewed & are unremarkable except as noted in HPI and below Physical Exam Vital Signs: Last Vital Signs Temp 98.1 F 06/06/24 08:59 Pulse 70 06/06/24 08:59 BP 160/84 H 06/06/24 08:59 Pulse Ox 96 06/06/24 08:59 Oxygen Delivery Method Room Air 06/06/24 08:59 BMI result Body Mass Index 37.1 Const General: cooperative and no acute distress Nutritional Appearance: obese Orientation/consciousness: patient oriented x3 Skin General skin exam: dry skin and erythema Lesions: lesion noted Neuro General: patient oriented x3, gait normal and moves all extremities Extrem Right lower extremity: lower leg Details: erythema, tenderness and pitting edema Details: 1+ Left lower extremity: lower leg Details: erythema, tenderness and pitting edema Details: 2+ Ankle/foot/toe images: 2 1. Group of small blisters filled with yellow fluid. Tenderness, edema and erythematous. 2. +1 pitting edema, poor pulses on both lower legs, redeness skin color and tender to touch. Psych Speech and movement: Normal speech and movement present Assessment & Plan Assessment & Plan (1) Cellulitis of left leg: Code(s): L03.116 - Cellulitis of left lower limb Plan: Ordered Keflex for 7 days Advised to f/u with Cardiology as scheduled. F/U with PCP. Medications: New 2 cephalexin 500 mg PO BID 14 caps 0RF 7 days L03.116 - Cellulitis of left lower limb Coding Level of Care Code Est Pt Level 4 (51423) Diagnoses Cellulitis of left leg L03.116 Time Spent (min) 20
== END 2024-06-06 09:33 | disposition home or self-care (01) ==
PROVIDERS: PCP Internal Medicine; Visit Provider Nurse Practitioner Family
DX: L03.116 Cellulitis of left lower limb (principal)

== ENCOUNTER → 2024-06-06 08:50 | Outpatient (BNVA) | payer MEDICARE, SELFPAY | PROVIDERS: PCP Internal Medicine; Visit Provider Nurse Practitioner Family | DX: L03.116 Cellulitis of left lower limb (principal) | CPT/HCPCS: 99212 ==

== ENCOUNTER 2024-07-07 11:11 | Outpatient (AMB) | payer MEDICARE, SELFPAY ==
--- OUTSIDE RECORDS SUMMARY | 2024-07-07 11:14 | XMS_ITS ---
Author Name [facility] Organization Unknown Problems Problem Status Onset Date Problem Type Date of Resoluti on Source Hypertension, unspecified type active EncounterDiagnosisAct CCT
[2024-07-07 11:15] VITALS: BP 140/76; PULSE 55; O2SAT 97; BMI 37.1
--- NOTE | 2024-07-07 11:15 | A.OFFPC_ITS ---
Vital Signs 07/07/24 11:15 07/07/24 11:36 Height 5 ft 6 in Weight 230 lb BMI 37.1 BP 140/76 H 132/70 Blood Pressure Location Lt brachial Lt brachial Position Sitting Sitting Pulse 55 Pulse Source Pulse Oximeter Pulse Oximetry (%) 97 Oxygen Delivery Method Room Air Intake Visit Reasons: PE - see comments Allergies streptomycin [STREPTOMYCIN] Allergy (Severe, Verified 07/07/24 11:16) AFFECTED MY HEARING , anaphylaxis, affected hearing/nerves/etc, anxiety. Medication List - Last Reconciled 07/07/24 by Franco Juarez MD acetaminophen ER 1,300 mg PO DAILY aspirin (Adult Low Dose Aspirin) 81 mg PO DAILY atorvastatin 80 mg PO BEDTIME carvedilol 25 mg PO BID cholecalciferol (vitamin D3) 50 mcg PO DAILY gladys.stocking,knee,reg,smal (T.E.D. Anti-Embolism Stocking) As directed cyanocobalamin (vitamin B-12) ER (Vitamin B-12 ER) 2,500 mcg PO DAILY docusate sodium (Colace) 100 mg PO BID 90 days ferrous sulfate (FeroSul) 325 mg PO DAILY fexofenadine 180 mg PO DAILY finasteride 5 mg PO BEDTIME furosemide (Lasix) 20 mg PO DAILY gabapentin 300 mg PO BEDTIME losartan-hydrochlorothiazide 100-25 mg 1 tab PO DAILY multivitamin 1 tab PO DAILY omeprazole 40 mg PO DAILY sucralfate 1 g PO QIDACHS Tobacco use date assessed: 10/25/23 Fall risk assessment: No Falls in past year Last assessed Fall Risk: 07/07/24 Dental Screening Dental Screen Date: 09/26/23 HPI PE - see comments HPI Details coughing, no temp, has post nasal drip- tried taking grayson , The patient is a 78-year-old male presenting with allergic rhinitis. For the past year, he has been experiencing increased allergy symptoms which worsen during the grass and tree pollen seasons. The symptoms have progressed from seasonal to year-round. The patient has used Grayson effectively in the past but recently resorted to [id number] remedies like NyQuil due to running out of Grayson. His sinus issues have persisted, and his condition improves with allergy medications. He does not report any new medications but mentions past use of allergy medication including Claritin and Zyrtec. Additionally, the patient reports a rash on the ankle, initially seen on June 01, likely a reaction to poison anish. This manifested as a rash for which he received treatment, including antibiotics, due to a suspicion of infection. The rash has significantly improved since then. The patient's medical history also includes anemia, with a current hemoglobin level of 11.5. He reports a history of bladder cancer, currently under surveillance, and an enlarged prostate treated with finasteride. Dysphagia and nighttime polyuria are also reported, with nocturnal cough noted post meals. - Recent discussions around pneumonia va ccination; recommended to administer Prevnar 20. - Blood pressure monitoring with control led readings (e.g., 132/70). - Recommendations on fluid intake to red uce nocturnal polyuria. - Emphasis on keeping active with home e xercise equipment. - Recent blood cholesterol management atorvastatin; LDL 40. - Monitoring of anemia, with past hemogl obin levels reaching as low as 7.5, now at 11.5. - Quit smoking since 1984; denies use of alcohol. - Lives with family, including a great-g randchild. - Exercises using an elliptical and exer cise cycle at home based on family encouragement. - Reports dietary adjustments and keeps active per discussion with family. - Ears, Nose, Throat: Reports occasional hearing loss; denies recent ear pain. - Respiratory: Denies shortness of breat h, palpitations. - Gastrointestinal: Reports dysphagia, p rimarily with solid foods. - Integumentary: Reports prior skin reac tion likely due to poison anish. - Neurological: Admits to dizziness when turning head; denies recent syncope or weakness. - Genitourinary: Reports night-time urin ation 1-2 times a night. [facility] Medical History (Updated 07/07/24 @ 12:17 by Franco Juarez MD) Swelling of right lower extremity Duodenal ulcer Abnormal EKG Hypotension Acute electrocardiogram changes Osteoarthritis of right hip Atherosclerotic cardiovascular disease Post-nasal drip Recent bereavement Foreign body in left lower extremity COVID-19 virus infection Amebic dysentery Foreign body of left lower leg Left rotator cuff tear Barretts esophagus Osteoarthritis Peripheral neuropathy Anxiety and depression Colon cancer Impaired glucose tolerance BPH (benign prostatic hyperplasia) Urinary bladder cancer Obesity GERD (gastroesophageal reflux disease) Hypercholesterolemia Hypertension CAD (coronary artery disease) Surgical History Status post total hip replacement, right (~08/28/23) History of total right hip replacement H/O cardiac catheterization (~2013) Hx of colonoscopy History of partial colectomy History of bladder surgery History of carpal tunnel release Family History Father Heart failure Mother Thyroid disorder Sister Lung cancer Daughter Alcoholism Social History Household Members: Family Housing: House Are you a primary home care manager to a significant other at home: No Do you presently have visiting nurse or other home services: Yes (PT) Alcohol intake: never Comment: aware of trip hazards 1984 stopped Patient Tobacco Use Status: Former Tobacco user Tobacco use type: Cigarette Years Smoked: 20 stopped 1984 e-Cigarette/Vaping Use: Never Used Second Hand Smoke Exposure: No Advance Directives Date on File: 08/31/23 service: Yes Current occupational status: retired Cognitive needs: No Hearing needs: Yes Vision needs: Yes Questionnaire PHQ-9 Over the last 2 weeks, how often have you been bothered by any of the following problems? 1. Little interest or pleasure in doing things: not at all 2. Feeling down, depressed, or hopeless: not at all 3. Trouble falling or staying asleep, or sleeping too much: not at all 4. Feeling tired or having little energy: not at all 5. Poor appetite or overeating: not at all 6. Feeling bad about yourself - or that you are a failure or have let yourself or your family down: not at all 8. Moving or speaking so slowly that other people could have noticed. Or the opposite - being so fidgety or restless that you have been moving around a lot more than usual: not at all 9. Thoughts that you would be better off or of hurting yourself in some way: not at all Source: Developed by Drs. Mckinley Ahn, Shanna Nice, Monico Pérez and colleagues, with an educational saul from [employer]. Thrive Questionnaire Date Thrive assessed: 07/07/24 I am a: Patient What is your living situation today?: I have a steady place to live Within the past 12 months, did the food you bought not last and you didn't have the money to get more?: I choose not to answer this question Within the past 12 months, did you worry whether your food would run out before you got money to buy more?: I choose not to answer this question Do you have trouble paying for medicines?: No Do you have trouble getting transportation to medical appointments?: No Do you have trouble paying your heating and electricity bill?: I choose not to answer this question Do you have trouble taking care of your child, family member or friend?: No Do you have trouble with day-to-day activities such as bathing, preparing meals, shopping, managing finances, etc.?: No Are you currently unemployed and looking for a job?: I choose not to answer this question Are you interested in more education?: No Please select the resources that you would like help with: None Currently or been in a relationship where the following occur: No concerns reported THRIVE Score: 0 AUDIT C Alcohol Use Questionnaire (AUDIT-C) 1. How often do you have a drink containing alcohol?: Never 3. How often do you have six or more drinks on one occasion?: Never Total Score: 0 MIKAYLA-7 AMB Questionnaire MIKAYLA-7 Date MIKAYLA - 7 assessed: 07/07/24 Feeling nervous, anxious, or on edge: 0 = Not at all Not being able to stop or control worryin = Not at all Worrying too much about different things: 0 = Not at all Trouble relaxin = Not at all Being so restless that it is hard to sit still: 0 = Not at all Becoming easily annoyed or irritable: 0 = Not at all Feeling afraid as if something awful might happen: 0 = Not at all Total MIKAYLA-7 score (0-4 normal; 5-9 mild; 10-14 moderate; 15-21 severe): 0 Source: Developed by Drs. Mckinley Ahn, Shanna Nice, Monico Pérez and colleagues, with an educational saul from [employer]. Review of Systems Const Denies poor appetite and Denies weakness Eyes Denies no additional complaints ENT Reports Normal hearing present, Denies dizziness, Denies nasal congestion, Denies tinnitus and Denies sore throat Card Denies chest pain, Denies syncope, Denies rapid heart rate and Denies dyspnea Resp Denies cough and Denies dyspnea GI Denies change in stool character, Reports constipation, Denies diarrhea, Denies nausea and Denies vomiting Denies dysuria and Denies urinary frequency Neuro Reports Normal hearing present, Denies confusion, Denies dizziness, Denies syncope and Denies weakness Psych Denies confusion Physical exam (Primary Care) Vital Signs: Last Vital Signs Pulse 55 07/07/24 11:15 BP 132/70 07/07/24 11:36 Pulse Ox 97 07/07/24 11:15 Oxygen Delivery Method Room Air 07/07/24 11:15 BMI result Body Mass Index 37.1 Tobacco/Smoking Status: Tobacco use Status Tobacco use date assessed 10/25/23 07/07/24 11:21 Patient Tobacco Use Status Former Tobacco user 07/07/24 11:21 Tobacco use type Cigarette 07/07/24 11:21 e-Cigarette/Vaping Use Never Used 07/07/24 11:21 Thrive Assessment: Date of Thrive Assessment Date Thrive assessed 07/07/24 07/07/24 11:21 Currently or been in a relationship where the following occur: No concerns reported Const General: No confusion Orientation/consciousness: No confusion HENMT Other: Impacted cerumen right more than the left Head: Yes normocephalic Ears: external ears normal Face and sinus: Yes normal facial exam Mouth: moist mucous membranes Throat: Yes tonsils normal Eyes Conjunctivae: conjunctivae normal Pupils: Equal, round and reactive pupils present and Pupil accommodation reflex normal Direct Ophthalmoscopy: normal light reflex Neck Neck: No lymphadenopathy Thyroid: Thyroid normal Chest Chest palpation & inspection: normal inspection of the chest Resp Effort & Inspection: normal respiratory effort and no audible wheezes Auscultation: clear to auscultation bilaterally, no crackles, no wheezes and lung sounds not diminished Cardio Rate: regular rate Rhythm: regular rhythm Peripheral pulses: radial pulses present and dorsalis pedis present GI Other: Colonoscopy is pending Palpation (GI): no masses Auscultation: normal bowel sounds and normoactive bowel sounds Rectal Exam - Male: Yes deferred Other: Colonoscopy is pending Male General Exam: Yes normal external exam Skin General skin exam: no rashes or lesions noted Rashes: no rashes Neuro General: No confusion Cranial nerves: Yes Equal, round and reactive pupils present and Yes Normal hearing present Cognition (Neuro): normal cognition Gait exam (Neuro): Normal gait present Motor exam (neuro): 5/5 motor strength present throughout Deep tendon reflexes (DTR's): Right brachioradialis reflex intensity grade: 2+, Left brachioradialis reflex intensity grade: 2+, Right patellar reflex intensity grade: 2+ and Left patellar reflex intensity grade: 2+ Extrem Other: Bilateral +1 edema lower extremity General: Yes edema Immunizations pneumoc 20-vlad conj-dip cr(PF) 0.5 mL IM syringe Performing Provider: Franco Juarez MD [facility] Administered by: Ritu Bird CMA on 07/07/24 12:14 Dose Route Admin Location Dispensed Lot Number Expiration Date NDC [employer] Finisher 0.5 mL IM Left Deltoid 0.5 mL [id number] 10/21/25 [id number] WYETH/PFIZER VIS Given Date VIS Provided VIS Publication Date 07/07/24 Single Vaccine 21 Eligibility Eligibility Date Funding Source Not [facility] Eligible 07/07/24 Private Coding Level of Care Code Est Pt Level 4 (96251) Complex EM visit Add On G2211 Diagnoses Annual physical exam Z00.00 Coronary artery disease involving curyung coronary artery of curyung heart without angina pectoris I25.10 Coronary Disease-Associated Artery/Lesion type: curyung artery Andreafski vs. transplanted heart: curyung heart Associated angina: without angina Essential hypertension I10 Hypertension type: essential hypertension Hypercholesterolemia E78.00 Gastroesophageal reflux disease without esophagitis K21.9 Esophagitis presence: without esophagitis Obesity due to excess calories with serious comorbidity, unspecified class E66.09 Obesity type: due to excess calories Obesity classification: unspecified obesity classification Serious obesity comorbidity presence: with serious comorbidity Benign prostatic hyperplasia with urinary frequency N40.1; R35.0 Lower urinary tract symptom presence: symptoms present Lower urinary tract symptom detail: urinary frequency Impaired glucose tolerance R73.02 Wallis's esophagus without dysplasia K22.70 Wallis's esophagus type: without dysplasia Malignant neoplasm of colon, unspecified part of colon C18.9 Colon location: unspecified part of colon Generalized anxiety disorder F41.1 Duodenal ulcer K26.9 Peripheral vascular disease I73.9 Acute cough R05.1 Cough type: acute Assessment & Plan Assessment & Plan (1) Annual physical exam: Code(s): Z00.00 - Encounter for general adult medical examination without abnormal findings Category: Medical Plan: Patient is advised to eat healthy, keep well hydrated, keep active and have adequate sleep. (2) CAD (coronary artery disease): Comment: MRI stent x3(LAD, OM, RCA) April and June 2014 [facility] Elle burris Code(s): I25.10 - Atherosclerotic heart disease of curyung coronary artery without angina pectoris Category: Medical Qualifiers: Coronary Disease-Associated Artery/Lesion type: curyung artery Andreafski vs. transplanted heart: curyung heart Associated angina: without angina Qualified Code(s): I25.10 - Atherosclerotic heart disease of curyung coronary artery without angina pectoris Plan: Control the cholesterol, weight, blood pressure, continuing with aspirin 81 mg once a day (3) Hypertension: Code(s): I10 - Essential (primary) hypertension Category: Medical Qualifiers: Hypertension type: essential hypertension Qualified Code(s): I10 - Essential (primary) hypertension Plan: Continue with blood pressure medication. Decrease salt intake and exercise patient is on carvedilol 25 mg twice a day (4) Hypercholesterolemia: Code(s): E78.00 - Pure hypercholesterolemia, unspecified Category: Medical Plan: Avoid fried foods, chicken skin, eggs, butter margarine, pastries and meat. Be it pork or beef they have a lot of cholesterol on atorvastatin 80 mg at bedtime. LDL goal of less than 70 and triglyceride of less than 150. (5) GERD (gastroesophageal reflux disease): Code(s): K21.9 - Gastro-esophageal reflux disease without esophagitis Category: Medical Qualifiers: Esophagitis presence: without esophagitis Qualified Code(s): K21.9 - Gastro-esophageal reflux disease without esophagitis Plan: Avoid the foods that causes that usually spicy foods, tomato products, juices, coffee, soda and foods that your sensitive to. After eating do not lie down, allow 3-4 hours before in lie down. And keep the head of bed above 30 degrees to avoid the acid from going up. On omeprazole 40 mg once a day (6) Obesity: Code(s): E66.9 - Obesity, unspecified Category: Medical Qualifiers: Obesity type: due to excess calories Obesity classification: unspecified obesity classification Serious obesity comorbidity presence: with serious comorbidity Qualified Code(s): E66.09 - Other obesity due to excess calories Plan: Diet and exercise (7) BPH (benign prostatic hyperplasia): Code(s): N40.0 - Benign prostatic hyperplasia without lower urinary tract symptoms Category: Medical Qualifiers: Lower urinary tract symptom presence: symptoms present Lower urinary tract symptom detail: urinary frequency Qualified Code(s): N40.1 - Benign prostatic hyperplasia with lower urinary tract symptoms; R35.0 - Frequency of micturition Plan: Continue to follow-up with urology on finasteride 5 mg at bedtime (8) Impaired glucose tolerance: Code(s): R73.02 - Impaired glucose tolerance (oral) Category: Medical Plan: Decrease the amount of carbohydrate intake, pasta, bread, rice and potatoes are all sugar and that is aside from all the sweet stuff, remember that fruits are good but they are Sweet also. (9) Barretts esophagus: Code(s): K22.70 - Wallis's esophagus without dysplasia Category: Medical Qualifiers: Wallis's esophagus type: without dysplasia Qualified Code(s): K22.70 - Wallis's esophagus without dysplasia Plan: Avoid the foods that causes that usually spicy foods, tomato products, juices, coffee, soda and foods that your sensitive to. After eating do not lie down, allow 3-4 hours before in lie down. And keep the head of bed above 30 degrees to avoid the acid from going up. 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 Code(s): C18.9 - Malignant neoplasm of colon, unspecified Category: Medical Qualifiers: Colon location: unspecified part of colon Qualified Code(s): C18.9 - Malignant neoplasm of colon, unspecified Plan: Patient follows up with Gastroenterology and has a planned EGD and colonoscopy next year (11) Generalized anxiety disorder: Code(s): F41.1 - Generalized anxiety disorder Category: Medical Plan: stable (12) Duodenal ulcer: Code(s): K26.9 - Duodenal ulcer, unspecified as acute or chronic, without hemorrhage or perforation Category: Medical Plan: Avoid the foods that causes that usually spicy foods, tomato products, juices, coffee, soda and foods that your sensitive to. After eating do not lie down, allow 3-4 hours before in lie down. And keep the head of bed above 30 degrees to avoid the acid from going up. (13) Peripheral vascular disease: Code(s): I73.9 - Peripheral vascular disease, unspecified Category: Medical Plan: When sitting down elevate the legs, exercise, and support stockings (14) Cough: Code(s): R05.9 - Cough, unspecified Category: Medical Qualifiers: Cough type: acute Qualified Code(s): R05.1 - Acute cough Plan: pft requested. Continue with allergy medication Orders: Orders Complete Blood Count Auto Diff Today D50.9 - Iron deficiency anemia, unspecified Comprehensive Met. Panel Today D50.9 - Iron deficiency anemia, unspecified Lipid Panel Today D50.9 - Iron deficiency anemia, unspecified, E78.00 - Pure hypercholesterolemia, unspecified Free T4 (Free Thyroxine) Today D50.9 - Iron deficiency anemia, unspecified Vitamin B12 and Folate Today D50.9 - Iron deficiency anemia, unspecified IRON PROFILE Today D50.9 - Iron deficiency anemia, unspecified B Type Natriuretic Peptide Today D50.9 - Iron deficiency anemia, unspecified Pneumococcal 20 Immunization Today Z23 - Encounter for immunization Ferritin Today D50.9 - Iron deficiency anemia, unspecified Thyroid Stimulating Hormone Today D50.9 - Iron deficiency anemia, unspecified Reticulocyte Count Today D50.9 - Iron deficiency anemia, unspecified PFT pulmonary function test Today R05.9 - Cough, unspecified Medications: Refilled sucralfate 1 g PO QIDACHS 30 tabs 0RF
[2024-07-07 11:36] VITALS: BP 132/70
== END 2024-07-07 12:20 | disposition home or self-care (01) ==
PROVIDERS: PCP Internal Medicine; Visit Provider Internal Medicine
DX: Z00.00 Encounter for general adult medical examination without abnormal findings (principal); C18.9 Malignant neoplasm of colon, unspecified; I73.9 Peripheral vascular disease, unspecified; I10 Essential (primary) hypertension; K21.9 Gastro-esophageal reflux disease without esophagitis; R35.0 Frequency of micturition; R73.02 Impaired glucose tolerance (oral); K22.70 Barrett's esophagus without dysplasia; F41.1 Generalized anxiety disorder; K26.9 Duodenal ulcer, unspecified as acute or chronic, without hemorrhage or perforation; R05.1 Acute cough; Z23 Encounter for immunization

== ENCOUNTER → 2024-07-07 11:11 | Outpatient (BNVA) | payer MEDICARE, SELFPAY | PROVIDERS: PCP Internal Medicine; Visit Provider Internal Medicine | DX: Z00.00 Encounter for general adult medical examination without abnormal findings (principal); R09.82 Postnasal drip; I25.10 Atherosclerotic heart disease of native coronary artery without angina pectoris; I10 Essential (primary) hypertension; E78.00 Pure hypercholesterolemia, unspecified; K21.9 Gastro-esophageal reflux disease without esophagitis; E66.09 Other obesity due to excess calories; N40.1 Benign prostatic hyperplasia with lower urinary tract symptoms; R35.0 Frequency of micturition; R73.02 Impaired glucose tolerance (oral); K22.70 Barrett's esophagus without dysplasia; C18.9 Malignant neoplasm of colon, unspecified; F41.1 Generalized anxiety disorder; K26.9 Duodenal ulcer, unspecified as acute or chronic, without hemorrhage or perforation; I73.9 Peripheral vascular disease, unspecified; R05.1 Acute cough; D50.9 Iron deficiency anemia, unspecified; Z23 Encounter for immunization | CPT/HCPCS: 90471; 90677; 96127; 99212; 99397 ==

== ENCOUNTER 2024-07-10 08:39 | Outpatient (REF) | payer MEDICARE, SELFPAY ==
--- OUTSIDE RECORDS SUMMARY | 2024-07-10 08:55 | XMS_ITS ---
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 Generated for Printi ng/Fakurtg/eTransmitting on:?07/10/2024 08:55 AM EST
--- OUTSIDE RECORDS SUMMARY | 2024-07-10 08:55 | XMS_ITS ---
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 Name Role Phone Franco Juarez MD Primary Care Provider Unavailsamantha e Mckinley Franco Unavailable [phone] ALLERGIES Allergen (clinical drug ingredient) Drug/Non Drug Allergy documented on EMR Reaction Allergy Type Onset Date Status streptomycin Streptomycin Sulfate Unknown Drug Allergy Active REASON FOR VISIT Patient presents today for gerd MEDICATIONS Medication SIG (Take, Route, Frequency, Duration) Notes Start Date End Date Status Omeprazole 40 MG 1 orally Every morning for 90 days 11/13/2023 Active Losartan Potassium 50 MG Oral for 90 Active Furosemide 20 MG TAKE 1 TABLET BY MOUTH ONCE DAILY Oral for 30 L603,Unavailabl e Active Multi Vitamin/Minerals - Orally Active SV Iron 325 (65 Fe) MG TAKE 1 TABLET BY MOUTH ONCE DAILY Oral for 30 Active Carvedilol 25 MG 1 Orally BID Active Atorvastatin Calcium 80 MG 1 tablet Orally Once a day Active Finasteride 5 MG 1 tablet Orally Once a day Active Vitamin C 500 MG 1 tablet Orally Once a day for 30 day(s) Active Omeprazole 40 MG 1 Orally Every morning 10/04/2023 Active Gabapentin 300 MG TAKE 1 CAPSULE BY MOUTH AT BEDTIME Oral for 90 I739,Unavailabl e Active SOCIAL HISTORY Tobacco Use: Social History Observation Description Date Details (start date - stop date) Former Smoker NA - NA Sex Assigned At : Social History Observation Description Sex Assigned At Unknown Tobacco Use/Smoking Question Answer Notes Patient is a former smoker How long has it been since you last smoked? > 10 years Alcohol Screen Question Answer Notes Did you have a drink containing alcohol in the p ast year? No Points 0 Interpretation Negative VITAL SIGNS BMI 33.96 kg/m2 05/15/2024 Blood pressure systolic 00 mm Hg 05/15/20 Blood pressure diastolic 00 mm Hg 024 Height 69 in 05/15/2024 Weight 230 lbs 05/15/2024 Encounters Encounter Location Date Provider Diagnosis [facility] [address] [place] [address] 05/15/2024 Mckinley Franco Gastroesophageal ref lux disease, esophagitis presence not specified K21.9 ; Duodenal bulb ulcer K26.9 ; Encounter for screening for malignant neoplasm of colon Z12.11 ; Barretts esophagus without dysplasia K22.70 ; Erosive esophagitis K22.10 and Villous adenoma of colon D37.4 ASSESSMENTS Encounter Date Diagnosis Assessment Notes Treatment Notes Treatment Clinical Notes 05/15/2024 Gastroesophageal reflux disease, esophagitis presence not specified (ICD-10 - K21.9) 05/15/2024 Duodenal bulb ulcer (ICD-10 - K26.9) 05/15/2024 Encounter for screening for malignant neoplasm of colon (ICD-10 - Z12.11) 05/15/2024 Barretts esophagus without dysplasia (ICD-10 - K22.70) 05/15/2024 Erosive esophagitis (ICD-10 - K22.10) 05/15/2024 Villous adenoma of colon (ICD-10 - D37.4) We will try to schedule a colonoscopy and upper endoscopy when I see you in the spring. PLAN OF TREATMENT Medication Medication Name Sig Start Date Stop Date Notes Omeprazole 40 MG 1 Orally Every morning 10/04/2023 Treatment Notes Assessment Notes Villous adenoma of colon We will try to schedule a colonoscopy and upper endoscopy when I see you in the spring. Next Appt Details Follow Up: 6 Months, Reason: Provider Name:Mckinley Franco , 11/20/2024 09:20:00 AM, [address], [address], [place], [address], Progress Notes * Examination Category Sub-Category Detail Notes General Examination GENERAL APPEARANCE: pleasant , well [...]
--- OUTSIDE RECORDS SUMMARY | 2024-07-10 08:55 | XMS_ITS | Patient Health Record ---
Author Organization [facility] leeroy [place] Address [address] [place] [address] Care Team Providers Care Varnish Melter Helper Name Role Phone LarryFranco Primary Care Provider Unavailabl e Melanie Forde Unavailable [phone] Allergies Allergen (clinical drug ingredient) Drug/Non Drug Allergy documented on EMR Reaction Allergy Type Onset Date Status streptomycin Streptomycin Unknown Drug Allergy A ctive Reason For Referral No Information Medications Medication SIG (Take, Route, Frequency, Duration) Notes Start Date End Date Status Multivitamin Active Losartan Potassium 50 MG 2 tablets Once a day Active Ammonium Lactate 12 % 1 application Exte rnally Twice a day for 30 days Active Tylenol Active Atorvastatin Calcium Active Gabapentin Active Carvedilol Active Finasteride Active Medrol 4 MG as directed Orally D aily for 6 days 06/06/2024 Active Omeprazole Active Furosemide Active Vitamin B12 Active Vitamin D3 Active Social History Tobacco Use: Social History Observation Description Date Details (start date - stop date) Former Smoker NA - NA Tobacco Use/Smoking Question Answer Notes Are you a: former smoker Additional Findings: Tobacco Non-User Current no n-smoker Alcohol Screen Question Answer Notes Did you have a drink containing alcohol in the p ast year? No Points 0 Interpretation Negative Tobacco use other than smoking: Question Answer Notes Are you an other tobacco user? No Problems Problem Type SNOMED Code ICD Code Onset Dates Problem Status W/U Status Risk Notes Problem Atherosclerosis of [place] arteries of the extremities ([id number]) Atherosclerosis of [place] artery of both lower extremities, with unspecified presence of clinical manifestation (I70.203) Active confirmed Problem [id number] Polyneuropathy associated with underlying disease (G63) Active confirmed Vital Signs Height 5 ft 9 in in 06/06/2024 Weight 233 lbs 06/06/2024 BMI 34.4 kg/m2 06/06/2024 Procedures Procedure Date Ordered Date Performed Result Body Sit e 48026-SJSECYF NAIL, 6 OR MORE 03/04/2024 N/A 11480-Mnmreeew Plate 03/04/2024 N/A 94290-Ecrskemx Plate Each Additional 03/04/2024 N/A 00385-FQHC SKIN LESIONS, 2 TO 4 03/04/2024 N/A 20292-HDEQRUP NAIL, 6 OR MORE 06/06/2024 N/A 01071-IRGG SKIN LESIONS, 2 TO 4 06/06/2024 N/A Encounters Encounter Location Date Provider Diagnosis [address] [address] 03/04/2024 Melanie Black Atherosclerosis of [place] artery of both lower extremities, with unspecified presence of clinical manifestation I70.203 ; Tinea unguium B35.1 ; Pain in right toe(s) M79.674 ; Pain in left toe(s) M79.675 ; Xerosis of skin L85.3 ; Ingrown nail L60.0 and Polyneuropathy associated with underlying disease G63 [address] [address] 06/06/2024 Melanie Black Poison anish dermatiti s L23.7 ; Atherosclerosis of [place] artery of both lower extremities, with unspecified presence of clinical manifestation I70.203 ; Tinea unguium B35.1 ; Pain in right toe(s) M79.674 ; Pain in left toe(s) M79.675 ; Polyneuropathy associated with underlying disease G63 ; Dermatitis L30.9 and Pruritus L29.9 [facility] [address] [place] [address] 12/28/2023 Melanie Black Assessments Encounter Date Diagnosis (ICD Code) Assessment Notes Treatment Notes Treatment Clinical Notes Section Notes 03/04/2024 Tinea unguium (ICD-10 - B35.1) 03/04/2024 Atherosclerosis of [place] artery of both lower extremities, with unspecified presence of clinical manifestation (ICD-10 - I70.203) 06/06/2024 Poison anish dermatitis (ICD-10 - L23.7) 06/06/2024 Atherosclerosis of [place] artery of both lower extremities, with unspecified presence of clinical manifestation (ICD-10 - I70.203) 06/06/2024 Tinea unguium (ICD-10 - B35.1) 03/04/2024 Pain in right toe(s) (ICD-10 - M79.674) 03/04/2024 Pain in left toe(s) (ICD-10 - M79.675) 06/06/2024 Pain in right toe(s) (ICD-10 - M79.674) 03/04/2024 Xerosis of skin (ICD-10 - L85.3) 06/06/2024 Pain in left toe(s) (ICD-10 - M79.675) 03/04/2024 Ingrown nail (ICD-10 - L60.0) 06/06/2024 Polyneuropathy associated with underlying disease (ICD-10 - G63) 06/06/2024 Dermatitis (ICD-10 - L30.9) 03/04/2024 Polyneuropathy associated with underlying disease (ICD-10 - G63) 06/06/2024 Pruritus (ICD-10 - L29.9) Plan Of Treatment Pending Test Test Name Order Date 38703-YGDGJHQ NAIL, 6 OR MORE 03/04/2024 74275-FVMMTTL NAIL, 6 OR MORE 06/06/2024 21842-Oympgixh Plate 03/04/2024 32697-Udjgfudv Plate Each Additional 36028-XJTF SKIN LESIONS, 2 TO 4 03/04/20 96147-LICB SKIN LESIONS, 2 TO 4 06/06/20 Next Appt Details Provider Name:Melanie Forde , 08/29/2024 12:45:00 PM, [address] [facility], [place], [address], Insurance Providers Payer Name Payer Address Payer Phone Subscriber Number Group Number Insured Name Patient Relationship to Insured Coverage Start Date Coverage End Date [employer] Medicare [id number] [address] [address] [place] [address] [phone] [id number] Pavan Kimball Self - patient is the insured Medical (General) History Medical History History ICD Code Angina Anxiety Back,Hip,and Knee pain Cancer Depression Diverticulosis Heart disease High blood pressure nerve disorder Numbness Poor circulation Stomach ulcer Measles Mumps Chicken pox Joint implants/screws Transfusions Surgical History Surgery Date(Month/Year) Laparoscopic resection of right colon pa rtial removal total hip replacement, right 08/2022 Hospitalization History Reason Date(Month/Year) Urgent Care- cellulitis 06/06/24
--- OUTSIDE RECORDS SUMMARY | 2024-07-10 08:55 | XMS_ITS ---
Author Organization [facility] (Formerly [facility])iatr Burke umaña [place] Address [address] [place] [address] Care Team Providers Care [employer] Worker Name Role Phone Franco Juarez Primary Care Provider Unavailabl e Black, Melanie Unavailable [phone] Allergies Allergen (clinical drug ingredient) Drug/Non Drug Allergy documented on EMR Reaction Allergy Type Onset Date Status streptomycin Streptomycin Unknown Drug Allergy A ctive REASON FOR VISIT At Risk Footcare, Painful nail(s) aggravated by shoes causing difficulty standing/walking, Skin problem(s), Ingrown nail(s), Foot pain Medications Medication SIG (Take, Route, Fr equency, Duration) Notes Start Date End Date Status Tylenol Active Vitamin B12 Active Multivitamin Active Omeprazole Active Vitamin D3 Active Carvedilol Active Furosemide Active Atorvastatin Calcium Active Finasteride Active Ammonium Lactate 12 % 1 application Exte rnally Twice a day for 30 days Active Gabapentin Active Social History Tobacco Use: Social History [...] W/U Status Risk Notes Problem Atherosclerosis of lovelock arteries of the extremities ([id number]) 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, with unspecified presence of clinical manifestation (I70.203) Active confirmed Problem [id number] Polyneuropathy associated with underlying disease (G63) Active confirmed Vital Signs Height 5 ft 9 in in 03/04/2024 Weight 233 lbs 03/04/2024 BMI 34.4 kg/m2 03/04/2024 Procedures Procedure Date Ordered Date Performed Result Body Sit e 13681-EVSLVKI NAIL, 6 OR MORE 03/04/2024 N/A 37335-Yckcqpuf Plate 03/04/2024 N/A 98604-Nazwkvob Plate Each Additional 03/04/2024 N/A 58113-DIOE SKIN LESIONS, 2 TO 4 03/04/2024 N/A Encounters Encounter Location Date Provider Diagnosis [facility] [address] 03/04/2024 Melanie Black 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, with unspecified presence of clinical manifestation I70.203 ; Tinea unguium B35.1 ; Pain in right toe(s) M79.674 ; Pain in left toe(s) M79.675 ; Xerosis of skin L85.3 ; Ingrown nail L60.0 and Polyneuropathy associated with underlying disease G63 Assessments Encounter Date Diagnosis (ICD Code) Assessment Notes Treatment Notes Treatment Clinical Notes Section Notes 03/04/2024 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, with unspecified presence of clinical manifestation (ICD-10 - I70.203) 03/04/2024 Tinea unguium (ICD-10 - B35.1) 03/04/2024 Pain in right toe(s) (ICD-10 - M79.674) 03/04/2024 Pain in left toe(s) (ICD-10 - M79.675) 03/04/2024 Xerosis of skin (ICD-10 - L85.3) 03/04/2024 Ingrown nail (ICD-10 - L60.0) 03/04/2024 Polyneuropathy associated with underlying disease (ICD-10 - G63) Plan Of Treatment Medication Medication Name Sig Start Date Stop Date Notes Ammonium Lactate 12 % 1 application Exte rnally Twice a day for 30 days Pending Test Test Name Order Date 46942-QAJYBGH NAIL, 6 OR MORE 03/04/2024 29566-Lvjsyzvu Plate 03/04/2024 16654-Iakirkwm Plate Each Additional 65013-MQYR SKIN LESIONS, 2 TO 4 03/04/20 24 Next Appt Details Follow Up: 2 Weeks,3 Months, Reason: Provider Name:Melanie Forde , 08/29/2024 12:45:00 PM, [address] [facility], [place], [address], Procedure Notes * Category Sub-Category Detail Notes Nail Avulsion Procedure A fine sterile e levator was placed between the eponychium, nail fold, and nail plate to separate the the structures. A sterile nail splitter, and/or sterile 316 blade, was then used to longitudinally section the nail along its entire length through the eponychium to the area under the nail fold. The offending portion of nail was from the nail bed with a rolling action and then removed with a hemostat. No underlying bone was identified. There was minimal bleeding as hemostasis was achieved through the temporary use of either a digital tournaquet or the aforementioned local with epinephrine. A bacitracin sterile dressing was applied. Local wound aftercare instructions were discussed and dispensed. The patient was informed of both conservative and future surgical procedures to prevent recurrence. Tylenol or Motrin was recommended for pain or discomfort (67548/2) , CIRCULATION: Pt was advised as to the risk of delayed or nonhealing due to circulation. Pt is to call the office with any questions, concerns, or complications Anesthesia was deferred - NEURO MARBELLA: patient has medically documented neuropathic condition affecting sensation Location Bilateral nail borde r , TA , T5 Debride Nail 6-10 Nail debridement Nail debridem ent performed extensively to reduce/remove overall nail length, girth, thickness, subungual debris, and necrotic tissue, by manual and electrical means through the use of a nail nipper and/or dremel, to more viable healthy nail plate or bed tissue 6-10. Silver nitrate used for any petechial bleeding as necessary. Patient chooses, no pharmaceutical tx (91257) , Nail debridement performed extensively to reduce/remove overall nail length, girth, thickness, subungual debris, and necrotic tissue, by manual and electrical means through the use of a nail nipper and/or dremel, to more viable healthy nail plate or bed tissue 6-10. Silver nitrate used for any petechial bleeding as necessary. Patient chooses, no pharmaceutical tx (40304) Keratoma Treatment Parring or Cutting o f Benign Hyperkeratotic Lesion(s) 93628 ( 2-4 Lesions ) - The Benign hyperkeratotic lesions, as described above were pared, and/or cut utilizing a sterile 15 blade, tissue nippers, and/or dremel Progress Notes * Wilmer GARCIAOB:1945 (78 yo M)Acc No.[id number]:03/04/2024 Progress Notes Patient:?Pavan Garcia Provider:?Melanie Forde DPM :1945???Age:78 Y???Sex:Male Claus e:03/04/2024 Address:[address] [facility] Pcp:Franco Juarez Subjective: * Chief Complaints: * ???At Risk FootcarePainful n ail(s) aggravated by shoes causing difficulty standing/walkingSkin problem(s)Ingrown nail(s)Foot pain * HPI: ???At Risk footcare:?Pt States Last PCP Visit:?Date?02/06/2024 ???Painful Nails:?Pt States Last PCP Visit:?Date:?02/06/2024 ???Skin problems:?Nature:?dryness , scaling.?Location:?B/L .?Duration:?several days.?Course:?worse.?Foot Pain:?Nature:?numbness , burning.?Location:?B/L.?Duration:?, several years.? * ROS:?General/Constitutional:?Nausea?denies.?Vomiting?denies.?Hunger Thirst?denies.?Loss appetite?denies.?Chills?denies.?Fatigue?denies.?Fever?denies.?Night Sweats?denies.?Unexplained weight loss?denies.?Unexplained weight gain?denies.?HEENTM:?Dentures?denies.?Dizziness?denies.?Glasses/contacts?admits.?Retinopathy?de nies.?Blurred/double vision?denies.?TMJ?denies.?Discharge/drainage?denies.?Implants?denies.?Sore throat?denies.?Dental implants?denies.?Hard of hearing ?denies.?Difficulty chewing/swallowing/speaking?denies.?Nose bleeds?denies.?Sore mouth?denies.?Respiratory:?On Oxygen?denies.?Pneumonia/pleurisy?denies.?Bronchitis?denies.?Emphysema?denies.?C oughing?denies.?Cough blood?denies.?Shortness of breath?admits.?Wheezing?denies.?Cardiovascular:?Pacemaker?denies.?MVP?denies.?WPW?denies.?CHF?denies.?Heart attack?admits.?Septal defect?denies.?Rapid beat?denies.?Chest pain ?denies.?Atrial Fib.?admits.?Murmur/Palpitations?denies.?Gastrointestinal:?Hemorrhoids?admits.?Stomach/Abdominal pain?denies.?Dark blood stool?admits.?Irritable bowel ?denies.?Constipation?denies.?Diarrhea?denies.?Hematology:?Swelling?denies.?Clots?denies.?Varicose Veins?denies.?Bruising?denies.?Bleeding problem?denies.?Genitourinary:?Blood urine?denies.?Frequent/Painfu/urination/bladder control?denies.?Kidney stones?denies.?Infection (UTI)?denies.?Nephropathy?denies.?sex trans dis (STD)?denies.?Prostate?denies.?Musculoskeletal:?Hammertoes?denies.?Bunions?denies.?Back Pain?denies.?Muscle Cramps/ Resting?denies.?Muscle cramps / walking?denies.?Generalized aches and pains?denies.?Weakness?denies.?Integ.:?Jean Baptiste?denies.?Scars?admits.?Corns/calluses?denies.?Ingrown nails?denies.?Painful nails?admits.?Open Sores?denies.?Rashes?denies.?Neurologic:?Difficulty sleeping?admits.?Brain disorder?denies.?Numbness?denies.?Balance trouble?denies.?Confusion?denies.?Fainting/blackouts?denies.?Tingling?denies.?Tr emors?denies.? * Medical History:? * Surgical History:?Laparoscop ic resection of right colon partial removal total hip replacement, right 08/2022 * Hospitalization/Major Diagno stic Procedure:?No Hospitalization History. * Family History:?Mother: diag nosed with Unspecified essential hypertension.?Father: diagnosed with Family history of arthritis, Diabetic - NIDDM, Unspecified essential hypertension, Unspecified heart disease.? * Social History:?Tobacco Use:?Tobacco Use/Smoking?Are you a:?former smoker ?Additional Findings: Tobacco Non-User?Current non-smoker ?Tobacco use other than smoking?Are you an other tobacco user??No ???Drugs/Alcohol:?Drugs?Have you used drugs other than those for medical reasons in the past 12 months??No ?Alcohol Screen?Did you have a drink containing alcohol in the past year??No ?Points?0 ?Interpretation?Negative ???Miscellaneous:?Caffeine: yes, 1-2 cups per day. ?Children: yes, 1. ?Marital status: . * Medications:?TakingGabapenti n Atorvastatin Calcium Finasteride Carvedilol Furosemide Omeprazole Vitamin D3 Vitamin B12 Multivitamin Tylenol Medication List reviewed and reconciled with the patientTaking Gabapentin Taking Atorvastatin Calcium Taking Finasteride Taking Carvedilol Taking Furosemide Taking Omeprazole Taking Vitamin D3 Taking Vitamin B12 Taking Multivitamin Taking Tylenol Medication List reviewed and reconciled with the patient * Allergies:?Streptomycinyes[A llergies Verified] Objective: * Vitals:?Ht: 5 ft 9 in, Wt: 2 33, BMI: 34.4, Shoe size: 11 EW, Ht-cm: 175.26 cm, Wt-k.69 kg. * Examination: ???General Examination: ?GENERAL APPEARANCE:?Reveals a pleasant, alert, well nourished, well- developed, well hydrated individual, who demonstrates proper attention to hygiene/body habitus, and is in no acute distress, Pt serves as own historian for office visit today.?ORIENTED:?person, place, and time.?Vascular: ?DP PULSES:? 0/4, B/L.?PT PULSES:? 0/4, B/L.?CAPILLARY FILL TIME:? delayed, all digits, B/L.?SKIN TEMPERTURE GRADIENT OF THE LOWER EXTERMITIES:? decreased, cool to cool, proximal to distal, B/L.?HAIR GROWTH/TEXTURE/ELASTICITY/TURGOR:? decreased, B/L.?PIGMENTATION:?dusky , B/L.?EDEMA:?2/4 , B/L.?CLAUDICATION:?denies, B/L.?REST PAIN:?denies, B/L.?Nails: ?NAILS are:? Elongated, overgrown, dystrophic, lytic, greater than 3mm thick, discolored and friable with crumbly malodorous subungual debris, with pain on palpation, 1-5 B/L Florencio horn appearance.?Dermatologic: ?SKIN FINDINGS:?Skin exam reveals Keratotic lesion(s) located at , SUB MTH (s) 1, B/L, , Skin shows sign(s) of, dryness, scaling, in a stocking fashion, no fissure(s) present, B/L.?Orthopedic: ?MUSCLE STRENGTH:?5/5 all groups in a symmetrical fashion, B/L.?DIGITAL DEFORMITIES:?Digital contracture, PIPJ, 2-5 B/L, incompl-reducible with WB, or to push-up test, no over, nor underlapping.?Neurological: ?SENSORY:?Neurological exam demonstrates reduced sharp/dull pin prick discrimination reduced light touch sensation reduced vibration sensation reduced proprioception sensation in a stocking fashion 5.07 monofilament test performed at plantar aspects of 5 varied sites per foot shows sensation plantar aspects absent at Forefoot B/L.?Ingrown Nail: ?INSPECTION:?Reveals nail incurvation, pain on palpation, groove hypertrophy , Bilateral nail borders , TA , T6 , There is evidence of surrounding periungual tissue erythema.? Assessment: * Assessment: 1.?Tinea unguium - B35.1?2.? 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 Start Ammonium Lactate Cream, 12 %, 1 application, Externally, Twice a day, 30 days, 60, Refills 2.?? 4.?Ingrown nail?Procedure: 66520-Deebriel Plate ?Procedure: 40697-Xharvyoc Plate Each Additional * Procedures:?Debride Nail 6-10:?Nail debridement?Nail debridement performed extensively to reduce/remove overall nail length, girth, thickness, subungual debris, and necrotic tissue, by manual and electrical means through the use of a nail nipper and/or dremel, to more viable healthy nail plate or bed tissue 6-10. Silver nitrate used for any petechial bleeding as necessary. Patient chooses, no pharmaceutical tx (59068) , Nail debridement performed extensively to reduce/remove overall nail length, girth, thickness, subungual debris, and necrotic tissue, by manual and electrical means through the use of a nail nipper and/or dremel, to more viable healthy nail plate or bed tissue 6-10. Silver nitrate used for any petechial bleeding as necessary. Patient chooses, no pharmaceutical tx (35234).?Keratoma Treatment:?Parring or Cutting of Benign Hyperkeratotic Lesion(s)?99992 ( 2-4 Lesions ) - The Benign hyperkeratotic lesions, as described above were pared, and/or cut utilizing a sterile 15 blade, tissue nippers, and/or dremel.?Nail Avulsion:?Location?Bilateral nail border , TA , T5.?Anesthesia?was deferred - NEUROPATHY: patient has medically documented neuropathic condition affecting sensation.?Procedure?A fine sterile elevator was placed between the eponychium, nail fold, and nail plate to separate the the structures. A sterile nail splitter, and/or sterile 316 blade, was then used to longitudinally section the nail along its entire length through the eponychium to the area under the nail fold. The offending portion of nail was from the nail bed with a rolling action and then removed with a hemostat. No underlying bone was identified. There was minimal bleeding as hemostasis was achieved through the temporary use of either a digital tournaquet or the aforementioned local with epinephrine. A bacitracin sterile dressing was applied. Local wound aftercare instructions were discussed and dispensed. The patient was informed of both conservative and future surgical procedures to prevent recurrence. Tylenol or Motrin was recommended for pain or discomfort (23930/2) , CIRCULATION: Pt was advised as to the risk of delayed or nonhealing due to circulation. Pt is to call the office with any questions, concerns, or complications.? * Procedure Codes:?02683 DEBRI DE NAIL, 6 OR MORE, Modifiers: XS 64576 Avulsion Plate, Modifiers: T6 41765 Avulsion Plate Each Additional, [place]: [place] [address] TRIM SKIN LESIONS, 2 TO 4, Modifiers: Q8 * Preventive Medicine:? ??Counseling:?Discussion:?-03: Office or other outpatient visit for the evaluation and management of a new patient, which required a medically appropriate history and/or examination and LOW level of DECISION MAKING for: 1 STABLE ACUTE UNCOMPLICATED PROBLEM, 2 OR MORE MINOR PROBLEMS, OR 1 STABLE CHRONIC PROBLEM, THAT POSE(S) A LOW RISK FOR MORBIDITY/MORTALITY. The visit on the day of the encounter encompassed interpreting the data and educating the patient as to the nature of their condition, treatment options available according to their individual PMH, meds, allergies, and overall health/living conditions, as well as any potential risks or complications that may occur from a failure to adhere to, and participate in, the recommended course of therapy. The discussion included a complete verbal, and/or written explanation of the examination results, any x-rays taken, the proposed diagnosis, and outline of the treatment plan. A schedule for future care needs was also explained. The patient verbalized an understanding of the instructions at this time and agreed to be an active participant in their treatment. If the patient should think of any questions or concerns after the visit, I have encouraged the patient to call the office.?Neuritis/Neuropathy:?The patient was counseled on the diagnosis, possible etiologies (including mechanical stress, injury, entrapment, chemotherapy, diabetes, vertebral disk herniation if hx), treatment options, and importance for adherence to recommendations in order to address the patients Neuritis/Neuropathy. The advantages and disadvantages re: Accomidative mechanical support/offloading, Topical vs PO analgesics including aspercream/Voltaren gel/Lidoderm patches/Neurontin/Lyrica along with their potential side effects were discussed with the patient to their satisfaction. Also discussed the use of therapeutic injectable cortisone if needed. Surgical treatment, if considered an option, was discussed as well. If surgery is warranted, we discussed the potential successful outcomes as well as the possible complications such as failure, painful scar, permanent tingling/numbness/neuralgea/or intractable pain. Patient questions re: medication use, dosage, and possible side effects and drug interactions were reviewed and the answers to each understood. If the condition worsens, the patient was instructed to contact the office for an appointment. The patient verbally confirmed a full understanding of the above.?Xerosis:?The patient was counseled on the diagnosis, potential etiologies, and treatment options for their skin condition. We discussed the risks and benefits of each option from performing no treatment, to utilizing OTC topical skin creams/ointments, to utilizing prescription topical creams/ointments, to utilizing customized compounded topical medications and use of nocturnal occlusion with any/all previously detailed therapies. We discussed the advantages and disadvantages of each possible treatment and importance for adherence to all the recommended therapies for optimum success and avoid potential complications such as open sore/infection/possible hospitalization. We discussed the potential effectiveness of each topical preparation as well as each ones possible side effects and/or patient medication interactions. Patient questions re: use, dosage, successful outcomes, and application consistency were reviewed and the patient verbalized that all answers were clearly understood. Pt , DEFERS rx.? * Follow Up:?2 Weeks,3 Months * Images: * Sign off status: Completed true * Provider:?Melanie Forde DPM Date:?2023 Generated for [place]/Julio/Juani on:?07/10/2024 08:55 AM EST History and Physical Notes * HPI (History of Present Illness) Category Sub-Category Detail Notes Category Not es Painful Nails Pt States Last PCP Visit: Date:: 02/06/2024 Skin problems Nature: dryness , scaling Location: B/L Duration: several days Course: worse At Risk footcare Pt States Last PCP Visit: Date: Foot Pain Nature: numbness , burning Location: B/L Duration: , several years Examination Category Sub-Category Detail Notes Category Not es Ingrown Nail INSPECTION: Reveals nail inc urvation, pain on palpation, groove hypertrophy , Bilateral nail borders , TA , T6 , There is evidence of surrounding periungual tissue erythema Neurological SENSORY: Neurological exa m demonstrates reduced sharp/dull pin prick discrimination reduced light touch sensation reduced vibration sensation reduced proprioception sensation in a stocking fashion 5.07 monofilament test performed at plantar aspects of 5 varied sites per foot shows sensation plantar aspects absent at Forefoot B/L Dermatologic SKIN FINDINGS: Skin exam reveal s Keratotic lesion(s) located at , SUB MTH (s) 1, B/L, , Skin shows sign(s) of, dryness, scaling, in a stocking fashion, no fissure(s) present, B/L Orthopedic DIGITAL DEFORMITIES: Digital con tracture, PIPJ, 2-5 B/L, incompl-reducible with WB, or to push-up test, no over, nor underlapping MUSCLE STRENGTH: 5/5 all groups in a symmetrical fashion, B/L General Examination GENERAL APPEARANCE: Reveals a pleasant, alert, well nourished, well-developed, well hydrated individual, who demonstrates proper attention to hygiene/body habitus, and is in no acute distress, Pt serves as own historian for office visit today ORIENTED: person, place, and t lobo Vascular DP PULSES (B): 0/4, B/L PT PULSES (B): 0/4, B/L CAPILLARY FILL TIME: delayed, all digits , B/L TEMPERTURE GRADIENT (C): decreased, cool to cool, proximal to distal, B/L TROPHIC CONDITION-TEXTURE/ELASTICITY/TURGOR/HAIR GROWTH (B): decreased, B/L EDEMA (C): 2/4 , B/L CLAUDICATION (C): denies, B/L REST PAIN: denies, B/L PIGMENTATION: dusky , B/L Nails NAILS are: Elongated, overg rown, dystrophic, lytic, greater than 3mm thick, discolored and friable with crumbly malodorous subungual debris, with pain on palpation, 1-5 B/L Florencio horn appearance
--- OUTSIDE RECORDS SUMMARY | 2024-07-10 08:55 | XMS_ITS ---
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 Name Role Phone Franco Juarez Primary Care Provider Unavailabl e Black, Melanie Unavailable [phone] Allergies Allergen (clinical drug ingredient) Drug/Non Drug Allergy documented on EMR Reaction Allergy Type Onset Date Status streptomycin Streptomycin Unknown Drug Allergy A ctive REASON FOR VISIT Skin Problem, At Risk Footcare, Emergency Appointment Medications Medication SIG (Take, Route, Frequency, Duration) Notes Start Date End Date Status Carvedilol Active Omeprazole Active Furosemide Active Medrol 4 MG as directed Orally D aily for 6 days 06/06/2024 Active Vitamin D3 Active Losartan Potassium 50 MG 2 tablets Once a day Active Ammonium Lactate 12 % 1 application Exte rnally Twice a day for 30 days Active Atorvastatin Calcium Active Gabapentin Active Finasteride Active Multivitamin Active Tylenol Active Vitamin B12 Active Social History Tobacco Use: Social History [...] Are you an other tobacco user? No Vital Signs Height 5 ft 9 in in 06/06/2024 Weight 233 lbs 06/06/2024 BMI 34.4 kg/m2 06/06/2024 Procedures Procedure Date Ordered Date Performed Result Body Sit e 97454-LXFISJG NAIL, 6 OR MORE 06/06/2024 N/A 77115-FUJB SKIN LESIONS, 2 TO 4 06/06/2024 N/A Encounters Encounter Location Date Provider Diagnosis [facility] [address] [place] [address] 06/06/2024 Melanie Forde Poison anish dermatiti s L23.7 ; Atherosclerosis of cocopah artery of both lower extremities, with unspecified presence of clinical manifestation I70.203 ; Tinea unguium B35.1 ; Pain in right toe(s) M79.674 ; Pain in left toe(s) M79.675 ; Polyneuropathy associated with underlying disease G63 ; Dermatitis L30.9 and Pruritus L29.9 Assessments Encounter Date Diagnosis (ICD Code) Assessment Notes Treatment Notes Treatment Clinical Notes Section Notes 06/06/2024 Poison anish dermatitis (ICD-10 - L23.7) 06/06/2024 Atherosclerosis of cocopah artery of both lower extremities, with unspecified presence of clinical manifestation (ICD-10 - I70.203) 06/06/2024 Tinea unguium (ICD-10 - B35.1) 06/06/2024 Pain in right toe(s) (ICD-10 - M79.674) 06/06/2024 Pain in left toe(s) (ICD-10 - M79.675) 06/06/2024 Polyneuropathy associated with underlying disease (ICD-10 - G63) 06/06/2024 Dermatitis (ICD-10 - L30.9) 06/06/2024 Pruritus (ICD-10 - L29.9) Plan Of Treatment Medication Medication Name Sig Start Date Stop Date Notes Medrol 4 MG as directed Orally Daily for 6 days 06/06/2024 Pending Test Test Name Order Date [id number]-[id number] NAIL, 6 OR MORE 06/06/2024 44192-SVHD SKIN LESIONS, 2 TO 4 06/06/20 24 Next Appt Details Follow Up: 2 Weeks, Reason: Provider Name:Melanie Forde , 08/29/2024 12:45:00 PM, [address], [place], [address], Procedure Notes * Category Sub-Category Detail Notes Debride Nail 6-10 Nail debridement Performance o f this nail treatment by a nonprofessional would put this patients foot and overall health at risk. Therefore, debridement to affected nail(s), as described in exam, was performed extensively to reduce/remove overall nail length, girth, thickness, subungual debris, and necrotic tissue, by manual and/or electrical means through the use of a nail nipper and/or dremel-type grinder machine knife setter, to a more viable healthy nail plate or bed tissue 6-10. Silver nitrate used for any petechial bleeding as necessary. Definitive antifungal treatment options have been reviewed and discussed with the patient. The patient chooses, no pharmaceutical tx - 39829 Keratoma Treatment Parring or Cutting o f Benign Hyperkeratotic Lesion(s) 08945 ( 2-4 Lesions ) - The Benign hyperkeratotic lesions, as described above were pared, and/or cut utilizing a sterile 15 blade, tissue nippers, and/or dremel Progress Notes * Wilmer GARCIAOB:1945 (78 yo M)Acc No.[id number]:06/06/2024 Progress Note Patient:?JOSEPavan Provider:?Melanie Forde DPM :1945???Age:78 Y???Sex:Male Claus e:06/06/2024 Address[address] Pcp:Franco Juarez Subjective: * Chief Complaints: * ???Skin ProblemAt Risk Footc areEmergency Appointment * HPI: ???At Risk footcare:?Pt States Last PCP Visit:?Date?02/06/2024 ???Skin problems:?Nature:?itching, rash.?Location:?left foot leg and upper thigh left, small amount right ankle.?Duration:?, a week.?Course:?worse.?Treatments:?Pt was seen at Urgent care today and was given an antibiotic for ? Cellulitis. Questioned pt regarding yard work and if he was around any poison anish or poison sumac and pr relates yes around the time that this started however he felt it was all .? * ROS:?General/Constitutional:?Nausea?denies.?Vomiting?denies.?Hunger Thirst?denies.?Loss appetite?denies.?Chills?denies.?Fatigue?denies.?Fever?denies.?Night Sweats?denies.?Unexplained weight loss?denies.?Unexplained weight gain?denies.?HEENTM:?Dentures?denies.?Dizziness?denies.?Glasses/contacts?admits.?Retinopathy?de nies.?Blurred/double vision?denies.?TMJ?denies.?Discharge/drainage?denies.?Implants?denies.?Sore throat?denies.?Dental implants?denies.?Hard of hearing ?denies.?Difficulty chewing/swallowing/speaking?denies.?Nose bleeds?denies.?Sore mouth?denies.?Respiratory:?On Oxygen?denies.?Pneumonia/pleurisy?denies.?Bronchitis?denies.?Emphysema?denies.?C oughing?denies.?Cough blood?denies.?Shortness of breath?admits.?Wheezing?denies.?Cardiovascular:?Pacemaker?denies.?MVP?denies.?WPW?denies.?CHF?denies.?Heart attack?admits.?Septal defect?denies.?Rapid beat?denies.?Chest pain ?denies.?Atrial Fib.?admits.?Murmur/Palpitations?denies.?Gastrointestinal:?Hemorrhoids?admits.?Stomach/Abdominal pain?denies.?Dark blood stool?admits.?Irritable bowel ?denies.?Constipation?denies.?Diarrhea?denies.?Hematology:?Swelling?denies.?Clots?denies.?Varicose Veins?denies.?Bruising?denies.?Bleeding problem?denies.?Genitourinary:?Blood urine?denies.?Frequent/Painfu/urination/bladder control?denies.?Kidney stones?denies.?Infection (UTI)?denies.?Nephropathy?denies.?sex trans dis (STD)?denies.?Prostate?denies.?Musculoskeletal:?Hammertoes?denies.?Bunions?denies.?Back Pain?denies.?Muscle Cramps/ Resting?denies.?Muscle cramps / walking?denies.?Generalized aches and pains?denies.?Weakness?denies.?Integ.:?Jean Baptiste?denies.?Scars?admits.?Corns/calluses?denies.?Ingrown nails?denies.?Painful nails?admits.?Open Sores?denies.?Rashes?admits.?Neurologic:?Difficulty sleeping?admits.?Brain disorder?denies.?Numbness?denies.?Balance trouble?denies.?Confusion?denies.?Fainting/blackouts?denies.?Tingling?denies.?Tr emors?denies.? * Medical History:? * Surgical History:?Laparoscop ic resection of right colon partial removal total hip replacement, right 08/2022 * Hospitalization/Major Diagno stic Procedure:?Urgent Care- cellulitis 06/06/24 * Family History:?Mother: diag nosed with Unspecified essential hypertension.?Father: diagnosed with Diabetic - NIDDM, Unspecified essential hypertension, Unspecified heart disease, Family history of arthritis.? * Social History:?Tobacco Use:?Tobacco Use/Smoking?Are you a:?former [...] day. ?Children: yes, 1. ?Marital status: . ?Occupation: Retired. * Medications:?TakingLosartan Potassium 50 MG Tablet 2 tablets Once a day Gabapentin Atorvastatin Calcium Finasteride Carvedilol Furosemide Omeprazole Vitamin D3 Vitamin B12 Multivitamin Tylenol Ammonium Lactate 12 % Cream 1 application Externally Twice a day Medication List reviewed and reconciled with the patientTaking Losartan Potassium 50 MG Tablet 2 tablets Once a day Taking Gabapentin Taking Atorvastatin Calcium Taking Finasteride Taking Carvedilol Taking Furosemide Taking Omeprazole Taking Vitamin D3 Taking Vitamin B12 Taking Multivitamin Taking Tylenol Taking Ammonium Lactate 12 % Cream 1 application Externally Twice a day Medication List reviewed and reconciled with the patient * Allergies:?Streptomycinyes[A llergies Verified] Objective: * Vitals:?Ht: 5 ft 9 in, Wt: 2 33, BMI: 34.4, Shoe size: 11 extra wide, Ht-cm: 175.26 cm, Wt-k.69 kg. * Examination: ???General Examination: ?GENERAL APPEARANCE:?Reveals a pleasant, alert, well nourished, well- developed, well hydrated individual, who demonstrates proper attention to hygiene/body habitus, and is in no acute distress, Pt serves as own historian for office visit today.?ORIENTED:?person, place, and time.?Vascular: ?DP PULSES(B):? 0/4, B/L.?PT PULSES(B):? 0/4, B/L.?CAPILLARY FILL TIME:? delayed, all digits, B/L.?TROPHIC CONDITION-TEXTURE/ELASTICITY/TURGOR/HAIR GROWTH(B):? decreased, B/L.?TEMPERTURE GRADIENT(C):? decreased, cool to cool, proximal to distal, B/L.?PIGMENTATION:?dusky , B/L.?EDEMA(C):?2/4 , B/L.?CLAUDICATION(C):?denies, B/L.?REST PAIN:?denies, B/L.?Nails: ?NAILS are:? Elongated, overgrown, dystrophic, lytic, greater than 3mm thick, discolored and friable with crumbly malodorous subungual debris, with pain on palpation, 1-5 B/L?.?Dermatologic: ?SKIN FINDINGS:?Skin exam reveals Keratotic lesion(s) located at, SUB MTH (s) 1, B/L,, skin shows red patchy rash with small fluid -filled blisters with pruritus left foot lower leg extending into upper thigh, right medial ankle.?Orthopedic: ?MUSCLE STRENGTH:?5/5 all groups in a symmetrical [...] shows sensation plantar aspects absent at Forefoot B/L.? Assessment: * Assessment: 1.?Poison anish dermatitis - L 23.7 (Primary)???2.?Atherosclerosis of cocopah artery of both lower extremities, with unspecified presence of clinical manifestation - I70.203???3.?Tinea unguium - B35.1???4.?Pain in right toe(s) - M79.674 ??5.?Pain in left toe(s) - M79.675???6.?Polyneuropathy associated with underlying disease - G63???7.?Dermatitis - L30.9???8.?Pruritus - L29.9??? Plan: * Treatment: 2.?Atherosclerosis of cocopah artery of both lower extremities, with unspecified presence of clinical manifestation?Procedure: 97885-DATJ SKIN LESIONS, 2 TO 4 3.?Tinea unguium?Procedure: 60565-[id number] NAIL, 6 OR MORE * Procedures:?Debride Nail 6-10:?Nail debridement?Performance of this nail treatment by a nonprofessional would put this patients foot and overall health at risk. Therefore, debridement to affected nail(s), as described in exam, was performed extensively to reduce/remove overall nail length, girth, thickness, subungual debris, and necrotic tissue, by manual and/or electrical means through the use of a nail nipper and/or dremel-type grinder machine knife setter, to a more viable healthy nail plate or bed tissue 6-10. Silver nitrate used for any petechial bleeding as necessary. Definitive antifungal treatment options have been reviewed and discussed with the patient. The patient chooses, no pharmaceutical tx - 44191.?Keratoma Treatment:?Parring or Cutting of Benign Hyperkeratotic Lesion(s)?71869 ( 2-4 Lesions ) - The Benign hyperkeratotic lesions, as described above were pared, and/or cut utilizing a sterile 15 blade, tissue nippers, and/or dremel.? * Procedure Codes:?15037 DEBRI DE NAIL, 6 OR MORE, Modifiers: XS 64619 TRIM SKIN LESIONS, 2 TO 4, Modifiers: Q8 * Preventive Medicine:? ??Counseling:?Discussion:?-14: Office or other outpatient visit for the evaluation and management of an established patient, which required a medically appropriate history and/or examination and MODERATE level of DECISION MAKING for: 1 OR MORE CHRONIC PROBLEM(S) THATS WORSENING, 2 STABLE CHRONIC PROBLEMS, A NEWLY DIAGNOSED PROBLEM WITH UNCERTAIN PROGNOSIS, AN ACUTE COMPLICATED INJURY WITH MULTIPLE TREATMENT OPTIONS, OR AN ACUTE PROBLEM WITH ACCOMPANYING SYSTEMIC SYMPTOMS, THAT POSE(S) A MODERATE RISK OF MORBIDITY. THIS CONDITION MAY ALSO INCLUDE RX DRUG MANAGEMENT, OR A DECISON FOR MINOR SURGERY. The visit on the day of the [...] have encouraged the patient to call the office.?Dermatitis:?The patient was counseled on the diagnosis, potential [...] verbalized that all answers were clearly understood. The patient has decided to take an oral steriod due the intebse itch. Such was sent to their pharmacy at the time of visit. Also recomm poison anish soap to help dry out the blisters. Discussed with the PT if he does not see improvement next week to call the office for a Rx of prednisone.? ??Screening/Special Tests:?Fall Risk?Assessment:?Performed ?Screening:?No falls in the past year ?FALLS: Screening for Future Fall Risk?Have you had two or more falls in the past year??No ?Have you had any falls with injury in the past year??No ???RECOMM. PT DO NO MORE YARD WORK AT THIS TIME. * Follow Up:?2 Weeks * Images: * Sign off status: Completed true * Provider:?Melanie Forde DPM Date:?2023 Generated for [place]/Julio/eTransmitting on:?07/10/2024 08:55 AM EST History and Physical Notes * HPI (History of Present Illness) Category Sub-Category Detail Notes Category Not es Skin problems Nature: itching, rash Location: left foot leg and up per thigh left, small amount right ankle Duration: , a week Course: worse Treatments: Pt was seen at [facility] today and was given an antibiotic for ? Cellulitis. Questioned pt regarding yard work and if he was around any poison anish or poison sumac and pr relates yes around the time that this started however he felt it was all At Risk footcare Pt States Last PCP Visit: Date: 4 Examination Category Sub-Category Detail Notes Category Not es Neurological SENSORY: Neurological exa m demonstrates reduced sharp/dull pin prick discrimination reduced light touch sensation reduced vibration sensation reduced proprioception sensation in a stocking fashion 5.07 monofilament test performed at plantar aspects of 5 varied sites per foot shows sensation plantar aspects absent at Forefoot B/L Dermatologic SKIN FINDINGS: Skin exam reveal s Keratotic lesion(s) located at, SUB MTH (s) 1, B/L,, skin shows red patchy rash with small fluid -filled blisters with pruritus left foot lower leg extending into upper thigh, right medial ankle Orthopedic DIGITAL DEFORMITIES: Digital con tracture, PIPJ, [...]
--- OUTSIDE RECORDS SUMMARY | 2024-07-10 08:56 | XMS_ITS | Patient Health Record ---
Author Organization [facility] Address [address] [place] [address] Care Team Providers Care Routing Clerk Name Role Phone Po Franco GREER Primary Care Provider Mckinley Aguilar [phone] ALLERGIES Allergen (clinical drug ingredient) Drug/Non Drug Allergy documented on EMR Reaction Allergy Type Onset Date Status streptomycin Streptomycin Sulfate Unknown Drug Allergy Active RESULTS Component Value Reference Range Notes Complete Blood Count Auto Di ff Reviewed date:09/06/2023 07:02:14 PM Interpretation: Performing Lab:[facility], [address] [place] [id number] Notes/Report: White Blood Count 10.6 4.8-10.8 X10*3/uL Red Blood Count 2.82 4.60-5.80 X10*6/uL Hemoglobin 9.2 14.0-18.0 g/dl Hematocrit 26.8 42.0-52.0 % Mean Corpuscular Volume 95.0 80.0-98.0 fL Mean Corpuscular Hemoglobin 32.6 27.0-33.0 pg Mean Corpuscular HGB Conc 34.3 31.0-36.0 g/dl Red Cell Distribution Width 16.8 11.0-16.0 % Platelet Count 189 160-400 X10*3/uL Mean Platelet Volume 10.0 9.4-12.4 fL Neutrophils Percent Auto 75.5 45-73 % Imm Gran Pct Auto 4.1 0.0-0.4 % Lymphocytes Percent Auto 8.3 20-40 % Monocytes Percent Auto 9.9 2-11 % Eosinophils Percent Auto 1.7 0-4 % Basophils Percent Auto 0.5 0-2 % NRBC Pct Auto 0.3 0.0-0.2 /100WBC Neutrophils Absolute Auto 8.0 2.0-8.3 x10*3/u L Imm Gran Abs Auto 0.44 0.00-0.03 X10*3/uL Lymphocytes Absolute Auto 0.9 1.2-4.9 X10*3/u L Monocytes Absolute Auto 1.1 0.1-1.2 X10*3/uL Eosinophils Absolute Auto 0.2 0.0-0.4 X10*3/u L Basophils Absolute Auto 0.1 0.0-0.2 X10*3/uL NRBC Abs Auto 0.030 0.0-0.012 X10*3/uL Prothrombin Time INR Reviewed date:09/06/2023 08:49:36 AM Interpretation: Performing Lab:[address] [phone] Notes/Report: Prothrombin Time 12.7 11.1-13.3 SEC INTERNATIONAL NORM RATIO 1.0 0.9-1.1 INTERNATIONAL NORMALIZED RATIO (INR) REFERENCE RANGES Reference Range For patients not on anticoagulant therapy: 0.9 - 1.1 INR ranges for oral anticoagulant therapy: For prevention and treatment of venous thrombosis and pulmonary embolism: 2.0 - 3.0 For acute myocardial infarction with aspirin therapy: 2.0 - 3.0 For acute myocardial infarction without aspirin therapy: 3.0 - 4.0 For patients with mechanical prosthetic heart valves: 2.5 - 3.5 Pathology Reviewed date:09/11/2023 06:06:30 PM Interpretation: Performing Lab:[address] [phone] Notes/Report: Basic Metabolic Panel Fastin g Reviewed date:09/08/2023 05:47:45 PM Interpretation: Performing Lab:[address] [phone] Notes/Report: Sodium 138 135-145 mmol/L Potassium 3.6 3.3-5.1 mmol/L Chloride 104 96-108 mmol/L Carbon Dioxide 28 22-29 mmol/L Anion Gap 10 12-20 Blood Urea Nitrogen 20 9-16 mg/dL Creatinine 0.82 0.5-1.4 mg/dL Creatinine Clr Calc Pharmacy 93.1 eGFR (calculated from the MDRD study equation) and eCrCl (calculated from the Cockcroft-Gault equation) are based on different parameters and may not yield comparable results. If eCrCl result is absurd, please check patient's height/weight. Estimated Glomerular Filt Rate > 60 NOTE: For -[place] individuals, multiply the result by 1.210. Chronic Kidney Disease: Estimated GFR < 60 mL/min/1.73m2 Severe Kidney Disease: Estimated GFR < 15 mL/min/1.73m2 Glucose Fasting 99 60-99 mg/dL Calcium 8.0 8.4-10.2 mg/dL REASON FOR REFERRAL No Information MEDICATIONS Medication SIG (Take, Route, Frequency, Duration) Notes Start Date End Date Status Omeprazole 40 MG 1 orally Every morning for 90 days 11/13/2023 Active Losartan Potassium 50 MG Oral for 90 Active Furosemide 20 MG TAKE 1 TABLET BY MOUTH ONCE DAILY Oral for 30 L603,Unavailabl e Active Carvedilol 25 MG 1 Orally BID Active Multi Vitamin/Minerals - Orally Active Atorvastatin Calcium 80 MG 1 tablet Orally Once a day Active Finasteride 5 MG 1 tablet Orally Once a day Active Gabapentin 300 MG TAKE 1 CAPSULE BY MOUTH AT BEDTIME Oral for 90 I739,Unavailabl e Active Vitamin C 500 MG 1 tablet Orally Once a day for 30 day(s) Active SV Iron 325 (65 Fe) MG TAKE 1 TABLET BY MOUTH ONCE DAILY Oral for 30 Active Omeprazole 40 MG 1 Orally Every morning 10/04/2023 Active SOCIAL HISTORY Tobacco Use: Social History [...] ast year? No Points 0 Interpretation Negative PROBLEMS Problem Type ICD Code Onset Dates Problem Status W/U Status Risk SNOMED Code Notes Problem Encounter for screening for malignant neoplasm of colon (Z12.11) Active confirmed 067155849 Problem History of adenomatous polyp of colon (Z86.010) Active confirmed 978688775 Problem Acute posthemorrhagic anemia (D62) Active confirmed Acute posthemorrhagic anemia (498547492) Problem Barretts esophagus without dysplasia (K22.70) Active confirmed 757674272 Problem Gastroesophageal reflux disease, esophagitis presence not specified (K21.9) Active confirmed 792656472 Problem Long-term use of aspirin therapy (Z79.82) Active confirmed 845198357 Problem Erosive esophagitis (K22.10) Active confirmed 33630845 Problem Gastritis (K29.70) Active confirmed Gas tritis (5117386) Problem Duodenal bulb ulcer (K26.9) Active confirmed Duodenal ulcer without hemorrhage, without perforation AND without obstruction (16918371) Problem Esophageal dysphagia (R13.14) Active confirmed 28775448 Problem 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) Active confirmed 656380791 VITAL SIGNS Blood pressure diastolic 00 mm Hg 05/15/2024 Height 69 in 05/15/2024 Blood pressure systolic 00 mm Hg 05/15/2024 Weight 230 lbs 05/15/2024 BMI 33.96 kg/m2 05/15/2024 Encounters Encounter Location Date Provider Diagnosis [facility] Inpatient [address] [place] [id number] 09/06/2023 Mckinley Franco [facility] [address] [place] [address] 05/15/2024 Mckinley Franco Gastroesophageal ref lux disease, esophagitis presence not specified K21.9 ; Duodenal bulb ulcer K26.9 ; Encounter for screening for malignant neoplasm of colon Z12.11 ; Barretts esophagus without dysplasia K22.70 ; Erosive esophagitis K22.10 and Villous adenoma of colon D37.4 [facility] [address] [address] 11/13/2023 Mckinley Franco Acute duodenal ulcer with hemorrhage K26.0 ; Encounter for screening for malignant neoplasm of colon Z12.11 ; Erosive esophagitis K22.10 ; Barretts esophagus without dysplasia K22.70 and Villous adenoma of colon D37.4 [facility] [address] [place] [address] 09/09/2023 Mckinley Franco Acute posthemorrhagi c anemia D62 [facility] [address] [address] 10/01/2023 Mckinley Franco ASSESSMENTS Encounter Date Diagnosis Assessment Notes Treatment Notes Treatment Clinical Notes 05/15/2024 Gastroesophageal reflux disease, esophagitis presence not specified (ICD-10 - K21.9) 05/15/2024 Duodenal bulb ulcer (ICD-10 - K26.9) 11/13/2023 Encounter for screening for malignant neoplasm of colon (ICD-10 - Z12.11) 11/13/2023 Acute duodenal ulcer with hemorrhage (ICD-10 - K26.0) Continue the omeprazole daily and care home for the ulcer and reflux with esophagitis 09/09/2023 Acute posthemorrhagi c anemia (ICD-10 - D62) 05/15/2024 Encounter for screening for malignant neoplasm of colon (ICD-10 - Z12.11) 11/13/2023 Erosive esophagitis (ICD-10 - K22.10) 05/15/2024 Barretts esophagus without dysplasia (ICD-10 - K22.70) 11/13/2023 Barretts esophagus without dysplasia (ICD-10 - K22.70) 05/15/2024 Erosive esophagitis (ICD-10 - K22.10) 11/13/2023 Villous adenoma of colon (ICD-10 - D37.4) We will want to eventually repeat the colonoscopy. But first you need to see Dr. Juarez and your coal shooter regarding the breathing and leg edema. 05/15/2024 Villous adenoma of colon (ICD-10 - D37.4) We will try to schedule a colonoscopy and upper endoscopy when I see you in the spring. PLAN OF TREATMENT Pending Test Test Name Order Date BUN 06/27/2017 CREATININE 06/27/2017 LIVER PROFILE 06/27/2017 IRON + IBC (FE) 09/09/2023 CEA 06/27/2017 CBC w DIFF 06/27/2017 CBC w DIFF 09/09/2023 Ferritin 09/09/2023 Future Test Test Name Order Date UPPER GI ENDOSCOPY BALLOOON DILATION OF ESOPH 03/28/2017 COLONOSCOPY 03/28/2017 UPPER GI ENDOSCOPY BALLOOON DILATION OF ESOPH 10/09/2017 Next Appt Details Provider Name:Mckinley Franco , 11/20/2024 09:20:00 AM, [address], [address], [place], [address], Insurance Providers Payer Name Payer Address Payer Phone Subscriber Number Group Number Insured Name Patient Relationship to Insured Coverage Start Date Coverage End Date [facility] [address] [address] [place] [address] [id number] SALLY GARCIA Self - patient is the insured MEDICAL (GENERAL) HISTORY Medical History History ICD Code HI 2013--4 stents placed Hypertension Bladder cancer--treated with BCG via cys toscopy--Dr. 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 He was on NSAIDs prior to his hip replacement. He was switched to high-dose aspirin and subsequent Lovenox after the hip surgery. His upper endoscopy at that time revealed a large duodenal bulb ulcer but without active bleeding. Gastric biopsies were negative for H. pylori. There was no evidence of any esophagitis at that time. He did require 2 units of blood during that hospitalization. Also noted on the endoscopy was a moderate size hiatal hernia and some mild erosive gastritis. Surgical History Surgery Date(Month/Year) Surgery for wounds in the [place]--c hest and leg Right ileocolect[place] [address] 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 moore n 08/28/2023
--- OUTSIDE RECORDS SUMMARY | 2024-07-10 08:56 | XMS_ITS ---
Author Organization [facility] Address [address] [place] [address] Care Team Providers Care Mechanical Commissioning Engineer Name Role Phone Franco Juarez MD Primary Care Provider Unavailabl e Mckinley Franco Unavailable [phone] ALLERGIES Allergen (clinical drug ingredient) Drug/Non Drug Allergy documented on EMR Reaction Allergy Type Onset Date Status streptomycin Streptomycin Sulfate Unknown Drug Allergy Active REASON FOR VISIT patient presents today for gerd,thompson's MEDICATIONS Medication SIG (Take, Route, Frequency, Duration) [...] Once a day for 30 day(s) Active SOCIAL HISTORY Tobacco Use: Social History [...] Points 0 Interpretation Negative VITAL SIGNS BMI 34.40 kg/m2 11/13/2023 Blood pressure systolic 00 mm Hg 11/13/19 24 Blood pressure diastolic 00 mm Hg 024 Height 69 in 11/13/2023 Weight 233 lbs 11/13/2023 Encounters Encounter Location Date Provider Diagnosis [facility] [address] [place] [address] 11/13/2023 Mckinley Franco Acute duodenal ulcer with hemorrhage K26.0 ; Encounter for screening for malignant neoplasm of colon Z12.11 ; Erosive esophagitis K22.10 ; Barretts esophagus without dysplasia K22.70 and Villous adenoma of colon D37.4 ASSESSMENTS Encounter Date Diagnosis Assessment Notes Treatment Notes Treatment Clinical Notes 11/13/2023 Acute duodenal ulcer with hemorrhage (ICD-10 - K26.0) Continue the omeprazole daily and care home for the ulcer and reflux with esophagitis 11/13/2023 Encounter for screening for malignant neoplasm of colon (ICD-10 - Z12.11) 11/13/2023 Erosive esophagitis (ICD-10 - K22.10) 11/13/2023 Barretts esophagus without dysplasia (ICD-10 - K22.70) 11/13/2023 Villous adenoma of colon (ICD-10 - D37.4) We will want to eventually repeat the colonoscopy. But first you need to see Dr. Juarez and your vending enterprises supervisor regarding the breathing and leg edema. PLAN OF TREATMENT Medication Medication Name Sig Start Date Stop Date Notes Omeprazole 40 MG 1 orally Every morning for 90 days 2023 Treatment Notes Assessment Notes Acute duodenal ulcer with hemorrhage Con tinue the omeprazole daily and care home for the ulcer and reflux with esophagitis Villous adenoma of colon We will want to eventually repeat the colonoscopy. But first you need to see Dr. Juarez and your vending enterprises supervisor regarding the breathing and leg edema. Next Appt Details Follow Up: 2023, Reaso n: Provider Name:Mckinley Franco , 11/20/2024 09:20:00 AM, [address], [address], [place], [address], Progress Notes * Examination Category Sub-Category Detail [...]
--- OUTSIDE RECORDS SUMMARY | 2024-07-10 08:56 | XMS_ITS ---
Author Organization [facility] Address [address] [place] [address] Care Team Providers Care Real Estate Branch Manager Name Role Phone Franco Juarez MD Primary Care Provider Mckinley Aguilar [phone] REASON FOR VISIT after procedure MEDICATIONS Medication SIG (Take, Route, Fr equency, Duration) Notes Start Date End Date Status Omeprazole 40 MG 1 Orally Every morni ng for 30 day(s) 10/04/2023 Active Encounters Encounter Location Date Provider Diagnosis [facility] [address] [place] [address] 10/01/2023 Mckinley Franco PLAN OF TREATMENT Medication Medication Name Sig Start Date Stop Date Notes Omeprazole 40 MG 1 Orally Every morning for 30 day(s) 09/20 Next Appt Details Provider Name:Mckinley Franco , 11/20/2024 09:20:00 AM, [address] [place] [address], [address], [place], [address],
--- OUTSIDE RECORDS SUMMARY | 2024-07-10 08:56 | XMS_ITS | Continuity of Care Document ---
Author Name [facility] Organization [facility] Care Team Providers Care Orthopedic Physician Name Role Phone [facility] Unavailable Unavailable Immunizations Combined list of available immunizations from the Department of Defense and Veterans Affairs facilities. Immunization Series Date Given Administered By Site Reaction Lot Number CVX Code Drug C Software Engineer Status Comments Source COVID-19 (PFIZER), MRNA, LNP-S, PF, 30 MCG/0.3 ML DOSE 2 2020 208 complet ed PFR; [id number]; 1 [facility] COVID-19 (PFIZER), MRNA, LNP-S, PF, 30 MCG/0.3 ML DOSE 1 2020 208 complet ed PFR; [id number]; 1 [facility]
[2024-07-10 11:15] LABS: MANUAL DIFF FLAG NO
[2024-07-10 11:29] LABS: Basophils Absolute Auto 0.1 X10*3/uL (0.0-0.2); Basophils Percent Auto 0.9 % (0-2); Eosinophils Absolute Auto 0.4 X10*3/uL (0.0-0.4); Eosinophils Percent Auto 6.4 % (0-4); Hematocrit 46.9 % (42.0-52.0); Hemoglobin 16.1 g/dl (14.0-18.0); Imm Gran Abs Auto 0.08 X10*3/uL (0.00-0.03); Imm Gran Pct Auto 1.2 % (0.0-0.4); Immature Retic Fraction 11.3 % (2.3-13.4); Lymphocytes Absolute Auto 1.2 X10*3/uL (1.2-4.9); Lymphocytes Percent Auto 18.3 % (20-40); Mean Corpuscular HGB Conc 34.3 g/dl (31.0-36.0); Mean Corpuscular Hemoglobin 30.9 pg (27.0-33.0); Mean Platelet Volume 12.2 fL (9.4-12.4); Monocytes Absolute Auto 0.7 X10*3/uL (0.1-1.2); Monocytes Percent Auto 10.9 % (2-11); Neutrophils Absolute Auto 4.2 x10*3/uL (2.0-8.3); Neutrophils Percent Auto 62.3 % (45-73); Platelet Count 159 X10*3/uL (160-400); Red Blood Count 5.21 X10*6/uL (4.60-5.80); Red Cell Distribution Width 14.7 % (11.0-16.0); Retic HGB Equivalent 35.4 pg (30.0-35.0); Reticulocyte Percent 1.6 % (0.5-1.8); Reticulocytes Absolute 0.083 X10*6/uL (0.026-0.095); White Blood Count 6.7 X10*3/uL (4.8-10.8)
[2024-07-10 11:42] LABS: B Type Natriuretic Peptide 190 pg/mL (<100)
[2024-07-10 11:49] LABS: Alanine Aminotransferase 28 U/L (0-40); Albumin Level 3.8 g/dL (3.5-5.0); Alkaline Phosphatase 103 U/L (39-117); Anion Gap 8 (12-20); Aspartate Amino Transferase 38 U/L (5-37); Blood Urea Nitrogen 21 mg/dL (9-16); Calcium 9.1 mg/dL (8.4-10.2); Carbon Dioxide 35 mmol/L (22-29); Chloride 102 mmol/L (96-108); Cholesterol 111 mg/dL (<200); Estimated Glomerular Filt Rate > 60; Glucose Random 119 mg/dL (60-115); HDL Cholesterol 38 mg/dL (>40); Iron 118 mcg/dL (45-160); LDL Cholesterol Calculated 55 mg/dL (<100); Percent Iron Saturation 48 % (15-50); Potassium 3.9 mmol/L (3.3-5.1); Sodium 141 mmol/L (135-145); Total Iron Binding Capacity 248 mcg/dL (228-428); Total Protein 7.2 g/dL (6.5-8.0); Triglycerides 90 mg/dL (<150); Unsaturated Iron Binding 130 ug/dL
[2024-07-10 12:08] LABS: Ferritin 232 ng/mL (20-250); Free T4 (Free Thyroxine) 1.06 ng/dL (0.71-1.85); Thyroid Stimulating Hormone 6.12 uIU/mL (0.32-4.0)
[2024-07-10 12:09] LABS: Folate 14.6 ng/mL (> or = 4.0); Vitamin B12 996 pg/mL (200-900)
== END 2024-07-10 08:40 | disposition home or self-care (01) ==
LOC: HO.WFDLDS 08:39
PROVIDERS: Visit Provider Internal Medicine
DX: D50.9 Iron deficiency anemia, unspecified (principal); I25.10 Atherosclerotic heart disease of native coronary artery without angina pectoris; E78.00 Pure hypercholesterolemia, unspecified
CPT/HCPCS: 36415; 80053; 80061; 82607; 82728; 82746; 83540; 83880; 84439; 84443; 85025; 85045

== ENCOUNTER 2024-08-20 08:15 | Outpatient (REF) | payer MEDICARE, SELFPAY ==
--- NOTE | 2024-08-20 08:18 | PFT_ITS ---
Flows: FEV1: 86 % of predicted at 2.40 L FVC: 95 % of predicted at 3.53 L FEV1/FVC: 68 % Bronchodilator response: Absent Volumes: Total lung capacity: 97 % of predicted at 6.43 L Residual volume: 105 % of predicted at 2.67 L Slow vital capacity: 96 % of predicted at 3.77 L Expiratory reserve volume: 38 % of predicted at 0.42 L Diffusion capacity: Normal Impression: Mild obstructive ventilatory defect with no bronchodilator response. Decreased expiratory reserve volume suggests extrathoracic restriction likely secondary to abdominal obesity. MTDD
== END 2024-08-20 08:16 | disposition home or self-care (01) ==
LOC: HO.RESP 08:15
PROVIDERS: PCP Internal Medicine; Visit Provider Internal Medicine
DX: R05.9 Cough, unspecified (principal)

== ENCOUNTER → 2024-08-20 08:18 | Outpatient (BNV) | payer MEDICARE, SELFPAY | PROVIDERS: PCP Internal Medicine; Visit Provider Internal Medicine Pulmonary Disease | DX: R05.9 Cough, unspecified (principal) | CPT/HCPCS: 94060; 94727; 94729 ==

== ENCOUNTER 2024-10-07 09:15 | Outpatient (AMB) | payer MEDICARE, SELFPAY ==
[2024-10-07 09:19] VITALS: BP 136/72; PULSE 53; O2SAT 97; BMI 39.1
--- NOTE | 2024-10-07 09:19 | MHC.PC.OV ---
Vital Signs 10/07/24 09:19 Height 5 ft 6 in Weight 242 lb BMI 39.1 BP 136/72 Blood Pressure Location Lt brachial Position Sitting Pulse 53 Pulse Source Pulse Oximeter Pulse Oximetry (%) 97 Oxygen Delivery Method Room Air Intake Visit Reasons: 3 month Allergies streptomycin [STREPTOMYCIN] Allergy (Severe, Verified 10/07/24 09:20) AFFECTED MY HEARING , anaphylaxis, affected hearing/nerves/etc, anxiety. Medication List - Last Reconciled 10/07/24 by Franco Juarez MD acetaminophen ER 1,300 mg PO DAILY aspirin (Adult Low Dose Aspirin) 81 mg PO DAILY atorvastatin 80 mg PO BEDTIME carvedilol 25 mg PO BID cholecalciferol (vitamin D3) 50 mcg PO DAILY gladys.stocking,knee,reg,smal (T.E.D. Anti-Embolism Stocking) As directed cyanocobalamin (vitamin B-12) ER (Vitamin B-12 ER) 2,500 mcg PO DAILY docusate sodium (Colace) 100 mg PO BID 90 days ferrous sulfate (FeroSul) 325 mg PO DAILY fexofenadine 180 mg PO DAILY finasteride 5 mg PO BEDTIME furosemide (Lasix) 20 mg PO DAILY gabapentin 100 mg PO BEDTIME losartan-hydrochlorothiazide 100-25 mg 1 tab PO DAILY multivitamin 1 tab PO DAILY omeprazole 40 mg PO DAILY Tobacco use date assessed: 10/07/24 Fall risk assessment: No Falls in past year Last assessed Fall Risk: 10/07/24 Dental Screening Dental Screen Date: 10/07/24 Did you have a dental visit in the last 12 months?: Yes Did you have a dental problem in the last 6 months where you did not have access to dental care?: No Was dental information given to patient?: Patient has dentist [facility] Medical History (Updated 07/07/24 @ 12:17 by Franco Juarez MD) Swelling of right lower extremity Duodenal ulcer Abnormal EKG Hypotension Acute electrocardiogram changes Osteoarthritis of right hip Atherosclerotic cardiovascular disease Post-nasal drip Recent bereavement Foreign body in left lower extremity COVID-19 virus infection Amebic dysentery Foreign body of left lower leg Left rotator cuff tear Barretts esophagus Osteoarthritis Peripheral neuropathy Anxiety and depression Colon cancer Impaired glucose tolerance BPH (benign prostatic hyperplasia) Urinary bladder cancer Obesity GERD (gastroesophageal reflux disease) Hypercholesterolemia Hypertension CAD (coronary artery disease) Surgical History Status post total hip replacement, right (~08/28/23) History of total right hip replacement H/O cardiac catheterization (~2013) Hx of colonoscopy History of partial colectomy History of bladder surgery History of carpal tunnel release Family History Father Heart failure Mother Thyroid disorder Sister Lung cancer Daughter Alcoholism Social History Household Members: Family Housing: House Are you a primary ocular care technician to a significant other at home: No Do you presently have visiting nurse or other home services: Yes (PT) Alcohol intake: never Comment: aware of trip hazards 1984 stopped Patient Tobacco Use Status: Former Tobacco user Tobacco use type: Cigarette Years Smoked: 18 stopped 1984 e-Cigarette/Vaping Use: Never Used Second Hand Smoke Exposure: No Advance Directives Date on File: 08/31/23 service: Yes Current occupational status: retired Cognitive needs: No Hearing needs: Yes Vision needs: Yes Questionnaire PHQ-9 Over the last 2 weeks, how often have you been bothered by any of the following problems? 1. Little interest or pleasure in doing things: not at all 2. Feeling down, depressed, or hopeless: not at all 3. Trouble falling or staying asleep, or sleeping too much: not at all 4. Feeling tired or having little energy: not at all 5. Poor appetite or overeating: not at all 6. Feeling bad about yourself - or that you are a failure or have let yourself or your family down: not at all 8. Moving or speaking so slowly that other people could have noticed. Or the opposite - being so fidgety or restless that you have been moving around a lot more than usual: not at all 9. Thoughts that you would be better off or of hurting yourself in some way: not at all Source: Developed by Drs. Mckinley Ahn, Shanna Nice, Monico Pérez and colleagues, with an educational saul from [employer]. Thrive Questionnaire Date Thrive assessed: 10/07/24 I am a: Patient What is your living situation today?: I have a steady place to live Within the past 12 months, did the food you bought not last and you didn't have the money to get more?: Never true Within the past 12 months, did you worry whether your food would run out before you got money to buy more?: Never true Do you have trouble paying for medicines?: No Do you have trouble getting transportation to medical appointments?: No Do you have trouble paying your heating and electricity bill?: No Do you have trouble taking care of your child, family member or friend?: No Do you have trouble with day-to-day activities such as bathing, preparing meals, shopping, managing finances, etc.?: No Are you currently unemployed and looking for a job?: No Are you interested in more education?: No Currently or been in a relationship where the following occur: No concerns reported THRIVE Score: 0 AUDIT C Alcohol Use Questionnaire (AUDIT-C) 1. How often do you have a drink containing alcohol?: Never 3. How often do you have six or more drinks on one occasion?: Never Total Score: 0 MIKAYLA-7 AMB Questionnaire MIKAYLA-7 Date MIKAYLA - 7 assessed: 10/07/24 Feeling nervous, anxious, or on edge: 0 = Not at all Not being able to stop or control worryin = Not at all Worrying too much about different things: 0 = Not at all Trouble relaxin = Not at all Being so restless that it is hard to sit still: 0 = Not at all Becoming easily annoyed or irritable: 0 = Not at all Feeling afraid as if something awful might happen: 0 = Not at all Total MIKAYLA-7 score (0-4 normal; 5-9 mild; 10-14 moderate; 15-21 severe): 0 Source: Developed by Drs. Mckinley Ahn, Shanna Nice, Monico Pérez and colleagues, with an educational saul from [employer]. Physical exam (Primary Care) Vital Signs: Last Vital Signs Pulse 53 10/07/24 09:19 BP 136/72 10/07/24 09:19 Pulse Ox 97 10/07/24 09:19 Oxygen Delivery Method Room Air 10/07/24 09:19 BMI result Body Mass Index 39.1 Tobacco/Smoking Status: Tobacco use Status Tobacco use date assessed 10/07/24 10/07/24 09:21 Patient Tobacco Use Status Former Tobacco user 10/07/24 09:21 Tobacco use type Cigarette 10/07/24 09:21 e-Cigarette/Vaping Use Never Used 10/07/24 09:21 Thrive Assessment: Date of Thrive Assessment Date Thrive assessed 10/07/24 10/07/24 09:21 Currently or been in a relationship where the following occur: No concerns reported Const General: alert; No acute distress Eyes Conjunctivae: conjunctivae normal Resp Auscultation: clear to auscultation bilaterally Cardio Rate: regular rate Rhythm: regular rhythm GI Inspection: Yes normal to inspection Extrem General: Yes normal to inspection and No edema Coding Level of Care Code Est Pt Level 4 (34818) Complex EM visit Add On G2211 Diagnoses Coronary artery disease involving inupiat coronary artery of inupiat heart without angina pectoris I25.10 Associated angina: without angina Coronary Disease-Associated Artery/Lesion type: inupiat artery [place] vs. transplanted heart: inupiat heart Essential hypertension I10 Hypertension type: essential hypertension Hypercholesterolemia E78.00 Obesity due to excess calories with serious comorbidity, unspecified class E66.09 Obesity classification: unspecified obesity classification Obesity type: due to excess calories Serious obesity comorbidity presence: with serious comorbidity Benign prostatic hyperplasia with urinary frequency N40.1; R35.0 Lower urinary tract symptom detail: urinary frequency Lower urinary tract symptom presence: symptoms present Impaired glucose tolerance R73.02 Wallis's esophagus without dysplasia K22.70 Wallis's esophagus type: without dysplasia Assessment & Plan Assessment & Plan (1) CAD (coronary artery disease): Comment: MRI stent x3(LAD, OM, RCA) April and June 2014 DAISY burris Code(s): I25.10 - Atherosclerotic heart disease of inupiat coronary artery without angina pectoris Category: Medical Qualifiers: Associated angina: without angina Coronary Disease-Associated Artery/Lesion type: inupiat artery [place] vs. transplanted heart: inupiat heart Qualified Code(s): I25.10 - Atherosclerotic heart disease of inupiat coronary artery without angina pectoris Plan: Control the cholesterol, weight, blood pressure, on aspirin (2) Hypertension: Code(s): I10 - Essential (primary) hypertension Category: Medical Qualifiers: Hypertension type: essential hypertension Qualified Code(s): I10 - Essential (primary) hypertension Plan: Continue with blood pressure medication. Decrease salt intake and exercise carvedilol 25 mg twice a day losartan hydrochlorothiazide 25/100/25 once a day (3) Hypercholesterolemia: Code(s): E78.00 - Pure hypercholesterolemia, unspecified Category: Medical Plan: Avoid fried foods, chicken skin, eggs, butter margarine, pastries and meat. Be it pork or beef they have a lot of cholesterol LDL goal of less than 70 and triglyceride of less than 150 on atorvastatin 80 mg once a day (4) Obesity: Code(s): E66.9 - Obesity, unspecified Category: Medical Qualifiers: Obesity classification: unspecified obesity classification Obesity type: due to excess calories Serious obesity comorbidity presence: with serious comorbidity Qualified Code(s): E66.09 - Other obesity due to excess calories Plan: Diet and exercise (5) BPH (benign prostatic hyperplasia): Code(s): N40.0 - Benign prostatic hyperplasia without lower urinary tract symptoms Category: Medical Qualifiers: Lower urinary tract symptom detail: urinary frequency Lower urinary tract symptom presence: symptoms present Qualified Code(s): N40.1 - Benign prostatic hyperplasia with lower urinary tract symptoms; R35.0 - Frequency of micturition Plan: Patient is on finasteride 5 mg at bedtime (6) Impaired glucose tolerance: Code(s): R73.02 - Impaired glucose tolerance (oral) Category: Medical Plan: Decrease the amount of carbohydrate intake, pasta, bread, rice and potatoes are all sugar and that is aside from all the sweet stuff, remember that fruits are good but they are Sweet also. (7) Barretts esophagus: Code(s): K22.70 - Wallis's esophagus without dysplasia Category: Medical Qualifiers: Wallsi's esophagus type: without dysplasia Qualified Code(s): K22.70 - Wallis's esophagus without dysplasia Plan: Avoid the foods that causes that usually spicy foods, tomato products, juices, coffee, soda and foods that your sensitive to. After eating do not lie down, allow 3-4 hours before in lie down. And keep the head of bed above 30 degrees to avoid the acid from going up. On omeprazole Plan History of Present Illness The patient is a 78-year-old male presenting for follow-up management of chronic conditions including coronary artery disease, hypertension, hypercholesterolemia, and diabetes management. The past medical history is significant for colon cancer treated in 2017, alongside GERD, BPH, and Wallis's esophagus. There is ongoing management for sinus disorder and glucose intolerance, with recent diagnostics revealing mild obstructive ventilatory defect due to obesity and mildly elevated TSH. 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 Additionally, careful monitoring of blood pressure with home devices complements the patient's treatment adherence. Episodic leg stiffness and numeric fluctuations in blood pressure necessitate continued observation and intervention based on current pharmacotherapy. Health Maintenance - Tetanus booster administered one week prior to visit. - Blood pressure self-monitoring showing a mean systolic of approximately 135 mmHg. - LDL cholesterol at 55 mg/dL, achieving target levels. - Assessment and discussion of mildly elevated TSH levels with monitoring do TSH trend over time. - Recommendation of continuation of current antihypertensive regimen and lipid-lowering therapy, with ongoing monitoring and adjustment as needed. - Diabetes management discussed with emphasis on dietary control and exercises. - Encouragement of the patient to engage in dietary and lifestyle adjustments as per prior discussions. Social History - Discussed transitioning pharmacy services to [place] for cost effectiveness related to [facility]. 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 - Reports challenges in acquiring sufficient leg exercises, mentioning stiffness and neuropathy-related issues. Review of Systems - Skin: Reports of intermittent sharp, needle-like sensations occurring in different areas sporadically. Physical Exam Results - Labs: Normal blood count, mild thrombocytopenia (platelet count 159, normal is 160), elevated fasting blood sugar at 119 mg/dL, normal liver function, LDL at 55 mg/dL, BNP at 190, mild TSH elevation to 6.12. - Tests: Pulmonary function test indicating mild obstructive ventilatory defect with decreased expiratory reserve volume. Plan I will continue the current antihypertensive regimen with ongoing monitoring needed as the average systolic pressure nears target levels. LDL cholesterol management remains effective under current lipid therapy. Thyroid levels will need reevaluation, and glucose control warrants dietary vigilance despite last consultation misdirection. I reiterated the necessity of the patient's active role in monitoring blood pressure and other vitals regularly, ensuring adequate records of any persistent symptoms or substantial BP variations. Given the patient's respiratory presentation and stable BNP, no further evaluations are presently needed for CHF. I recommended continued coordination of pharmacy needs through the patient's new pharmacy choice and emphasized adherence to prescribed allergy management, alongside monitoring and caring for dermatological symptoms. Follow-up is indicated in three months to reassess current therapeutic effects and emerging health changes. Patient was informed and verbally consented to the use of an ambient scribe for clinic note documentation during this visit. Discussion Notes I reviewed with the patient the ongoing management strategies and adherence to the prescribed antihypertensive and cholesterol-lowering medications, stressing the importance of continuing current therapies to maintain target health indicators. 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 During our discussion, the importance of his methodology in self-monitoring blood pressure was noted, along with effective communication with our office if significant changes emerge. Risks and benefits of continuing lifestyle modifications and medication regimens were explained, and the significance of achieving target cholesterol levels was underscored. Follow-up in three months was scheduled for reassessment, with contingencies discussed for earlier return if necessary. Patient Instructions - Continue with prescribed medication regimen as directed, including carvedilol, atorvastatin, and losartan HCTZ. - Maintain vigilant home monitoring of blood pressure and record any significant variations. - Adhere to dietary recommendations and exercise regimen to the best of your ability. - Follow-up on blood sugar and thyroid function with lab tests in three months. - Use moisturizers as needed for skin discomfort. - For any acute changes or concerns, contact the office or present to an appropriate healthcare setting. - Keep listed medications available for any required refills through the nominated pharmacy. Orders: Orders Comprehensive Met. Panel Today I25.10 - Atherosclerotic heart disease of inupiat coronary artery without angina pectoris Free T4 (Free Thyroxine) Today I25.10 - Atherosclerotic heart disease of inupiat coronary artery without angina pectoris Hemoglobin A1c Today I25.10 - Atherosclerotic heart disease of inupiat coronary artery without angina pectoris Thyroid Stimulating Hormone Today I25.10 - Atherosclerotic heart disease of inupiat coronary artery without angina pectoris
== END 2024-10-07 10:22 | disposition home or self-care (01) ==
LOC: HO.HMCH 09:16
PROVIDERS: PCP Internal Medicine; Visit Provider Internal Medicine
DX: I25.10 Atherosclerotic heart disease of native coronary artery without angina pectoris (principal); I10 Essential (primary) hypertension; E66.09 Other obesity due to excess calories; Z68.39 Body mass index [BMI] 39.0-39.9, adult; E78.00 Pure hypercholesterolemia, unspecified; N40.1 Benign prostatic hyperplasia with lower urinary tract symptoms; R35.0 Frequency of micturition; R73.02 Impaired glucose tolerance (oral); K22.70 Barrett's esophagus without dysplasia

== ENCOUNTER → 2024-10-07 09:15 | Outpatient (BNVA) | payer MEDICARE, SELFPAY | PROVIDERS: PCP Internal Medicine; Visit Provider Internal Medicine | DX: I25.10 Atherosclerotic heart disease of native coronary artery without angina pectoris (principal); I10 Essential (primary) hypertension; E78.00 Pure hypercholesterolemia, unspecified; E66.09 Other obesity due to excess calories; N40.1 Benign prostatic hyperplasia with lower urinary tract symptoms; R35.0 Frequency of micturition; R73.02 Impaired glucose tolerance (oral); K22.70 Barrett's esophagus without dysplasia | CPT/HCPCS: 99212 ==

== ENCOUNTER 2025-01-08 09:01 | Outpatient (REF) | payer MEDICARE, SELFPAY ==
--- OUTSIDE RECORDS SUMMARY | 2023-11-13 11:00 | XMS_ITS ---
Author Organization [facility] Address [address] [place] [address] Care Team Providers Care Pharmacy Technician Instructor Name Role Phone Franco Juarez MD Primary Care Provider Unavailabl e Mckinley Franco Unavailable [phone] Allergies Allergen (clinical drug ingredient) Drug/Non Drug Allergy documented on EMR Reaction Allergy Type Onset Date Status streptomycin Streptomycin Sulfate Unknown Drug Allergy Active REASON FOR VISIT patient presents today for gerd,thompson's Medications Medication SIG (Take, Route, Frequency, Duration) Notes Start Date End Date Status Furosemide 20 MG TAKE 1 TABLET BY MOUTH ONCE DAILY Oral for 30 L603,Unavailabl e Active Omeprazole 40 MG 1 Orally Every morning for 30 day(s) 10/04/2023 Active Multi Vitamin/Minerals - Orally Active Omeprazole 40 MG 1 orally Every morning for 90 days 11/13/2023 Active Carvedilol 6.25 MG 1 Orally BID Active Atorvastatin Calcium 80 MG 1 tablet Orally Once a day Active Finasteride 5 MG 1 tablet Orally Once a day Active Vitamin D3 50 MCG (1999) 1 capsule Orally Once a day for 30 day(s) Active Social History Tobacco Use: Social History Observation Description Date Details (start date - stop date) Former Smoker NA - NA Tobacco Use/Smoking Question Answer Notes Patient is a former smoker How long has it been since you last smoked? > 10 years Alcohol Screen Question Answer Notes Did you have a drink containing alcohol in the p ast year? No Points 0 Interpretation Negative Section Notes: Nonsmoker since 1984; no alc ohol since 1984 Vital Signs Blood pressure systolic 00 mm Hg 11/13/19 24 Blood pressure diastolic 00 mm Hg 024 Height 69 in 11/13/2023 Weight 233 lbs 11/13/2023 BMI 34.40 kg/m2 11/13/2023 Encounters Encounter Location Date Provider Diagnosis [facility] [address] [place] [address] 11/13/2023 Mckinley Franco Acute duodenal ulcer with hemorrhage K26.0 ; Encounter for screening for malignant neoplasm of colon Z12.11 ; Erosive esophagitis K22.10 ; Barretts esophagus without dysplasia K22.70 and Villous adenoma of colon D37.4 Assessments Encounter Date Diagnosis (ICD Code) Assessment Notes Treatment Notes Treatment Clinical Notes Section Notes 11/13/2023 Acute duodenal ulcer with hemorrhage (ICD-10 - K26.0) Continue the omeprazole daily and custodial for the ulcer and reflux with esophagitis Overall, Pavan appears to be doing reasonably well from a GI standpoint. He does not appear to have had any recurrent upper GI bleeding based on his clinical history and the recent laboratories from just a few weeks ago. We did review the findings on the upper endoscopy in mid-August and the importance of continuing his omeprazole on a long-term basis, as well as needing to avoid all NSAIDs going forward. Given his previous history of erosive esophagitis I also advised him to continue omeprazole on that basis as well. He had been on a low-dose aspirin from a coronary artery standpoint prior to his hip surgery and I did advise him to speak with his facilities project manager as to whether or not he would need to go back on that. I think from a GI standpoint it would be safe to start a low-dose aspirin at this point if required, but to again continue the omeprazole long-term. We did review his other symptoms of shortness of breath and lower extremity edema. I advised him to be sure to speak with you again about this, as well as to followup with his facilities project manager to be sure there is no other issues going on from a cardiac standpoint or any other medical issue. He had asked me as to whether or not omeprazole could be causing the symptoms and I advised him that I do not think that is the case. Again, I stressed to him the importance of continuing his omeprazole in regard to the previous GI bleeding and significant ulcer disease. We did review that eventually he should have a followup colonoscopy as he has not had that done since the finding of a large villous adenoma in the colon that required surgery over 5 years ago. I advised him that I don't think he is in good enough clinical shape to undergo any type of GI procedures at this time. I advised him to definitely followup with you and his facilities project manager in regard to the above issues of the breathing and edema. I have given him an appointment to see me again in the Fall such that we can hopefully be able to schedule his followup colonoscopy, as well as a probable upper endoscopy, at that time as long as things are hopefully improved and stable from a medical standpoint. I did advise him to definitely call me prior to that if he has any problems or questions I can be of assistance with. I did send a new prescription for the 40 mg omeprazole to his pharmacy. Pavan was comfortable with this plan. Thank you again for allowing me to participate in Pavan's care. I shall continue to keep you advised of his progress. 11/13/2023 Encounter for screening for malignant neoplasm of colon (ICD-10 - Z12.11) Overall, Pavan appears to be doing reasonably well from a GI standpoint. He does not appear to have had any recurrent upper GI bleeding based on his clinical history and the recent laboratories from just a few weeks ago. We did review the findings on the upper endoscopy in mid-August and the importance of continuing his omeprazole on a long-term basis, as well as needing to avoid all NSAIDs going forward. Given his previous history of erosive esophagitis I also advised him to continue omeprazole on that basis as well. He had been on a low-dose aspirin from a coronary artery standpoint prior to his hip surgery and I did advise him to speak with his facilities project manager as to whether or not he would need to go back on that. I think from a GI standpoint it would be safe to start a low-dose aspirin at this point if required, but to again continue the omeprazole long-term. We did review his other symptoms of shortness of breath and lower extremity edema. I advised him to be sure to speak with you again about this, as well as to followup with his facilities project manager to be sure there is no other issues going on from a cardiac standpoint or any other medical issue. He had asked me as to whether or not omeprazole could be causing the symptoms and I advised him that I do not think that is the case. Again, I stressed to him the importance of continuing his omeprazole in regard to the previous GI bleeding and significant ulcer disease. We did review that eventually he should have a followup colonoscopy as he has not had that done since the finding of a large villous adenoma in the colon that required surgery over 5 years ago. I advised him that I don't think he is in good enough clinical shape to undergo any type of GI procedures at this time. I advised him to definitely followup with you and his facilities project manager in regard to the above issues of the breathing and edema. I have given him an appointment to see me again in the Fall such that we can hopefully be able to schedule his followup colonoscopy, as well as a probable upper endoscopy, at that time as long as things are hopefully improved and stable from a medical standpoint. I did advise him to definitely call me prior to that if he has any problems or questions I can be of assistance with. I did send a new prescription for the 40 mg omeprazole to his pharmacy. Pavan was comfortable with this plan. Thank you again for allowing me to participate in Pavan's care. I shall continue to keep you advised of his progress. 11/13/2023 Erosive esophagitis (ICD-10 - K22.10) Overall, Pavan appears to be doing reasonably well from a GI standpoint. He does not appear to have had any recurrent upper GI bleeding based on his clinical history and the recent laboratories from just a few weeks ago. We did review the findings on the upper endoscopy in mid-August and the importance of continuing his omeprazole on a long-term basis, as well as needing to avoid all NSAIDs going forward. Given his previous history of erosive esophagitis I also advised him to continue omeprazole on that basis as well. He had been on a low-dose aspirin from a coronary artery standpoint prior to his hip surgery and I did advise him to speak with his facilities project manager as to whether or not he would need to go back on that. I think from a GI standpoint it would be safe to start a low-dose aspirin at this point if required, but to again continue the omeprazole long-term. We did review his other symptoms of shortness of breath and lower extremity edema. I advised him to be sure to speak with you again about this, as well as to followup with his facilities project manager to be sure there is no other issues going on from a cardiac standpoint or any other medical issue. He had asked me as to whether or not omeprazole could be causing the symptoms and I advised him that I do not think that is the case. Again, I stressed to him the importance of continuing his omeprazole in regard to the previous GI bleeding and significant ulcer disease. We did review that eventually he should have a followup colonoscopy as he has not had that done since the finding of a large villous adenoma in the colon that required surgery over 5 years ago. I advised him that I don't think he is in good enough clinical shape to undergo any type of GI procedures at this time. I advised him to definitely followup with you and his facilities project manager in regard to the above issues of the breathing and edema. I have given him an appointment to see me again in the Fall such that we can hopefully be able to schedule his followup colonoscopy, as well as a probable upper endoscopy, at that time as long as things are hopefully improved and stable from a medical standpoint. I did advise him to definitely call me prior to that if he has any problems or questions I can be of assistance with. I did send a new prescription for the 40 mg omeprazole to his pharmacy. Pavan was comfortable with this plan. Thank you again for allowing me to participate in Pavan's care. I shall continue to keep you advised of his progress. 11/13/2023 Barretts esophagus without dysplasia (ICD-10 - K22.70) Overall, Pavan appears to be doing reasonably well from a GI standpoint. He does not appear to have had any recurrent upper GI bleeding based on his clinical history and the recent laboratories from just a few weeks ago. We did review the findings on the upper endoscopy in mid-August and the importance of continuing his omeprazole on a long-term basis, as well as needing to avoid all NSAIDs going forward. Given his previous history of erosive esophagitis I also advised him to continue omeprazole on that basis as well. He had been on a low-dose aspirin from a coronary artery standpoint prior to his hip surgery and I did advise him to speak with his facilities project manager as to whether or not he would need to go back on that. I think from a GI standpoint it would be safe to start a low-dose aspirin at this point if required, but to again continue the omeprazole long-term. We did review his other symptoms of shortness of breath and lower extremity edema. I advised him to be sure to speak with you again about this, as well as to followup with his facilities project manager to be sure there is no other issues going on from a cardiac standpoint or any other medical issue. He had asked me as to whether or not omeprazole could be causing the symptoms and I advised him that I do not think that is the case. Again, I stressed to him the importance of continuing his omeprazole in regard to the previous GI bleeding and significant ulcer disease. We did review that eventually he should have a followup colonoscopy as he has not had that done since the finding of a large villous adenoma in the colon that required surgery over 5 years ago. I advised him that I don't think he is in good enough clinical shape to undergo any type of GI procedures at this time. I advised him to definitely followup with you and his facilities project manager in regard to the above issues of the breathing and edema. I have given him an appointment to see me again in the Fall such that we can hopefully be able to schedule his followup colonoscopy, as well as a probable upper endoscopy, at that time as long as things are hopefully improved and stable from a medical standpoint. I did advise him to definitely call me prior to that if he has any problems or questions I can be of assistance with. I did send a new prescription for the 40 mg omeprazole to his pharmacy. Pavan was comfortable with this plan. Thank you again for allowing me to participate in Pavan's care. I shall continue to keep you advised of his progress. 11/13/2023 Villous adenoma of colon (ICD-10 - D37.4) We will want to eventually repeat the colonoscopy. But first you need to see Dr. Juarez and your facilities project manager regarding the breathing and leg edema. Overall, Pavan appears to be doing reasonably well from a GI standpoint. He does not appear to have had any recurrent upper GI bleeding based on his clinical history and the recent laboratories from just a few weeks ago. We did review the findings on the upper endoscopy in mid-August and the importance of continuing his omeprazole on a long-term basis, as well as needing to avoid all NSAIDs going forward. Given his previous history of erosive esophagitis I also advised him to continue omeprazole on that basis as well. He had been on a low-dose aspirin from a coronary artery standpoint prior to his hip surgery and I did advise him to speak with his facilities project manager as to whether or not he would need to go back on that. I think from a GI standpoint it would be safe to start a low-dose aspirin at this point if required, but to again continue the omeprazole long-term. We did review his other symptoms of shortness of breath and lower extremity edema. I advised him to be sure to speak with you again about this, as well as to followup with his facilities project manager to be sure there is no other issues going on from a cardiac standpoint or any other medical issue. He had asked me as to whether or not omeprazole could be causing the symptoms and I advised him that I do not think that is the case. Again, I stressed to him the importance of continuing his omeprazole in regard to the previous GI bleeding and significant ulcer disease. We did review that eventually he should have a followup colonoscopy as he has not had that done since the finding of a large villous adenoma in the colon that required surgery over 5 years ago. I advised him that I don't think he is in good enough clinical shape to undergo any type of GI procedures at this time. I advised him to definitely followup with you and his facilities project manager in regard to the above issues of the breathing and edema. I have given him an appointment to see me again in the Fall such that we can hopefully be able to schedule his followup colonoscopy, as well as a probable upper endoscopy, at that time as long as things are hopefully improved and stable from a medical standpoint. I did advise him to definitely call me prior to that if he has any problems or questions I can be of assistance with. I did send a new prescription for the 40 mg omeprazole to his pharmacy. Pavan was comfortable with this plan. Thank you again for allowing me to participate in Pavan's care. I shall continue to keep you advised of his progress. 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 But first you need to see Dr. Juarez and your facilities project manager regarding the breathing and leg edema. Next Appt Details Follow Up: 2023, Reaso n: Provider Name:Mckinley Franco , 11/24/2025 09:10:00 AM, [address], [address], [place], [address], Progress Notes * JOHNNY GARCIAOB:1945 (78 yo M)Acc No.[id number]:11/13/2023 Progress Notes Patient: PAVAN BRAVO Provider: Melissa Franco MD :1945 A ge:78 Y S ex:Male Date:11/13/2023 Address[id number] Pcp:Franco Juraez MD Subjective: * Chief Complaints: * P atient presents today for gerd,thompson's * HPI: i ncontinence: I saw Tr in followup today in regard to his recent hospitalization for upper GI bleeding in relation to a large duodenal bulb ulcer, as well as in relation to His underlying history of reflux esophagitis and personal history of colon polyps. I last saw Tr in mid-August when he was admitted to the hospital with an upper GI bleed about 10 days after his right hip replacement. An upper endoscopy revealed a large, but nonbleeding, nearly circumferential duodenal bulb ulcer. He also had a moderate size hiatal hernia and some mild erosive gastritis with biopsies negative for H. pylori. There was no evidence of any esophagitis noted at that time. Prior to his hip replacement he had been on NSAIDs and a low-dose aspirin home. Subsequent to the hospitalization from his hip replacement he had been on full strength aspirin and then Lovenox just prior to the GI bleed. S ubsequent to the hospitalization from the GI bleed he has been doing well from a GI standpoint. He has remained on omeprazole 40 mg daily. He has been avoiding all aspirin and NSAIDs. He denies any significant heartburn, dysphagia, anorexia, nausea, early satiety, nor vomiting. He denies any abdominal pain nor jaundice. His bowel movements have been fairly regular and without any sign of melena. He did have a couple of episodes of some red blood mixed with his stools after he home from the hospital in August, but has not had any since that time. L aboratories in early September revealed normal chemistries and renal function. Laboratories on March 25 revealed a hemoglobin of 11.5 with a normal MCV, an iron of 44 with an iron saturation of 19%, and a ferritin of 138. His B12 and folate levels were normal at that time as well. Burt hernandez does describe being troubled by some shortness of breath, including episodes which awaken him at night. He He has also been troubled by lower extremity edema bilaterally and is on some furosemide for that. * ROS: G eneral/Constitutional: Change in appetite d enies. C hills d enies. F atigue admits. O phthalmologic: Comments a ll negative. E NT: Comments a ll negative. R espiratory: hemoptysis d enies. C ough d enies. ? C ardiovascular: Chest pain d enies. O rthopnea a dmits. ? G astrointestinal: Comments S ee [facility] for details. G enitourinary: Hematuria d enies. D ysuria d enies. ? M usculoskeletal: Painful joints S houlders. W eakness d enies. ? S kin: Itching d enies. R negro d enies. N eurologic: Headache d enies. S eizures d enies. ? P sychiatric: Comments a ll negative. * Medical History: * Surgical History: S urgery for wounds in the [place]--chest and leg 1966/1967Right ileocolectomy in July of [address] 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 * Family History: F ather: , dx at age 73 at age 74, diagnosed with Heart disease, Colon cancer.?Mother: , diagnosed with HTN (hypertension). * Social History: T obacco Use: T obacco Use/Smoking P atient is a f ormer smoker, H ow long has it been since you last smoked? > 10 years. D rugs/Alcohol: A lcohol Screen D id you have a drink containing alcohol in the past year? N o, P oints 0 , I nterpretation N egative. M iscellaneous: M arital status: . Occupation: Retired. N onsmoker since 1984; no alcohol since 1984. * Medications: T akingVitamin D3 50 MCG (1999) Capsule 1 capsule Orally Once a dayAtorvastatin Calcium 80 MG Tablet 1 tablet Orally Once a dayFinasteride 5 MG Tablet 1 tablet Orally Once a dayCarvedilol 6.25 MG Tablet 1 Orally BIDMulti Vitamin/Minerals - Tablet Orally Omeprazole 40 MG Capsule Delayed Release 1 Orally Every morningFurosemide 20 MG Tablet TAKE 1 TABLET BY MOUTH ONCE DAILY Oral , Notes: L603,UnavailableTaking Vitamin D3 50 MCG (1999) Capsule 1 capsule Orally Once a dayTaking Atorvastatin Calcium 80 MG Tablet 1 tablet Orally Once a dayTaking Finasteride 5 MG Tablet 1 tablet Orally Once a dayTaking Carvedilol 6.25 MG Tablet 1 Orally BIDTaking Multi Vitamin/Minerals - Tablet Orally Taking Omeprazole 40 MG Capsule Delayed Release 1 Orally Every morningTaking Furosemide 20 MG Tablet TAKE 1 TABLET BY MOUTH ONCE DAILY Oral , Notes: L603,UnavailableDiscontinuedColace 100 MG Capsule 1 capsule as needed Orally twice a daySucralfate 1 GM Tablet Oral Famotidine 20 MG Tablet 1 tablet at bedtime Orally every other dayOmeprazole 20MG Capsule Delayed Release 1 capsule Orally Once a dayAspir-81 81 MG Tablet Delayed Release 1 tablet Orally Once a dayLosartan Potassium-HCTZ 100-25 MG Tablet 1 tablet Orally Once a dayVitamin D 1000 UNIT Tablet 1 tablet Orally Once a dayMedication List reviewed and reconciled with the patientDiscontinued Colace 100 MG Capsule 1 capsule as needed Orally twice a dayDiscontinued Sucralfate 1 GM Tablet Oral Discontinued Famotidine 20 MG Tablet 1 tablet at bedtime Orally every other dayDiscontinued Omeprazole 20MG Capsule Delayed Release 1 capsule Orally Once a dayDiscontinued Aspir-81 81 MG Tablet Delayed Release 1 tablet Orally Once a dayDiscontinued Losartan Potassium-HCTZ 100-25 MG Tablet 1 tablet Orally Once a dayDiscontinued Vitamin D 1000 UNIT Tablet 1 tablet Orally Once a dayMedication List reviewed and reconciled with the patient * Allergies: S treptomycin Sulfateyes[Allergies Verified] Objective: * Vitals: W t: 233 lbs, Ht: 69 in, BMI:34.40 Index, BP: 00/00 mm Hg. * Examination: G eneral Examination: GENERAL APPEARANCE: p leasant, well nourished, well developed, in no acute distress. EYES: s clera non-icteric. ORAL CAVITY: m ucosa moist. NECK/THYROID: n o cervical lymphadenopathy, neck supple.? SKIN: n onjaundiced, no spider angiomata. HEART: S 1, S2 normal. LUNGS: c lear to auscultation bilaterally. ABDOMEN: n ormal bowel sounds, no guarding or rigidity, no guarding or rigidity, no masses palpable, soft, nontender, nondistended. NEUROLOGIC: a lert and oriented. Assessment: * Assessment: 1. A cute duodenal ulcer with hemorrhage - K26.0 (Primary) 2 . E ncounter for screening for malignant neoplasm of colon - Z12.11 3 . E rosive esophagitis - K22.10 4 . B arretts esophagus without dysplasia - K22.70 5 . V illous adenoma of colon - D37.4 Overall, Pavan appears to b e doing reasonably well from a GI standpoint. He does not appear to have had any recurrent upper GI bleeding based on his clinical history and the recent laboratories from just a few weeks ago. We did review the findings on the upper endoscopy in mid-August and the importance of continuing his omeprazole on a long-term basis, as well as needing to avoid all NSAIDs going forward. Given his previous history of erosive esophagitis I also advised him to continue omeprazole on that basis as well. He had been on a low-dose aspirin from a coronary artery standpoint prior to his hip surgery and I did advise him to speak with his facilities project manager as to whether or not he would need to go back on that. I think from a GI standpoint it would be safe to start a low-dose aspirin at this point if required, but to again continue the omeprazole long-term. We did review his other symptoms of shortness of breath and lower extremity edema. I advised him to be sure to speak with you again about this, as well as to followup with his facilities project manager to be sure there is no other issues going on from a cardiac standpoint or any other medical issue. He had asked me as to whether or not omeprazole could be causing the symptoms and I advised him that I do not think that is the case. Again, I stressed to him the importance of continuing his omeprazole in regard to the previous GI bleeding and significant ulcer disease. We did review that eventually he should have a followup colonoscopy as he has not had that done since the finding of a large villous adenoma in the colon that required surgery over 5 years ago. I advised him that I don't think he is in good enough clinical shape to undergo any type of GI procedures at this time. I advised him to definitely followup with you and his facilities project manager in regard to the above issues of the breathing and edema. I have given him an appointment to see me again in the Fall such that we can hopefully be able to schedule his followup colonoscopy, as well as a probable upper endoscopy, at that time as long as things are hopefully improved and stable from a medical standpoint. I did advise him to definitely call me prior to that if he has any problems or questions I can be of assistance with. I did send a new prescription for the 40 mg omeprazole to his pharmacy. Pavan was comfortable with this plan. Thank you again for allowing me to participate in Pavan's care. I shall continue to keep you advised of his progress. Plan: * Treatment: 2. E rosive esophagitis Start Omeprazole Capsule Delayed Release, 40 MG, 1, orally, Every morning, 90 days, 90, Refills 3.? 3. V illous adenoma of colon Notes: We will want to eventually repeat the colonoscopy. But first you need to see Dr. Juarez and your facilities project manager regarding the breathing and leg edema. * Procedure Codes: 1 036F TOBACCO [id number] BP SCR NOT PRFRM REC REASON NOS * Preventive Medicine: Counseling: C are goal follow-up plan: A theresa Normal BMI Follow-up G iving encouragement to exercise, B LA management provided Y es. * Follow Up: F all, 2023 * * Sign off status: Completed true * Provider: Melissa Franco MD Date: 0 11/13/2023 Generated for [place]/Julio/[facility]ish[facility] on: 01/08/2025 09:35 AM EDT History and Physical Notes * HPI (History of Present Illness) Category Sub-Category Detail Notes Category Not es incontinence I saw Tr in followup today in regard to his recent hospitalization for upper GI bleeding in relation to a large duodenal bulb ulcer, as well as in relation to His underlying history of reflux esophagitis and personal history of colon polyps. I last saw Tr in mid-August when he was admitted to the hospital with an upper GI bleed about 10 days after his right hip replacement. An upper endoscopy revealed a large, but nonbleeding, nearly circumferential duodenal bulb ulcer. He also had a moderate size hiatal hernia and some mild erosive gastritis with biopsies negative for H. pylori. There was no evidence of any esophagitis noted at that time. Prior to his hip replacement he had been on NSAIDs and a low-dose aspirin home. Subsequent to the hospitalization from his hip replacement he had been on full strength aspirin and then Lovenox just prior to the GI bleed. Subsequent to the hospitalization from the GI bleed he has been doing well from a GI standpoint. He has remained on omeprazole 40 mg daily. He has been avoiding all aspirin and NSAIDs. He denies any significant heartburn, dysphagia, anorexia, nausea, early satiety, nor vomiting. He denies any abdominal pain nor jaundice. His bowel movements have been fairly regular and without any sign of melena. He did have a couple of episodes of some red blood mixed with his stools after he home from the hospital in August, but has not had any since that time. Laboratories in early September revealed normal chemistries and renal function. Laboratories on October 14 revealed a hemoglobin of 11.5 with a normal MCV, an iron of 44 with an iron saturation of 19%, and a ferritin of 138. His B12 and folate levels were normal at that time as well. He does describe being troubled by some shortness of breath, including episodes which awaken him at night. He He has also been troubled by lower extremity edema bilaterally and is on some furosemide for that. Examination Category Sub-Category Detail Notes Category Not es General Examination GENERAL APPEARANCE: pleasant , well nourished, well developed, in no acute distress HEAD: EYES: sclera non-icteric EARS: NOSE: THROAT: NECK/THYROID: no cervical lymphade nopathy, neck supple HEART: S1, S2 normal CHEST: LUNGS: clear to auscultatio n bilaterally ABDOMEN: normal bowel sounds, no guarding or rigidity, no guarding or rigidity, no masses palpable, soft, nontender, nondistended NEUROLOGIC: alert and oriented SKIN: nonjaundiced, no spi narayan angiomata EXTREMITIES: PERIPHERAL PULSES: BACK: BREASTS: MUSCULOSKELETAL: MALE GENITOURINARY: LYMPH NODES: RECTAL EXAM: FEMALE GENITOURINARY: ORAL CAVITY: mucosa moist
[2025-01-08 11:04] LABS: Immature Retic Fraction 10.2 % (2.3-13.4); Retic HGB Equivalent 36.7 pg (30.0-35.0); Reticulocyte Percent 1.7 % (0.5-1.8); Reticulocytes Absolute 0.084 X10*6/uL (0.026-0.095)
[2025-01-08 11:12] LABS: Estimated Average Glucose 120 mg/dL; Hemoglobin A1c % 5.8 % (<6.0)
[2025-01-08 11:47] LABS: Alanine Aminotransferase 24 U/L (0-40); Albumin Level 3.9 g/dL (3.5-5.0); Alkaline Phosphatase 87 U/L (39-117); Anion Gap 10 (12-20); Aspartate Amino Transferase 31 U/L (5-37); Bilirubin Total 0.9 mg/dL (0.0-1.0); Blood Urea Nitrogen 21 mg/dL (9-16); Calcium 8.9 mg/dL (8.4-10.2); Carbon Dioxide 29 mmol/L (22-29); Chloride 102 mmol/L (96-108); Estimated Glomerular Filt Rate > 60; Glucose Random 127 mg/dL (60-115); Iron 102 mcg/dL (45-160); Percent Iron Saturation 43 % (15-50); Potassium 3.8 mmol/L (3.3-5.1); Sodium 137 mmol/L (135-145); Total Iron Binding Capacity 237 mcg/dL (228-428); Total Protein 6.7 g/dL (6.5-8.0); Unsaturated Iron Binding 135 ug/dL
[2025-01-08 12:06] LABS: Folate 11.9 ng/mL (> or = 4.0); Vitamin B12 816 pg/mL (200-900)
[2025-01-08 12:10] LABS: Ferritin 278 ng/mL (20-250); Free T4 (Free Thyroxine) 1.08 ng/dL (0.71-1.85); Thyroid Stimulating Hormone 4.63 uIU/mL (0.32-4.0)
== END 2025-01-08 09:02 | disposition home or self-care (01) ==
LOC: HO.WFDLDS 09:01
PROVIDERS: Visit Provider Internal Medicine
DX: I25.10 Atherosclerotic heart disease of native coronary artery without angina pectoris (principal); D50.9 Iron deficiency anemia, unspecified; Z13.1 Encounter for screening for diabetes mellitus
CPT/HCPCS: 36415; 80053; 82607; 82728; 82746; 83036; 83540; 84439; 84443; 85045

== ENCOUNTER 2025-01-12 09:59 | Outpatient (AMB) | payer MEDICARE, SELFPAY ==
[2025-01-12 10:01] VITALS: BP 118/70; PULSE 58; TEMP 36.3; O2SAT 96; BMI 39.1
--- NOTE | 2025-01-12 10:01 | A.OFFPC_ITS ---
Vital Signs 01/12/25 10:01 Height 5 ft 6 in Weight 242 lb 4 oz BMI 39.1 BP 118/70 Blood Pressure Location Lt brachial Position Sitting Pulse 58 Pulse Source Pulse Oximeter Temp 97.3 F Temp Source Temporal Artery Scan Pulse Oximetry (%) 96 Oxygen Delivery Method Room Air Intake Visit Reasons: HTNdonnas - see comments Allergies streptomycin (STREPTOMYCIN) Allergy (Severe, Verified 01/12/25 10:04) AFFECTED MY HEARING , anaphylaxis, affected hearing/nerves/etc, anxiety. Tobacco use date assessed: 01/12/25 Fall risk assessment: No Falls in past year Last assessed Fall Risk: 01/12/25 Dental Screening Dental Screen Date: 01/12/25 Did you have a dental visit in the last 12 months?: No Did you have a dental problem in the last 6 months where you did not have access to dental care?: No Was dental information given to patient?: Patient declined HPI HTN, donnas - see comments HPI Details History of Present Illness The patient is a 79-year-old male presenting for a follow-up visit for manag ement of multiple chronic conditions including coronary artery disease, hypertension, and hypercholesterolemia. The patient has a history of coronary artery disease and atherosclerotic cardiovascular disease, which are being managed with atorvastatin 80 mg daily to maintain an LDL goal of less than 70 mg/dL and triglycerides less than 150 mg/dL. He is also on aspirin 81 mg daily as part of his cardiovascular disease management plan. Hypertension is another chronic condition being monitored, although specific details of current management were not discussed in this visit. The patient has a history of hypercholesterolemia, with recent blood work in December 2024 showing an LDL of 55 mg/dL, indicating good control. He has a history of benign prostatic hyperplasia, Wallis's esophagus managed with omeprazole 40 mg daily, and generalized anxiety disorder. The patient also has a history of lumbar spinal stenosis and peripheral vascular disease, for which he was referred to vascular surgery. Preventative care measures include a shingles vaccination received on January 01, 2025. Health Maintenance - Shingles vaccination administered on 2024 - LDL cholesterol management with atorva statin 80 mg daily, goal of less than 70 mg/dL - Aspirin 81 mg daily for cardiovascular disease prevention Social History Review of Systems Physical Exam Results - Labs: Hemoglobin A1c of 5.8, LDL austyn sterol of 55 mg/dL, electrolytes and renal function stable, liver function good, B12 and folic acid levels normal, thyroid function improved Plan The patient will continue with atorvastatin 80 mg daily to maintain LDL cholesterol levels below 70 mg/dL and triglycerides below 150 mg/dL as part of his cardiovascular disease management. He will also continue taking aspirin 81 mg daily for cardiovascular protection. For Wallis's esophagus, the patient will remain on omeprazole 40 mg daily to manage reflux symptoms. Preventative care measures include maintaining up-to-date vaccinations, such as the shingles vaccine received in December 2024. Patient was informed and verbally consented to the use of an ambient scribe for clinic note documentation during this visit. Discussion Notes Patient Instructions [facility] Medical History (Updated 01/12/25 @ 10:55 by Franco Juarez MD) Atherosclerotic cardiovascular disease Swelling of right lower extremity Duodenal ulcer Abnormal EKG Hypotension Acute electrocardiogram changes Osteoarthritis of right hip Post-nasal drip Recent bereavement Foreign body in left lower extremity COVID-19 virus infection Amebic dysentery Foreign body of left lower leg Left rotator cuff tear Barretts esophagus Osteoarthritis Peripheral neuropathy Colon cancer Impaired glucose tolerance BPH (benign prostatic hyperplasia) Urinary bladder cancer Obesity GERD (gastroesophageal reflux disease) Hypercholesterolemia Hypertension CAD (coronary artery disease) Surgical History Status post total hip replacement, right (~08/28/23) History of total right hip replacement H/O cardiac catheterization (~2013) Hx of colonoscopy History of partial colectomy History of bladder surgery History of carpal tunnel release Family History Father Heart failure Mother Thyroid disorder Sister Lung cancer Daughter Alcoholism Social History Household Members: Family Housing: House Are you a primary senior caregiver to a significant other at home: No Do you presently have visiting nurse or other home services: Yes (PT) Alcohol intake: never Comment: aware of trip hazards 1984 stopped Patient Tobacco Use Status: Former Tobacco user Tobacco use type: Cigarette Years Smoked: 18 stopped 1984 e-Cigarette/Vaping Use: Never Used Second Hand Smoke Exposure: No Advance Directives Date on File: 08/31/23 service: Yes Current occupational status: retired Cognitive needs: No Hearing needs: Yes Vision needs: Yes Questionnaire PHQ-9 Over the last 2 weeks, how often have you been bothered by any of the following problems? 1. Little interest or pleasure in doing things: not at all 2. Feeling down, depressed, or hopeless: not at all 3. Trouble falling or staying asleep, or sleeping too much: more than half the days 4. Feeling tired or having little energy: not at all 5. Poor appetite or overeating: not at all 6. Feeling bad about yourself - or that you are a failure or have let yourself or your family down: not at all 7. Trouble concentrating on things, such as reading the newspaper or watching television: not at all 8. Moving or speaking so slowly that other people could have noticed. Or the opposite - being so fidgety or restless that you have been moving around a lot more than usual: not at all 9. Thoughts that you would be better off or of hurting yourself in some way: not at all Total score: 2 Source: Developed by Drs. Mckinley Ahn, Shanna Nice, Monico Pérez and colleagues, with an educational saul from [email or web address]. Thrive Questionnaire Date Thrive assessed: 10/07/24 I am a: Patient What is your living situation today?: I have a steady place to live Within the past 12 months, did the food you bought not last and you didn't have the money to get more?: I choose not to answer this question Within the past 12 months, did you worry whether your food would run out before you got money to buy more?: Never true Do you have trouble paying for medicines?: No Do you have trouble getting transportation to medical appointments?: No Do you have trouble paying your heating and electricity bill?: I choose not to answer this question Do you have trouble taking care of your child, family member or friend?: I choose not to answer this question Do you have trouble with day-to-day activities such as bathing, preparing meals, shopping, managing finances, etc.?: No Are you currently unemployed and looking for a job?: No Are you interested in more education?: No Please select the resources that you would like help with: None Currently or been in a relationship where the following occur: I choose not to answer THRIVE Score: 0 AUDIT C Alcohol Use Questionnaire (AUDIT-C) 1. How often do you have a drink containing alcohol?: Never 3. How often do you have six or more drinks on one occasion?: Never Total Score: 0 MIKAYLA-7 AMB Questionnaire MIKAYLA-7 Date MIKAYLA - 7 assessed: 10/07/24 Feeling nervous, anxious, or on edge: 0 = Not at all Not being able to stop or control worryin = Not at all Worrying too much about different things: 0 = Not at all Trouble relaxin = Not at all Being so restless that it is hard to sit still: 0 = Not at all Becoming easily annoyed or irritable: 0 = Not at all Feeling afraid as if something awful might happen: 0 = Not at all Total MIKAYLA-7 score (0-4 normal; 5-9 mild; 10-14 moderate; 15-21 severe): 0 Source: Developed by Drs. Mckinley Ahn, Shanna Nice, Monico Pérez and colleagues, with an educational saul from [email or web address]. Physical exam (Primary Care) Vital Signs: Last Vital Signs Temp 97.3 F 01/12/25 10:01 Pulse 58 01/12/25 10:01 BP 118/70 01/12/25 10:01 Pulse Ox 96 01/12/25 10:01 Oxygen Delivery Method Room Air 01/12/25 10:01 BMI result Body Mass Index 39.1 Tobacco/Smoking Status: Tobacco use Status Tobacco use date assessed 01/12/25 01/12/25 10:06 Patient Tobacco Use Status Former Tobacco user 01/12/25 10:06 Tobacco use type Cigarette 01/12/25 10:06 e-Cigarette/Vaping Use Never Used 01/12/25 10:06 PHQ-9: PHQ-9 Score PHQ-9: Total score 2 01/12/25 10:15 Thrive Assessment: Date of Thrive Assessment Date Thrive assessed 10/07/24 01/12/25 10:06 Currently or been in a relationship where the following occur: I choose not to answer Const General: alert; No acute distress Eyes Conjunctivae: conjunctivae normal Resp Auscultation: clear to auscultation bilaterally Cardio Rate: regular rate Rhythm: regular rhythm GI Inspection: Yes normal to inspection Extrem General: Yes normal to inspection and No edema Coding Level of Care Code Est Pt Level 4 (94671) Complex EM visit Add On G2211 Diagnoses Obesity due to excess calories with serious comorbidity, unspecified class E66.09 Obesity classification: unspecified obesity classification Obesity type: due to excess calories Serious obesity comorbidity presence: with serious comorbidity Impaired glucose tolerance R73.02 Hypercholesterolemia E78.00 Wallis's esophagus without dysplasia K22.70 Wallis's esophagus type: without dysplasia Benign prostatic hyperplasia with urinary frequency N40.1; R35.0 Lower urinary tract symptom detail: urinary frequency Lower urinary tract symptom presence: symptoms present Generalized anxiety disorder F41.1 Coronary artery disease involving [place] coronary artery of [place] heart without angina pectoris I25.10 Associated angina: without angina Coronary Disease-Associated Artery/Lesion type: [place] artery [place] vs. transplanted heart: [place] heart Hearing difficulty H91.90 Vision changes H53.9 Assessment & Plan Assessment & Plan (1) Obesity: Code(s): E66.9 - Obesity, unspecified Category: Medical Qualifiers: Obesity classification: unspecified obesity classification Obesity type: due to excess calories Serious obesity comorbidity presence: with serious comorbidity Qualified Code(s): E66.09 - Other obesity due to excess calories Plan: Diet and exercise (2) Impaired glucose tolerance: Code(s): R73.02 - Impaired glucose tolerance (oral) Category: Medical Plan: Decrease the amount of carbohydrate intake, pasta, bread, rice and potatoes are all sugar and that is aside from all the sweet stuff, remember that fruits are good but they are Sweet also. (3) Hypercholesterolemia: Code(s): E78.00 - Pure hypercholesterolemia, unspecified Category: Medical Plan: Avoid fried foods, chicken skin, eggs, butter margarine, pastries and meat. Be it pork or beef they have a lot of cholesterol LDL goal of less than 70 and triglyceride of less than 150 on atorvastatin 80 mg once a day (4) Barretts esophagus: Code(s): K22.70 - Wallis's esophagus without dysplasia Category: Medical Qualifiers: Wallis's esophagus type: without dysplasia Qualified Code(s): K22.70 - Wallis's esophagus without dysplasia Plan: Avoid the foods that causes that usually spicy foods, tomato products, juices, coffee, soda and foods that your sensitive to. After eating do not lie down, allow 3-4 hours before in lie down. And keep the head of bed above 30 degrees to avoid the acid from going up. On omeprazole 40 mg once a day (5) BPH (benign prostatic hyperplasia): Code(s): N40.0 - Benign prostatic hyperplasia without lower urinary tract symptoms Category: Medical Qualifiers: Lower urinary tract symptom detail: urinary frequency Lower urinary tract symptom presence: symptoms present Qualified Code(s): N40.1 - Benign prostatic hyperplasia with lower urinary tract symptoms; R35.0 - Frequency of micturition Plan: Stable (6) Generalized anxiety disorder: Code(s): F41.1 - Generalized anxiety disorder Category: Medical (7) CAD (coronary artery disease): Comment: MRI stent x3(LAD, OM, RCA) April and June 2014 [facility] [place] Elle burris echo 08/2023The left ventricular systolic function is hyperdynamic. The visually estimated ejection fraction is >70%. - No obvious valvular pathology seen on this study. Code(s): I25.10 - Atherosclerotic heart disease of [place] coronary artery without angina pectoris Category: Medical Qualifiers: Associated angina: without angina Coronary Disease-Associated Artery/Lesion type: [place] artery [place] vs. transplanted heart: [place] heart Qualified Code(s): I25.10 - Atherosclerotic heart disease of [place] coronary artery without angina pectoris Plan: Control the cholesterol, weight, blood pressure, continue with aspirin 81 mg once a day (8) Hearing difficulty: Code(s): H91.90 - Unspecified hearing loss, unspecified ear Category: Medical (9) Vision changes: Code(s): H53.9 - Unspecified visual disturbance Category: Medical Plan History of Present Illness The patient is a 79-year-old male presenting with a routine follow-up for chronic conditions and preventative care. The patient reports stable weight, although he is not losing weight despite efforts. His blood pressure is well-controlled with current medications, and he does not require any refills at this time. Recent blood tests indicate a slight increase in creatinine levels, suggesting a decline in kidney function. The patient admits to consuming approximately 2.5 cups of coffee daily and drinking water regularly, although he may need to increase his water intake. The creatinine levels have risen from 0.84 to 1.11 over the past year, which is still within acceptable limits but requires monitoring. The patient's fasting blood glucose was not measured due to a lack of fasting, but his hemoglobin A1c has increased from 5.6 to 5.8, indicating prediabetes. He has reduced his intake of white bread recently, which may help manage his blood sugar levels. Thyroid function tests show a decrease in levels, although they remain outside the normal range. The current level is 4.63, and further monitoring is planned. The patient experiences hearing loss, attributed to service, and requires a referral to an ENT specialist for further evaluation and management. Vision issues have been noted, with difficulty recognizing people from a distance. A referral to an c.o.d. clerk is needed for further assessment. Peripheral neuropathy is present, causing occasional discomfort, but the patient manages to stay active despite this. The patient has received the shingles vaccination, with the second dose administered recently. Plan The patient will continue with current antihypertensive medications as his blood pressure is well-controlled. No medication refills are needed at this time. Monitoring of kidney function will continue, with emphasis on increasing water intake to support renal health. The patient is advised to limit the intake of non-steroidal anti-inflammatory drugs to prevent further renal impairment. The patient is informed about the rising trend in blood glucose levels and the importance of dietary modifications, including reducing carbohydrate intake. A follow-up blood test is scheduled in three months, with fasting required to accurately assess glucose levels. Thyroid function will be re-evaluated in the next blood work to monitor any changes. The patient is encouraged to maintain regular follow-ups to ensure optimal management of thyroid levels. A referral to an ENT specialist is provided for further evaluation of hearing loss, and an c.o.d. clerk referral is given for vision assessment. The patient is advised to schedule these appointments promptly. The patient is encouraged to continue with physical activity as tolerated to manage peripheral neuropathy symptoms. The recent shingles vaccination is noted, and the patient is reminded of the importance of completing the vaccination series. Patient was informed and verbally consented to the use of an ambient scribe for clinic note documentation during this visit. Orders: Orders Comprehensive Met. Panel 3 Months R73.02 - Impaired glucose tolerance (oral) Free T4 (Free Thyroxine) 3 Months R73.02 - Impaired glucose tolerance (oral) Complete Blood Count Auto Diff 3 Months R73.02 - Impaired glucose tolerance (oral) Hemoglobin A1c 3 Months R73.02 - Impaired glucose tolerance (oral) Thyroid Stimulating Hormone 3 Months R73.02 - Impaired glucose tolerance (oral) Lipid Panel 3 Months E78.00 - Pure hypercholesterolemia, unspecified, R73.02 - Impaired glucose tolerance (oral) Referrals Ear/Nose/Throat Referral H91.90 - Unspecified hearing loss, unspecified ear Ophthalmology Referral H53.9 - Unspecified visual disturbance
--- OUTSIDE RECORDS SUMMARY | 2025-01-12 11:02 | XMS_ITS | Patient Health Record ---
[facility] Organization [facility] [place] leeroy [place] Address [address] [place] [address] Care Team Providers Care Screen Writer Name Role Phone LarryFranco Primary Care Provider Unavailabl e Melanie Forde Unavailable [phone] Allergies Allergen (clinical drug ingredient) Drug/Non Drug Allergy documented on EMR Reaction Allergy Type Onset Date Status streptomycin Streptomycin Unknown Drug Allergy A ctive Reason For Referral No Information Medications Medication SIG (Take, Route, Frequency, Duration) Notes Start Date End Date Status Tylenol Active Multivitamin Active Medrol 4 MG as directed Orally Daily for 6 days 06/06/2024 Not-Taking Ammonium Lactate 12 % 1 application Externally Twice a day for 30 days Not-Taking Omeprazole Active Furosemide Not-Takin g Vitamin B12 Active Vitamin D3 Active Atorvastatin Calcium Active Gabapentin Not-Takin g Carvedilol Active Finasteride Active Losartan Potassium 100 MG 2 tablets Once a day 125mg Active Iron Active Social History Tobacco Use: Social History Observation Description Date Details (start date - stop date) Never Smoker NA - NA Tobacco use other than smoking: Question Answer Notes Are you an other tobacco user? No Tobacco Control (Standard) Question Answer Notes Tobacco use: Nonsmoker Additional Findings: Tobacco non-user Current no nsmoker AUDIT-C (Standard) Question Answer Notes Did you have a drink containing alcohol in the p ast year? No Points 0 Interpretation Negative Problems Problem Type SNOMED Code ICD Code Onset Dates Problem Status W/U Status Risk Notes Problem Atherosclerosis of [place] arteries of the extremities ([id number]) Atherosclerosis of [place] artery of both lower extremities, with unspecified presence of clinical manifestation (I70.203) Active confirmed Problem [id number] Polyneuropathy associated with underlying disease (G63) Active confirmed Vital Signs Blood pressure diastolic 80 mm Hg 12/02/2024 Height 5 ft 8 in in 12/02/2024 Blood pressure systolic 120 mm Hg 12/02/2024 Weight 238 lbs 12/02/2024 BMI 36.18 kg/m2 12/02/2024 Procedures Procedure Date Ordered Date Performed Result Body Sit e 44722-SQDYYWI NAIL, 6 OR MORE 03/04/2024 N/A 65886-Qjyvlavk Plate 03/04/2024 N/A 62460-Zqrextga Plate Each Additional 03/04/2024 N/A 03837-RDIC SKIN LESIONS, 2 TO 4 03/04/2024 N/A 96152-HYMVACN NAIL, 6 OR MORE 06/06/2024 N/A 39620-KCHW SKIN LESIONS, 2 TO 4 06/06/2024 N/A 72364-TLDXXFE NAIL, 6 OR MORE 12/02/2024 N/A 82166-GYMC SKIN LESIONS, 2 TO 4 12/02/2024 N/A 58275-ITSP SKIN LESIONS, 2 TO 4 08/29/2024 N/A 08678-NCDKEIX NAIL, 6 OR MORE 08/29/2024 N/A Encounters Encounter Location Date Provider Diagnosis [address] [address] 03/04/2024 Melanie Black Atherosclerosis of [place] artery of both lower extremities, with unspecified presence of clinical manifestation I70.203 ; Tinea unguium B35.1 ; Pain in right toe(s) M79.674 ; Pain in left toe(s) M79.675 ; Xerosis of skin L85.3 ; Ingrown nail L60.0 and Polyneuropathy associated with underlying disease G63 [address] [address] 06/06/2024 Melanie Black Poison anish dermatiti s L23.7 ; Atherosclerosis of [place] artery of both lower extremities, with unspecified presence of clinical manifestation I70.203 ; Tinea unguium B35.1 ; Pain in right toe(s) M79.674 ; Pain in left toe(s) M79.675 ; Polyneuropathy associated with underlying disease G63 ; Dermatitis L30.9 and Pruritus L29.9 [facility] [address] 08/29/2024 Melanie Black Poison anish dermatiti s L23.7 ; Atherosclerosis of [place] artery of both lower extremities, with unspecified presence of clinical manifestation I70.203 ; Tinea unguium B35.1 ; Pain in right toe(s) M79.674 ; Pain in left toe(s) M79.675 and Polyneuropathy associated with underlying disease G63 [facility] [address] 12/02/2024 Melanie Black Atherosclerosis of [place] artery of both lower extremities, with unspecified presence of clinical manifestation I70.203 ; Tinea unguium B35.1 ; Pain in right toe(s) M79.674 ; Pain in left toe(s) M79.675 and Polyneuropathy associated with underlying disease G63 Assessments Encounter Date Diagnosis (ICD Code) Assessment Notes Treatment Notes Treatment Clinical Notes Section Notes 03/04/2024 Tinea unguium (ICD-10 - B35.1) 03/04/2024 Atherosclerosis of [place] artery of both lower extremities, with unspecified presence of clinical manifestation (ICD-10 - I70.203) 06/06/2024 Poison anish dermatitis (ICD-10 - L23.7) 06/06/2024 Atherosclerosis of [place] artery of both lower extremities, with unspecified presence of clinical manifestation (ICD-10 - I70.203) 08/29/2024 Poison anish dermatitis (ICD-10 - L23.7) 08/29/2024 Atherosclerosis of [place] artery of both lower extremities, with unspecified presence of clinical manifestation (ICD-10 - I70.203) 12/02/2024 Tinea unguium (ICD-10 - B35.1) 12/02/2024 Atherosclerosis of [place] artery of both lower extremities, with unspecified presence of clinical manifestation (ICD-10 - I70.203) 12/02/2024 Pain in right toe(s) (ICD-10 - M79.674) 08/29/2024 Tinea unguium (ICD-10 - B35.1) 06/06/2024 Tinea unguium (ICD-10 - B35.1) 03/04/2024 Pain in right toe(s) (ICD-10 - M79.674) 03/04/2024 Pain in left toe(s) (ICD-10 - M79.675) 06/06/2024 Pain in right toe(s) (ICD-10 - M79.674) 12/02/2024 Pain in left toe(s) (ICD-10 - M79.675) 08/29/2024 Pain in right toe(s) (ICD-10 - M79.674) 03/04/2024 Xerosis of skin (ICD-10 - L85.3) 12/02/2024 Polyneuropathy associated with underlying disease (ICD-10 - G63) 08/29/2024 Pain in left toe(s) (ICD-10 - M79.675) 06/06/2024 Pain in left toe(s) (ICD-10 - M79.675) 03/04/2024 Ingrown nail (ICD-10 - L60.0) 06/06/2024 Polyneuropathy associated with underlying disease (ICD-10 - G63) 08/29/2024 Polyneuropathy associated with underlying disease (ICD-10 - G63) 06/06/2024 Dermatitis (ICD-10 - L30.9) 03/04/2024 Polyneuropathy associated with underlying disease (ICD-10 - G63) 06/06/2024 Pruritus (ICD-10 - L29.9) Plan Of Treatment Pending Test Test Name Order Date 82913-CFTHTAS NAIL, 6 OR MORE 03/04/2024 54508-DZDKDMF NAIL, 6 OR MORE 06/06/2024 01531-CXVNMXL NAIL, 6 OR MORE 08/29/2024 32794-XCUJDHV NAIL, 6 OR MORE 12/02/2024 52277-Eztsndaz Plate 03/04/2024 17379-Bgywgkxk Plate Each Additional 93472-NQNS SKIN LESIONS, 2 TO 4 03/04/20 24 79989-PVNR SKIN LESIONS, 2 TO 4 06/06/20 24 38826-MOSZ SKIN LESIONS, 2 TO 4 12/03/19 25 10177-CEVL SKIN LESIONS, 2 TO 4 08/29/19 25 Next Appt Details Provider Name:Melaniegurinder Forde , 02/25/2025 10:15:00 AM, [address], [place], [address], Insurance Providers Payer Name Payer Address Payer Phone Subscriber Number Group Number Insured Name Patient Relationship to Insured Coverage Start Date Coverage End Date [employer] Medicare Adv-[id number] [address] [address] [place] [address] [phone] [id number] Pavan Kimball Self - patient is the [...]
== END 2025-01-12 11:02 | disposition home or self-care (01) ==
LOC: HO.HMCH 10:00
PROVIDERS: PCP Internal Medicine; Visit Provider Internal Medicine
DX: E78.00 Pure hypercholesterolemia, unspecified (principal); K22.70 Barrett's esophagus without dysplasia; E66.09 Other obesity due to excess calories; Z68.39 Body mass index [BMI] 39.0-39.9, adult; R73.02 Impaired glucose tolerance (oral); N40.1 Benign prostatic hyperplasia with lower urinary tract symptoms; R35.0 Frequency of micturition; F41.1 Generalized anxiety disorder; I25.10 Atherosclerotic heart disease of native coronary artery without angina pectoris; H53.9 Unspecified visual disturbance

== ENCOUNTER → 2025-01-12 09:59 | Outpatient (BNVA) | payer MEDICARE, SELFPAY | PROVIDERS: PCP Internal Medicine; Visit Provider Internal Medicine | DX: E66.09 Other obesity due to excess calories (principal); Z68.39 Body mass index [BMI] 39.0-39.9, adult; R73.02 Impaired glucose tolerance (oral); E78.00 Pure hypercholesterolemia, unspecified; K22.70 Barrett's esophagus without dysplasia; N40.1 Benign prostatic hyperplasia with lower urinary tract symptoms; R35.0 Frequency of micturition; F41.1 Generalized anxiety disorder; I25.10 Atherosclerotic heart disease of native coronary artery without angina pectoris; H91.90 Unspecified hearing loss, unspecified ear; H53.9 Unspecified visual disturbance; Z87.891 Personal history of nicotine dependence | CPT/HCPCS: 99212 ==

== ENCOUNTER 2025-04-14 10:56 | Outpatient (REF) | payer MEDICARE, SELFPAY ==
--- OUTSIDE RECORDS SUMMARY | 2025-02-25 06:15 | XMS_ITS ---
Author Organization [facility] Address [address] [facility] [place] [address] Care Team Providers Care Practicing Dermatologist Name Role Phone Franco Juarez Primary Care Provider UnavailMelanie Romero [phone] Allergies Allergen (clinical drug ingredient) Drug/Non Drug [...] Active Encounters Encounter Location Date Provider Diagnosis [address] [address] 02/25/2025 Melanie Forde Plan Of Treatment No Information Progress Notes * Wilmer GARCIAOB:1945 (79 yo M)Acc No.[id number]:02/25/2025 Progress Note Patient: Pavan BRAVO Provider: Omid Forde DPM :1945 A ge:79 Y S ex:Male Date:02/25/2025 Address:[address], [place] Pcp:Franco Juarez Subjective: * Chief Complaints: * [...] 0 02/25/2025 Generated for Clover camarillo/Julio/Juani on: 04/14/2025 01:32 PM EDT
--- OUTSIDE RECORDS SUMMARY | 2025-04-14 13:33 | XMS_ITS | Clinical Summary ---
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 Name Role Phone Unavailable Primary Care Provider Unavailabl e Social History Tobacco Use Types Packs/Day Years Used Date Smoking Tobacco: Never Assessed Sex and Gender Information Value Date Recorded Sex Assigned at Not on file Legal Sex Male 11:20 AM EDT Gender Identity Not on file Sexual Orientation Not on file Plan of Treatment Health Maintenance Due Date Last Done Comments Advance Care Planning 1945 Hepatitis C Virus Screening 1945 DTaP/Tdap/Td Vaccines (1 - Tdap) 10/10/1966 Pneumococcal Vaccines 50+ (1 of 1 - PCV) 10/10/1997 Zoster (Shingles) Vaccine (1 of 2) 10/10/1997 RSV Vaccine 60 years and old er and Patients (1 - 1-dose 75+ series) 10/10/2022 Influenza Vaccine 02/20/2025 COVID-19 Vaccine (2023-2 5 season) 2025 Hepatitis B Vaccines Aged Out No long er eligible based on patient's age to complete this topic Insurance [facility]
--- OUTSIDE RECORDS SUMMARY | 2025-04-14 13:33 | XMS_ITS | Patient Health Record ---
Author Organization [facility] Address [address] [place] [address] Care Team Providers Care Heel Curver Name Role Phone Po Franco GREER Primary Care Provider Mckinley Aguilar Unavailable [phone] Allergies Allergen (clinical drug ingredient) Drug/Non Drug Allergy documented on EMR Reaction Allergy Type Onset Date Status streptomycin Streptomycin Sulfate Unknown Drug Allergy Active Reason For Referral No Information Medications Medication SIG (Take, Route, Frequency, Duration) Notes Start Date End Date Status Vitamin C 500 MG 1 tablet Orally Once a day for 30 day(s) Active Losartan Potassium-HCTZ 100-25 MG 1 tablet Orally Once a day Active Gabapentin 100 MG 1 capsule at bedtime Oral prn for 90 days I739,Unavailabl e Active SV Iron 325 (65 Fe) MG TAKE 1 TABLET BY MOUTH ONCE DAILY Oral for 30 Active Vitamin B12 once a week Active Carvedilol 25 MG 1 Orally BID Active Finasteride 5 MG 1 tablet Orally Once a day Active Omeprazole 40 MG 1 orally Every morning for 90 days 11/13/2023 Active Multi Vitamin/Minerals - Orally Active Atorvastatin Calcium 80 MG 1 tablet Orally Once a day Active Social History Tobacco Use: Social History [...] since 1984; no alc ohol since 1984 Nonsmoker since 1984; no alc ohol since 1984 Nonsmoker since 1984; no alc ohol since 1984 Nonsmoker since 1984; no alc ohol since 1984 Nonsmoker since 1984; no alc ohol since 1984 Problems Problem Type SNOMED Code ICD Code Onset Dates Problem Status W/U Status Risk Notes Problem 706580507 Encounter for screening for malignant neoplasm of colon (Z12.11) Active confirmed Problem 575071951 History of adenomatous polyp of colon (Z86.010) Active confirmed Problem Acute posthemorrhagic anemia (638636020) Acute posthemorrhagic anemia (D62) Active confirmed Problem 977567555 Barretts esophag us without dysplasia (K22.70) Active confirmed Problem 131452965 Gastroesophageal reflux disease, esophagitis presence not specified (K21.9) Active confirmed Problem 229216535 Long-term use of aspirin therapy (Z79.82) Active confirmed Problem 99158275 Erosive esophagi tis (K22.10) Active confirmed Problem Gastritis (4791012) Gastritis (K29.70) Active confirmed Problem Duodenal ulcer without hemorrhage, without perforation AND without obstruction (89164964) Duodenal bulb ulcer (K26.9) Active confirmed Problem 05309612 Esophageal dysphagia (R13.14) Active confirmed Problem 119164127 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) Active confirmed Vital Signs Blood pressure diastolic 77 mm Hg 11/20/2024 Height 69 in 11/20/2024 Blood pressure systolic 111 mm Hg 11/20/2024 Weight 243 lbs 11/20/2024 BMI 35.88 kg/m2 11/20/2024 Encounters Encounter Location Date Provider Diagnosis [facility] [address] [place] [phone] 05/15/2024 Mckinley Franco Gastroesophageal ref lux disease, esophagitis presence not specified K21.9 ; Duodenal bulb ulcer K26.9 ; Encounter for screening for malignant neoplasm of colon Z12.11 ; Barretts esophagus without dysplasia K22.70 ; Erosive esophagitis K22.10 and Villous adenoma of colon D37.4 [facility] [address] [place] [phone] 11/20/2024 Mckinley Franco Gastroesophageal ref lux disease, esophagitis presence not specified K21.9 ; Long-term use of aspirin therapy Z79.82 ; Encounter for screening for malignant neoplasm of colon Z12.11 ; Erosive esophagitis K22.10 ; Barretts esophagus without dysplasia K22.70 ; Villous adenoma of colon D37.4 and History of adenomatous polyp of colon Z86.010 Assessments Encounter Date Diagnosis (ICD Code) Assessment Notes Treatment Notes Treatment Clinical Notes Section Notes 05/15/2024 Gastroesophageal reflux disease, esophagitis presence not specified (ICD-10 - K21.9) Overall, Gerardo appears well and is not having any new or worrisome GI symptoms. He is not having any recurrent symptoms of peptic ulcer disease or any evidence of GI bleeding. I did advise him to continue the current 40 mg omeprazole daily regimen long-term given the previous history of the significant duodenal ulcer disease with bleeding, as well as the fact that he is now back on his low-dose aspirin for his underlying coronary artery disease. We again reviewed the need for a followup colonoscopy and upper endoscopy in regard to the significant villous adenoma removed in 2018 and his underlying history of esophagitis with Wallis's esophagus, respectively. However, at this point he does not feel that he is up to having any procedures done at this time . He feels that he is still recuperating from his hospitalization earlier this year. Therefore, I will plan to see him in about 6 months to review things further. I did advise him to certainly call me in the interim if he as any problems or questions I can be of assistance with. Gerardo was comfortable with this plan. Thank you again for allowing me to participate in Gerardo's care. I shall continue to keep you advised of his progress. 05/15/2024 Duodenal bulb ulcer (ICD-10 - K26.9) Overall, Gerardo appears well and is not having any new or worrisome GI symptoms. He is not having any recurrent symptoms of peptic ulcer disease or any evidence of GI bleeding. I did advise him to continue the current 40 mg omeprazole daily regimen long-term given the previous history of the significant duodenal ulcer disease with bleeding, as well as the fact that he is now back on his low-dose aspirin for his underlying coronary artery disease. We again reviewed the need for a followup colonoscopy and upper endoscopy in regard to the significant villous adenoma removed in 2018 and his underlying history of esophagitis with Wallis's esophagus, respectively. However, at this point he does not feel that he is up to having any procedures done at this time . He feels that he is still recuperating from his hospitalization earlier this year. Therefore, I will plan to see him in about 6 months to review things further. I did advise him to certainly call me in the interim if he as any problems or questions I can be of assistance with. Gerardo was comfortable with this plan. Thank you again for allowing me to participate in Gerardo's care. I shall continue to keep you advised of his progress. 11/20/2024 Gastroesophageal reflux disease, esophagitis presence not specified (ICD-10 - K21.9) Continue the daily 40mg omeprazole and avoid all NSAIDs. You can take Tylenol as needed Overall, Pavan appears to be doing well from a GI standpoint. He does not describe any symptoms of recurrent GI bleeding nor ongoing reflux on the daily omeprazole. I did advise him to continue this long-term. His blood count and iron levels have returned to normal but I did advise him they could certainly continue the iron if he is not having any adverse GI side effects from it. We did review the need to continue to avoid all NSAIDs and alcohol long-term. We did review the previous history of the large villous adenoma removed surgically and the fact that he has not had a follow-up colonoscopy in over 5 years. I did recommend this as a way to prevent colorectal cancer and/or detected in his early stages. However at this point since he is feeling so well and is having a lot of trouble with his balance he is inclined to hold off on the colonoscopy unless he begins having symptoms. We also reviewed a follow-up endoscopy given the previous history of the finding of Wallis's esophagus but he is inclined to hold off on that as well as he does not want to have any type of anesthesia. If things remain well I will plan to see Pavan in 1 year for a follow-up office visit. I did advise him to definitely call me prior to that if he is having any problems or questions I can be of assistance with. Pavan was very comfortable with this plan. Thank you again for allowing me to participate in Pavan's care. I shall continue to keep you advised of his progress.. 05/15/2024 Encounter for screening for malignant neoplasm of colon (ICD-10 - Z12.11) Overall, Gerardo appears well and is not having any new or worrisome GI symptoms. He is not having any recurrent symptoms of peptic ulcer disease or any evidence of GI bleeding. I did advise him to continue the current 40 mg omeprazole daily regimen long-term given the previous history of the significant duodenal ulcer disease with bleeding, as well as the fact that he is now back on his low-dose aspirin for his underlying coronary artery disease. We again reviewed the need for a followup colonoscopy and upper endoscopy in regard to the significant villous adenoma removed in 2018 and his underlying history of esophagitis with Wallis's esophagus, respectively. However, at this point he does not feel that he is up to having any procedures done at this time . He feels that he is still recuperating from his hospitalization earlier this year. Therefore, I will plan to see him in about 6 months to review things further. I did advise him to certainly call me in the interim if he as any problems or questions I can be of assistance with. Gerardo was comfortable with this plan. Thank you again for allowing me to participate in Gerardo's care. I shall continue to keep you advised of his progress. 11/20/2024 Long-term use of aspirin therapy (ICD-10 - Z79.82) Overall, Pavan appears to be doing well from a GI standpoint. He does not describe any symptoms of recurrent GI bleeding nor ongoing reflux on the daily omeprazole. I did advise him to continue this long-term. His blood count and iron levels have returned to normal but I did advise him they could certainly continue the iron if he is not having any adverse GI side effects from it. We did review the need to continue to avoid all NSAIDs and alcohol long-term. We did review the previous history of the large villous adenoma removed surgically and the fact that he has not had a follow-up colonoscopy in over 5 years. I did recommend this as a way to prevent colorectal cancer and/or detected in his early stages. However at this point since he is feeling so well and is having a lot of trouble with his balance he is inclined to hold off on the colonoscopy unless he begins having symptoms. We also reviewed a follow-up endoscopy given the previous history of the finding of Wallis's esophagus but he is inclined to hold off on that as well as he does not want to have any type of anesthesia. If things remain well I will plan to see Pavan in 1 year for a follow-up office visit. I did advise him to definitely call me prior to that if he is having any problems or questions I can be of assistance with. Pavan was very comfortable with this plan. Thank you again for allowing me to participate in Pavan's care. I shall continue to keep you advised of his progress.. 05/15/2024 Barretts esophagus without dysplasia (ICD-10 - K22.70) Overall, Gerardo appears well and is not having any new or worrisome GI symptoms. He is not having any recurrent symptoms of peptic ulcer disease or any evidence of GI bleeding. I did advise him to continue the current 40 mg omeprazole daily regimen long-term given the previous history of the significant duodenal ulcer disease with bleeding, as well as the fact that he is now back on his low-dose aspirin for his underlying coronary artery disease. We again reviewed the need for a followup colonoscopy and upper endoscopy in regard to the significant villous adenoma removed in 2018 and his underlying history of esophagitis with Wallis's esophagus, respectively. However, at this point he does not feel that he is up to having any procedures done at this time . He feels that he is still recuperating from his hospitalization earlier this year. Therefore, I will plan to see him in about 6 months to review things further. I did advise him to certainly call me in the interim if he as any problems or questions I can be of assistance with. Gerardo was comfortable with this plan. Thank you again for allowing me to participate in Gerardo's care. I shall continue to keep you advised of his progress. 11/20/2024 Encounter for screening for malignant neoplasm of colon (ICD-10 - Z12.11) Think about having a colonoscopy for follow up Overall, Pavan appears to be doing well from a GI standpoint. He does not describe any symptoms of recurrent GI bleeding nor ongoing reflux on the daily omeprazole. I did advise him to continue this long-term. His blood count and iron levels have returned to normal but I did advise him they could certainly continue the iron if he is not having any adverse GI side effects from it. We did review the need to continue to avoid all NSAIDs and alcohol long-term. We did review the previous history of the large villous adenoma removed surgically and the fact that he has not had a follow-up colonoscopy in over 5 years. I did recommend this as a way to prevent colorectal cancer and/or detected in his early stages. However at this point since he is feeling so well and is having a lot of trouble with his balance he is inclined to hold off on the colonoscopy unless he begins having symptoms. We also reviewed a follow-up endoscopy given the previous history of the finding of Wallis's esophagus but he is inclined to hold off on that as well as he does not want to have any type of anesthesia. If things remain well I will plan to see Pavan in 1 year for a follow-up office visit. I did advise him to definitely call me prior to that if he is having any problems or questions I can be of assistance with. Pavan was very comfortable with this plan. Thank you again for allowing me to participate in Pavan's care. I shall continue to keep you advised of his progress.. 05/15/2024 Erosive esophagitis (ICD-10 - K22.10) Overall, Gerardo appears well and is not having any new or worrisome GI symptoms. He is not having any recurrent symptoms of peptic ulcer disease or any evidence of GI bleeding. I did advise him to continue the current 40 mg omeprazole daily regimen long-term given the previous history of the significant duodenal ulcer disease with bleeding, as well as the fact that he is now back on his low-dose aspirin for his underlying coronary artery disease. We again reviewed the need for a followup colonoscopy and upper endoscopy in regard to the significant villous adenoma removed in 2018 and his underlying history of esophagitis with Wallis's esophagus, respectively. However, at this point he does not feel that he is up to having any procedures done at this time . He feels that he is still recuperating from his hospitalization earlier this year. Therefore, I will plan to see him in about 6 months to review things further. I did advise him to certainly call me in the interim if he as any problems or questions I can be of assistance with. Gerardo was comfortable with this plan. Thank you again for allowing me to participate in Gerardo's care. I shall continue to keep you advised of his progress. 11/20/2024 Erosive esophagitis (ICD-10 - K22.10) Overall, Pavan appears to be doing well from a GI standpoint. He does not describe any symptoms of recurrent GI bleeding nor ongoing reflux on the daily omeprazole. I did advise him to continue this long-term. His blood count and iron levels have returned to normal but I did advise him they could certainly continue the iron if he is not having any adverse GI side effects from it. We did review the need to continue to avoid all NSAIDs and alcohol long-term. We did review the previous history of the large villous adenoma removed surgically and the fact that he has not had a follow-up colonoscopy in over 5 years. I did recommend this as a way to prevent colorectal cancer and/or detected in his early stages. However at this point since he is feeling so well and is having a lot of trouble with his balance he is inclined to hold off on the colonoscopy unless he begins having symptoms. We also reviewed a follow-up endoscopy given the previous history of the finding of Wallis's esophagus but he is inclined to hold off on that as well as he does not want to have any type of anesthesia. If things remain well I will plan to see Pavan in 1 year for a follow-up office visit. I did advise him to definitely call me prior to that if he is having any problems or questions I can be of assistance with. Pavan was very comfortable with this plan. Thank you again for allowing me to participate in Pavan's care. I shall continue to keep you advised of his progress.. 05/15/2024 Villous adenoma of colon (ICD-10 - D37.4) We will try to schedule a colonoscopy and upper endoscopy when I see you in the spring. Overall, Gerardo appears well and is not having any new or worrisome GI symptoms. He is not having any recurrent symptoms of peptic ulcer disease or any evidence of GI bleeding. I did advise him to continue the current 40 mg omeprazole daily regimen long-term given the previous history of the significant duodenal ulcer disease with bleeding, as well as the fact that he is now back on his low-dose aspirin for his underlying coronary artery disease. We again reviewed the need for a followup colonoscopy and upper endoscopy in regard to the significant villous adenoma removed in 2018 and his underlying history of esophagitis with Wallis's esophagus, respectively. However, at this point he does not feel that he is up to having any procedures done at this time . He feels that he is still recuperating from his hospitalization earlier this year. Therefore, I will plan to see him in about 6 months to review things further. I did advise him to certainly call me in the interim if he as any problems or questions I can be of assistance with. Gerardo was comfortable with this plan. Thank you again for allowing me to participate in Gerardo's care. I shall continue to keep you advised of his progress. 11/20/2024 Barretts esophagus without dysplasia (ICD-10 - K22.70) Overall, Pavan appears to be doing well from a GI standpoint. He does not describe any symptoms of recurrent GI bleeding nor ongoing reflux on the daily omeprazole. I did advise him to continue this long-term. His blood count and iron levels have returned to normal but I did advise him they could certainly continue the iron if he is not having any adverse GI side effects from it. We did review the need to continue to avoid all NSAIDs and alcohol long-term. We did review the previous history of the large villous adenoma removed surgically and the fact that he has not had a follow-up colonoscopy in over 5 years. I did recommend this as a way to prevent colorectal cancer and/or detected in his early stages. However at this point since he is feeling so well and is having a lot of trouble with his balance he is inclined to hold off on the colonoscopy unless he begins having symptoms. We also reviewed a follow-up endoscopy given the previous history of the finding of Wallis's esophagus but he is inclined to hold off on that as well as he does not want to have any type of anesthesia. If things remain well I will plan to see Pavan in 1 year for a follow-up office visit. I did advise him to definitely call me prior to that if he is having any problems or questions I can be of assistance with. Pavan was very comfortable with this plan. Thank you again for allowing me to participate in Pavan's care. I shall continue to keep you advised of his progress.. 11/20/2024 Villous adenoma of colon (ICD-10 - D37.4) Overall, Pavan appears to be doing well from a GI standpoint. He does not describe any symptoms of recurrent GI bleeding nor ongoing reflux on the daily omeprazole. I did advise him to continue this long-term. His blood count and iron levels have returned to normal but I did advise him they could certainly continue the iron if he is not having any adverse GI side effects from it. We did review the need to continue to avoid all NSAIDs and alcohol long-term. We did review the previous history of the large villous adenoma removed surgically and the fact that he has not had a follow-up colonoscopy in over 5 years. I did recommend this as a way to prevent colorectal cancer and/or detected in his early stages. However at this point since he is feeling so well and is having a lot of trouble with his balance he is inclined to hold off on the colonoscopy unless he begins having symptoms. We also reviewed a follow-up endoscopy given the previous history of the finding of Wallis's esophagus but he is inclined to hold off on that as well as he does not want to have any type of anesthesia. If things remain well I will plan to see Pavan in 1 year for a follow-up office visit. I did advise him to definitely call me prior to that if he is having any problems or questions I can be of assistance with. Pavan was very comfortable with this plan. Thank you again for allowing me to participate in Pavan's care. I shall continue to keep you advised of his progress.. 11/20/2024 History of adenomatous polyp of colon (ICD-10 - Z86.010) Overall, Pavan appears to be doing well from a GI standpoint. He does not describe any symptoms of recurrent GI bleeding nor ongoing reflux on the daily omeprazole. I did advise him to continue this long-term. His blood count and iron levels have returned to normal but I did advise him they could certainly continue the iron if he is not having any adverse GI side effects from it. We did review the need to continue to avoid all NSAIDs and alcohol long-term. We did review the previous history of the large villous adenoma removed surgically and the fact that he has not had a follow-up colonoscopy in over 5 years. I did recommend this as a way to prevent colorectal cancer and/or detected in his early stages. However at this point since he is feeling so well and is having a lot of trouble with his balance he is inclined to hold off on the colonoscopy unless he begins having symptoms. We also reviewed a follow-up endoscopy given the previous history of the finding of Wallis's esophagus but he is inclined to hold off on that as well as he does not want to have any type of anesthesia. If things remain well I will plan to see Pavan in 1 year for a follow-up office visit. I did advise him to definitely call me prior to that if he is having any problems or questions I can be of assistance with. Pavan was very comfortable with this plan. Thank you again for allowing me to participate in Pavan's care. I shall continue to keep you advised of his progress.. Plan Of Treatment Pending Test Test Name Order Date BUN 06/27/2017 CREATININE 06/27/2017 LIVER PROFILE 06/27/2017 IRON + IBC (FE) 09/09/2023 CEA 06/27/2017 CBC w DIFF 06/27/2017 CBC w DIFF 09/09/2023 Ferritin 09/09/2023 Future Test Test Name Order Date UPPER GI ENDOSCOPY BALLOOON DILATION OF ESOPH 03/28/2017 COLONOSCOPY 03/28/2017 UPPER GI ENDOSCOPY BALLOOON DILATION OF ESOPH 10/09/2017 Next Appt Details Provider Name:Mckinley Franco , 11/24/2025 09:10:00 AM, [address], [address], [place], [address], Insurance Providers Payer Name Payer Address Payer Phone Subscriber Number Group Number Insured Name Patient Relationship to Insured Coverage Start Date Coverage End Date [facility] [address] [address] [place] [address] [id number] JOSE PAVAN Self - patient is the insured Medical (General) History Medical History History ICD Code WI 2013--4 stents placed Hypertension Bladder cancer--treated with [...] hiatal hernia and some mild erosive gastritis. 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 oscar bearden 08/28/2023 Right ileocolectomy [place] [address] 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
--- OUTSIDE RECORDS SUMMARY | 2025-04-14 13:33 | XMS_ITS ---
Author Name [facility] Organization Unknown Problems Problem Status Onset Date Problem Type Date of Resoluti on Source Hypertension, unspecified type active EncounterDiagnosisAct CCT Encounters Encounter Type Encounter Reason Primary Diagnosis Location Date Ambulatory Essential (prima ry) hypertension Figure 1 02/14/2023 Care Team Organization Name Specialty Phone Email Start Date End Da te Figure 1 02/14/2023 02/14/2023 Figure 1 02/14/2023
--- OUTSIDE RECORDS SUMMARY | 2025-04-14 13:33 | XMS_ITS | Patient Health Record ---
Author Organization [facility] [place] Address [address] [place] [address] Care Team Providers Care Strip Tank Tender Name Role Phone LarryFranco Primary Care Provider Unavailabl e Melanie Forde Unavailable [phone] Allergies Allergen (clinical drug ingredient) Drug/Non Drug Allergy documented on EMR Reaction Allergy Type Onset Date Status streptomycin Streptomycin Unknown Drug Allergy A ctive Reason For Referral No Information Medications Medication SIG (Take, Route, Frequency, Duration) Notes Start Date End Date Status Omeprazole Active Vitamin D3 Active Vitamin B12 Active Multivitamin Active Atorvastatin Calcium Active Medrol 4 MG as directed Orally Daily; Duration: 6 days 06/06/2024 Not-Taki ng Finasteride Active Carvedilol Active Tylenol Active Gabapentin Not-Takin g Iron Active Furosemide Not-Takin g Losartan Potassium 100 MG 2 tablets Once a day 125mg Active Ammonium Lactate 12 % 1 application Externally Twice a day; Duration: 30 days Not-Taking Social History Tobacco Use: Social History Observation [...] Problem Status W/U Status Risk Notes Problem Bilateral atherosclerosis of arteries of lower limbs (disorder) (62085021272361649 ) Atherosclerosis of [place] artery of both lower extremities, with unspecified presence of clinical manifestation (I70.203) Active confirmed Problem Polyneuropathy associated with another disorder (447948945) Polyneuropathy associated with underlying disease (G63) Active confirmed Vital Signs Blood pressure diastolic 80 mm Hg 12/02/2024 Height 5 ft 8 in in 12/02/2024 Blood pressure systolic 120 mm Hg 12/02/2024 Weight 238 lbs 12/02/2024 BMI 36.18 kg/m2 12/02/2024 Procedures Procedure Date Ordered Date Performed Result Body Sit e 28710-ZDFZWHB NAIL, 6 OR MORE 06/06/2024 N/A 21192-XDBG SKIN LESIONS, 2 TO 4 06/06/2024 N/A 31331-TLJSXQR NAIL, 6 OR MORE 08/29/2024 N/A 95388-PMJE SKIN LESIONS, 2 TO 4 08/29/2024 N/A 52528-YEYMGMD NAIL, 6 OR MORE 12/02/2024 N/A 38749-RDII SKIN LESIONS, 2 TO 4 12/02/2024 N/A Encounters Encounter Location Date Provider Diagnosis [address] [address] 06/06/2024 Melanie Black Poison anish dermatiti s L23.7 ; Atherosclerosis of [place] artery of both lower extremities, with unspecified presence of clinical manifestation I70.203 ; Tinea unguium B35.1 ; Pain in right toe(s) M79.674 ; Pain in left toe(s) M79.675 ; Polyneuropathy associated with underlying disease G63 ; Dermatitis L30.9 and Pruritus L29.[address] [address] 08/29/2024 Melanie Black Poison anish dermatiti s L23.7 ; Atherosclerosis of [place] artery of both lower extremities, with unspecified presence of clinical manifestation I70.203 ; Tinea unguium B35.1 ; Pain in right toe(s) M79.674 ; Pain in left toe(s) M79.675 and Polyneuropathy associated with underlying disease G63 [address] [address] 12/02/2024 Melanie Black Atherosclerosis of [place] artery of both lower extremities, with unspecified presence of clinical manifestation I70.203 ; Tinea unguium B35.1 ; Pain in right toe(s) M79.674 ; Pain in left toe(s) M79.675 and Polyneuropathy associated with underlying disease [address] [facility] [address] [address] 02/23/2025 Melanie Forde Assessments Encounter Date Diagnosis (ICD Code) Assessment Notes Treatment Notes Treatment Clinical Notes Section Notes 06/06/2024 Poison anish dermatitis (ICD-10 - L23.7) 06/06/2024 Atherosclerosis of [place] artery of both lower extremities, with unspecified presence of clinical manifestation (ICD-10 - I70.203) 08/29/2024 Poison anish dermatitis (ICD-10 - L23.7) 08/29/2024 Atherosclerosis of [place] artery of both lower extremities, with unspecified presence of clinical manifestation (ICD-10 - I70.203) 12/02/2024 Tinea unguium (ICD-10 - B35.1) 12/02/2024 Atherosclerosis of [place] artery of both lower extremities, with unspecified presence of clinical manifestation (ICD-10 - I70.203) 12/02/2024 Pain in right toe(s) (ICD-10 - M79.674) 08/29/2024 Tinea unguium (ICD-10 - B35.1) 06/06/2024 Tinea unguium (ICD-10 - B35.1) 06/06/2024 Pain in right toe(s) (ICD-10 - M79.674) 12/02/2024 Pain in left toe(s) (ICD-10 - M79.675) 08/29/2024 Pain in right toe(s) (ICD-10 - M79.674) 12/02/2024 Polyneuropathy associated with underlying disease (ICD-10 - G63) 08/29/2024 Pain in left toe(s) (ICD-10 - M79.675) 06/06/2024 Pain in left toe(s) (ICD-10 - M79.675) 06/06/2024 Polyneuropathy associated with underlying disease (ICD-10 - G63) 08/29/2024 Polyneuropathy associated with underlying disease (ICD-10 - G63) 06/06/2024 Dermatitis (ICD-10 - L30.9) 06/06/2024 Pruritus (ICD-10 - L29.9) Plan Of Treatment Pending Test Test Name Order Date 41058-ICWJUAN NAIL, 6 OR MORE 03/04/2024 87767-LELUKVF NAIL, 6 OR MORE 06/06/2024 42743-KINYAOG NAIL, 6 OR MORE 08/29/2024 92819-RFQJGLI NAIL, 6 OR MORE 12/02/2024 74873-Lzwryhof Plate 03/04/2024 53470-Kspibkox Plate Each Additional 12209-FMEY SKIN LESIONS, 2 TO 4 03/04/20 77136-YCQL SKIN LESIONS, 2 TO 4 06/06/20 18721-MPAR SKIN LESIONS, 2 TO 4 12/03/19 39612-ERNY SKIN LESIONS, 2 TO 4 08/29/19 Insurance Providers Payer Name Payer Address Payer Phone Subscriber Number Group Number Insured Name Patient Relationship to Insured Coverage Start Date Coverage End Date [employer] Medicare [id number] [address] [address] [place] [address] [id number] Pavan Kimball Self - patient is the [...]
[2025-04-14 14:34] LABS: MANUAL DIFF FLAG NO
[2025-04-14 14:41] LABS: Hematocrit 45.6 % (42.0-52.0); Hemoglobin 15.8 g/dl (14.0-18.0); Imm Gran Abs Auto 0.07 X10*3/uL (0.00-0.03); Imm Gran Pct Auto 0.8 % (0.0-0.4); Lymphocytes Absolute Auto 1.3 X10*3/uL (1.2-4.9); Mean Corpuscular HGB Conc 34.6 g/dl (31.0-36.0); Mean Corpuscular Hemoglobin 31.6 pg (27.0-33.0); Mean Corpuscular Volume 91.2 fL (80.0-98.0); NRBC Abs Auto 0.000 X10*3/uL (0.0-0.012); NRBC Pct Auto 0.0 /100WBC (0.0-0.2); Platelet Count 152 X10*3/uL (160-400); Red Blood Count 5.00 X10*6/uL (4.60-5.80); White Blood Count 8.8 X10*3/uL (4.8-10.8)
[2025-04-14 14:52] LABS: Hemoglobin A1C 169.8403 umol/L; Total Hemoglobin (HGBA1C) 4121.9407 umol/L
[2025-04-14 14:57] LABS: Alanine Aminotransferase 20 U/L (0-40); Albumin Level 4.0 g/dL (3.5-5.0); Alkaline Phosphatase 94 U/L (39-117); Anion Gap 10 (12-20); Aspartate Amino Transferase 31 U/L (5-37); Blood Urea Nitrogen 25 mg/dL (9-16); Calcium 9.1 mg/dL (8.4-10.2); Carbon Dioxide 31 mmol/L (22-29); Chloride 103 mmol/L (96-108); Estimated Glomerular Filt Rate > 60; Potassium 3.8 mmol/L (3.3-5.1); Sodium 140 mmol/L (135-145); Total Protein 7.1 g/dL (6.5-8.0)
[2025-04-14 15:19] LABS: Free T4 (Free Thyroxine) 1.06 ng/dL (0.71-1.85); Thyroid Stimulating Hormone 3.07 uIU/mL (0.32-4.0)
== END 2025-04-14 10:57 | disposition home or self-care (01) ==
LOC: HO.WFDLDS 10:56
PROVIDERS: Visit Provider Internal Medicine
DX: Z13.29 Encounter for screening for other suspected endocrine disorder (principal); R73.02 Impaired glucose tolerance (oral); I25.10 Atherosclerotic heart disease of native coronary artery without angina pectoris
CPT/HCPCS: 36415; 80053; 83036; 84439; 84443; 85025

== ENCOUNTER 2025-04-15 09:21 | Outpatient (AMB) | payer MEDICARE, SELFPAY ==
--- OUTSIDE RECORDS SUMMARY | 2025-02-25 06:15 | XMS_ITS ---
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 Name Role Phone Franco Juarez Primary Care Provider UnavailMelanie Romero [phone] Allergies Allergen (clinical drug ingredient) Drug/Non Drug [...] Active Encounters Encounter Location Date Provider Diagnosis [address] [address] 02/25/2025 Melanie Forde Plan Of Treatment No Information Progress Notes * Wilmer GARCIAOB:1945 (79 yo M)Acc No.[id number]:02/25/2025 Progress Note Patient: Pavan BRAVO Provider: Omid Forde DPM :1945 A ge:79 Y S ex:Male Date:02/25/2025 Address:[address], [place] Pcp:Franco Juarez Subjective: * Chief Complaints: * [...] 0 02/25/2025 Generated for Clover camarillo/Julio/Juani on: 04/15/2025 11:03 AM EDT
[2025-04-15 09:29] VITALS: BP 130/80; PULSE 54; O2SAT 96; BMI 38.2
--- NOTE | 2025-04-15 09:29 | MHC.PC.OV ---
Vital Signs 04/15/25 09:29 04/15/25 09:58 Height 5 ft 6 in Weight 237 lb BMI 38.2 BP 130/80 138/76 Blood Pressure Location Lt brachial Lt brachial Position Sitting Sitting Pulse 54 Pulse Source Pulse Oximeter Pulse Oximetry (%) 96 Oxygen Delivery Method Room Air Intake Visit Reasons: 3 mo f/u IGT, HTN Grades 1 Through 6 Teacher Required: No Accompanied by: Self / Same As Patient Allergies streptomycin (STREPTOMYCIN) Allergy (Severe, Verified 04/15/25 09:37) AFFECTED MY HEARING , anaphylaxis, affected hearing/nerves/etc, anxiety. Medication List - Last Reconciled 04/15/25 by Nicolette Stanley PA-C acetaminophen ER 1,300 mg PO DAILY aspirin (Adult Low Dose Aspirin) 81 mg PO DAILY atorvastatin 80 mg PO BEDTIME carvedilol 25 mg PO BID cholecalciferol (vitamin D3) 50 mcg PO DAILY gladys.stocking,knee,reg,smal (T.E.D. Anti-Embolism Stocking) As directed cyanocobalamin (vitamin B-12) ER (Vitamin B-12 ER) 2,500 mcg PO DAILY docusate sodium (Colace) 100 mg PO BID 90 days ferrous sulfate (FeroSul) 325 mg PO DAILY finasteride 5 mg PO BEDTIME losartan-hydrochlorothiazide 100-25 mg 1 tab PO DAILY multivitamin 1 tab PO DAILY omeprazole 40 mg PO DAILY Tobacco use date assessed: 04/15/25 Fall risk assessment: No Falls in past year Last assessed Fall Risk: 04/15/25 Dental Screening Dental Screen Date: 04/15/25 Did you have a dental visit in the last 12 months?: Yes Did you have a dental problem in the last 6 months where you did not have access to dental care?: No Was dental information given to patient?: Patient has dentist HPI 3 mo f/u IGT, HTN HPI Details 79 year old male with past medical history of CAD, hypertension, hypercholesterolemia, GERD, BPH, colon cancer last seen 12/2024 coming in for follow up. In review of the notes, patient was seen by urology 04/06/25 continued on finasteride and follow up in 1 year. Reports inadequate water intake, primarily consuming coffee. Experiences dry mouth at night, especially when sleeping on his back. Recent blood work indicated mild dehydration. Describes a history of poor leg circulation since age 21, with symptoms of leg heaviness and aching upon exertion. Difficulty using compression stockings due to a hip replacement. Monitors blood pressure regularly, noting higher readings in the morning. On maximum doses of losartan and carvedilol, effectively managing blood pressure. Reports minimal GERD symptoms since omeprazole dosage increased to 40 mg. Occasionally forgets to take it before meals. [facility] Medical History Atherosclerotic cardiovascular disease Swelling of right lower extremity Duodenal ulcer Abnormal EKG Hypotension Acute electrocardiogram changes Osteoarthritis of right hip Post-nasal drip Recent bereavement Foreign body in left lower extremity COVID-19 virus infection Amebic dysentery Foreign body of left lower leg Left rotator cuff tear Barretts esophagus Osteoarthritis Peripheral neuropathy Colon cancer Impaired glucose tolerance BPH (benign prostatic hyperplasia) Urinary bladder cancer Obesity GERD (gastroesophageal reflux disease) Hypercholesterolemia Hypertension CAD (coronary artery disease) Surgical History Status post total hip replacement, right (~08/28/23) History of total right hip replacement H/O cardiac catheterization (~2013) Hx of colonoscopy History of partial colectomy History of bladder surgery History of carpal tunnel release Family History Father Heart failure Mother Thyroid disorder Sister Lung cancer Daughter Alcoholism Social History Household Members: Family Housing: House Are you a primary rn home care to a significant other at home: No Do you presently have visiting nurse or other home services: Yes (PT) Alcohol intake: never Comment: aware of trip hazards 1985 stopped Patient Tobacco Use Status: Former Tobacco user Tobacco use type: Cigarette Years Smoked: 18 stopped 1984 e-Cigarette/Vaping Use: Never Used Second Hand Smoke Exposure: No Advance Directives Date on File: 08/31/23 service: Yes Current occupational status: retired Cognitive needs: No Hearing needs: Yes Vision needs: Yes Questionnaire Thrive Questionnaire Date Thrive assessed: 01/12/25 I am a: Patient What is your living situation today?: I have a steady place to live Within the past 12 months, did the food you bought not last and you didn't have the money to get more?: I choose not to answer this question Within the past 12 months, did you worry whether your food would run out before you got money to buy more?: Never true Do you have trouble paying for medicines?: No Do you have trouble getting transportation to medical appointments?: No Do you have trouble paying your heating and electricity bill?: I choose not to answer this question Do you have trouble taking care of your child, family member or friend?: I choose not to answer this question Do you have trouble with day-to-day activities such as bathing, preparing meals, shopping, managing finances, etc.?: No Are you currently unemployed and looking for a job?: No Are you interested in more education?: No Please select the resources that you would like help with: None Currently or been in a relationship where the following occur: I choose not to answer THRIVE Score: 0 AUDIT C Alcohol Use Questionnaire (AUDIT-C) 1. How often do you have a drink containing alcohol?: Never 3. How often do you have six or more drinks on one occasion?: Never Total Score: 0 MIKAYLA-7 AMB Questionnaire MIKAYLA-7 Date MIKAYLA - 7 assessed: 10/07/24 Source: Developed by Drs. Mckinley Ahn, Shanna Nice, Monico Pérez and colleagues, with an educational saul from [employer]. Review of Systems Const Denies body aches, Denies chills, Denies fever(s), Denies headache(s) and Denies poor appetite Eyes Reports no additional complaints ENT Denies dysphagia, Denies dizziness, Denies headache(s) and Denies odynophagia Card Denies chest pain, Denies syncope, Denies edema, Denies irregular heart rhythm, Denies lightheadedness and Denies dyspnea Resp Denies cough and Denies dyspnea GI Denies abdominal pain, Denies constipation, Denies dysphagia, Denies diarrhea, Denies nausea, Denies odynophagia and Denies vomiting Reports no additional complaints Musc Reports no additional complaints and Denies abnormal gait Skin/Breast Reports system reviewed and no additional complaints, except as documented Neuro Denies abnormal gait, Denies dizziness, Denies syncope and Denies headache(s) Psych Reports no additional complaints Physical exam (Primary Care) Vital Signs: Last Vital Signs Pulse 54 04/15/25 09:29 BP 138/76 04/15/25 09:58 Pulse Ox 96 04/15/25 09:29 Oxygen Delivery Method Room Air 04/15/25 09:29 BMI result Body Mass Index 38.2 Tobacco/Smoking Status: Tobacco use Status Tobacco use date assessed 04/15/25 04/15/25 09:31 Patient Tobacco Use Status Former Tobacco user 04/15/25 09:31 Tobacco use type Cigarette 04/15/25 09:31 e-Cigarette/Vaping Use Never Used 04/15/25 09:31 Thrive Assessment: Date of Thrive Assessment Date Thrive assessed 01/12/25 04/15/25 09:31 Currently or been in a relationship where the following occur: I choose not to answer Const General: cooperative, healthy appearing, comfortable and no acute distress Orientation/consciousness: patient oriented x3 HENMT Head: Yes normocephalic Ears: hearing grossly normal bilaterally General nose exam: Normal external nose present Eyes General: appearance normal, both eyes and all related structures Conjunctivae: conjunctivae normal Neck Neck: Yes full ROM and Yes no lymphadenopathy Resp Effort & Inspection: normal respiratory effort Auscultation: clear to auscultation bilaterally, no crackles, no rales, no rhonchi and no wheezes Cardio Rate: regular rate Rhythm: regular rhythm Skin General skin exam: no rashes or lesions noted Neuro General: patient oriented x3 Gait exam (Neuro): Normal gait present Extrem General: Yes normal to inspection, Yes full ROM and No edema Psych Affect: normal affect Attitude: cooperative Insight: Good insight present (Psych) Judgement: Good judgement present (Psych) Coding Level of Care Code Est Pt Level 3 (47055) Diagnoses Coronary artery disease involving [place] coronary artery of [place] heart without angina pectoris I25.10 Associated angina: without angina Coronary Disease-Associated Artery/Lesion type: [place] artery [place] vs. transplanted heart: [place] heart Essential hypertension I10 Hypertension type: essential hypertension Hypercholesterolemia E78.00 Impaired glucose tolerance R73.02 Obesity due to excess calories with serious comorbidity, unspecified class E66.09 Obesity classification: unspecified obesity classification Obesity type: due to excess calories Serious obesity comorbidity presence: with serious comorbidity Gastroesophageal reflux disease without esophagitis K21.9 Esophagitis presence: without esophagitis Assessment & Plan Assessment & Plan (1) CAD (coronary artery disease): Comment: MRI stent x3(LAD, OM, RCA) [place] [facility] [place]2023The left ventricular systolic function is hyperdynamic. The visually estimated ejection fraction is >70%. - No obvious valvular pathology seen on this study. Code(s): I25.10 - Atherosclerotic heart disease of [place] coronary artery without angina pectoris Category: Medical Qualifiers: Associated angina: without angina Coronary Disease-Associated Artery/Lesion type: [place] artery [place] vs. transplanted heart: [place] heart Qualified Code(s): I25.10 - Atherosclerotic heart disease of [place] coronary artery without angina pectoris Plan: Recommend control of blood pressure, cholesterol and blood sugars. Last A1c 5.9% and pending cholesterol results as he was not fasting on last blood work. LDL goal less than 70, blood pressure goal less than 140/90. (2) Hypertension: Code(s): I10 - Essential (primary) hypertension Category: Medical Qualifiers: Hypertension type: essential hypertension Qualified Code(s): I10 - Essential (primary) hypertension Plan: Continue on current blood pressure medication. Avoid salt intake and encourage healthy diet and regular exercise. (3) Hypercholesterolemia: Code(s): E78.00 - Pure hypercholesterolemia, unspecified Category: Medical Plan: Avoid foods that are high in cholesterol such as red meat, fried foods, eggs and baked goods. Triglyceride goal of less than 150 and LDL goal of less than 70. Continue on Atorvastatin 80mg. Reminded about blood work (4) Impaired glucose tolerance: Code(s): R73.02 - Impaired glucose tolerance (oral) Category: Medical Plan: Decrease the amount of carbohydrates such as pasta, bread, rice, and potatoes and limit the amount of sweets. Although fruits are generally healthy they should be eaten in moderation as they are still high in sugar. Last A1c 5.9% (5) Obesity: Code(s): E66.9 - Obesity, unspecified Category: Medical Qualifiers: Obesity classification: unspecified obesity classification Obesity type: due to excess calories Serious obesity comorbidity presence: with serious comorbidity Qualified Code(s): E66.09 - Other obesity due to excess calories Plan: Healthy diet and regular exercise is encouraged. (6) GERD (gastroesophageal reflux disease): Code(s): K21.9 - Gastro-esophageal reflux disease without esophagitis Category: Medical Qualifiers: Esophagitis presence: without esophagitis Qualified Code(s): K21.9 - Gastro-esophageal reflux disease without esophagitis Plan: Avoid trigger foods such as citrus, tomato products, soda, caffeine, spicy foods and other foods that may be irritating to your stomach. Avoid laying flat 3-4 hours after eating and elevate the head of the bed 30 degrees to prevent acid from moving into the esophagus. Continue on Omeprazole 40. Following with Dr. Franco Plan This note was constructed using voice recognition software. While every effort has been made to ensure accuracy and social science instructor, still areas may have been included sometimes these areas may affect the content or meeting of the given symptoms. Total time spent caring for the patient today was 20 minutes. This includes time spent before the visit reviewing the chart, time spent during the visit, and time spent after the visit and documentation. Patient was informed and verbally consented to the use of an ambient scribe for clinic note documentation during this visit.
[2025-04-15 09:58] VITALS: BP 138/76
--- OUTSIDE RECORDS SUMMARY | 2025-04-15 11:04 | XMS_ITS | Patient Health Record ---
Author Organization [facility] Address [address] [place] [address] Care Team Providers Care Statistical Machine Servicer Name Role Phone Po Franco GREER Primary Care Provider Mckinley Aguilar Unavailable [phone] Allergies Allergen (clinical drug ingredient) Drug/Non Drug [...] Problem Status W/U Status Risk Notes Problem 270559449 Encounter for screening for malignant neoplasm of colon (Z12.11) Active confirmed Problem 022129983 History of adenomatous polyp of colon (Z86.010) Active confirmed Problem Acute posthemorrhagic anemia (529815144) Acute posthemorrhagic anemia (D62) Active confirmed Problem 672083222 Barretts esophag us without dysplasia (K22.70) Active confirmed Problem 756008819 Gastroesophageal reflux disease, esophagitis presence not specified (K21.9) Active confirmed Problem 760186725 Long-term use of aspirin therapy (Z79.82) Active confirmed Problem 07015289 Erosive esophagi tis (K22.10) Active confirmed Problem Gastritis (0420980) Gastritis (K29.70) Active confirmed Problem Duodenal ulcer without hemorrhage, without perforation AND without obstruction (62646106) Duodenal bulb ulcer (K26.9) Active confirmed Problem 35693424 Esophageal dysphagia (R13.14) Active confirmed Problem 202098407 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) Active confirmed Vital Signs Blood pressure diastolic 77 mm Hg 11/20/2024 Height 69 in 11/20/2024 Blood pressure systolic 111 mm Hg 11/20/2024 Weight 243 lbs 11/20/2024 BMI 35.88 kg/m2 11/20/2024 Encounters Encounter Location Date Provider Diagnosis [facility] [address] [place] [phone] 05/15/2024 Mckinley Franco Gastroesophageal ref lux disease, esophagitis presence not specified K21.9 ; Duodenal bulb ulcer K26.9 ; Encounter for screening for malignant neoplasm of colon Z12.11 ; Barretts esophagus without dysplasia K22.70 ; Erosive esophagitis K22.10 and Villous adenoma of colon D37.4 [facility] [address] [place] [id number] 11/20/2024 Mckinley Franco Gastroesophageal ref lux disease, [...] and his underlying history of esophagitis with Wallsi's esophagus, respectively. However, at this point he [...] Name:Mckinley Franco , 11/24/2025 09:10:00 AM, [address], [address], [place], [address], Insurance Providers Payer Name Payer Address Payer Phone Subscriber Number Group Number Insured Name Patient Relationship to Insured Coverage Start Date Coverage End Date [facility] [address] [address] [place] [address] [id number] JOSE PAVAN Self - patient is the insured Medical (General) History Medical History History ICD Code [place] 2013--4 stents placed Hypertension Bladder cancer--treated with [...]
--- OUTSIDE RECORDS SUMMARY | 2025-04-15 11:04 | XMS_ITS | Patient Health Record ---
Author Organization [facility] leeroy Cutler Address [address] [place] [address] Care Team Providers Care Radiology Technician Name Role Phone LarryFranco Primary Care Provider Unavailabl e Melanie Forde Unavailable [phone] Allergies Allergen (clinical drug ingredient) Drug/Non Drug [...] atherosclerosis of arteries of lower limbs (disorder) (46054913375703969 ) Atherosclerosis of [place] artery of both lower extremities, with unspecified presence of clinical manifestation (I70.203) Active confirmed Problem Polyneuropathy associated with another disorder (957186827) Polyneuropathy associated with underlying disease (G63) Active confirmed Vital Signs Blood pressure diastolic 80 mm Hg 12/02/2024 Height 5 ft 8 in in 12/02/2024 Blood pressure systolic 120 mm Hg 12/02/2024 Weight 238 lbs 12/02/2024 BMI 36.18 kg/m2 12/02/2024 Procedures Procedure Date Ordered Date Performed Result Body Sit e 07835-PAKLCDI NAIL, 6 OR MORE 06/06/2024 N/A 53854-ZOMX SKIN LESIONS, 2 TO 4 06/06/2024 N/A 43290-EQUVDZM NAIL, 6 OR MORE 08/29/2024 N/A 89761-GVVL SKIN LESIONS, 2 TO 4 08/29/2024 N/A 46020-VLNOGSS NAIL, 6 OR MORE 12/02/2024 N/A 85946-KFHK SKIN LESIONS, 2 TO 4 12/02/2024 N/A Encounters Encounter Location Date Provider Diagnosis [address] [address] 06/06/2024 Melanie Black Poison anish dermatiti s L23.7 ; Atherosclerosis of [place] artery of both lower extremities, with unspecified presence of clinical manifestation I70.203 ; Tinea unguium B35.1 ; Pain in right toe(s) M79.674 ; Pain in left toe(s) M79.675 ; Polyneuropathy associated with underlying disease G63 ; Dermatitis L30.9 and Pruritus L29.[address] [address] 08/29/2024 Melanie Black Poison anish dermatiti s L23.7 ; Atherosclerosis of [place] artery of both lower extremities, with unspecified presence of clinical manifestation I70.203 ; Tinea unguium B35.1 ; Pain in right toe(s) M79.674 ; Pain in left toe(s) M79.675 and Polyneuropathy associated with underlying disease G63 [address] [address] 12/02/2024 Melanie Black Atherosclerosis of [place] artery of both lower extremities, with unspecified presence of clinical manifestation I70.203 ; Tinea unguium B35.1 ; Pain in right toe(s) M79.674 ; Pain in left toe(s) M79.675 and Polyneuropathy associated with underlying disease [address] [facility] [address] [address] 02/23/2025 Melanie Forde Assessments Encounter Date Diagnosis (ICD Code) Assessment Notes Treatment Notes Treatment Clinical Notes Section Notes 06/06/2024 Poison anish dermatitis (ICD-10 - L23.7) 06/06/2024 Atherosclerosis of pam[place]key artery of both lower extremities, with unspecified presence of clinical manifestation (ICD-10 - I70.203) 08/29/2024 Poison anish dermatitis (ICD-10 - L23.7) 08/29/2024 Atherosclerosis of [place] artery of both lower extremities, with unspecified presence of clinical manifestation (ICD-10 - I70.203) 12/02/2024 Tinea unguium (ICD-10 - B35.1) 12/02/2024 Atherosclerosis of [place] artery of both lower extremities, with unspecified [...] Treatment Pending Test Test Name Order Date 91896-SOQUSUP NAIL, 6 OR MORE 03/04/2024 03503-WQSICBK NAIL, 6 OR MORE 06/06/2024 02548-ARDHQYW NAIL, 6 OR MORE 08/29/2024 59366-TXLOVTL NAIL, 6 OR MORE 12/02/2024 59737-Dmwfgbsn Plate 03/04/2024 64104-Kmmwjyep Plate Each Additional 82413-VGTP SKIN LESIONS, 2 TO 4 03/04/20 40163-MVNN SKIN LESIONS, 2 TO 4 06/06/20 13935-QXDT SKIN LESIONS, 2 TO 4 12/03/19 59350-YNBH SKIN LESIONS, 2 TO 4 08/29/19 Insurance Providers Payer Name Payer Address Payer Phone Subscriber Number Group Number Insured Name Patient Relationship to Insured Coverage Start Date Coverage End Date [employer] Medicare [id number] [address] [address] [place] [address] [id number] Pavan Kimball Self - patient is the [...]
--- OUTSIDE RECORDS SUMMARY | 2025-04-15 11:04 | XMS_ITS | Clinical Summary ---
Author Organization [facility] Address [address] [place] [address] Care Team Providers Care Side Framer Name Role Phone Unavailable Primary Care Provider [...] patient's age to complete this topic Insurance [facility]
== END 2025-04-15 10:12 | disposition home or self-care (01) ==
LOC: HO.HMCH 09:22
PROVIDERS: PCP Internal Medicine
DX: I25.10 Atherosclerotic heart disease of native coronary artery without angina pectoris (principal); I10 Essential (primary) hypertension; E78.00 Pure hypercholesterolemia, unspecified; R73.02 Impaired glucose tolerance (oral); E66.09 Other obesity due to excess calories; K21.9 Gastro-esophageal reflux disease without esophagitis

== ENCOUNTER → 2025-04-15 09:21 | Outpatient (BNVA) | payer MEDICARE, SELFPAY | PROVIDERS: PCP Internal Medicine | DX: I25.10 Atherosclerotic heart disease of native coronary artery without angina pectoris (principal); I10 Essential (primary) hypertension; E78.00 Pure hypercholesterolemia, unspecified; K21.9 Gastro-esophageal reflux disease without esophagitis; N40.0 Benign prostatic hyperplasia without lower urinary tract symptoms; R73.02 Impaired glucose tolerance (oral); E66.09 Other obesity due to excess calories | CPT/HCPCS: 99212 ==

== ENCOUNTER 2025-07-07 09:59 | Outpatient (REF) | payer MEDICARE, SELFPAY ==
--- OUTSIDE RECORDS SUMMARY | 2025-02-25 05:15 | XMS_ITS ---
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 Name Role Phone Franco Juarez Primary Care Provider UnavailMelanie Romero [phone] Allergies Allergen (clinical drug ingredient) Drug/Non Drug Allergy documented on EMR Reaction Allergy Type Onset Date Status streptomycin Streptomycin Unknown Drug Allergy A ctive Medications Medication SIG (Take, Route, Frequency, Duration) Notes Start Date End Date Status Medrol 4 MG as directed Orally Daily; Duration: 6 days 06/06/2024 Not-Taki ng Tylenol Active Gabapentin Not-Takin g Furosemide Not-Takin g Ammonium Lactate 12 % 1 application Externally Twice a day; Duration: 30 days Not-Taking Omeprazole Active Vitamin D3 Active Vitamin B12 Active Multivitamin Active Carvedilol Active Atorvastatin Calcium Active Finasteride Active Iron Active Losartan Potassium 100 MG 2 tablets Once a day 125mg Active Encounters Encounter Location Date Provider Diagnosis [address] [address] 02/25/2025 Melanie Forde Plan Of Treatment No Information Progress Notes * Wilmer GARCIAOB:1945 (79 yo M)Acc No.[id number]:02/25/2025 Progress Note Patient: Pavan BRAVO Provider: Omid Forde DPM :1945 A ge:79 Y S ex:Male Date:02/25/2025 Address:[address], [id number] Pcp:Franco Juarez Subjective: * Chief Complaints: * * Medical History: A ngina, Anxiety, Back,Hip,and Knee pain, Cancer, Depression, Diverticulosis, Heart disease, High blood pressure, Nerve disorder, Numbness, Poor circulation, Stomach ulcer, Measles, Mumps, Chicken pox, Joint implants/screws, Transfusions. * Medications: T aking Iron , Taking Losartan Potassium 100 MG Tablet 2 tablets Once a day , Notes to Pharmacist: 125mg, Taking Atorvastatin Calcium , Taking Finasteride , Taking Carvedilol , Taking Omeprazole , Taking Vitamin D3 , Taking Vitamin B12 , Taking Multivitamin , Taking Tylenol , Not-Taking/PRN Gabapentin , Not-Taking/PRN Furosemide , Not-Taking/PRN Ammonium Lactate 12 % Cream 1 application Externally Twice a day , Not-Taking/PRN Medrol 4 MG Tablet Therapy Pack as directed Orally Daily * Allergies: S treptomycin. Objective: * Vitals: Assessment: Plan: * Treatment: * Images: * The named appointment provid er may or may not be the originator of this progress note, and it is not deemed complete until electronically signed by the appointment provider. Sign off status: Pending * Provider: Omid Forde DPM Date: 0 02/25/2025 Generated for Clover camarillo/Julio/Juani on: 09/07/2024 12:11 PM EST
[2025-07-07 11:32] LABS: NRBC Abs Auto 0.000 X10*3/uL (0.0-0.012); NRBC Pct Auto 0.0 /100WBC (0.0-0.2); PLT CLUMP 1; SCAN SMEAR FLAG 1
[2025-07-07 11:35] LABS: Hematocrit 44.8 % (42.0-52.0); Hemoglobin 15.7 g/dl (14.0-18.0); Imm Gran Abs Auto 0.07 X10*3/uL (0.00-0.03); Imm Gran Pct Auto 0.9 % (0.0-0.4); Lymphocytes Absolute Auto 1.4 X10*3/uL (1.2-4.9); Mean Corpuscular HGB Conc 35.0 g/dl (31.0-36.0); Mean Corpuscular Hemoglobin 32.0 pg (27.0-33.0); Mean Corpuscular Volume 91.2 fL (80.0-98.0); Red Blood Count 4.91 X10*6/uL (4.60-5.80)
[2025-07-07 11:37] LABS: MANUAL DIFF FLAG NO; Platelet Count 138 X10*3/uL (160-400); White Blood Count 8.2 X10*3/uL (4.8-10.8)
--- OUTSIDE RECORDS SUMMARY | 2025-07-07 12:11 | XMS_ITS | Clinical Summary ---
Author Organization [facility] Address [address] [place] [address] Care Team Providers Care Care Assistant Name Role Phone Unavailable Primary Care Provider [...] Vaccine (1 of 2) 10/10/1997 RSV Vaccine 50 years and old er and Patients (1 - 1-dose 75+ series) 10/10/2022 Influenza Vaccine 02/20/2025 COVID-19 Vaccine ( - 2024-2 6 season) 2025 Hepatitis B Vaccines Aged Out No long er eligible based on patient's age to complete this topic Insurance [facility]
--- OUTSIDE RECORDS SUMMARY | 2025-07-07 12:12 | XMS_ITS | Patient Health Record ---
Author Organization [facility] Address [address] [place] [address] Care Team Providers Care Real Estate Services Administrator Name Role Phone Po Franco GREER Primary Care Provider Mckinley Aguilar [phone] Allergies Allergen (clinical drug ingredient) Drug/Non Drug Allergy documented on EMR Reaction Allergy Type Onset Date Status streptomycin Streptomycin Sulfate Unknown Drug Allergy Active Reason For Referral No Information Medications Medication SIG (Take, Route, Frequency, Duration) Notes Start Date End Date Status Vitamin C 500 MG Tablet 1 tablet Orally Once a day; Duration: 30 day(s) Active Losartan Potassium-HCTZ 100-25 MG Tablet 1 tablet Orally Once a day Active Gabapentin 100 MG Capsule 1 capsule at bedtime Oral prn; Duration: 90 days I739,Unavailabl e Active SV Iron 325 (65 Fe) MG Tablet TAKE 1 TABLET BY MOUTH ONCE DAILY Oral; Duration: 30 Active Vitamin B12 once a week Active Carvedilol 25 MG Tablet 1 Orally BID Active Finasteride 5 MG Tablet 1 tablet Orally Once a day Active Omeprazole 40 MG Capsule Delayed Release 1 orally Every morning; Duration: 90 days 11/13/2023 Active Multi Vitamin/Minerals - Tablet Orally Active Atorvastatin Calcium 80 MG Tablet 1 tablet Orally Once a day Active Social History Tobacco Use: Social History Observation Description Date Details (start date - stop date) Former Smoker NA - NA Social History Drugs/Alcohol: Social Info Question Answer Notes Alcohol Screen Did you have a drink containing alcohol in the past year? No Points 0 Interpretation Negative Tobacco Use: Social Info Question Answer Notes Tobacco Use/Smoking Patient is a former smoker How long has it been since you last smoked? > 10 years Additional Details Category Social Info Options Details Miscellaneous: Marital status: Occupation: Retired Section Notes: Nonsmoker since 1984; no alc ohol since 1984 Nonsmoker since 1984; no alc ohol since 1984 Nonsmoker since 1984; no alc ohol since 1984 Nonsmoker since 1984; no alc ohol since 1984 Nonsmoker since 1984; no alc ohol since 1984 Problems Problem Type SNOMED Code ICD Code Onset Dates Problem Status W/U Status Risk Notes Problem Screening for malignant neoplasm of colon (607052118) Encounter for screening for malignant neoplasm of colon (Z12.11) Active confirmed Problem History of adenomatous polyp of colon (931742141) History of adenomatous polyp of colon (Z86.010) Active confirmed Problem Acute posthemorrhagic anemia (652447498) Acute posthemorrhagic anemia (D62) Active confirmed Problem Wallis's esophagus (503064684) Barretts esophagus without dysplasia (K22.70) Active confirmed Problem Gastroesophageal reflux disease (730644154) Gastroesophageal reflux disease, esophagitis presence not specified (K21.9) Active confirmed Problem Long-term current use of antiplatelet drug (321372677124133) Long-term use of aspirin therapy (Z79.82) Active confirmed Problem Erosive esophagitis (11230473) Erosive esophagitis (K22.10) Active confirmed Problem Gastritis (7049630) Gastritis (K29.70) Active c onfirmed Problem Duodenal ulcer without hemorrhage, without perforation AND without obstruction (92303930) Duodenal bulb ulcer (K26.9) Active confirmed Problem Esophageal dysphagia (11168206) Esophageal dysphagia (R13.14) Active confirmed Problem Villous adenoma of colon (542327854) 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) Active confirmed Vital Signs Blood pressure diastolic 77 mm Hg 11/20/2024 Height 69 in 11/20/2024 Blood pressure systolic 111 mm Hg 11/20/2024 Weight 243 lbs 11/20/2024 BMI 35.88 kg/m2 11/20/2024 Encounters Encounter Location Date Provider Diagnosis [facility] [address] [place] [address] 11/20/2024 Mckinley Franco Gastroesophageal ref lux disease, [...] Treatment Notes Treatment Clinical Notes Section Notes 11/20/2024 Gastroesophageal reflux disease, esophagitis presence not [...] keep you advised of his progress.. 11/20/2024 Long-term use of aspirin therapy (ICD-10 [...] keep you advised of his progress.. 11/20/2024 Encounter for screening for malignant neoplasm [...] keep you advised of his progress.. 11/20/2024 Erosive esophagitis (ICD-10 - K22.10) Overall, [...] keep you advised of his progress.. 11/20/2024 Barretts esophagus without dysplasia (ICD-10 - [...] Name:Mckinley Franco , 11/24/2025 09:10:00 AM, [address], [address], [place], [address], Insurance Providers Payer Name Payer Address Payer Phone Subscriber Number Group Number Insured Name Patient Relationship to Insured Coverage Start Date Coverage End Date [facility] [address] [address] [place] [address] [id number] PAVAN GARCIA Self - patient is the insured Medical (General) History Medical History History ICD Code [place] 2013--4 stents placed Hypertension Bladder cancer--treated with [...] and his balance Surgical History Surgery Date(Month/Year) Surgery for wounds in the [place]--c hest and leg Right ileoco[place] [address] 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 moore n 08/28/2023
--- OUTSIDE RECORDS SUMMARY | 2025-07-07 12:12 | XMS_ITS | Patient Health Record ---
Author Organization [facility] leeroy [place] Address [address] [place] [address] Care Team Providers Care Special Tester Name Role Phone LarryFranco Primary Care Provider Unavailabl e Melanie Forde Unavailable [phone] Allergies Allergen (clinical drug ingredient) Drug/Non Drug [...] atherosclerosis of arteries of lower limbs (disorder) (20059427050871687 ) Atherosclerosis of [place] artery of both lower extremities, with unspecified presence of clinical manifestation (I70.203) Active confirmed Problem Polyneuropathy associated with another disorder (474215572) Polyneuropathy associated with underlying disease (G63) Active confirmed Vital Signs Blood pressure diastolic 80 mm Hg 12/02/2024 Height 5 ft 8 in in 12/02/2024 Blood pressure systolic 120 mm Hg 12/02/2024 Weight 238 lbs 12/02/2024 BMI 36.18 kg/m2 12/02/2024 Procedures Procedure Date Ordered Date Performed Result Body Sit e 88771-XBGCJIX NAIL, 6 OR MORE 08/29/2024 N/A 58053-NHXR SKIN LESIONS, 2 TO 4 08/29/2024 N/A 43421-UFRFCUJ NAIL, 6 OR MORE 12/02/2024 N/A 06858-MKRM SKIN LESIONS, 2 TO 4 12/02/2024 N/A Encounters Encounter Location Date Provider Diagnosis [address] [address] 08/29/2024 Melanie Black Poison anish dermatiti s L23.7 ; Atherosclerosis of [place] artery of both lower extremities, with unspecified presence of clinical manifestation I70.203 ; Tinea unguium B35.1 ; Pain in right toe(s) M79.674 ; Pain in left toe(s) M79.675 and Polyneuropathy associated with underlying disease [address] [address] 12/02/2024 Melanie Black Atherosclerosis of [place] artery of both lower extremities, with unspecified presence of clinical manifestation I70.203 ; Tinea unguium B35.1 ; Pain in right toe(s) M79.674 ; Pain in left toe(s) M79.675 and Polyneuropathy associated with underlying disease [address] [place] [address] 02/23/2025 Melanie Black Assessments Encounter Date Diagnosis (ICD Code) Assessment Notes Treatment Notes Treatment Clinical Notes Section Notes 08/29/2024 Poison anish dermatitis (ICD-10 - L23.7) 08/29/2024 Atherosclerosis of [place] artery of both lower extremities, with unspecified presence of clinical manifestation (ICD-10 - I70.203) 12/02/2024 Tinea unguium (ICD-10 - B35.1) 12/02/2024 Atherosclerosis of [place] artery of both lower extremities, with unspecified presence of clinical manifestation (ICD-10 - I70.203) 12/02/2024 Pain in right toe(s) (ICD-10 - M79.674) 08/29/2024 Tinea unguium (ICD-10 - B35.1) 12/02/2024 Pain in left toe(s) (ICD-10 - M79.675) 08/29/2024 Pain in right toe(s) (ICD-10 - M79.674) 12/02/2024 Polyneuropathy associated with underlying disease (ICD-10 - G63) 08/29/2024 Pain in left toe(s) (ICD-10 - M79.675) 08/29/2024 Polyneuropathy associated with underlying disease (ICD-10 - G63) Plan Of Treatment Pending Test Test Name Order Date 10721-BCXPKCS NAIL, 6 OR MORE 03/04/2024 31080-LNVEBNF NAIL, 6 OR MORE 06/06/2024 27082-GVADHCN NAIL, 6 OR MORE 08/29/2024 09396-LGQHUJW NAIL, 6 OR MORE 12/02/2024 65918-Dtyubvwy Plate 03/04/2024 78744-Cmhtjrwx Plate Each Additional 29440-OVWE SKIN LESIONS, 2 TO 4 03/04/20 24 97814-YYTF SKIN LESIONS, 2 TO 4 06/06/20 24 64500-VUJD SKIN LESIONS, 2 TO 4 12/03/19 25 33101-PGQM SKIN LESIONS, 2 TO 4 08/29/19 25 Insurance Providers Payer Name Payer Address Payer Phone Subscriber Number Group Number Insured Name Patient Relationship to Insured Coverage Start Date Coverage End Date [employer] Medicare [id number] [address] [address] [place] [address] [phone] [id number] Pavan Kimball Self - patient is the [...]
[2025-07-07 17:01] LABS: Alanine Aminotransferase 26 U/L (0-40); Albumin Level 4.0 g/dL (3.5-5.0); Alkaline Phosphatase 87 U/L (39-117); Anion Gap 10 (12-20); Aspartate Amino Transferase 39 U/L (5-37); Blood Urea Nitrogen 19 mg/dL (9-16); Calcium 9.5 mg/dL (8.4-10.2); Carbon Dioxide 30 mmol/L (22-29); Chloride 103 mmol/L (96-108); Cholesterol 106 mg/dL (<200); Estimated Glomerular Filt Rate > 60; Free T4 (Free Thyroxine) 1.13 ng/dL (0.71-1.85); HDL Cholesterol 37 mg/dL (>40); Magnesium 2.0 mg/dL (1.6-2.6); Potassium 3.9 mmol/L (3.3-5.1); Sodium 139 mmol/L (135-145); Thyroid Stimulating Hormone 3.90 uIU/mL (0.32-4.0); Total Protein 6.7 g/dL (6.5-8.0); Triglycerides 93 mg/dL (<150)
[2025-07-07 17:12] LABS: Folate 12.7 ng/mL (> or = 4.0); Vitamin B12 843 pg/mL (200-900)
== END 2025-07-07 10:00 | disposition home or self-care (01) ==
LOC: HO.WFDLDS 09:59
PROVIDERS: Visit Provider Internal Medicine
DX: I25.10 Atherosclerotic heart disease of native coronary artery without angina pectoris (principal); E78.00 Pure hypercholesterolemia, unspecified; R73.02 Impaired glucose tolerance (oral)
CPT/HCPCS: 36415; 80053; 80061; 82607; 82746; 83036; 83735; 84439; 84443; 85025

== ENCOUNTER 2025-07-09 08:19 | Outpatient (AMB) | payer MEDICARE, SELFPAY ==
--- OUTSIDE RECORDS SUMMARY | 2025-02-25 05:15 | XMS_ITS ---
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 Role Phone Franco Juarez Primary Care Provider UnavailMelanie Romero [phone] Allergies Allergen (clinical drug ingredient) Drug/Non Drug [...] Active Encounters Encounter Location Date Provider Diagnosis [address] [address] 02/25/2025 Melanie Forde Plan Of Treatment No Information Progress Notes * Wilmre GARCIAOB:1945 (79 yo M)Acc No.[id number]:02/25/2025 Progress Note Patient: Pavan BRAVO Provider: Omid Forde DPM :1945 A ge:79 Y S ex:Male Date:02/25/2025 Address:[address], [place] Pcp:Franco Juarez Subjective: * Chief Complaints: * [...] 0 02/25/2025 Generated for Clover camarillo/Julio/Juani on: 09/09/2024 08:36 AM EST
--- OUTSIDE RECORDS SUMMARY | 2025-07-09 08:36 | XMS_ITS | Patient Health Record ---
Author Organization [facility] leeroy Wimberley Address [address] [place] [address] Care Team Providers Care Keyseating Machine Set Up Operator Name Role Phone LarryFranco Primary Care Provider Unavailabl e Melanie Forde Unavailable [phone] Allergies Allergen (clinical drug ingredient) Drug/Non Drug [...] atherosclerosis of arteries of lower limbs (disorder) (89692582995000939 ) Atherosclerosis of [place] artery of both lower extremities, with unspecified presence of clinical manifestation (I70.203) Active confirmed Problem Polyneuropathy associated with another disorder (695478523) Polyneuropathy associated with underlying disease (G63) Active confirmed Vital Signs Blood pressure diastolic 80 mm Hg 12/02/2024 Height 5 ft 8 in in 12/02/2024 Blood pressure systolic 120 mm Hg 12/02/2024 Weight 238 lbs 12/02/2024 BMI 36.18 kg/m2 12/02/2024 Procedures Procedure Date Ordered Date Performed Result Body Sit e 89503-XBFLOAK NAIL, 6 OR MORE 08/29/2024 N/A 62427-EYHS SKIN LESIONS, 2 TO 4 08/29/2024 N/A 94290-JJMWBAI NAIL, 6 OR MORE 12/02/2024 N/A 64349-SNJZ SKIN LESIONS, 2 TO 4 12/02/2024 N/A Encounters Encounter Location Date Provider Diagnosis [address] [address] 08/29/2024 Melanie Black Poison anish dermatiti s L23.7 ; Atherosclerosis of [place] artery of both lower extremities, with unspecified presence of clinical manifestation I70.203 ; Tinea unguium B35.1 ; Pain in right toe(s) M79.674 ; Pain in left toe(s) M79.675 and Polyneuropathy associated with underlying disease [address] [address] 12/02/2024 Melanie Black Atherosclerosis of [place] artery of both lower extremities, with unspecified presence of clinical manifestation I70.203 ; Tinea unguium B35.1 ; Pain in right toe(s) M79.674 ; Pain in left toe(s) M79.675 and Polyneuropathy associated with underlying disease [address] [place] [address] 02/23/2025 Melanie Black Assessments Encounter Date Diagnosis (ICD Code) Assessment Notes Treatment Notes Treatment Clinical Notes Section Notes 08/29/2024 Poison anish dermatitis (ICD-10 - L23.7) 08/29/2024 Atherosclerosis of [place] artery of both lower extremities, with unspecified presence of clinical manifestation (ICD-10 - I70.203) 12/02/2024 Tinea unguium (ICD-10 - B35.1) 12/02/2024 Atherosclerosis of [place] artery of both lower extremities, with unspecified [...] Treatment Pending Test Test Name Order Date 63463-BJWVPTK NAIL, 6 OR MORE 03/04/2024 11350-VEXGMNS NAIL, 6 OR MORE 06/06/2024 73059-NNJHBUP NAIL, 6 OR MORE 08/29/2024 86106-BFFSFOV NAIL, 6 OR MORE 12/02/2024 80729-Ranxozbi Plate 03/04/2024 52794-Mzyjetcd Plate Each Additional 72791-OYRR SKIN LESIONS, 2 TO 4 03/04/20 24 70415-QERR SKIN LESIONS, 2 TO 4 06/06/20 24 55890-JIZH SKIN LESIONS, 2 TO 4 12/03/19 25 22528-OXKN SKIN LESIONS, 2 TO 4 08/29/19 25 Insurance Providers Payer Name Payer Address Payer Phone Subscriber Number Group Number Insured Name Patient Relationship to Insured Coverage Start Date Coverage End Date [employer] Medicare [id number] [address] [address] [place] [address] [id number] Pavan Kimball Self - patient is the [...]
--- OUTSIDE RECORDS SUMMARY | 2025-07-09 08:36 | XMS_ITS | Patient Health Record ---
Author Organization [facility] Address [address] [place] [address] Care Team Providers Care Plastic Block Boiler Reliner Name Role Phone Po Franco GREER Primary Care Provider Mckinley Aguilar [phone] Allergies Allergen (clinical drug ingredient) Drug/Non Drug [...] Problem Screening for malignant neoplasm of colon (599700253) Encounter for screening for malignant neoplasm of colon (Z12.11) Active confirmed Problem History of adenomatous polyp of colon (613099869) History of adenomatous polyp of colon (Z86.010) Active confirmed Problem Acute posthemorrhagic anemia (565454528) Acute posthemorrhagic anemia (D62) Active confirmed Problem Wallis's esophagus (805650265) Barretts esophagus without dysplasia (K22.70) Active confirmed Problem Gastroesophageal reflux disease (801008362) Gastroesophageal reflux disease, esophagitis presence not specified (K21.9) Active confirmed Problem Long-term current use of antiplatelet drug (122701663541539) Long-term use of aspirin therapy (Z79.82) Active confirmed Problem Erosive esophagitis (37616895) Erosive esophagitis (K22.10) Active confirmed Problem Gastritis (8260730) Gastritis (K29.70) Active c onfirmed Problem Duodenal ulcer without hemorrhage, without perforation AND without obstruction (66031551) Duodenal bulb ulcer (K26.9) Active confirmed Problem Esophageal dysphagia (95707301) Esophageal dysphagia (R13.14) Active confirmed Problem Villous adenoma of colon (762122749) 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) Active confirmed Vital Signs Blood pressure diastolic 77 mm Hg 11/20/2024 Height 69 in 11/20/2024 Blood pressure systolic 111 mm Hg 11/20/2024 Weight 243 lbs 11/20/2024 BMI 35.88 kg/m2 11/20/2024 Encounters Encounter Location Date Provider Diagnosis [facility] [address] [place] [address] 11/20/2024 Mckinley Franco Gastroesophageal ref lux disease, [...] Name:Mckinley Franco , 11/24/2025 09:10:00 AM, [address], [place], [address], Insurance Providers Payer Name Payer Address Payer Phone Subscriber Number Group Number Insured Name Patient Relationship to Insured Coverage Start Date Coverage End Date [facility] [address] [address] [place] [address] [id number] PAVAN GARCIA Self - patient is the insured Medical (General) History Medical History History ICD Code [place] 2013--4 stents placed Hypertension Bladder cancer--treated with [...]
--- OUTSIDE RECORDS SUMMARY | 2025-07-09 08:36 | XMS_ITS | Clinical Summary ---
Author Organization [facility] Address [address] [place] [address] Care Team Providers Care Lithographer Apprentice Name Role Phone Unavailable Primary Care Provider [...] age to complete this topic Insurance [facility]
--- NOTE | 2025-07-09 08:38 | A.OFFPC_ITS ---
Vital Signs 07/09/25 08:40 Height 5 ft 6 in Weight 246 lb BMI 39.7 BP 126/58 L Blood Pressure Location Lt brachial Position Sitting Respiration 20 Pulse 54 Pulse Source Pulse Oximeter Temp 97.5 F Temp Source Temporal Artery Scan Pulse Oximetry (%) 98 Oxygen Delivery Method Room Air Intake Visit Reasons: Annual Exam - see comments Information Assurance Officer Required: No Accompanied by: Self / Same As Patient Allergies streptomycin (STREPTOMYCIN) Allergy (Severe, Verified 07/09/25 08:38) AFFECTED MY HEARING , anaphylaxis, affected hearing/nerves/etc, anxiety. Medication List - Last Reconciled 07/09/25 by Franco Juarez MD acetaminophen ER 1,300 mg PO DAILY ascorbic acid (vitamin C) 100 mg PO DAILY aspirin (Adult Low Dose Aspirin) 81 mg PO DAILY atorvastatin 80 mg PO BEDTIME carvedilol 25 mg PO BID cholecalciferol (vitamin D3) 50 mcg PO DAILY gladys.stocking,knee,reg,smal (T.E.D. Anti-Embolism Stocking) As directed cyanocobalamin (vitamin B-12) ER (Vitamin B-12 ER) 2,500 mcg PO .once a week docusate sodium (Colace) 100 mg PO BID PRN ferrous sulfate (FeroSul) 325 mg PO DAILY finasteride 5 mg PO BEDTIME losartan-hydrochlorothiazide 100-25 mg 1 tab PO DAILY multivitamin 1 tab PO DAILY omeprazole 40 mg PO DAILY Tobacco use date assessed: 04/15/25 Fall risk assessment: No Falls in past year Last assessed Fall Risk: 07/09/25 Dental Screening Dental Screen Date: 04/15/25 HPI HPI Comments History of Present Illness Details History of Present Illness The patient is a 79-year-old obese male presenting for an annual physical examination. His past medical history is significant for coronary artery disease, hypertension, hypercholesterolemia, GERD with Wallis's esophagus, BPH, impaired glucose tolerance, generalized anxiety disorder, and lumbar degenerative disc disease. He has a history of colon cancer in 2017 and is due for a surveillance colonoscopy next year. He has a history of bladder cancer in 2016, for which he underwent a TURBT with stent placement and BCG treatment. He is currently on surveillance with urology and takes finasteride. His blood sugar has been a concern, with a recent fasting glucose of 110 and a hemoglobin A1c that has trended up to 6.0% over the last four years. Recent blood work from July 07 also showed a mildly elevated liver function, normal blood counts with chronic mild thrombocytopenia (platelets 138), and stable renal function. His LDL cholesterol is well-controlled at 51. The patient reports significant weight gain and a sedentary lifestyle, admitting he does not get much exercise. His lack of mobility is attributed to pain, particularly from peripheral neuropathy in both legs and muscle issues, which causes him to feel worn out. He reports consuming muffins and cookies and acknowledges he is not careful with his diet. Health Maintenance The patient is due for a vision exam and was advised to see an eye doctor. His next surveillance colonoscopy is scheduled for next year, and he remains under surveillance with urology for his history of bladder cancer. His immunizations are up to date. A follow-up visit is scheduled in three months to review lab results and progress on lifestyle changes. Social History - Substance use: Denies alcohol use and reports quitting smoking 40 years ago. - Exercise: Reports a sedentary lifestyl e with very little exercise, attributing it to pain, neuropathy, and fatigue. He sometimes walks at a mall during the winter. - Functional status: Mobility is limited by pain. He is unable to put on compression stockings or cut his own toenails due to hip pain. - Nutrition: Acknowledges a diet high in sweets such as muffins and cookies. He drinks at least four bottles of water per day. - Social support: His 1 1 years ago. Results - Laboratory results from July 07: - CBC: Normal blood count with chronic m ild thrombocytopenia (platelet count 138,000/mcL). - CMP: Electrolytes are normal. Renal fu nction is stable at 1.03. Fasting blood glucose is 110 mg/dL. Liver function is mildly elevated. Calcium and magnesium are fine. - Hemoglobin A1c: 6.0%. - Lipid Panel: LDL cholesterol is 51 mg/ dL. HDL cholesterol is low. - Other: Folic acid and thyroid levels a re within normal limits. [facility] Medical History (Updated 07/09/25 @ 08:48 by Franco Juarez MD) Atherosclerotic cardiovascular disease Swelling of right lower extremity Duodenal ulcer Abnormal EKG Hypotension Acute electrocardiogram changes Osteoarthritis of right hip Post-nasal drip Recent bereavement Foreign body in left lower extremity COVID-19 virus infection Amebic dysentery Foreign body of left lower leg Left rotator cuff tear Barretts esophagus Osteoarthritis Peripheral neuropathy Colon cancer Impaired glucose tolerance BPH (benign prostatic hyperplasia) Urinary bladder cancer Obesity GERD (gastroesophageal reflux disease) Hypercholesterolemia Hypertension CAD (coronary artery disease) Surgical History Status post total hip replacement, right (~08/28/23) History of total right hip replacement H/O cardiac catheterization (~2013) Hx of colonoscopy History of partial colectomy History of bladder surgery History of carpal tunnel release Family History Father Heart failure Mother Thyroid disorder Sister Lung cancer Daughter Alcoholism Social History Household Members: Family Housing: House Are you a primary customer care associate to a significant other at home: No Do you presently have visiting nurse or other home services: Yes (PT) Alcohol intake: never Comment: aware of trip hazards 1984 stopped Patient Tobacco Use Status: Former Tobacco user Tobacco use type: Cigarette Years Smoked: 18 stopped 1984 e-Cigarette/Vaping Use: Never Used Second Hand Smoke Exposure: No Advance Directives Date on File: 08/31/23 service: Yes Current occupational status: retired Cognitive needs: No Hearing needs: Yes Vision needs: Yes Questionnaire Thrive Questionnaire Date Thrive assessed: 01/12/25 I am a: Patient What is your living situation today?: I have a steady place to live Within the past 12 months, did the food you bought not last and you didn't have the money to get more?: I choose not to answer this question Within the past 12 months, did you worry whether your food would run out before you got money to buy more?: Never true Do you have trouble paying for medicines?: No Do you have trouble getting transportation to medical appointments?: No Do you have trouble paying your heating and electricity bill?: I choose not to answer this question Do you have trouble taking care of your child, family member or friend?: I choose not to answer this question Do you have trouble with day-to-day activities such as bathing, preparing meals, shopping, managing finances, etc.?: No Are you currently unemployed and looking for a job?: No Are you interested in more education?: No Please select the resources that you would like help with: None Currently or been in a relationship where the following occur: I choose not to answer THRIVE Score: 0 MIKAYLA-7 AMB Questionnaire MIKAYLA-7 Date MIKAYLA - 7 assessed: 10/07/24 Source: Developed by Drs. Mckinley Ahn, Shanna Nice, Monico Pérez and colleagues, with an educational saul from [employer]. Review of Systems Narrative Review of Systems - Constitutional: Reports fatigue and getting tired easily. Denies fever. - HEENT: Reports poor hearing and tinnitus. Denies problems swallowing. Denies syncope but reports dizziness for a few seconds when looking up or turning his head to the right. - Cardiovascular: Denies chest pain, heaviness, or discomfort. Denies waking up short of breath. - Gastrointestinal: Reports occasional acid reflux about every three months. Uses docusate sodium as needed for constipation. Reports a long-standing hemorrhoid that rarely bleeds. Denies nausea or vomiting. - Genitourinary: Reports a weak urinary stream and nocturia 2-3 times per night. - Musculoskeletal: Reports bilateral leg and hip pain that limits his ability to walk. - Neurological: Reports constant peripheral neuropathy in his feet and legs. Reports dizziness with certain head movements. - Sleep: Reports fragmented sleep, occurring in four-hour intervals. Occasiona lly catches himself starting to snore. Const Denies poor appetite and Denies weakness Eyes Denies no additional complaints ENT Reports Normal hearing present, Denies dizziness, Denies nasal congestion, Denies tinnitus and Denies sore throat Card Denies chest pain, Denies syncope, Denies rapid heart rate and Denies dyspnea Resp Denies cough and Denies dyspnea GI Denies change in stool character, Reports constipation, Denies diarrhea, Denies nausea and Denies vomiting Denies dysuria and Denies urinary frequency Neuro Reports Normal hearing present, Denies confusion, Denies dizziness, Denies syncope and Denies weakness Psych Denies confusion Physical exam (Primary Care) Vital Signs: Last Vital Signs Temp 97.5 F 07/09/25 08:40 Pulse 54 07/09/25 08:40 Resp 20 07/09/25 08:40 BP 126/58 L 07/09/25 08:40 Pulse Ox 98 07/09/25 08:40 Oxygen Delivery Method Room Air 07/09/25 08:40 BMI result Body Mass Index 39.7 Tobacco/Smoking Status: Tobacco use Status Tobacco use date assessed 04/15/25 07/09/25 08:46 Patient Tobacco Use Status Former Tobacco user 07/09/25 08:46 Tobacco use type Cigarette 07/09/25 08:46 e-Cigarette/Vaping Use Never Used 07/09/25 08:46 Thrive Assessment: Date of Thrive Assessment Date Thrive assessed 01/12/25 07/09/25 08:46 Currently or been in a relationship where the following occur: I choose not to answer Narrative Physical Exam General: Cooperative, healthy appearing, comfortable, no acute distress and well developed Orientation: Patient oriented x3 Limitations: Limited mobility due to neuropathy and hip pain Head: Normal to inspection Ears: Hearing impaired, tinnitus present Nose: Normal external nose present Face and sinus: Normal facial exam Eyes: Appearance normal, both eyes and all related structures Neck: Normal visual inspection, dizziness when turning head to the right or looking up, full ROM Respiratory: Normal respiratory effort and able to speak in complete sentences. Clear to auscultation bilaterally Cardiovascular: Regular rate and rhythm. Normal S1 and S2 GI: Normal to inspection. Soft to palpation and nontender. Large hemorrhoid noted Skin: No rashes or lesions noted Neuro: Patient oriented x3 Extremities: Normal to inspection, neuropathy in both legs, venous stasis dermatitis noted Const General: No confusion Orientation/consciousness: No confusion HENCO Head: Yes normocephalic Ears: external ears normal and TM's normal bilaterally Face and sinus: Yes normal facial exam Mouth: moist mucous membranes Throat: Yes tonsils normal Eyes Conjunctivae: conjunctivae normal Pupils: Equal, round and reactive pupils present and Pupil accommodation reflex normal Direct Ophthalmoscopy: normal light reflex Neck Neck: No lymphadenopathy Thyroid: Thyroid normal Chest Chest palpation & inspection: normal inspection of the chest Resp Effort & Inspection: normal respiratory effort and no audible wheezes Auscultation: clear to auscultation bilaterally, no crackles, no wheezes and lung sounds not diminished Cardio Rate: regular rate Rhythm: regular rhythm Peripheral pulses: radial pulses present and dorsalis pedis present GI Other: guaiac negative prostate N Palpation (GI): no masses Auscultation: normal bowel sounds and normoactive bowel sounds Male General Exam: Yes normal external exam Skin General skin exam: no rashes or lesions noted Rashes: no rashes Neuro General: No confusion Cranial nerves: Yes Equal, round and reactive pupils present and Yes Normal hearing present Cognition (Neuro): normal cognition Gait exam (Neuro): Normal gait present Motor exam (neuro): 5/5 motor strength present throughout Deep tendon reflexes (DTR's): Right brachioradialis reflex intensity grade: 2+, Left brachioradialis reflex intensity grade: 2+, Right patellar reflex intensity grade: 2+ and Left patellar reflex intensity grade: 2+ Extrem General: No edema Coding Level of Care Code Est Pt Prev Care >65y(91184) Diagnoses Annual physical exam Z00.00 Impaired glucose tolerance R73.02 Obesity due to excess calories with serious comorbidity, unspecified class E66.09 Obesity classification: unspecified obesity classification Obesity type: due to excess calories Serious obesity comorbidity presence: with serious comorbidity Hypercholesterolemia E78.00 Coronary artery disease involving [place] coronary artery of [place] heart without angina pectoris I25.10 Associated angina: without angina Coronary Disease-Associated Artery/Lesion type: [place] artery [place] vs. transplanted heart: [place] heart Essential hypertension I10 Hypertension type: essential hypertension LFT elevation R79.89 Generalized anxiety disorder F41.1 Wallis's esophagus without dysplasia K22.70 Wallis's esophagus type: without dysplasia Malignant neoplasm of colon, unspecified part of colon C18.9 Colon location: unspecified part of colon Urinary bladder cancer C67.9 Assessment & Plan Assessment & Plan (1) Annual physical exam: Code(s): Z00.00 - Encounter for general adult medical examination without abnormal findings Category: Medical Plan: Patient is advised to eat healthy, keep well hydrated, keep active and have adequate sleep. (2) Impaired glucose tolerance: Code(s): R73.02 - Impaired glucose tolerance (oral) Category: Medical Plan: Decrease the amount of carbohydrate intake, pasta, bread, rice and potatoes are all sugar and that is aside from all the sweet stuff, remember that fruits are good but they are Sweet also. (3) Obesity: Code(s): E66.9 - Obesity, unspecified Category: Medical Qualifiers: Obesity classification: unspecified obesity classification Obesity type: due to excess calories Serious obesity comorbidity presence: with serious comorbidity Qualified Code(s): E66.09 - Other obesity due to excess calories Plan: Diet and exercise (4) Hypercholesterolemia: Code(s): E78.00 - Pure hypercholesterolemia, unspecified Category: Medical Plan: Avoid fried foods, chicken skin, eggs, butter margarine, pastries and meat. Be it pork or beef they have a lot of cholesterol LDL goal of less than 70 and triglyceride of less than 150 on atorvastatin 80 mg once a day (5) CAD (coronary artery disease): Comment: MRI stent x3(LAD, OM, RCA) April and June 2014 [facility] [place] Elle burris echo 08/2023The left ventricular systolic function is hyperdynamic. The visually estimated ejection fraction is >70%. - No obvious valvular pathology seen on this study. Code(s): I25.10 - Atherosclerotic heart disease of [place] coronary artery without angina pectoris Category: Medical Qualifiers: Associated angina: without angina Coronary Disease-Associated Artery/Lesion type: [place] artery [place] vs. transplanted heart: [place] heart Qualified Code(s): I25.10 - Atherosclerotic heart disease of [place] coronary artery without angina pectoris Plan: Control the cholesterol, weight, blood pressure, continuing with aspirin 81 mg once a day (6) Hypertension: Code(s): I10 - Essential (primary) hypertension Category: Medical Qualifiers: Hypertension type: essential hypertension Qualified Code(s): I10 - Essential (primary) hypertension Plan: Continue with blood pressure medication. Decrease salt intake and exercise on carvedilol 25 mg twice a day losartan hydrochlorothiazide 100/25 once a day (7) LFT elevation: Code(s): R79.89 - Other specified abnormal findings of blood chemistry Category: Medical Plan: Patient is advised to get an ultrasound of the liver and hepatitis profile (8) Generalized anxiety disorder: Code(s): F41.1 - Generalized anxiety disorder Category: Medical Plan: Stable (9) Barretts esophagus: Code(s): K22.70 - Wallis's esophagus without dysplasia Category: Medical Qualifiers: Wallis's esophagus type: without dysplasia Qualified Code(s): K22.70 - Wallis's esophagus without dysplasia Plan: Avoid the foods that causes that usually spicy foods, tomato products, juices, coffee, soda and foods that your sensitive to. After eating do not lie down, allow 3-4 hours before in lie down. And keep the head of bed above 30 degrees to avoid the acid from going up. 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 munoz BCG May 2016, urine cytology January 21 1019-August 2019 Code(s): C67.9 - Malignant neoplasm of bladder, unspecified Category: Medical Plan: Patient is under cystoscopy surveillance under urology patient has been placed on finasteride Plan Plan Patient was informed and verbally consented to the use of an ambient scribe for clinic note documentation during this visit. 1. Elevated Liver Enzymes An ultrasound of the liver and a hepatitis profile will be ordered to evaluate the mildly elevated liver enzymes, with fatty liver disease being the most common cause. The patient was counseled on lifestyle modifications, including diet and exercise, to prevent progression to cirrhosis. 2. Prediabetes The patient's hemoglobin A1c has trended up to 6.0%. He was strongly encouraged to modify his diet by reducing sweets and carbohydrates and to increase physical activity to burn calories. Blood sugar levels will be rechecked with blood work in three months. 3. Peripheral Neuropathy And Venous Insufficiency The primary management strategy is to increase physical activity to improve circulation, which helps manage venous stasis and neuropathy symptoms. Pneumatic compression devices were discussed as a potential alternative to compression stockings, which the patient finds uncomfortable and difficult to use. 4. Hypertension And Hyperlipidemia The patient's blood pressure and LDL cholesterol are well-controlled. He will continue his current medication regimen, including losartan-hydrochlorothiazide 100/25 mg daily, carvedilol 25 mg twice daily, and atorvastatin 80 mg daily. Discussion Notes I reviewed the patient's recent lab results with him, highlighting the mildly elevated liver enzymes and the upward trend in his hemoglobin A1c to 6.0%. I explained that the most common cause of elevated liver enzymes is fatty liver, and I ordered an ultrasound of the liver and a hepatitis profile to investigate further. I emphasized that while his blood sugar is not in the diabetic range yet, it is increasing, and that lifestyle changes are critical to prevent progression to diabetes and cirrhosis. We had an extensive discussion about the importance of diet and exercise. I counseled him that he needs to increase his physical activity to improve circulation in his legs, manage his weight, and help control his blood sugar, explaining that he must be responsible for burning off any indulgent foods he chooses to eat. I reviewed his current medications, and he confirmed his adherence. I performed a physical exam, including a rectal exam for which he provided consent. I informed him that we will repeat his blood work in three months and follow up at that time to review the results and his progress. Patient Instructions - An ultrasound of your liver has been ordered. The imaging center will call you to schedule the appointment. - Please get blood work done in about three months, before your next visit. This will recheck your liver function and blood sugar. - Focus on eating a healthy diet. This includes more vegetables, fish, and chicken (not fried). Limit desserts and sugary foods like muffins and cookies. - You must increase your physical activity. The goal is to move your body every day. This is very important for your circulation, blood sugar, and overall health. - Continue to take all your current medications as prescribed by your doctors. - You are due for an eye exam. Please schedule an appointment with an eye doctor. - You have a follow-up appointment in our office in three months. - During flu and cold season, please be careful to stay away from people who are coughing or sneezing. Orders: Orders Hemoglobin A1c 3 Months Franco Juarez MD R73.02 - Impaired glucose tolerance (oral) Liver Panel Today Franco Juarez MD R79.89 - Other specified abnormal findings of blood chemistry Hepatitis B,C Profile 3 Months Franco Juarez MD R79.89 - Other specified abnormal findings of blood chemistry US abdomen complete Today Franco Juarez MD R79.89 - Other specified abnormal findings of blood chemistry Comprehensive Met. Panel 3 Months Franco Juarez MD R73.02 - Impaired glucose tolerance (oral) Medications: Changed From docusate sodium (Colace) 100 mg PO BID 90 days 180 caps 0RF To docusate sodium (Colace) 100 mg PO BID PRN Bridgette Worthington PA-C
[2025-07-09 08:40] VITALS: BP 126/58; PULSE 54; RESP 20; TEMP 36.4; O2SAT 98; BMI 39.7
== END 2025-07-09 09:26 | disposition home or self-care (01) ==
LOC: HO.HMCH 08:20
PROVIDERS: PCP Internal Medicine; Visit Provider Internal Medicine
DX: Z00.00 Encounter for general adult medical examination without abnormal findings (principal); C18.9 Malignant neoplasm of colon, unspecified; C67.9 Malignant neoplasm of bladder, unspecified; E66.09 Other obesity due to excess calories; Z68.39 Body mass index [BMI] 39.0-39.9, adult; R73.02 Impaired glucose tolerance (oral); E78.00 Pure hypercholesterolemia, unspecified; I25.10 Atherosclerotic heart disease of native coronary artery without angina pectoris; I10 Essential (primary) hypertension; R79.89 Other specified abnormal findings of blood chemistry; F41.1 Generalized anxiety disorder; K22.70 Barrett's esophagus without dysplasia

== ENCOUNTER → 2025-07-09 08:19 | Outpatient (BNVA) | payer MEDICARE, SELFPAY | PROVIDERS: PCP Internal Medicine; Visit Provider Internal Medicine | DX: Z00.00 Encounter for general adult medical examination without abnormal findings (principal); R73.02 Impaired glucose tolerance (oral); E66.09 Other obesity due to excess calories; E78.00 Pure hypercholesterolemia, unspecified; I25.10 Atherosclerotic heart disease of native coronary artery without angina pectoris; I10 Essential (primary) hypertension; R79.89 Other specified abnormal findings of blood chemistry; F41.1 Generalized anxiety disorder; K22.70 Barrett's esophagus without dysplasia; C18.9 Malignant neoplasm of colon, unspecified; C67.9 Malignant neoplasm of bladder, unspecified | CPT/HCPCS: 99397 ==